=== PATIENT | male | born 1955 | race Caucasian/White ===

== ENCOUNTER 2017-04-29 12:01 | Outpatient (CLI) | payer OTHER ==
[2017-04-29] MEDS ORDERED: Iopamidol 370 76% 100 ML VIAL ONE (13:18)
--- NOTE | 2017-04-29 15:21 | CT ---
CT CHEST WITH CONTRAST CT ABDOMEN WITH CONTRAST CT PELVIS WITH CONTRAST: Date: 04/29/17 HISTORY: C61, malignant neoplasm of prostate. C79.5, malignant neoplasm of bone. COMPARISON: CT chest dated 09/04/16. CT abdomen/pelvis dated 04/19/16. FINDINGS: There is a 10.0 mm nodule in the right lower lobe. This is similar to the comparison examination. No new pulmonary nodule. No confluent air space consolidation, pneumothorax, or effusion. There is a small, likely tracheal diverticulum in the upper neck. Small AP window lymph nodes are similar to the comparison examination. No new adenopathy of the chest . Thyroid is unremarkable. No pericardial effusion. Spleen is unremarkable. Pancreas is unremarkable. There is diverticulum second portion of duodenum. Liver is unremarkable. Portal vein is patent. The gallbladder is normal. No dilated loops of large or small bowel. No free intraperitoneal gas or fluid. Small, fat-containing right-sided indirect inguinal hernia. Extensive atherosclerotic plaque throughout the aorta. No retroperitoneal adenopathy. Small right obturator lymph node is similar. No internal iliac adenopathy. The adrenal glands are unremarkable. There is a hypodensity of the interpolar right kidney which now measures up to 20.0 mm, previously 14 .0 mm in 2016, and is heterogeneous. There is moderate degenerative disc space height loss at L5-S1. Moderate facet arthropathy L4-5. Old right posterior 7th, 8th, and 9th rib fractures, with 8th and 9th rib fractures having some incom plete union. There are also some right lateral 8th, 9th, and 10th rib fractures, chronic. Old left 6th, 7th, and 8th rib fractures. No hyperacute fracture is seen. There is a relatively acute left posterior 11th rib fracture. There is some early callus formation around this fracture. No suspicious osteoblastic or osteolytic lesions. IMPRESSION: 1. No evidence of metastatic disease in chest, abdomen, or pelvis. 2. Mild size increase heterogeneous mass interpolar right kidney, now measuring up to 20.0 mm, which was previously poorly defined on the prior examinations. Dedicated renal protocol MRI of abdomen is recommended. 3. Relatively acute left posterolateral 11th rib fracture. 4. No interval size increase in the right lower lobe 7.0 mm nodule. CODE T. POS: [facility]
--- NOTE | 2017-04-29 19:07 | NM ---
WHOLE BODY BONE SCAN 04/29/17 COMPARISON: 10/18/16. HISTORY: History of prostate cancer. Evaluate for osseous metastatic disease. TECHNIQUE: A whole body bone scan is performed after administration of 27 millicuries of technetium 99m MDP. FINDINGS: There is stable uptake of the radiopharmaceutical within multiple posterior ribs which likely represe nt rib fractures. There is stable uptake in the upper sternum. There is stable uptake in the right gr eat toe near the metatarsophalangeal joint which likely represents degenerative change. Uptake in the spine is likely secondary to degenerative change. No suspicious areas of increased or decreased upta ke of the radiopharmaceutical are seen. Soft tissue activity is unremarkable. IMPRESSION: Stable bone scan without definite evidence of osseous metastases. POS: [facility]
== END 2017-04-29 12:02 | disposition home or self-care (01) ==
LOC: CT 12:01
PROVIDERS: ATTEND Internal Medicine Medical Oncology
DX: C61 Malignant neoplasm of prostate (principal); C79.51 Secondary malignant neoplasm of bone; N28.89 Other specified disorders of kidney and ureter
CPT/HCPCS: 71260; 74177; 78306; A9503

== ENCOUNTER 2017-05-11 09:01 | Outpatient (CLI) | payer OTHER ==
[~2017-05-11 09:01] MED LIST: Magnevist 469MG/ML 20 ML VIAL ONE
--- NOTE | 2017-05-11 13:30 | MRI ---
MRI ABDOMEN WITH AND WITHOUT IV CONTRAST: HISTORY: Right kidney masses on CT scan of 04/29/2017. FINDINGS: The liver, spleen, pancreas, adrenal glands, left kidney, and gallbladder appear normal. There are t wo lesions in the right kidney, measuring 1 cm superiorly and 1.5 cm in the right mid cortex, with lo w T1 signal, high T2 signal, and no postcontrast enhancement. These are consistent with cysts. There are prominent lymph nodes in the right retrocrural region with high T2 signal and post contrast enhancement, measuring 17 mm in largest dimension. No abdominal lymphadenopathy is seen. There is no evidence of aneurysmal dilatation of the abdominal aorta. Bone marrow signal is normal. IMPRESSION: Right renal cysts. POS: [facility]
== END 2017-05-11 09:02 | disposition home or self-care (01) ==
LOC: SCSMRI 09:01
PROVIDERS: ATTEND Internal Medicine Medical Oncology
DX: C79.51 Secondary malignant neoplasm of bone (principal); C61 Malignant neoplasm of prostate; N28.1 Cyst of kidney, acquired
CPT/HCPCS: 74183; A9579

== ENCOUNTER 2017-09-17 20:38 | Emergency (ER) | payer OTHER ==
[2017-09-17 21:06] LABS: Bilirubin Negative (Negative); Blood, Urine Negative (Negative); Clarity CLEAR (Clear); Glucose, Urine (Dipstick) Negative (Negative); Leukocyte Negative (Negative); Nitrite Negative (Negative); Protein, Urine (Dipstick) Negative (Neg-Trace); Specific Gravity, Urine 1.004 (1.002-1.036); Urobilinogen 0.2 mg/dL (0.2-1.0); pH, Urine 5.5 (5.0-9.0)
[2017-09-17 21:25] LABS: Amphetamine Not Detected (NotDetected); Barbiturates Screen Not Detected (NotDetected); Benzodiazepine Screen Not Detected (NotDetected); Cocaine Metabolite Screen Not Detected (NotDetected); Medtox Control Line Valid? VALID (VALID); Medtox Reader # READER 1; Methadone Not Detected (NotDetected); Methamphetamine Not Detected (NotDetected); Opiate Screen Not Detected (NotDetected); Oxycodone Screen Not Detected (NotDetected); Phencyclidine (PCP) Not Detected (NotDetected); THC/Cannabinoid Screen Not Detected (NotDetected); Tricyclic Screen Not Detected (NotDetected)
[2017-09-17 21:31] LABS: #Basophils 0.1 thou/uL (0.0-0.2); #Eosinphils 0.2 thou/uL (0.0-0.7); #Lymphocytes 1.7 thou/uL (1.20-3.40); #Monocytes 0.3 thou/uL (0.11-0.59); %Basophils 1.3 % (0.0-1.0); %Eosinophils 3.1 % (0.0-10.0); %Lymphocytes 27.8 % (21.0-51.0); %Monocytes 4.6 % (0.0-10.0); %Neutrophils 63.2 % (42.0-75.0); Hemoglobin 14.1 g/dL (14.0-18.0); Mean Corpuscular HGB CONC 36.2 g/dL (32.0-36.0); Mean Corpuscular Hemoglobin 36.9 pg (27.0-31.0); Mean Platelet Volume 6.3 fL (7.4-10.4); Platelet Count 211 thou/uL (130-400); RBC Distribution Width 11.6 % (11.5-14.5); Red Blood Cell (RBC) Count 3.81 mill/uL (4.70-6.10); White Blood Cell (WBC) Count 6.3 thou/uL (4.8-10.8)
[2017-09-17 21:44] LABS: ALT (SGPT) 20 U/L (8-55); AST (SGOT) 25 U/L (5-34); Acetaminophen Less than 6.0 mcg/mL (10.0-30.0); Albumin 4.1 g/dL (3.5-5.0); Alcohol 96 mg/dL (Less than 10); Alkaline Phosphatase 62 U/L (40-150); Anion Gap 16 mmol/L (10-20); BUN (Urea Nitrogen) 10 mg/dL (8.4-25.7); Bilirubin, Total 0.2 mg/dL (0.2-1.2); CK (CPK) 106 U/L (30-200); Calc. Creatinine Clearance 0 mL/min (70-130); Calcium 9.1 mg/dL (7.8-10.44); Carbon Dioxide 18 mmol/L (22-29); Chloride 108 mmol/L (98-107); Estimated GFR-MDRD Greater than 90; Glucose 99 mg/dL (70-105); Protein, Total 7.1 g/dL (6.0-8.3); Salicylate Less than 8.0 mg/dL (15.0-30.0); Sodium 138 mmol/L (136-145)
--- NOTE | 2017-09-17 23:12 | RAD ---
PORTABLE CHEST ONE VIEW: 09/17/17 at 9:14 p.m. HISTORY: Chest pain, COPD, shortness of breath. FINDINGS: Comparison made to exam of 11/27/16. The heart size is normal. Changes of COPD are again seen. Old right sided rib fractures are demonstra matt. No lobar consolidation, pneumothoraces or pleural effusions are identified. Old rib fractures ar e again seen. IMPRESSION: No radiographic evidence of acute cardiopulmonary process. POS: [facility]
[2017-09-18] MEDS ORDERED: Amlodipine 5 MG TAB PO SCH (08:30)
[2017-09-18] MEDS ORDERED: Aspirin 81 mg Enteric Coated Tablet ONE (08:46)
[2017-09-18] MEDS ORDERED: Nicotine 14 MG PATCH TOP SCH (09:00)
[2017-09-18] MEDS ORDERED: Gabapentin 300 MG CAP PO SCH (09:00)
[2017-09-18] MEDS ORDERED: HYDROcodone/Acetaminophen 5/325 mg Tablet ONE (15:06)
[2017-09-20] MEDS ORDERED: traZODone HCl 50 MG TAB PO PRN (00:16)
[2017-09-20] MEDS ORDERED: Amlodipine 5 MG TAB PO SCH (07:30)
[2017-09-20] MEDS ORDERED: Gabapentin 300 MG CAP PO SCH (07:30)
[2017-09-21] MEDS ORDERED: Amlodipine 5 MG TAB PO SCH (07:45)
== END 2017-09-21 16:58 ==
LOC: ERS 20:38
DX: R45.851 Suicidal ideations (principal); J44.9 Chronic obstructive pulmonary disease, unspecified; I10 Essential (primary) hypertension; F32.9 Major depressive disorder, single episode, unspecified; F41.9 Anxiety disorder, unspecified; F17.210 Nicotine dependence, cigarettes, uncomplicated; Z85.46 Personal history of malignant neoplasm of prostate; Z85.45 Personal history of malignant neoplasm of unspecified male genital organ; Z85.028 Personal history of other malignant neoplasm of stomach; Z79.82 Long term (current) use of aspirin; Z79.899 Other long term (current) drug therapy
CPT/HCPCS: 36415; 71045; 80053; 80306; 80307; 81003; 82550; 84443; 85025; 93005; 94760

== ENCOUNTER 2017-10-20 09:09 | Outpatient (CLI) | payer OTHER ==
--- NOTE | 2017-10-20 14:16 | NM ---
WHOLE BODY BONE SCAN: HISTORY: A 62-year-old male with malignant neoplasm of the prostate. COMPARISON: 04/29/2017 FINDINGS: There are stable multiple foci of abnormal increased activity involving multiple right ribs and at le ast one left rib, as well as a small stable focus in the right posterior neck and left mandible regio n. There is also stable increased activity in the feet, ankles, and shoulders. There is bilateral r enal and bladder activity. IMPRESSION: 1. Stable appearance of the bony skeleton. 2. Multiple focal areas of increased activity involving the ribs, right posterior neck, left mandible , feet and ankle regions, and both shoulders, unchanged from prior study. POS: [facility]
== END 2017-10-20 09:10 | disposition home or self-care (01) ==
LOC: NM 09:09
PROVIDERS: ATTEND Internal Medicine Medical Oncology
DX: C61 Malignant neoplasm of prostate (principal)
CPT/HCPCS: 78306; A9503

== ENCOUNTER 2017-10-30 17:12 | Inpatient (IN) | payer OTHER ==
[2017-10-30 17:53] LABS: Hemoglobin 15.3 g/dL (14.0-18.0); Mean Corpuscular HGB CONC 34.1 g/dL (32.0-36.0); Mean Corpuscular Hemoglobin 35.7 pg (27.0-31.0); Platelet Count 284 thou/uL (130-400); Red Blood Cell (RBC) Count 4.28 mill/uL (4.70-6.10); White Blood Cell (WBC) Count 7.1 thou/uL (4.8-10.8)
--- NOTE | 2017-10-30 18:01 | RAD ---
FRONTAL VIEW CHEST SERIES: INDICATIONS: Short of breath. Dizziness. COMPARISON: 09/17/2017 FINDINGS: Redemonstration of bilateral chronic rib deformities. No new consolidation or effusion. No discrete pneumothorax. The cardiac silhouette is normal in size. IMPRESSION: 1. No focal consolidation. 2. Chronic bilateral rib deformities. POS: [facility]
[2017-10-30 18:11] LABS: ALT (SGPT) 15 U/L (8-55); AST (SGOT) 22 U/L (5-34); Albumin 4.4 g/dL (3.5-5.0); Alkaline Phosphatase 64 U/L (40-150); Anion Gap 19 mmol/L (10-20); BUN (Urea Nitrogen) 13 mg/dL (8.4-25.7); Bilirubin, Total 0.3 mg/dL (0.2-1.2); CK (CPK) 108 U/L (30-200); Calc. Creatinine Clearance 0 mL/min (70-130); Calcium 9.3 mg/dL (7.8-10.44); Carbon Dioxide 20 mmol/L (22-29); Chloride 103 mmol/L (98-107); Estimated GFR-MDRD Greater than 90; Globulin 3.1 g/dL (2.4-3.5); Glucose 94 mg/dL (70-105); Potassium 3.6 mmol/L (3.5-5.1); Protein, Total 7.5 g/dL (6.0-8.3); Sodium 138 mmol/L (136-145)
[2017-10-30 18:15] LABS: CKMB 1.7 ng/mL (0-6.6); Troponin I Less than 0.010 ng/mL (< 0.028)
[2017-10-30 18:22] LABS: #Basophils 0.1 thou/uL (0.0-0.2); #Eosinphils 0.2 thou/uL (0.0-0.7); #Monocytes 0.5 thou/uL (0.11-0.59); #Neutrophils 4.3 thou/uL (1.40-6.50); %Eosinophils 3.5 % (0.0-10.0); %Lymphocytes 28.7 % (21.0-51.0); %Monocytes 6.7 % (0.0-10.0); %Neutrophils 60.1 % (42.0-75.0); PLT Morphology Comment Appears Adequate
[2017-10-30] MEDS ORDERED: methylPREDNISolone Sod Succ/PF 125 MG/2 ML VIAL ONE (19:12)
[2017-10-30] MEDS ORDERED: Water For Inject, Bacteriostat 0 ML ONE (19:12)
[2017-10-30] MEDS ORDERED: Magnesium Sulfate 2 GM in Sodium Chloride 0.9% 100 ML IVPB SCH (19:15)
[2017-10-30] MEDS ORDERED: Albuterol Sulfate 2.5 mg/0.5 ml Neb ONE (19:26)
[2017-10-30] MEDS ORDERED: Albuterol Sulfate 2.5 mg/3 ml Neb ONE (19:26)
[2017-10-30] MEDS ORDERED: Azithromycin 500 MG VIAL ONE (20:12)
[2017-10-30 21:20] LABS: Troponin I Less than 0.010 ng/mL (< 0.028)
[2017-10-30] MEDS ORDERED: cefTRIAXone\\ROCEPHIN 2 GM VIAL ONE (21:49)
[2017-10-30] MEDS ORDERED: Ondansetron PF 4 MG/2 ML Vial IVP PRN (21:54)
[2017-10-30] MEDS ORDERED: Acetaminophen 325 MG TAB PO PRN (21:54)
[2017-10-30] MEDS ORDERED: TRAMADOL HCL 200 MG PO PRN (22:03)
[2017-10-30 22:44] VITALS: BMI 27.1
[2017-10-31 00:15] LABS: Troponin I Less than 0.010 ng/mL (< 0.028)
[2017-10-31] MEDS: HYDROcodone/Acetaminophen 7.5/325 mg Tablet PO PRN ×4 (00:35→21:22)
--- NOTE | 2017-10-31 02:49 | HP ---
CODE STATUS: FULL CODE. TIME OF EVALUATION: 08:30 p.m. CHIEF COMPLAINT: Worsening shortness of breath. HISTORY OF PRESENT ILLNESS: This is a 62-year-old male patient with past medical history of COPD, came to the hospital with severe gradually worsening shortness of breath, associated with cough, scant sputum production. No clear triggers, no alleviating factors. REVIEW OF SYSTEMS: Constitutional: No fever, no chills, generalized weakness. Respiratory: Cough, sputum production, shortness of breath. Cardiovascular: No chest pain, palpitations, or shortness of breath. Gastrointestinal: No nausea, no vomiting, diarrhea or abdominal pain. SENIOR TAX ACCOUNTANT: No dizziness, headache or feeling lightheaded. Genitourinary: No burning on urination. Extremities: No leg swelling. All other systems reviewed were negative except for the findings mentioned above. PAST MEDICAL HISTORY: COPD, right femur fracture, hepatitis C, prostate cancer. PAST SURGICAL HISTORY: Hip surgery, testicular surgery, perforated bowel, . PSYCHIATRIC HISTORY: Anxiety, depression. SOCIAL HISTORY: No alcohol, no drugs. The patient uses marijuana and smokes cigarettes 1 pack per day. FAMILY HISTORY: Reviewed and noncontributory for current presentation. ALLERGIES: No known drug allergies. REPORTED MEDICATIONS: Trazodone, sertraline, amlodipine, gabapentin, aspirin, and tramadol. PHYSICAL EXAMINATION: VITAL SIGNS: On presentation, blood pressure 120/78 with heart rate 85, respiratory rate was 20, temperature 98.2, pain 7/10, oxygen saturation 98 on room air. The patient did have a drop in saturation on initial presentation with saturation less than 90 on room air. GENERAL APPEARANCE: The patient is alert and oriented, not in any acute distress. HEENT: Eyes: Normal conjunctivae. Moist oral mucosa. Anicteric. NECK: No JVD. RESPIRATORY: Bilateral air entry is decreased, bilateral wheezing, symmetric expansion. CARDIOVASCULAR: Normal rate, regular rhythm. No murmurs, no gallop, no edema. ABDOMEN: Soft, normal bowel sounds. MUSCULOSKELETAL: Baseline range of motion and strength. No tenderness. SKIN: Warm and intact. No pallor, no rash, no redness. NEUROLOGIC: Baseline sensory. No evidence of any new focal weakness. Baseline speech. Cranial nerves seem to be intact. PSYCHIATRIC: The patient is in good mood. No anxiety, oriented, optimal judgment. EKG: The patient has normal sinus rhythm with a rate of 82, SC 188, QRS 86, QT corrected 439. Septal infarct, age undetermined, ST and T-wave abnormalities, consider inferior ischemia. RADIOLOGY: X-ray was reviewed bilateral chronic rib deformities, no consolidation, no pneumothorax. LABORATORY DATA: Labs were reviewed. White count 7.1, hemoglobin 15.3, MCV 105 , platelet count 284. Chemistry: Sodium 138, potassium 3.6, chloride 103, carbon dioxide 20, anion gap 19, BUN 13, creatinine 0.8, GFR greater than 90, glucose 94, calcium 9.3, total bilirubin 0.3. LFTs are negative. Troponins are negative x2. ASSESSMENT AND PLAN: The patient will be placed in the hospital with following medical problems: 1. Severe acute on chronic obstructive pulmonary disease exacerbation with hypoxic respiratory failure on room air, the patient needing oxygen support to keep saturation above 90. We will treat with nebs, steroids, and antibiotics. 2. Acute hypoxic respiratory failure. The patient has saturation below 90 on room air on presentation, continue oxygen support, we will treat underlying condition. 3. History of hepatitis C, this is chronic, stable, monitor. 4. Deep venous thrombosis prophylaxis. MTDD
[2017-10-31 03:37] LABS: #Basophils 0.1 thou/uL (0.0-0.2); #Lymphocytes 0.3 thou/uL (1.20-3.40); #Neutrophils 6.3 thou/uL (1.40-6.50); %Basophils 1.2 % (0.0-1.0); %Eosinophils 0.3 % (0.0-10.0); %Lymphocytes 3.8 % (21.0-51.0); %Monocytes 0.3 % (0.0-10.0); %Neutrophils 94.3 % (42.0-75.0); Hemoglobin 14.2 g/dL (14.0-18.0); Mean Corpuscular HGB CONC 33.5 g/dL (32.0-36.0); Mean Platelet Volume 6.7 fL (7.4-10.4); Platelet Count 253 thou/uL (130-400); RBC Distribution Width 12.8 % (11.5-14.5); Red Blood Cell (RBC) Count 4.07 mill/uL (4.70-6.10); White Blood Cell (WBC) Count 6.7 thou/uL (4.8-10.8)
[2017-10-31 03:45] LABS: Anion Gap 17 mmol/L (10-20); BUN (Urea Nitrogen) 15 mg/dL (8.4-25.7); Calc. Creatinine Clearance 104 mL/min (70-130); Calcium 9.1 mg/dL (7.8-10.44); Carbon Dioxide 18 mmol/L (22-29); Chloride 106 mmol/L (98-107); Estimated GFR-MDRD 84; Glucose 207 mg/dL (70-105); Sodium 137 mmol/L (136-145)
[2017-10-31 03:48] LABS: Troponin I Less than 0.010 ng/mL (< 0.028)
[2017-10-31] MEDS ORDERED: Senokot 8.6 MG TAB PO PRN (07:13)
[2017-10-31] MEDS ORDERED: Chloraseptic Spray 180 ml Bottle PO PRN (07:13)
[2017-10-31] MEDS ORDERED: Milk Of Magnesia 30 ML UDCUP PO PRN (07:13)
[2017-10-31] MEDS ORDERED: traMADol HCl 50 MG TAB PO PRN (07:13)
[2017-10-31] MEDS ORDERED: Ondansetron ODT 4 MG TAB PO PRN (07:13)
[2017-10-31] MEDS ORDERED: Sodium Chloride 0.65% Nasal 44 ML BOT EA NARE PRN (07:13)
[2017-10-31] MEDS ORDERED: Loperamide HCl 2 MG CAP PO PRN (07:13)
[2017-10-31] MEDS ORDERED: Loratadine 10 MG TAB PO PRN (07:13)
[2017-10-31] MEDS ORDERED: Mag-Al 1200 mg/1200 mg/30 ML UDCUP PO PRN (07:13)
[2017-10-31] MEDS ORDERED: Diabetic Tussin 200 MG/10 ML UDCUP PO PRN (07:13)
[2017-10-31] MEDS ORDERED: Zolpidem Tartrate 5 MG TAB PO PRN (07:13)
[2017-10-31] MEDS ORDERED: HYDROcodone/Acetaminophen 5/325 mg Tablet PO PRN (07:13)
[2017-10-31] MEDS ORDERED: Eucerin (Mineral Oil/Petrolatum,White) 30 gm Jar TOP PRN (07:13)
[2017-10-31] MEDS ORDERED: Benzonatate 100 MG CAP PO PRN (07:13)
[2017-10-31] MEDS ORDERED: Artificial Tears 18 DROP/0.9 ML EA EYE PRN (07:13)
[2017-10-31] MEDS ORDERED: hydrALAZINE 20 MG/ML VIAL SLOW IVP PRN (07:13)
[2017-10-31] MEDS: Famotidine 20 MG TAB PO SCH ×2 (09:01→21:22)
[2017-10-31] MEDS: Aspirin 81 mg Enteric Coated Tablet PO SCH (09:01)
[2017-10-31] MEDS: Enoxaparin Sodium 40 MG/0.4 ML SYRINGE SC SCH (09:01)
[2017-10-31] MEDS: Amlodipine 5 MG TAB PO SCH (09:01)
--- NOTE | 2017-10-31 12:26 | PDOC.PN ---
- Subjective Encounter Start Date: 10/31/17 Encounter Start Time: 08:30 -: old records requested/rev Patient seen and examined. No new complaints. No overnight events has rib cage pain, dyspnea improving, he is on room air he gets hot flushes - Objective Resuscitation Status: Resuscitation Status FULL:Full Resuscitation MAR Reviewed: Yes Vital Signs & Weight: Vital Signs (12 hours) Temp Pulse Resp BP Pulse Ox 10/31/17 10:42 85 16 97 10/31/17 09:01 81 10/31/17 08:05 98.2 F 81 20 161/84 H 94 L 10/31/17 07:56 87 18 97 10/31/17 04:00 97.8 F 79 18 138/60 98 10/31/17 02:10 90 18 98 10/31/17 00:41 97.9 F 80 24 H 132/77 98 Weight Weight 189 lb 4.8 oz Result Diagrams: 10/31/17 03:16 10/31/17 03:16 Radiology Reviewed by me: Yes (chest xray reviewed by me) EKG Reviewed by me: Yes (nsr) Phys Exam - Physical Examination Constitutional: NAD HEENT: PERRLA, moist MMs, sclera anicteric Neck: no JVD, supple Respiratory: no rales, wheezing present Cardiovascular: RRR, no significant murmur, no rub Gastrointestinal: soft, non-tender, no distention, positive bowel sounds Musculoskeletal: no edema, pulses present Neurological: non-focal, normal sensation, moves all 4 limbs Psychiatric: normal affect, A&O x 3 Skin: no rash, normal turgor Dx/Plan (1) COPD exacerbation Code(s): J44.1 - CHRONIC OBSTRUCTIVE PULMONARY DISEASE W (ACUTE) EXACERBATION Status: Acute (2) Alcohol abuse Code(s): F10.10 - ALCOHOL ABUSE, UNCOMPLICATED Status: Chronic (3) Bone metastases Code(s): C79.51 - SECONDARY MALIGNANT NEOPLASM OF BONE Status: Chronic (4) HTN (hypertension) Code(s): I10 - ESSENTIAL (PRIMARY) HYPERTENSION Status: Chronic (5) Macrocytosis without anemia Code(s): D75.89 - OTHER SPECIFIED DISEASES OF BLOOD AND BLOOD-FORMING ORGANS Status: Chronic (6) Stage IV adenocarcinoma of prostate Code(s): C61 - MALIGNANT NEOPLASM OF PROSTATE Status: Chronic (7) Tobacco abuse Code(s): Z72.0 - TOBACCO USE Status: Chronic - Plan cont current plan of care, continue antibiotics, respiratory therapy * continue duoneb, * will add dulera * continue solumedrol * continue rocephin and azithromycin * monitor respiratory status * counselled to avoid smoking * pt has PET scan appointment on and then he will follow up with dr tan * medication reviewed as below * symptomatic treatment. Review of Systems - Review of Systems Constitutional: weakness. negative: fever, chills, sweats, malaise, other ENT: negative: Ear Pain, Ear Discharge, Nose Pain, Nose Discharge, Nose Congestion, Mouth Pain, Mouth Swelling, Throat Pain, Throat Swelling, Other Respiratory: Shortness of Breath, SOB with Excertion. negative: Cough, Dry, Hemoptysis, Pleuritic Pain, Sputum, Wheezing Cardiovascular: negative: chest pain, palpitations, orthopnea, paroxysmal nocturnal dyspnea, edema, light headedness, other Gastrointestinal: negative: Nausea, Vomiting, Abdominal Pain, Diarrhea, Constipation, Melena, Hematochezia, Other Genitourinary: negative: Dysuria, Frequency, Incontinence, Hematuria, Retention , Other Musculoskeletal: negative: Neck Pain, Shoulder Pain, Arm Pain, Back Pain, Hand Pain, Leg Pain, Foot Pain, Other Skin: negative: Rash, Lesions, Kit, Bruising, Other - Medications/Allergies Allergies/Adverse Reactions: Allergies Allergy/AdvReac Type Severity Reaction Status Date / Time No Known Drug Allergies Allergy Verified 10/30/17 22:45 Medications: Current Medications Acetaminophen (Tylenol) 650 mg PO Q4H PRN PRN Reason: Headache/Fever or Pain Hydrocodone Bitart/Acetaminophen ([place] 7.5/325) 1 tab PO Q4H PRN PRN Reason: Moderate Pain (4-6) Last Admin: 10/31/17 05:33 Dose: 1 tab Hydrocodone Bitart/Acetaminophen ([place] 5/325) 1 tab PO Q4H PRN PRN Reason: Moderate Pain (4-6) Al Hydroxide/Mg Hydroxide (Maalox) 15 ml PO Q4H PRN PRN Reason: Heartburn or Indigestion Albuterol/Ipratropium (Duoneb) 3 ml NEB [id number] [facility] Last Admin: 10/31/17 10:42 Dose: 3 ml Amlodipine Besylate (Norvasc) 5 mg PO DAILY [facility] Last Admin: 10/31/17 09:01 Dose: 5 mg Artificial Tears (Tears Naturale) 0 drop EA EYE PRN PRN PRN Reason: Dry Eyes Aspirin (Ecotrin) 81 mg PO DAILY [facility] Last Admin: 10/31/17 09:01 Dose: 81 mg Benzonatate (Tessalon) 100 mg PO Q4H PRN PRN Reason: Cough Enoxaparin Sodium (Lovenox) 40 mg SC 0900 [facility] Last Admin: 10/31/17 09:01 Dose: 40 mg Famotidine (Pepcid) 20 mg PO BID [facility] Last Admin: 10/31/17 09:01 Dose: 20 mg Guaifenesin (Robitussin Sf) 200 mg PO Q4H PRN PRN Reason: Cough Hydralazine HCl (Apresoline) 10 mg SLOW IVP Q4H PRN PRN Reason: Systolic BP > 180 Azithromycin 500 mg/ Sodium (Chloride) 250 mls @ 250 mls/hr IVPB 2200 [facility] Ceftriaxone Sodium 1 gm/ (Sodium Chloride) 100 mls @ 200 mls/hr IVPB 2100 [facility] Loperamide HCl (Imodium) 2 mg PO PRN PRN PRN Reason: Diarrhea/Loose Stools Loratadine (Claritin) 10 mg PO DAILYPRN PRN PRN Reason: Sinus Symptoms Magnesium Hydroxide (Milk Of Magnesium) 30 ml PO DAILYPRN PRN PRN Reason: Constipation Methylprednisolone Sodium Succinate (Solu-Medrol) 40 mg IVP Q6HR [facility] Last Admin: 10/31/17 05:34 Dose: 40 mg Mineral Oil/White Petrolatum (Eucerin Cream) 0 gm TOP BIDPRN PRN PRN Reason: Dry Skin Mometasone Furoate/Formoterol Fumar (Dulera 200 Mcg/5 Mcg Inhaler) 2 puff INH BID-RT [facility] Ondansetron HCl (Zofran) 4 mg IVP Q6H PRN PRN Reason: Nausea/Vomiting Ondansetron HCl (Zofran Odt) 4 mg PO Q6H PRN PRN Reason: Nausea/Vomiting Phenol (Chloraseptic [place] 180 Ml Bot) 0 ml PO PRN PRN PRN Reason: Sore Throat Senna (Senokot) 2 tab PO HSPRN PRN PRN Reason: Constipation Sertraline HCl (Zoloft) 100 mg PO HS [facility] Sodium Chloride ([place] Nasal [place] 0.65%) 0 ml EA NARE QIDPRN PRN PRN Reason: Nasal Congestion Tramadol HCl (Ultram) 50 mg PO Q4H PRN PRN Reason: Moderate Pain (4-6) Trazodone HCl (Desyrel) 150 mg PO HS [facility] Zolpidem Tartrate (Ambien) 5 mg PO HSPRN PRN PRN Reason: Insomnia
[2017-10-31] MEDS: Mometasone/Formoterol 120 PUFF INHALER INH SCH (17:59)
[2017-10-31] MEDS: traZODone HCl 150 MG TAB PO SCH (21:22)
[2017-10-31] MEDS: cefTRIAXone\\ROCEPHIN 1 GM in Sodium Chloride 0.9% 100 ML IVPB SCH (21:22)
[2017-10-31] MEDS: Azithromycin 500 MG in Sodium Chloride 0.9% 250 ML 250 ML IVPB SCH (21:30)
[2017-11-01] MEDS: Mometasone/Formoterol 120 PUFF INHALER INH SCH ×2 (06:36→18:52)
[2017-11-01] MEDS: Enoxaparin Sodium 40 MG/0.4 ML SYRINGE SC SCH (10:15)
[2017-11-01] MEDS: Aspirin 81 mg Enteric Coated Tablet PO SCH (10:15)
[2017-11-01] MEDS: HYDROcodone/Acetaminophen 7.5/325 mg Tablet PO PRN ×2 (10:16→17:33)
[2017-11-01] MEDS: Amlodipine 5 MG TAB PO SCH (10:16)
[2017-11-01] MEDS: Famotidine 20 MG TAB PO SCH ×2 (10:16→20:36)
--- NOTE | 2017-11-01 14:31 | PDOC.PN ---
- Subjective Encounter Start Date: 11/01/17 Encounter Start Time: 10:15 Patient seen and examined. No new complaints. No overnight events - Objective Resuscitation Status: Resuscitation Status FULL:Full Resuscitation MAR Reviewed: Yes Vital Signs & Weight: Vital Signs (12 hours) Temp Pulse Resp BP Pulse Ox 11/01/17 12:11 98.4 F 84 22 H 153/84 H 11/01/17 10:32 84 18 93 L 11/01/17 08:49 98.1 F 87 18 11/01/17 08:10 98.1 F 87 18 157/83 H 95 11/01/17 06:34 86 16 97 11/01/17 04:00 98.0 F 74 20 143/69 H 95 Weight Weight 189 lb 4.8 oz I&O: 10/31/17 11/01/17 11/02/17 06:59 06:59 06:59 Intake Total 1820 Balance 1820 Result Diagrams: 10/31/17 03:16 10/31/17 03:16 Phys Exam - Physical Examination Constitutional: NAD HEENT: PERRLA, moist MMs, sclera anicteric Neck: no JVD, supple Respiratory: no wheezing, no rales, no rhonchi Cardiovascular: RRR, no significant murmur, no rub Gastrointestinal: soft, non-tender, no distention, positive bowel sounds Musculoskeletal: no edema, pulses present Neurological: non-focal, normal sensation, moves all 4 limbs Lymphatic: no nodes Psychiatric: normal affect, A&O x 3 Skin: no rash, normal turgor Dx/Plan (1) COPD exacerbation Code(s): J44.1 - CHRONIC OBSTRUCTIVE PULMONARY DISEASE W (ACUTE) EXACERBATION Status: Acute (2) Alcohol abuse Code(s): F10.10 - ALCOHOL ABUSE, UNCOMPLICATED Status: Chronic (3) Bone metastases Code(s): C79.51 - SECONDARY MALIGNANT NEOPLASM OF BONE Status: Chronic (4) HTN (hypertension) Code(s): I10 - ESSENTIAL (PRIMARY) HYPERTENSION Status: Chronic (5) Macrocytosis without anemia Code(s): D75.89 - OTHER SPECIFIED DISEASES OF BLOOD AND BLOOD-FORMING ORGANS Status: Chronic (6) Stage IV adenocarcinoma of prostate Code(s): C61 - MALIGNANT NEOPLASM OF PROSTATE Status: Chronic (7) Tobacco abuse Code(s): Z72.0 - TOBACCO USE Status: Chronic - Plan cont current plan of care, continue antibiotics, respiratory therapy * reduce solumedrol today 20 mg iv q 6 * continue rocephin and azithromycin * continue duoneb and dulera * dc tele * transfer to medical * overall doing well * medication reviewed as below * symptomatic treatment. Review of Systems - Review of Systems Eyes: negative: Pain, Vision Change, Conjunctivae Inflammation, Eyelid Inflammation, Redness, Other ENT: negative: Ear Pain, Ear Discharge, Nose Pain, Nose Discharge, Nose Congestion, Mouth Pain, Mouth Swelling, Throat Pain, Throat Swelling, Other Respiratory: Shortness of Breath, SOB with Excertion. negative: Cough, Dry, Hemoptysis, Pleuritic Pain, Sputum, Wheezing Cardiovascular: negative: chest pain, palpitations, orthopnea, paroxysmal nocturnal dyspnea, edema, light headedness, other Gastrointestinal: negative: Nausea, Vomiting, Abdominal Pain, Diarrhea, Constipation, Melena, Hematochezia, Other Genitourinary: negative: Dysuria, Frequency, Incontinence, Hematuria, Retention , Other Musculoskeletal: negative: Neck Pain, Shoulder Pain, Arm Pain, Back Pain, Hand Pain, Leg Pain, Foot Pain, Other Skin: negative: Rash, Lesions, Kit, Bruising, Other - Medications/Allergies Allergies/Adverse Reactions: Allergies Allergy/AdvReac Type Severity Reaction Status Date / Time No Known Drug Allergies Allergy Verified 10/30/17 22:45 Medications: Current Medications Acetaminophen (Tylenol) 650 mg PO Q4H PRN PRN Reason: Headache/Fever or Pain Hydrocodone Bitart/Acetaminophen ([place] 7.5/325) 1 tab PO Q4H PRN PRN Reason: Moderate Pain (4-6) Last Admin: 11/01/17 10:16 Dose: 1 tab Hydrocodone Bitart/Acetaminophen ([place] 5/325) 1 tab PO Q4H PRN PRN Reason: Moderate Pain (4-6) Al Hydroxide/Mg Hydroxide (Maalox) 15 ml PO Q4H PRN PRN Reason: Heartburn or Indigestion Last Admin: 10/31/17 21:26 Dose: 15 ml Albuterol/Ipratropium (Duoneb) 3 ml NEB [id number] [facility] Last Admin: 11/01/17 10:32 Dose: 3 ml Amlodipine Besylate (Norvasc) 5 mg PO DAILY [facility] Last Admin: 11/01/17 10:16 Dose: 5 mg Artificial Tears (Tears Naturale) 0 drop EA EYE PRN PRN PRN Reason: Dry Eyes Aspirin (Ecotrin) 81 mg PO DAILY [facility] Last Admin: 11/01/17 10:15 Dose: 81 mg Benzonatate (Tessalon) 100 mg PO Q4H PRN PRN Reason: Cough Enoxaparin Sodium (Lovenox) 40 mg SC 0900 [facility] Last Admin: 11/01/17 10:15 Dose: 40 mg Famotidine (Pepcid) 20 mg PO BID [facility] Last Admin: 11/01/17 10:16 Dose: 20 mg Guaifenesin (Robitussin Sf) 200 mg PO Q4H PRN PRN Reason: Cough Hydralazine HCl (Apresoline) 10 mg SLOW IVP Q4H PRN PRN Reason: Systolic BP > 180 Azithromycin 500 mg/ Sodium (Chloride) 250 mls @ 250 mls/hr IVPB 2200 [facility] Last Admin: 10/31/17 21:30 Dose: 250 mls Ceftriaxone Sodium 1 gm/ (Sodium Chloride) 100 mls @ 200 mls/hr IVPB 2100 [facility] Last Admin: 10/31/17 21:22 Dose: 100 mls Loperamide HCl (Imodium) 2 mg PO PRN PRN PRN Reason: Diarrhea/Loose Stools Loratadine (Claritin) 10 mg PO DAILYPRN PRN PRN Reason: Sinus Symptoms Magnesium Hydroxide (Milk Of Magnesium) 30 ml PO DAILYPRN PRN PRN Reason: Constipation Last Admin: 11/01/17 12:12 Dose: 30 ml Methylprednisolone Sodium Succinate (Solu-Medrol) 20 mg IVP Q6HR [facility] Last Admin: 11/01/17 12:12 Dose: 20 mg Mineral Oil/White Petrolatum (Eucerin Cream) 0 gm TOP BIDPRN PRN PRN Reason: Dry Skin Mometasone Furoate/Formoterol Fumar (Dulera 200 Mcg/5 Mcg Inhaler) 2 puff INH BID-RT [facility] Last Admin: 11/01/17 06:36 Dose: 2 puff Ondansetron HCl (Zofran) 4 mg IVP Q6H PRN PRN Reason: Nausea/Vomiting Ondansetron HCl (Zofran Odt) 4 mg PO Q6H PRN PRN Reason: Nausea/Vomiting Phenol (Chloraseptic [place] 180 Ml Bot) 0 ml PO PRN PRN PRN Reason: Sore Throat Senna (Senokot) 2 tab PO HSPRN PRN PRN Reason: Constipation Sertraline HCl (Zoloft) 100 mg PO [facility] Last Admin: 10/31/17 21:22 Dose: 100 mg Sodium Chloride ([place] Nasal [place] 0.65%) 0 ml EA NARE QIDPRN PRN PRN Reason: Nasal Congestion Tramadol HCl (Ultram) 50 mg PO Q4H PRN PRN Reason: Moderate Pain (4-6) Trazodone HCl (Desyrel) 150 mg PO [facility] Last Admin: 10/31/17 21:22 Dose: 150 mg Zolpidem Tartrate (Ambien) 5 mg PO HSPRN PRN PRN Reason: Insomnia
[2017-11-01] MEDS: traZODone HCl 150 MG TAB PO SCH (20:36)
[2017-11-01] MEDS: cefTRIAXone\\ROCEPHIN 1 GM in Sodium Chloride 0.9% 100 ML IVPB SCH (20:36)
[2017-11-01] MEDS: Azithromycin 500 MG in Sodium Chloride 0.9% 250 ML 250 ML IVPB SCH (21:22)
[2017-11-02] MEDS: HYDROcodone/Acetaminophen 7.5/325 mg Tablet PO PRN ×3 (05:55→20:28)
[2017-11-02] MEDS: Mometasone/Formoterol 120 PUFF INHALER INH SCH ×2 (06:26→19:01)
[2017-11-02] MEDS: Enoxaparin Sodium 40 MG/0.4 ML SYRINGE SC SCH (08:43)
[2017-11-02] MEDS: Famotidine 20 MG TAB PO SCH ×2 (08:43→20:29)
[2017-11-02] MEDS: Amlodipine 5 MG TAB PO SCH (08:43)
[2017-11-02] MEDS: Aspirin 81 mg Enteric Coated Tablet PO SCH (08:43)
--- NOTE | 2017-11-02 11:45 | PDOC.PN ---
- Subjective Encounter Start Date: 11/02/17 Encounter Start Time: 08:30 Patient seen and examined. No new complaints. No overnight events - Objective Resuscitation Status: Resuscitation Status FULL:Full Resuscitation MAR Reviewed: Yes Vital Signs & Weight: Vital Signs (12 hours) Temp Pulse Resp BP BP Pulse Ox 11/02/17 10:15 75 16 94 L 11/02/17 08:48 98.9 F 78 16 11/02/17 08:43 78 133/81 11/02/17 08:27 98.9 F 78 18 133/81 91 L 11/02/17 06:28 73 16 94 L 11/02/17 06:26 73 16 94 L 11/02/17 05:00 97.9 F 76 18 122/73 92 L Weight Weight 189 lb 4.8 oz I&O: 11/01/17 11/02/17 11/03/17 06:59 06:59 06:59 Intake Total 0 2049 Balance 0 2049 Result Diagrams: 10/31/17 03:16 10/31/17 03:16 Additional Labs: Accuchecks 11/02/17 04:42 POC Glucose 115 H Phys Exam - Physical Examination Constitutional: NAD HEENT: PERRLA, moist MMs, sclera anicteric Neck: no JVD, supple Respiratory: no wheezing, no rales, no rhonchi reduced air entry at base Cardiovascular: RRR, no significant murmur, no rub Gastrointestinal: soft, non-tender, no distention, positive bowel sounds Musculoskeletal: no edema, pulses present Neurological: non-focal, normal sensation, moves all 4 limbs Psychiatric: normal affect, A&O x 3 Skin: no rash, normal turgor Dx/Plan (1) COPD exacerbation Code(s): J44.1 - CHRONIC OBSTRUCTIVE PULMONARY DISEASE W (ACUTE) EXACERBATION Status: Acute (2) Alcohol abuse Code(s): F10.10 - ALCOHOL ABUSE, UNCOMPLICATED Status: Chronic (3) Bone metastases Code(s): C79.51 - SECONDARY MALIGNANT NEOPLASM OF BONE Status: Chronic (4) HTN (hypertension) Code(s): I10 - ESSENTIAL (PRIMARY) HYPERTENSION Status: Chronic (5) Macrocytosis without anemia Code(s): D75.89 - OTHER SPECIFIED DISEASES OF BLOOD AND BLOOD-FORMING ORGANS Status: Chronic (6) Stage IV adenocarcinoma of prostate Code(s): C61 - MALIGNANT NEOPLASM OF PROSTATE Status: Chronic (7) Tobacco abuse Code(s): Z72.0 - TOBACCO USE Status: Chronic - Plan cont current plan of care, continue antibiotics, respiratory therapy * reduce solumedrol 20 mg iv q 8 hourly * continue rocephin and azithromycin * tomorrow will change to oral omnicef and oral prednisone * expecting discharge tomorrow * he has appointment for PET scan tomorrow * medication reviewed as below * symptomatic treatment . Review of Systems - Review of Systems Constitutional: negative: fever, chills, sweats, weakness, malaise, other ENT: negative: Ear Pain, Ear Discharge, Nose Pain, Nose Discharge, Nose Congestion, Mouth Pain, Mouth Swelling, Throat Pain, Throat Swelling, Other Respiratory: Cough, Shortness of Breath, SOB with Excertion. negative: Dry, Hemoptysis, Pleuritic Pain, Sputum, Wheezing Cardiovascular: negative: chest pain, palpitations, orthopnea, paroxysmal nocturnal dyspnea, edema, light headedness, other Gastrointestinal: negative: Nausea, Vomiting, Abdominal Pain, Diarrhea, Constipation, Melena, Hematochezia, Other Genitourinary: negative: Dysuria, Frequency, Incontinence, Hematuria, Retention , Other Musculoskeletal: negative: Neck Pain, Shoulder Pain, Arm Pain, Back Pain, Hand Pain, Leg Pain, Foot Pain, Other Skin: negative: Rash, Lesions, Kit, Bruising, Other - Medications/Allergies Allergies/Adverse Reactions: Allergies Allergy/AdvReac Type Severity Reaction Status Date / Time No Known Drug Allergies Allergy Verified 10/30/17 22:45 Medications: Current Medications Acetaminophen (Tylenol) 650 mg PO Q4H PRN PRN Reason: Headache/Fever or Pain Hydrocodone Bitart/Acetaminophen (Hubbard 7.5/325) 1 tab PO Q4H PRN PRN Reason: Moderate Pain (4-6) Last Admin: 11/02/17 05:55 Dose: 1 tab Hydrocodone Bitart/Acetaminophen (Hubbard 5/325) 1 tab PO Q4H PRN PRN Reason: Moderate Pain (4-6) Al Hydroxide/Mg Hydroxide (Maalox) 15 ml PO Q4H PRN PRN Reason: Heartburn or Indigestion Last Admin: 10/31/17 21:26 Dose: 15 ml Albuterol/Ipratropium (Duoneb) 3 ml NEB [id number] [facility] Last Admin: 11/02/17 10:15 Dose: 3 ml Amlodipine Besylate (Norvasc) 5 mg PO DAILY [facility] Last Admin: 11/02/17 08:43 Dose: 5 mg Artificial Tears (Tears Naturale) 0 drop EA EYE PRN PRN PRN Reason: Dry Eyes Aspirin (Ecotrin) 81 mg PO DAILY [facility] Last Admin: 11/02/17 08:43 Dose: 81 mg Benzonatate (Tessalon) 100 mg PO Q4H PRN PRN Reason: Cough Enoxaparin Sodium (Lovenox) 40 mg SC 0900 [facility] Last Admin: 11/02/17 08:43 Dose: 40 mg Famotidine (Pepcid) 20 mg PO BID [facility] Last Admin: 11/02/17 08:43 Dose: 20 mg Guaifenesin (Robitussin Sf) 200 mg PO Q4H PRN PRN Reason: Cough Hydralazine HCl (Apresoline) 10 mg SLOW IVP Q4H PRN PRN Reason: Systolic BP > 180 Azithromycin 500 mg/ Sodium (Chloride) 250 mls @ 250 mls/hr IVPB 2200 [facility] Last Admin: 11/01/17 21:22 Dose: 250 mls Ceftriaxone Sodium 1 gm/ (Sodium Chloride) 100 mls @ 200 mls/hr IVPB 2100 [facility] Last Admin: 11/01/17 20:36 Dose: 100 mls Loperamide HCl (Imodium) 2 mg PO PRN PRN PRN Reason: Diarrhea/Loose Stools Loratadine (Claritin) 10 mg PO DAILYPRN PRN PRN Reason: Sinus Symptoms Magnesium Hydroxide (Milk Of Magnesium) 30 ml PO DAILYPRN PRN PRN Reason: Constipation Last Admin: 11/01/17 12:12 Dose: 30 ml Methylprednisolone Sodium Succinate (Solu-Medrol) 20 mg IVP Q8HR [facility] Mineral Oil/White Petrolatum (Eucerin Cream) 0 gm TOP BIDPRN PRN PRN Reason: Dry Skin Mometasone Furoate/Formoterol Fumar (Dulera 200 Mcg/5 Mcg Inhaler) 2 puff INH BID-RT [facility] Last Admin: 11/02/17 06:26 Dose: 2 puff Ondansetron HCl (Zofran) 4 mg IVP Q6H PRN PRN Reason: Nausea/Vomiting Ondansetron HCl (Zofran Odt) 4 mg PO Q6H PRN PRN Reason: Nausea/Vomiting Phenol (Chloraseptic Ducor 180 Ml Bot) 0 ml PO PRN PRN PRN Reason: Sore Throat Senna (Senokot) 2 tab PO HSPRN PRN PRN Reason: Constipation Sertraline HCl (Zoloft) 100 mg PO [facility] Last Admin: 11/01/17 20:36 Dose: 100 mg Sodium Chloride ([place] Nasal Ducor 0.65%) 0 ml EA NARE QIDPRN PRN PRN Reason: Nasal Congestion Tramadol HCl (Ultram) 50 mg PO Q4H PRN PRN Reason: Moderate Pain (4-6) Trazodone HCl (Desyrel) 150 mg PO [facility] Last Admin: 11/01/17 20:36 Dose: 150 mg Zolpidem Tartrate (Ambien) 5 mg PO HSPRN PRN PRN Reason: Insomnia
[2017-11-02] MEDS: cefTRIAXone\\ROCEPHIN 1 GM in Sodium Chloride 0.9% 100 ML IVPB SCH (20:30)
[2017-11-02] MEDS: Azithromycin 500 MG in Sodium Chloride 0.9% 250 ML 250 ML IVPB SCH (21:40)
[2017-11-02] MEDS: traZODone HCl 150 MG TAB PO SCH (21:43)
[2017-11-03] MEDS: Mometasone/Formoterol 120 PUFF INHALER INH SCH (06:27)
[2017-11-03] MEDS: Famotidine 20 MG TAB PO SCH (07:30)
[2017-11-03] MEDS: Enoxaparin Sodium 40 MG/0.4 ML SYRINGE SC SCH (07:30)
[2017-11-03] MEDS: Amlodipine 5 MG TAB PO SCH (07:31)
[2017-11-03 07:35] VITALS: BP 142/79
[2017-11-03 07:37] VITALS: TEMP 98.3
[2017-11-03] MEDS: Aspirin 81 mg Enteric Coated Tablet PO SCH (07:45)
--- NOTE | 2017-11-03 11:49 | DIS ---
DATE OF ADMISSION: 10/30/2017 DATE OF DISCHARGE: 11/03/2017 [facility] DIS[facility]GE DISPOSITION: Home. PRIMARY DISCHARGE DIAGNOSIS: Chronic obstructive pulmonary disease exacerbation. SECONDARY DISCHARGE DIAGNOSES: Tobacco abuse disorder, alcohol abuse, metastatic prostate carcinoma, macrocytosis, hypertension, bone metastasis. PRIMARY PROCEDURE AND OPERATION: None. RADIOLOGICAL INVESTIGATION: Chest x-ray was unremarkable. SIGNIFICANT LABORATORY DATA: WBC 6.7, hemoglobin 14.2, MCV 105, platelet 253, creatinine 0.92. Card iac enzymes negative x3. Electrolytes normal. LFT normal. BNP 35.8. DISCHARGE MEDICATIONS: Tyro 7.5 one tablet q.4 hourly p.r.n., tramadol as directed, Proventil HFA 2 puff inhalation daily, amlodipine 5 mg daily, Zoloft 25 mg p.o. at bedtime, Breo Ellipta 1 inhalatio n daily, Omnicef 300 mg p.o. b.i.d., aspirin 81 mg p.o. daily, Mucinex 600 mg p.o. b.i.d., Dulera 2 p uffs inhalation b.i.d., prednisone 20 mg p.o. daily for 5 days, trazodone 150 mg p.o. at bedtime. CONTRAINDICATIONS: None. CODE STATUS: FULL CODE. INPATIENT CONSULTANTS: None. ALLERGIES: No known drug allergy. DISCHARGE PLAN: Post hospital, the patient will follow up with primary care physician in 1 week. HOSPITAL COURSE: A 62-year-old male with above-mentioned medical problem who was admitted by Dr. Parish kowalski. Please see his H&P for further detail. The patient is mainly admitted for increasing shortne ss of breath. He was diagnosed with COPD exacerbation. His chest x-ray was normal. He has underlyi ng ongoing tobacco abuse disorder and that is why we provided patient counseling to avoid smoking. T he patient was complaining of bone pain that was related with his bone metastasis. Patient was treat ed with Dulera, Solu-Medrol, empiric antibiotic therapy with Rocephin, azithromycin, and DuoNeb thera py with significant improvement. On discharge, we changed to p.o. prednisone for 5 more days, Mucine x, Omnicef for 5 more days as well as Dulera inhalation prescribed. All other medication was continu ed as per previous. Patient's pain was controlled with pain medication. The patient is planned for PET scan today for his bone metastasis and then he will follow up with Dr. Tripathi and his urologist for his metastatic prostate cancer. The patient is seen and examined at bedside today. He is on room air. He is ambulatory, tolerating p.o. well. PHYSICAL EXAMINATION: VITAL SIGNS: Currently, temperature 98.3, pulse 70, respiratory rate 18, saturation 93% on room air, blood pressure 142/79, weight 189 pounds. GENERAL: The patient is currently alert, awake, no obvious acute distress. HEAD: Normocephalic, atraumatic. EYES: Pupils round, reactive to light. Extraocular muscle intact. ENT: Oropharynx within normal limits. Moist mucous membranes. No oral lesion, no pharyngeal erythe ma, no exudate. NECK: Supple, no JVD, no thyromegaly, no carotid bruit. LUNGS: Clear to auscultation without any rhonchi or rales. CARDIAC: S1, S2 regular without any murmur. ABDOMEN: Soft and benign. EXTREMITIES: No edema. NEUROLOGIC: Nonfocal examination. Overall, the patient is medically stable for discharge today.
--- NOTE | 2017-11-12 13:59 | EKG ---
Test Reason : CHEST PAIN Blood Pressure : / mmHG Vent. Rate : 085 BPM Atrial Rate : 085 BPM P-R Int : 166 ms QRS Dur : 084 ms QT Int : 366 ms P-R-T Axes : 037 050 248 degrees QTc Int : 435 ms Normal sinus rhythm Septal infarct , age undetermined Abnormal ECG Confirmed by STEPHANY BURT MD ([id number]), continuity editor JAISON HOUSTON ([id number]) on 11/12/2017 1:59:27 PM Referred By: Confirmed By:STEPHANY BURT MD
== END 2017-11-03 09:30 | disposition home or self-care (01) | DRG 190 ==
LOC: ERS 17:12 → 2NO 20:09 → T4-A 11-01 14:07
PROVIDERS: ADMIT Hospitalist; ATTEND Hospitalist
DX: J44.1 Chronic obstructive pulmonary disease with (acute) exacerbation (principal); J96.01 Acute respiratory failure with hypoxia; C79.51 Secondary malignant neoplasm of bone; F41.9 Anxiety disorder, unspecified; F32.9 Major depressive disorder, single episode, unspecified; F17.210 Nicotine dependence, cigarettes, uncomplicated; F10.10 Alcohol abuse, uncomplicated; I10 Essential (primary) hypertension; D75.89 Other specified diseases of blood and blood-forming organs; Z86.19 Personal history of other infectious and parasitic diseases; Z85.46 Personal history of malignant neoplasm of prostate
CPT/HCPCS: 36415; 36416; 71045; 80048; 80053; 82550; 82553; 83880; 84484; 85025; 93005; 94640; 94644; 96365; 96367; 96375; 99406; J0456; J0696; J1650; J2920; J2930; J3475; J7050; J7611; J7620

== ENCOUNTER 2017-11-03 10:15 | Outpatient (CLI) | payer OTHER ==
--- NOTE | 2017-11-03 13:21 | PET ---
PET WITH CT SKULL TO MID THIGH: Date: 11/03/17 CLINICAL HISTORY: Prostate cancer, abnormal bone scan, follow-up. RADIOPHARMACEUTICAL: 12.04 mCi F18-FDG IV. There is appropriate biodistribution of the radiotracer activity. FINDINGS: There is no scintigraphic evidence to indicate skeletal metastasis. The patient's previously document ed pulmonary nodule within the right lower lobe is redemonstrated. Accurate size parameter for stabil ity not reliably performed on the basis of attenuation correction nondiagnostic CT portion of the exa m. The nodule does remain less than 1.0 cm and therefore is too small for reliable PET resolution. Th e increased metabolic activity is seen, although the SUV is not hypermetabolic, within limitations, m easuring 1.1. The patient's previously documented right renal hypodense lesion is suboptimally visual ized on the basis of this exam, although PET evaluation does not reveal hypermetabolism of this regio n. There is abnormal increased metabolic activity involving musculature of the lateral pelvis bilaterall y overlying the proximal aspect of each femur within the anterolateral aspect of the gluteal musculat ure, right greater than left. In addition, there is also asymmetric, increased metabolic activity inv olving musculature of the floor of the pelvis to the right of midline extending inferiorly into the r ight thigh, which may relate to muscular strain or other physiologic cause such as contractility, as there is no evidence of an underlying mass on the basis of the noncontrast attenuation correction CT imaging. IMPRESSION: 1. Mild increased metabolic activity of patient's previously diagnosed right pulmonary nodule, altho ugh not hypermetabolic. This finding is too small for reliable PET resolution. Therefore, continued C T thorax imaging follow-up is warranted as the possibility of an underlying malignancy is not exclude d. 2. No hypermetabolic activity localizes to the patient's previously documented hypodense right renal lesion. Continued imaging follow-up is recommended. POS: JUAN
== END 2017-11-03 10:16 | disposition home or self-care (01) ==
LOC: PET 10:15
PROVIDERS: ATTEND Internal Medicine Medical Oncology
DX: C61 Malignant neoplasm of prostate (principal); C79.51 Secondary malignant neoplasm of bone; R91.1 Solitary pulmonary nodule; N28.89 Other specified disorders of kidney and ureter
CPT/HCPCS: 78815; A9552

== ENCOUNTER 2018-03-16 08:21 | Outpatient (CLI) | payer OTHER ==
--- NOTE | 2018-03-16 11:36 | CT ---
CT THORAX WITH IV CONTRAST CT ABDOMEN WITH IV CONTRAST: Date; 03/16/18 HISTORY: Prostate cancer, lung nodule. COMPARISON: CT thorax on 04/29/17, as well as PET CT examination on 11/03/17. FINDINGS: CT THORAX: The previously described right lower lobe pulmonary nodule is again seen, but does measure larger in size measuring 1.1 cm craniocaudal x 1.1 cm AP x 1.1 cm transverse, and on the study on 04/29/17 hernán ured 1.0 cm craniocaudal x 0.9 cm AP x 0.7 cm transverse. This nodule also measured slightly larger i n size compared to recent PET CT examination. No additional pulmonary nodule or mass is seen. Minimal vascular calcifications are seen in the coronary arteries and thoracic aorta. Mediastinal str uctures otherwise have a normal CT appearance. No enlarged lymph nodes are seen by CT size criteria. A few mildly prominent prevascular space lymph nodes are noted, but these are stable in appearance an d size. Postsurgical changes near the distal esophagus are present with surgical clips noted. Remote posterio r right-sided rib fractures are again identified. CT ABDOMEN: There is a hypodense cystic lesion again seen within the mid portion of right kidney, statistically l ikely representing a cyst. This is stable in size, measuring 1.6 cm. The liver, spleen, pancreas, bilateral adrenal glands, and left kidney, as well as opacified bowel de monstrate a normal CT appearance. There is a large duodenal diverticulum seen involving the second portion of the duodenum, also seen o n prior exam. There is no evidence of lymphadenopathy, free fluid, or fluid collection in the abdomen. Vascular calcifications seen in the abdominal aorta and involving the iliac arteries. Degenerative changes are seen in the lumbar spine and there is mild left convex curvature of the lumb ar spine. CT abdomen is stable compared to study on 04/29/17. IMPRESSION: 1. Mild interval increase in size of right lower lobe pulmonary nodule. No additional pulmonary nodu les are seen. 2. Hypodense right renal lesion shown to represent cyst on prior MRI exam on 05/11/17. The additiona l hypodense lesion in the superior pole of the right kidney is less well defined on this exam due to phase of imaging, but was shown to represent a cyst on MRI. 3. No lytic or sclerotic osseous lesions are seen. Remote right-sided rib fractures are again presen t. 4. Large duodenal diverticulum. 5. Small, fat-containing ventral abdominal wall hernia in the epigastric region. POS: JUAN
== END 2018-03-16 08:22 | disposition home or self-care (01) ==
LOC: CT 08:21
PROVIDERS: ATTEND Internal Medicine Medical Oncology
DX: R91.1 Solitary pulmonary nodule (principal); C61 Malignant neoplasm of prostate; N28.89 Other specified disorders of kidney and ureter; K57.10 Diverticulosis of small intestine without perforation or abscess without bleeding; K43.9 Ventral hernia without obstruction or gangrene
CPT/HCPCS: 71260; 74160

== ENCOUNTER 2018-07-11 08:21 | Outpatient (CLI) | payer OTHER ==
--- NOTE | 2018-07-11 11:43 | CT ---
CT OF THE CHEST WITH CONTRAST: Comparison: 03-16-18, PET CT 11-03-17 and CTA chest 04-19-16. History: Pulmonary nodule. History of prostate cancer. Technique: Multiple contiguous axial images were obtained in a CT of the chest with contrast. Coronal reformats were performed. FINDINGS: There is a nodule in the right lower lobe. This nodule appears larger and more round in configuration on the current examination measuring 12 mm in greatest dimension. This nodule has definitely enlarge d compared to chest CTs dating back to 2017. In addition, this nodule is metabolic on the PET CT. No pleural effusion is seen. No other pulmonary nodules are present. The heart is normal in size without focal cardiac abnormality. No hilar or mediastinal lymphadenopath y are seen. The visualized subdiaphragmatic structures are unremarkable. Degenerative changes are seen in the spi ne. There are remote healed right rib fractures. The chest wall soft tissues are unremarkable. IMPRESSION: Enlarging right lower lobe pulmonary nodule. This is suspicious for malignancy. Appropriate action sh ould be taken. POS: JUAN
== END 2018-07-11 08:22 | disposition home or self-care (01) ==
LOC: SCSCT 08:21
PROVIDERS: ATTEND Internal Medicine Medical Oncology
DX: R91.1 Solitary pulmonary nodule (principal); Z85.46 Personal history of malignant neoplasm of prostate; Z85.830 Personal history of malignant neoplasm of bone
CPT/HCPCS: 71260

== ENCOUNTER 2018-07-31 08:24 | Day surgery (SDC) | payer OTHER ==
[2018-07-28 14:25] VITALS: BMI 28.8
[2018-07-31 09:03] LABS: INR-International Normal Ratio 0.9; PTT 31.1 SEC (22.9-36.1); Prothrombin Time 12.4 SEC (12.0-14.7)
[2018-07-31] MEDS ORDERED: Midazolam HCl 2 mg/2 ml Vial ONE (10:09)
[2018-07-31] MEDS ORDERED: Sodium Bicarbonate 2.5 MEQ/5 ML VIAL ONE (10:09)
[2018-07-31] MEDS ORDERED: Fentanyl 100 MCG/2 ML VIAL ONE (10:09)
--- NOTE | 2018-07-31 11:18 | CT ---
CT CHEST NONCONTRAST: CLINICAL HISTORY: Right lower lobe pulmonary nodule Preparation for percutaneous CT-guided biopsy FINDINGS: Chief Human Resources Officer imaging of the chest performed noncontrast which did redemonstrate spiculated right lower lobe pulmonary nodule. The thickness of the nodule permits visualization of the bulk of the nodule on one primary axial imaging slice. Due to the sessile craniocaudal morphology, there is an unpredictabl e, persistently mobile position of the right lower lobe pulmonary nodule despite numerous attempts with the cooperative patient for breath-hold maneuver. This does preclude a safe percutaneous approac h to acquiring reliable sampling of the nodule. This was discussed with the patient as well as telephone to patient's physician, Rachael Tripathi. Recommend thoracic surgery consultation for further care. IMPRESSION: Mobility and size of pulmonary nodule prevent safe percutaneous route for sampling. Transcribed Date/Time: 07/31/2018 11:50 AM
[2018-07-31 11:40] VITALS: BP 149/94; TEMP 98.8
== END 2018-07-31 11:25 | disposition home or self-care (01) ==
LOC: RAD 08:24
PROVIDERS: ATTEND Internal Medicine Medical Oncology
DX: C61 Malignant neoplasm of prostate (principal); C77.8 Secondary and unspecified malignant neoplasm of lymph nodes of multiple regions; N28.1 Cyst of kidney, acquired; J44.9 Chronic obstructive pulmonary disease, unspecified; I10 Essential (primary) hypertension; F41.9 Anxiety disorder, unspecified; F32.9 Major depressive disorder, single episode, unspecified; F17.200 Nicotine dependence, unspecified, uncomplicated; Z79.899 Other long term (current) drug therapy
CPT/HCPCS: 71250; 85610; 85730; J2250; J3010

== ENCOUNTER 2018-08-28 02:07 | Outpatient (CLI) | payer OTHER ==
[2018-08-28 16:52] LABS: Hemoglobin 14.8 g/dL (14.0-18.0); Mean Corpuscular HGB CONC 33.3 g/dL (32.0-36.0); Mean Platelet Volume 6.2 fL (7.4-10.4); Platelet Count 302 thou/uL (130-400); RBC Distribution Width 11.6 % (11.5-14.5); White Blood Cell (WBC) Count 8.3 thou/uL (4.8-10.8)
[2018-08-28 17:15] LABS: Anion Gap 17 mmol/L (10-20); BUN (Urea Nitrogen) 15 mg/dL (8.4-25.7); Calc. Creatinine Clearance 0 mL/min (70-130); Calcium 9.7 mg/dL (7.8-10.44); Carbon Dioxide 17 mmol/L (23-31); Chloride 105 mmol/L (98-107); Estimated GFR-MDRD Greater than 90; Glucose 116 mg/dL (80-115); Potassium 4.2 mmol/L (3.5-5.1); Sodium 135 mmol/L (136-145)
== END 2018-08-28 02:08 | disposition home or self-care (01) ==
LOC: LABBT 02:07
PROVIDERS: ATTEND Thoracic Surgery (Cardiothoracic Vascular Surgery)
DX: Z01.812 Encounter for preprocedural laboratory examination (principal); R91.8 Other nonspecific abnormal finding of lung field
CPT/HCPCS: 80048; 85027; 86850; 86900; 86901

== ENCOUNTER 2018-08-28 14:00 | Inpatient (IN) | payer OTHER ==
[2018-08-29] MEDS ORDERED: Fentanyl 100 MCG/2 ML VIAL ONE (08:16)
[2018-08-29] MEDS ORDERED: Midazolam HCl 2 mg/2 ml Vial ONE (08:16)
[2018-08-29] MEDS ORDERED: Rocuronium Bromide 10 MG/ML (10ML VIAL) ONE (10:42)
[2018-08-29] MEDS ORDERED: PROPOFOL 200 MG/20 ML VIAL ONE (10:42)
[2018-08-29] MEDS ORDERED: Lidocaine 1% PF 5 ML VIAL ONE (10:42)
[2018-08-29] MEDS ORDERED: Ondansetron PF 4 MG/2 ML Vial ONE (10:42)
[2018-08-29] MEDS ORDERED: Phenylephrine HCL 10 MG/ML VIAL ONE (10:42)
[2018-08-29] MEDS ORDERED: Metoclopramide HCl 10 MG/2 ML VIAL ONE (10:42)
[2018-08-29] MEDS ORDERED: Acetaminophen 1,000 MG in Premix Bag 1 BAG IVPB PRN (10:56)
[2018-08-29] MEDS ORDERED: diphenhydrAMINE 25 MG CAP PO PRN (11:00)
[2018-08-29] MEDS ORDERED: Promethazine HCl 25 MG SUPP PR PRN (11:00)
[2018-08-29] MEDS ORDERED: Naloxone HCl 0.4 mg/ml Vial IV PRN (11:00)
[2018-08-29] MEDS ORDERED: Hydrocerin (Eucerin) Cream 120 gm Jar TOP PRN (11:00)
[2018-08-29] MEDS ORDERED: Naloxone HCl 0.4 mg/ml Vial IVP PRN (11:00)
[2018-08-29] MEDS ORDERED: HYDROcodone/Acetaminophen 5/325 mg Tablet PO PRN ×3 (11:00→12:48)
[2018-08-29] MEDS ORDERED: diphenhydrAMINE 50 MG/ML VIAL IM PRN (11:00)
[2018-08-29] MEDS ORDERED: diphenhydrAMINE 50 MG/ML VIAL IVP PRN (11:00)
[2018-08-29] MEDS ORDERED: Promethazine HCl 25 MG/ML VIAL IM PRN (11:00)
[2018-08-29] MEDS ORDERED: Zolpidem Tartrate 5 MG TAB PO PRN (11:00)
[2018-08-29] MEDS ORDERED: Bupivacaine 0.25% 10 ML VIAL EPIDURAL PRN (11:00)
[2018-08-29] MEDS ORDERED: traMADol HCl 50 MG TAB PO PRN (11:00)
[2018-08-29] MEDS ORDERED: Ondansetron PF 4 MG/2 ML Vial IVP PRN (12:48)
[2018-08-29] MEDS ORDERED: Phenylephrine 10 MG/NS 250 ML 250 ML IVPB PRN (12:48)
[2018-08-29] MEDS ORDERED: hydrALAZINE 20 MG/ML VIAL SLOW IVP PRN (12:48)
--- NOTE | 2018-08-29 14:30 | RAD ---
Chest AP view INDICATION: Status post thoracotomy COMPARISON: Chest CT dated 07/31/2018 FINDINGS: Lungs:There is subsegmental volume loss versus contusion within the right lung base. The left lung is clear. Cardiac silhouette pulmonary vasculature:The cardiomediastinal silhouette appears within normal limit s. Pleural spaces:There are 2 right-sided chest tubes in place. There is mild subcutaneous emphysema ove rlying the right chest wall. No pneumothorax is demonstrated. Upper abdomen:No abnormality seen. Osseous structures: No acute osseous abnormality. Healed deformity involving the right posterior late ral chest wall is stable. There is scattered degenerative and osteoarthritic change present. Additional findings:None. IMPRESSION: Interval suspected wedge resection of the right lower lobe suspicious pulmonary nodule wi thin the right lower lobe. There are 2 separate right-sided thoracostomy tubes in place without evidence of residual pneumothorax. There is mild right basilar atelectasis and/or pulmonary contusion . Continued radiographic follow-up is recommended.
[2018-08-29 14:45] VITALS: BMI 26.3
--- NOTE | 2018-08-29 16:00 | OP ---
DATE OF PROCEDURE: 08/29/2018 PREOPERATIVE DIAGNOSIS: Nodule, right lower lobe. PROCEDURES PERFORMED: Right thoracotomy/thoracoscopy with right lower lobe superior segmentectomy. ANESTHESIA: General. ESTIMATED BLOOD LOSS: Less than 100. DESCRIPTION OF PROCEDURE: After adequate anesthesia had been obtained, the patient was prepped and draped. The scope was inserted and lung examined. The fissures were incomplete and there was no nodule. It could be palpated with the scope or a separate instrument through a separate incision. The right posterior lateral sparing thoracotomy was then carried out. Following which, retractors were placed. The major fissure was then taken down sharply and with Bovie. Dissection was then carried posteriorly along the trachea extending up to the superior segment bronchus. Superior segmental pulmonary arteries were divided with a vascular stapler and then the green staple load was used to close on the superior segment. Ventilation was performed and the basilar segments only inflated. A 290 stapler was then fired across the superior segment. Following this, the stapler was used to take out the superior segment along the line between the aerated and unaerated lower lobe. Following this, the staple line of the bronchus was without air leak. Right angle and straight chest tubes were then placed and the ribs were reapproximated with interrupted catgut [id number] sutures x3. Muscle layers were loosely reapproximated. Subcutaneous tissue and skin were closed in layers. Job ID: [id number]
[2018-08-29] MEDS: CEFAZOLIN 2 GM in Premix Bag 1 BAG IVPB SCH ×2 (16:50→23:33)
[2018-08-29] MEDS: Sodium Chloride 0.9% 1,000 ML IV SCH (16:52)
[2018-08-30] MEDS: fentaNYL Citrate/PF 500 MCG, Bupivacaine 10 ML in Sodium Chloride 0.9% 80 ML EPIDURAL SCH ×2 (01:15→13:46)
[2018-08-30] MEDS: HYDROcodone/Acetaminophen 5/325 mg Tablet PO PRN ×4 (04:46→21:31)
[2018-08-30 05:38] LABS: #Basophils 0.1 thou/uL (0.0-0.2); #Eosinphils 0.3 thou/uL (0.0-0.7); #Lymphocytes 1.7 thou/uL (1.20-3.40); #Monocytes 0.6 thou/uL (0.11-0.59); #Neutrophils 6.1 thou/uL (1.40-6.50); %Eosinophils 3.9 % (0.0-10.0); %Lymphocytes 18.9 % (21.0-51.0); %Monocytes 6.9 % (0.0-10.0); %Neutrophils 69.4 % (42.0-75.0); Hemoglobin 13.3 g/dL (14.0-18.0); Mean Corpuscular Hemoglobin 36.6 pg (27.0-31.0); Mean Platelet Volume 6.3 fL (7.4-10.4); Platelet Count 230 thou/uL (130-400); RBC Distribution Width 11.6 % (11.5-14.5); Red Blood Cell (RBC) Count 3.63 mill/uL (4.70-6.10); White Blood Cell (WBC) Count 8.8 thou/uL (4.8-10.8)
[2018-08-30 06:00] LABS: Anion Gap 14 mmol/L (10-20); BUN (Urea Nitrogen) 10 mg/dL (8.4-25.7); Calc. Creatinine Clearance 109 mL/min (70-130); Calcium 8.7 mg/dL (7.8-10.44); Carbon Dioxide 23 mmol/L (23-31); Chloride 105 mmol/L (98-107); Estimated GFR-MDRD Greater than 90; Glucose 112 mg/dL (80-115); Potassium 4.3 mmol/L (3.5-5.1); Sodium 138 mmol/L (136-145)
--- NOTE | 2018-08-30 07:46 | RAD ---
Exam: CHEST 1 VIEW: HISTORY: Status post thoracotomy follow-up. COMPARISON: FINDINGS: Two right chest tubes in place with some persistent pleural and parenchymal opacity changes in the pe rihilar and lower lung zone. Minimal linear parenchymal changes noted in the left base possibly some subsegmental atelectasis. No significant pneumothorax. IMPRESSION: Persistent pleural and parenchymal opacity changes in the right mid and lower chest. Minimal linear p arenchymal changes in the left base probably subsegmental atelectasis. Transcribed Date/Time: 08/30/2018 9:55 AM
[2018-08-30] MEDS: Enoxaparin Sodium 30 MG/0.3 ML SYRINGE SC SCH (08:33)
[2018-08-30] MEDS: CEFAZOLIN 2 GM in Premix Bag 1 BAG IVPB SCH (08:34)
[2018-08-30] MEDS: Sodium Chloride 0.9% 1,000 ML IV SCH (08:34)
[2018-08-30] MEDS: traMADol HCl 50 MG TAB PO PRN (16:59)
[2018-08-30] MEDS: traZODone HCl 150 MG TAB PO SCH (20:19)
[2018-08-30] MEDS: Ondansetron PF 4 MG/2 ML Vial IVP PRN (20:23)
[2018-08-31] MEDS: fentaNYL Citrate/PF 500 MCG, Bupivacaine 10 ML in Sodium Chloride 0.9% 80 ML EPIDURAL SCH ×2 (01:49→14:01)
[2018-08-31] MEDS: HYDROcodone/Acetaminophen 5/325 mg Tablet PO PRN ×5 (04:36→21:20)
[2018-08-31] MEDS ORDERED: Furosemide 20 MG TAB PO SCH (07:15)
--- NOTE | 2018-08-31 07:48 | RAD ---
AP view chest HISTORY: Status post thoracotomy. AP view chest obtained on 08/31/2018. Comparison made to previous exam from 08/30/2018. Chest radiograph demonstrates 2 right-sided chest tubes. Pulmonary vascular congestion seen. Patchy areas of density seen in both lung bases compatible with bibasilar atelectasis. No evidence of hemo or pneumothorax seen. IMPRESSION: Stable right-sided chest tubes.
[2018-08-31] MEDS: XTANDI 40 MG PO SCH (09:05)
[2018-08-31] MEDS: Enoxaparin Sodium 30 MG/0.3 ML SYRINGE SC SCH (09:07)
[2018-08-31] MEDS: Ondansetron PF 4 MG/2 ML Vial IVP PRN (14:05)
[2018-08-31] MEDS: traZODone HCl 150 MG TAB PO SCH (20:00)
[2018-09-01] MEDS: HYDROcodone/Acetaminophen 5/325 mg Tablet PO PRN ×3 (01:24→09:02)
[2018-09-01] MEDS: fentaNYL Citrate/PF 500 MCG, Bupivacaine 10 ML in Sodium Chloride 0.9% 80 ML EPIDURAL SCH (01:25)
--- NOTE | 2018-09-01 08:51 | RAD ---
CHEST 1 VIEW: HISTORY: Chest surgery. Followup. COMPARISON: 08/31/2018. FINDINGS: Cardiac silhouette is magnified by projection. Pulmonary vasculature upper limits of normal. Medias tinum is midline. Right thoracostomy tubes appear unchanged in position. Right rib fractures. No e vidence of pneumothorax. Bibasilar atelectasis, right greater than left, is unchanged. Right chest wall gas is now better visualized. IMPRESSION: Stable postoperative appearance of the chest. POS: TPC
[2018-09-01] MEDS: Bisacodyl 5 MG TAB PO SCH (09:00)
[2018-09-01] MEDS: XTANDI 40 MG PO SCH (09:01)
[2018-09-01] MEDS: Enoxaparin Sodium 30 MG/0.3 ML SYRINGE SC SCH (09:04)
[2018-09-01] MEDS: Polyethylene Glycol 3350 17 GM Packet PO SCH (09:05)
[2018-09-01] MEDS: traMADol HCl 50 MG TAB PO PRN (10:08)
[2018-09-01] MEDS ORDERED: Morphine 4 MG/ML VIAL SLOW IVP SCH (11:30)
[2018-09-01] MEDS ORDERED: Ketorolac Tromethamine 30 MG/ML VIAL IVP PRN (11:31)
[2018-09-01] MEDS ORDERED: Digoxin 0.5 MG/2 ML AMP ONE (11:53)
[2018-09-01] MEDS: Acetaminophen 500 MG TAB PO SCH ×2 (11:58→18:14)
[2018-09-01] MEDS: fentaNYL Citrate/PF 2,000 MCG in Sodium Chloride 0.9% 60 ML IV PRN (11:59)
[2018-09-01] MEDS: Mag-Al 1200 mg/1200 mg/30 ML UDCUP PO PRN (14:26)
[2018-09-01] MEDS: Calcium Carbonate 500 MG ChewTAB PO PRN (18:19)
[2018-09-01] MEDS: traZODone HCl 150 MG TAB PO SCH (21:27)
[2018-09-02] MEDS: Acetaminophen 500 MG TAB PO SCH ×5 (02:35→23:45)
[2018-09-02] MEDS: Bisacodyl 5 MG TAB PO SCH (07:52)
[2018-09-02] MEDS: Enoxaparin Sodium 30 MG/0.3 ML SYRINGE SC SCH (07:53)
[2018-09-02] MEDS: Polyethylene Glycol 3350 17 GM Packet PO SCH (07:53)
[2018-09-02] MEDS: XTANDI 40 MG PO SCH (07:53)
--- NOTE | 2018-09-02 08:05 | RAD ---
XR Chest 1 View Portable History: [Status post thoracostomy] Comparison: Radiograph prior day Findings: Atelectatic changes left lung base. No significant residual pneumothorax. 2 right-sided tho racostomy tubes are similar. The caudal most tube side port is at the level of the thoracic cavity. Impression: Similar examination of the chest. The caudal most right thoracostomy tube side port is at the level of the thoracic cavity.
[2018-09-02] MEDS: fentaNYL Citrate/PF 2,000 MCG in Sodium Chloride 0.9% 60 ML IV PRN (14:58)
[2018-09-02] MEDS: traZODone HCl 150 MG TAB PO SCH (19:59)
[2018-09-03] MEDS: Acetaminophen 500 MG TAB PO SCH ×3 (05:41→15:34)
[2018-09-03] MEDS: Bisacodyl 5 MG TAB PO SCH (07:53)
[2018-09-03] MEDS: Polyethylene Glycol 3350 17 GM Packet PO SCH (07:53)
[2018-09-03] MEDS: XTANDI 40 MG PO SCH (07:53)
[2018-09-03] MEDS: Enoxaparin Sodium 30 MG/0.3 ML SYRINGE SC SCH (07:54)
--- NOTE | 2018-09-03 08:11 | RAD ---
XR Chest 1 View Portable History: [Thoracotomy patient] Comparison: Radiograph prior day Findings: 2 right thoracostomy tubes are unchanged. The side port of the caudal most thoracostomy tub e on the right is at the thoracic cavity. Slight increased subcutaneous emphysema. Multiple right-sided rib fractures. No appreciable right apical pneumothorax. Progressive atelectasis left lower lobe and right lower lob e. Impression: Progressive bibasilar atelectasis.
[2018-09-03] MEDS ORDERED: Furosemide 40 MG TAB PO SCH (08:30)
[2018-09-03] MEDS: Amlodipine 5 MG TAB PO SCH (08:30)
[2018-09-03] MEDS: Mag-Al 1200 mg/1200 mg/30 ML UDCUP PO PRN (11:32)
[2018-09-03] MEDS: Ondansetron PF 4 MG/2 ML Vial IVP PRN (11:58)
[2018-09-03] MEDS: fentaNYL Citrate/PF 2,000 MCG in Sodium Chloride 0.9% 60 ML IV PRN (13:23)
[2018-09-03] MEDS ORDERED: Bisacodyl 10 MG SUPP PR PRN (16:22)
[2018-09-03] MEDS ORDERED: Promethazine HCl 25 MG/ML VIAL SLOW IVP SCH (16:30)
[2018-09-03] MEDS: traZODone HCl 150 MG TAB PO SCH (20:26)
[2018-09-04] MEDS: Amlodipine 5 MG TAB PO SCH (08:13)
--- NOTE | 2018-09-04 08:15 | RAD ---
Portable frontal chest radiograph: 09/04/2018 COMPARISON: 09/03/2018 HISTORY: Evaluate chest following thoracotomy FINDINGS: 2 right-sided chest tubes are noted, stable. Stable subcutaneous emphysema on the right adj acent to chest tube insertion sites. No definite pneumothorax appreciated. Mild linear density in left costophrenic angle, stable. Suture line noted in the right hilar region. Old bilateral rib fract ures. Heart and mediastinal contours appear stable. IMPRESSION: No significant interval change.
[2018-09-04] MEDS: Bisacodyl 5 MG TAB PO SCH ×2 (08:19→18:14)
[2018-09-04] MEDS: XTANDI 40 MG PO SCH (08:45)
[2018-09-04] MEDS: Enoxaparin Sodium 30 MG/0.3 ML SYRINGE SC SCH (08:45)
[2018-09-04] MEDS: Polyethylene Glycol 3350 17 GM Packet PO SCH ×2 (08:46→18:14)
[2018-09-04] MEDS: Ondansetron PF 4 MG/2 ML Vial IVP PRN (10:18)
[2018-09-04] MEDS ORDERED: Magnesium Citrate 300 ML BOT PO SCH (10:45)
[2018-09-04] MEDS: fentaNYL Citrate/PF 2,000 MCG in Sodium Chloride 0.9% 60 ML IV PRN (21:36)
[2018-09-04] MEDS: traZODone HCl 150 MG TAB PO SCH (21:37)
[2018-09-04] MEDS: Calcium Carbonate 500 MG ChewTAB PO PRN (21:51)
[2018-09-05] MEDS: XTANDI 40 MG PO SCH (07:50)
[2018-09-05] MEDS: Amlodipine 5 MG TAB PO SCH (07:51)
[2018-09-05 07:52] LABS: Anion Gap 14 mmol/L (10-20); BUN (Urea Nitrogen) 10 mg/dL (8.4-25.7); Calc. Creatinine Clearance 119 mL/min (70-130); Calcium 9.2 mg/dL (7.8-10.44); Carbon Dioxide 21 mmol/L (23-31); Chloride 105 mmol/L (98-107); Estimated GFR-MDRD Greater than 90; Glucose 109 mg/dL (80-115); Sodium 136 mmol/L (136-145)
[2018-09-05] MEDS: Enoxaparin Sodium 30 MG/0.3 ML SYRINGE SC SCH (07:52)
[2018-09-05] MEDS: Bisacodyl 5 MG TAB PO SCH (07:53)
[2018-09-05] MEDS: Polyethylene Glycol 3350 17 GM Packet PO SCH (07:53)
--- NOTE | 2018-09-05 08:28 | RAD ---
CHEST 1 VIEW: HISTORY: Status post thoracotomy. COMPARISON: 09/04/2018. FINDINGS: Right chest tubes remain in place. Somewhat more prominent right-sided subcutaneous emphysema. Stab le pleural and parenchymal changes in the left base. IMPRESSION: Slightly progressive subcutaneous emphysema on the right. Otherwise, overall stable chest. POS: TPC
[2018-09-05 09:49] LABS: Actual Bicarbonate (HCO3a) 20.9 mEq/L (22-28); Analyzer IN Cardio OR; Base Excess (BEa) -5.6 mEq/L (-2.0 to +3.0); CO2 Tension 44.7 mmHg (35.0-45.0); Calcium, Ionized 1.09 mmol/L (1.12-1.30); Carboxyhemoglobin (COHb) 1.9 gm% (0.0-3.0); Hemoglobin (Hb) 12.9 g/dL (14.0-18.0); Potassium - ABG Lab 3.99 mmol/L (3.70-5.30); pH, Arterial 7.29 (7.35-7.45)
[2018-09-05 10:30] LABS: Puncture Site ALINE
[2018-09-05] MEDS ORDERED: HYDROcodone/Acetaminophen 10/325 mg Tablet PO PRN ×2 (11:16→11:17)
[2018-09-05] MEDS: Mag-Al 1200 mg/1200 mg/30 ML UDCUP PO PRN (20:31)
[2018-09-05] MEDS: Calcium Carbonate 500 MG ChewTAB PO PRN (20:31)
[2018-09-05] MEDS: traZODone HCl 150 MG TAB PO SCH (20:31)
[2018-09-05] MEDS: Ondansetron PF 4 MG/2 ML Vial IVP PRN (20:35)
[2018-09-06] MEDS: fentaNYL Citrate/PF 2,000 MCG in Sodium Chloride 0.9% 60 ML IV PRN (04:26)
[2018-09-06] MEDS ORDERED: traMADol HCl 50 MG TAB PO PRN (06:38)
--- NOTE | 2018-09-06 07:45 | RAD ---
AP view chest. HISTORY: Thoracotomy. Chest is obtained on 09/06/2018. Comparison made to previous exam from 09/05/2018. 2 right-sided chest tubes are in place. No evidence of pneumothorax seen. Right-sided subcutaneous emphysema is present. Old healed left-sided rib fractures seen. Old healed right-sided rib fractures seen. IMPRESSION: Subcutaneous emphysema on the right with 2 right-sided chest tubes in place.
[2018-09-06] MEDS: Enoxaparin Sodium 30 MG/0.3 ML SYRINGE SC SCH (08:39)
[2018-09-06] MEDS: Gabapentin 300 MG CAP PO SCH ×3 (08:39→20:39)
[2018-09-06] MEDS: Amlodipine 5 MG TAB PO SCH (08:39)
[2018-09-06] MEDS: Polyethylene Glycol 3350 17 GM Packet PO SCH (08:40)
[2018-09-06] MEDS: Bisacodyl 5 MG TAB PO SCH (08:40)
[2018-09-06] MEDS: XTANDI 40 MG PO SCH (08:41)
[2018-09-06] MEDS: traMADol HCl 50 MG TAB PO PRN (12:39)
[2018-09-06] MEDS: Ibuprofen 800 MG TAB PO SCH ×2 (15:44→21:22)
[2018-09-06] MEDS: traZODone HCl 150 MG TAB PO SCH (20:39)
[2018-09-07] MEDS: Ibuprofen 800 MG TAB PO SCH ×3 (05:54→19:54)
--- NOTE | 2018-09-07 07:55 | RAD ---
CHEST 1 VIEW: HISTORY: Status post thoracotomy, followup. COMPARISON: 09/06/2018. FINDINGS: Two right chest tubes in place with some right-sided subcutaneous emphysema. Patchy pleural and pare nchymal opacity changes in the right lower lobe and in the left base. No significant pneumothorax. No new pulmonary parenchymal process. IMPRESSION: Stable chest. POS: TPC
[2018-09-07] MEDS: Amlodipine 5 MG TAB PO SCH (09:57)
[2018-09-07] MEDS: Bisacodyl 5 MG TAB PO SCH (09:57)
[2018-09-07] MEDS: Polyethylene Glycol 3350 17 GM Packet PO SCH (09:58)
[2018-09-07] MEDS: XTANDI 40 MG PO SCH (09:58)
[2018-09-07] MEDS: Gabapentin 300 MG CAP PO SCH ×3 (09:58→19:55)
[2018-09-07] MEDS: Enoxaparin Sodium 30 MG/0.3 ML SYRINGE SC SCH (10:04)
[2018-09-07] MEDS: fentaNYL Citrate/PF 2,000 MCG in Sodium Chloride 0.9% 60 ML IV PRN (12:14)
[2018-09-07] MEDS: traMADol HCl 50 MG TAB PO PRN ×2 (12:24→19:56)
[2018-09-07] MEDS: traZODone HCl 150 MG TAB PO SCH (19:54)
[2018-09-08] MEDS: Ibuprofen 800 MG TAB PO SCH ×3 (05:17→19:54)
--- NOTE | 2018-09-08 07:48 | RAD ---
FRONTAL CHEST RADIOGRAPH: 09/08/2018 COMPARISON: 09/07/2018 HISTORY: Evaluate chest following thoracotomy. FINDINGS: Two stable right-sided chest tubes are present. Stable subcutaneous emphysema within the right chest wall. No pneumothorax is discretely visualized on either side. No lobar consolidation or alveolar edema. Stable mild blunting of the costophrenic angles. IMPRESSION: No significant interval change. Transcribed Date/Time: 09/08/2018 7:56 AM
[2018-09-08] MEDS: Amlodipine 5 MG TAB PO SCH (09:02)
[2018-09-08] MEDS: traMADol HCl 50 MG TAB PO PRN ×2 (09:03→14:52)
[2018-09-08] MEDS: Gabapentin 300 MG CAP PO SCH ×3 (09:05→19:54)
[2018-09-08] MEDS: XTANDI 40 MG PO SCH (09:06)
[2018-09-08] MEDS: Enoxaparin Sodium 30 MG/0.3 ML SYRINGE SC SCH (09:07)
[2018-09-08] MEDS: Bisacodyl 5 MG TAB PO SCH (09:09)
[2018-09-08] MEDS: Polyethylene Glycol 3350 17 GM Packet PO SCH (09:09)
[2018-09-08] MEDS: fentaNYL Citrate/PF 2,000 MCG in Sodium Chloride 0.9% 60 ML IV PRN (17:54)
[2018-09-08] MEDS: traZODone HCl 150 MG TAB PO SCH (19:54)
[2018-09-09] MEDS: Ibuprofen 800 MG TAB PO SCH (05:45)
[2018-09-09] MEDS ORDERED: Furosemide 40 MG/4 ML VIAL SLOW IVP SCH (07:45)
[2018-09-09] MEDS ORDERED: Potassium Chloride 10 MEQ TAB PO SCH (07:45)
[2018-09-09] MEDS: Bisacodyl 5 MG TAB PO SCH (08:11)
[2018-09-09] MEDS: Amlodipine 5 MG TAB PO SCH (08:11)
[2018-09-09] MEDS: traMADol HCl 50 MG TAB PO PRN ×3 (08:11→21:05)
[2018-09-09] MEDS: XTANDI 40 MG PO SCH (08:12)
[2018-09-09] MEDS: Gabapentin 300 MG CAP PO SCH ×3 (08:12→20:39)
[2018-09-09] MEDS: Enoxaparin Sodium 30 MG/0.3 ML SYRINGE SC SCH (08:12)
[2018-09-09] MEDS: Polyethylene Glycol 3350 17 GM Packet PO SCH (08:13)
--- NOTE | 2018-09-09 09:25 | RAD ---
PORTABLE CHEST 1 VIEW: DATE: 09/09/2018. TIME: 4:49 a.m. HISTORY: Status post thoracotomy. FINDINGS: Comparison is made with the exam of the previous day. The heart size is normal. Two right-sided ana st tubes are unchanged in position with stable subcutaneous emphysema in the right lateral chest wall . No definite pneumothorax is seen. There is continued mild blunting of the costophrenic angles. IMPRESSION: Stable exam. POS: [facility]
[2018-09-09] MEDS: Ketorolac Tromethamine 30 MG/ML VIAL IVP SCH ×2 (12:00→17:53)
[2018-09-09] MEDS: traZODone HCl 150 MG TAB PO SCH (20:39)
[2018-09-10] MEDS: Ketorolac Tromethamine 30 MG/ML VIAL IVP SCH ×4 (00:18→17:56)
[2018-09-10] MEDS: fentaNYL Citrate/PF 2,000 MCG in Sodium Chloride 0.9% 60 ML IV PRN (04:24)
--- NOTE | 2018-09-10 07:51 | RAD ---
SINGLE VIEW CHEST: HISTORY: Status post thoracotomy. COMPARISON: 09/09/2018 FINDINGS: A single view of the chest shows a normal sized cardiomediastinal silhouette. Two right-sided chest tubes are seen. No pneumothorax is visualized. Atelectasis is seen in the right lung base. There i s a small amount of air along the right chest wall. IMPRESSION: Stable examination. POS: [facility]
[2018-09-10] MEDS ORDERED: Furosemide 40 MG/4 ML VIAL SLOW IVP SCH (08:15)
[2018-09-10] MEDS ORDERED: HYDROcodone/Acetaminophen 5/325 mg Tablet PO PRN (08:22)
[2018-09-10] MEDS: Bisacodyl 5 MG TAB PO SCH (09:20)
[2018-09-10] MEDS: Amlodipine 5 MG TAB PO SCH (09:21)
[2018-09-10] MEDS: Gabapentin 300 MG CAP PO SCH ×3 (09:22→20:04)
[2018-09-10] MEDS: Enoxaparin Sodium 30 MG/0.3 ML SYRINGE SC SCH (09:22)
[2018-09-10] MEDS: Polyethylene Glycol 3350 17 GM Packet PO SCH (09:23)
[2018-09-10] MEDS: XTANDI 40 MG PO SCH (09:24)
[2018-09-10] MEDS: HYDROcodone/Acetaminophen 5/325 mg Tablet PO PRN ×2 (15:13→19:59)
[2018-09-10] MEDS: traZODone HCl 150 MG TAB PO SCH (20:04)
[2018-09-11] MEDS: Ketorolac Tromethamine 30 MG/ML VIAL IVP SCH ×2 (00:37→05:30)
[2018-09-11] MEDS: HYDROcodone/Acetaminophen 5/325 mg Tablet PO PRN ×2 (00:44→08:26)
[2018-09-11 07:52] VITALS: BP 103/70; TEMP 97.9
[2018-09-11] MEDS: Gabapentin 300 MG CAP PO SCH (08:21)
[2018-09-11] MEDS: Bisacodyl 5 MG TAB PO SCH (08:21)
[2018-09-11] MEDS: Amlodipine 5 MG TAB PO SCH (08:21)
[2018-09-11] MEDS: XTANDI 40 MG PO SCH (08:22)
[2018-09-11] MEDS: Polyethylene Glycol 3350 17 GM Packet PO SCH (08:22)
== END 2018-09-11 10:25 | disposition home or self-care (01) | DRG 164 ==
LOC: SURG A 08-29 06:47 → CCU 08-29 13:19 → SJJU 08-30 13:45
PROVIDERS: ADMIT Thoracic Surgery (Cardiothoracic Vascular Surgery); ATTEND Thoracic Surgery (Cardiothoracic Vascular Surgery)
PROC: 0BBF0ZZ Excision of Right Lower Lung Lobe, Open Approach (ICD-10-PCS; principal; 2018-08-29)
PROC: 0BJK4ZZ Inspection of Right Lung, Percutaneous Endoscopic Approach (ICD-10-PCS; 2018-08-29)
DX: C34.31 Malignant neoplasm of lower lobe, right bronchus or lung (principal); J93.82 Other air leak; C79.51 Secondary malignant neoplasm of bone; I10 Essential (primary) hypertension; F41.9 Anxiety disorder, unspecified; E78.5 Hyperlipidemia, unspecified; M19.91 Primary osteoarthritis, unspecified site; F17.210 Nicotine dependence, cigarettes, uncomplicated; F32.9 Major depressive disorder, single episode, unspecified; J44.9 Chronic obstructive pulmonary disease, unspecified; Z85.46 Personal history of malignant neoplasm of prostate; Z98.890 Other specified postprocedural states; F10.10 Alcohol abuse, uncomplicated
CPT/HCPCS: 36415; 36416; 71045; 80048; 82805; 85025; 88307; 88309; 88341; 88342; 94640; J0131; J0690; J1160; J1200; J1642; J1650; J1885; J1940; J2001; J2250; J2270; J2370; J2405; J2550; J2704; J2765; J3010; J3490; J7620

== ENCOUNTER 2018-09-13 06:39 | Emergency (ER) | payer OTHER ==
[2018-09-13 07:35] LABS: #Eosinphils 0.5 thou/uL (0.0-0.7); #Lymphocytes 1.1 thou/uL (1.20-3.40); #Monocytes 0.4 thou/uL (0.11-0.59); #Neutrophils 5.9 thou/uL (1.40-6.50); %Basophils 0.6 % (0.0-1.0); %Eosinophils 6.1 % (0.0-10.0); %Lymphocytes 13.7 % (21.0-51.0); %Monocytes 5.4 % (0.0-10.0); %Neutrophils 74.3 % (42.0-75.0); Hemoglobin 14.4 g/dL (14.0-18.0); Mean Corpuscular HGB CONC 35.9 g/dL (32.0-36.0); Mean Platelet Volume 5.7 fL (7.4-10.4); Platelet Count 596 thou/uL (130-400); RBC Distribution Width 11.2 % (11.5-14.5); Red Blood Cell (RBC) Count 3.79 mill/uL (4.70-6.10); White Blood Cell (WBC) Count 7.9 thou/uL (4.8-10.8)
[2018-09-13 07:56] LABS: ALT (SGPT) 19 U/L (8-55); AST (SGOT) 19 U/L (5-34); Albumin 4.1 g/dL (3.4-4.8); Alkaline Phosphatase 64 U/L (40-150); Anion Gap 15 mmol/L (10-20); BUN (Urea Nitrogen) 10 mg/dL (8.4-25.7); Bilirubin, Total 0.3 mg/dL (0.2-1.2); CK (CPK) 89 U/L (30-200); Calc. Creatinine Clearance 0 mL/min (70-130); Calcium 9.9 mg/dL (7.8-10.44); Carbon Dioxide 23 mmol/L (23-31); Chloride 104 mmol/L (98-107); Estimated GFR-MDRD Greater than 90; Globulin 3.5 g/dL (2.4-3.5); Glucose 94 mg/dL (80-115); Potassium 4.3 mmol/L (3.5-5.1); Protein, Total 7.6 g/dL (5.8-8.1); Sodium 138 mmol/L (136-145)
--- NOTE | 2018-09-13 08:11 | RAD ---
SINGLE VIEW OF THE CHEST: COMPARISON: 09/10/2018. HISTORY: Lobectomy. Discharged Tuesday with shortness of breath for 1 day. FINDINGS: A single view of the chest shows a normal-size cardiomediastinal silhouette. The previously seen ana st tube has been removed. There is a small right-sided pneumothorax without mediastinal shift. Ther e are right-sided rib fractures. No pleural effusion is seen. IMPRESSION: Small right pneumothorax. POS: [facility]
--- NOTE | 2018-09-16 09:39 | EKG ---
Test Reason : Blood Pressure : / mmHG Vent. Rate : 085 BPM Atrial Rate : 085 BPM P-R Int : 184 ms QRS Dur : 080 ms QT Int : 374 ms P-R-T Axes : 086 -03 028 degrees QTc Int : 445 ms Normal sinus rhythm Septal infarct , age undetermined Abnormal ECG Confirmed by XOCHITL ROMO ([id number]), tape editor JAISON HOUSTON ([id number]) on 09/16/2018 9:39:15 AM Referred By: Confirmed By:XOCHITL ROMO
== END 2018-09-13 11:44 | disposition home or self-care (01) ==
LOC: ERS 06:39
DX: J93.9 Pneumothorax, unspecified (principal); I10 Essential (primary) hypertension; J44.9 Chronic obstructive pulmonary disease, unspecified; F41.9 Anxiety disorder, unspecified; F32.9 Major depressive disorder, single episode, unspecified; F17.210 Nicotine dependence, cigarettes, uncomplicated; Z79.899 Other long term (current) drug therapy; Z79.891 Long term (current) use of opiate analgesic; Z79.82 Long term (current) use of aspirin
CPT/HCPCS: 71045; 80053; 82550; 84484; 85025; 93005; 94760

== ENCOUNTER 2018-09-15 17:29 | Inpatient (IN) | payer OTHER ==
--- NOTE | 2018-09-15 18:02 | RAD ---
XR Chest 1 View Portable History: Shortness of breath Comparison: Radiograph 09/13/2018 Findings: The right pneumothorax has increased in size with an apical as well as a basilar component. Pneumothorax involves approximately 50% of the right hemithorax volume. No significant mediastinal shift. Small volume right hemithorax subcutaneous emphysema. There are sutures along the right hilum. Remote right rib fractures. Left lung is clear. Impression: Enlarging right pneumothorax involving approximately 50% of the right hemithorax volume.
[2018-09-15 18:36] LABS: #Basophils 0.1 thou/uL (0.0-0.2); #Eosinphils 0.1 thou/uL (0.0-0.7); #Lymphocytes 1.4 thou/uL (1.20-3.40); #Neutrophils 4.9 thou/uL (1.40-6.50); %Basophils 0.8 % (0.0-1.0); %Monocytes 12.6 % (0.0-10.0); %Neutrophils 65.6 % (42.0-75.0); Hemoglobin 15.5 g/dL (14.0-18.0); Mean Corpuscular HGB CONC 32.8 g/dL (32.0-36.0); Mean Corpuscular Hemoglobin 35.4 pg (27.0-31.0); Mean Platelet Volume 5.9 fL (7.4-10.4); Platelet Count 507 thou/uL (130-400); RBC Distribution Width 11.4 % (11.5-14.5); Red Blood Cell (RBC) Count 4.38 mill/uL (4.70-6.10); White Blood Cell (WBC) Count 7.5 thou/uL (4.8-10.8)
[2018-09-15 18:54] LABS: ALT (SGPT) 17 U/L (8-55); AST (SGOT) 22 U/L (5-34); Albumin 4.1 g/dL (3.4-4.8); Alkaline Phosphatase 71 U/L (40-150); Anion Gap 19 mmol/L (10-20); BUN (Urea Nitrogen) 20 mg/dL (8.4-25.7); Bilirubin, Total 0.3 mg/dL (0.2-1.2); Calc. Creatinine Clearance 0 mL/min (70-130); Calcium 9.9 mg/dL (7.8-10.44); Carbon Dioxide 16 mmol/L (23-31); Chloride 104 mmol/L (98-107); Estimated GFR-MDRD 80; Globulin 3.7 g/dL (2.4-3.5); Glucose 112 mg/dL (80-115); Potassium 4.3 mmol/L (3.5-5.1); Protein, Total 7.8 g/dL (5.8-8.1); Sodium 135 mmol/L (136-145)
[2018-09-15] MEDS ORDERED: Fentanyl 100 MCG/2 ML VIAL ONE (19:12)
[2018-09-15] MEDS ORDERED: Midazolam HCl 2 mg/2 ml Vial ONE (19:12)
[2018-09-15] MEDS ORDERED: Lidocaine 1% (PF) 30 ML VIAL ONE (19:19)
--- NOTE | 2018-09-15 20:18 | RAD ---
XR Chest 1 View Portable History: Pneumothorax Comparison: Radiograph same day Findings: There is a right thoracostomy tube in place with tip near the right lung apex. Port cathete r tip at the inferior SVC. Left lung is clear. Much improved pneumothorax. Impression: Much improved pneumothorax with indwelling thoracostomy tube.
[2018-09-15] MEDS ORDERED: HYDROcodone/Acetaminophen 5/325 mg Tablet ONE (20:39)
[2018-09-15] MEDS ORDERED: Ondansetron ODT 4 MG TAB ONE (21:55)
[2018-09-15] MEDS ORDERED: Ondansetron PF 4 MG/2 ML Vial ONE (21:57)
[2018-09-15] MEDS ORDERED: HYDROcodone/Acetaminophen 5/325 mg Tablet PO PRN ×2 (22:42)
[2018-09-15] MEDS ORDERED: Calcium Carbonate 500 MG ChewTAB PO PRN (23:03)
[2018-09-15] MEDS ORDERED: traZODone HCl 50 MG TAB PO SCH (23:15)
[2018-09-15] MEDS: Fentanyl 100 MCG/2 ML VIAL SLOW IVP PRN (23:39)
--- NOTE | 2018-09-16 00:02 | HP ---
CHIEF COMPLAINT: Short of breath. HISTORY OF PRESENT ILLNESS: The patient is a 63-year-old man with COPD and prostate cancer, who on the of this month underwent an open right lower lobe superior segmentectomy for a lung mass that proved to be a T1b Nx adenocarcinoma consistent with a lung primary. He was hospitalized for about 2 weeks following that procedure and had his chest tubes removed over this past weekend and the following day sent home. Tuesday, he presented to the emergency room with a paroxysm of shortness of breath, largely relieved by his Ventolin inhaler. A chest x-ray at that time showed a small apical lateral pneumothorax and he was allowed to go home. He has had no further paroxysms of shortness of breath, but he has over the last 4 days had increasing dyspnea on exertion to the point that he can only walk a few steps before he gets markedly short of breath. When he presented to the emergency room this afternoon, he was found to have a rather large right-sided pneumothorax. PAST MEDICAL HISTORY: Significant for COPD, hypertension, and stage IV prostate cancer. MEDICATIONS: 1. Advair Diskus 500/50 one puff twice a day. 2. Ventolin inhaler two puffs q.6 hours p.r.n. shortness of breath or wheezing. 3. Xtandi 40 mg capsules, two capsules once a day. 4. Norvasc 5 mg tablet, two tablets once a day. 5. Trazodone 150 mg at bedtime. PAST SURGICAL HISTORY: Significant for repair of a perforated ulcer and orchiectomy. SOCIAL HISTORY: The patient continues to smoke at least up until his recent thoracotomy. ALLERGIES: HE DENIES ANY MEDICAL ALLERGIES. REVIEW OF SYSTEMS: Negative for any fever or productive cough. Positive for his marked shortness of breath that is worse than his baseline at home. Even preop, he occasionally used oxygen. FAMILY HISTORY: Significant for diabetes in mother. Both of his parents are in their early 80s and doing reasonably well. PHYSICAL EXAMINATION: VITAL SIGNS: Heart rates in the 80s, temperature 97.9, blood pressure 103/70, O2 saturations are 100% on nasal cannula oxygen. He has absent breath sounds on the right side. No crepitus. No tracheal shift. He has clear breath sounds on the left side. HEART: Regular rate and rhythm. He has well-healing surgical incisions and chest tube sites on the right chest. ABDOMEN: He has a well-healed surgical scar in the vertical midline of his abdomen. His abdomen is soft and nontender. LABORATORY DATA: His chest x-ray shows a large right-sided pneumothorax. White count 7.5, hemoglobin 15.5, hematocrit 47.3, platelets 507,000. Chemistries are normal. Glucose 112. IMPRESSION AND PLAN: Large right-sided pneumothorax. The patient has poor peripheral IV access and so far attempts of starting a peripheral IV has been unsuccessful even using ultrasound guidance. I will place a right subclavian central line with the patient as flat as he will tolerate for secure IV access and then place a right-sided chest tube. Job ID: [id number]
[2018-09-16] MEDS: Ondansetron PF 4 MG/2 ML Vial IVP PRN ×3 (01:47→20:25)
[2018-09-16 02:58] VITALS: BMI 30.7
--- NOTE | 2018-09-16 03:23 | OP ---
DATE OF PROCEDURE: 09/15/2018 PROCEDURES PERFORMED: Right subclavian central line placement and 32-Mongolian right tube thoracostomy. PREOPERATIVE DIAGNOSES: Right pneumothorax and poor peripheral IV access. POSTOPERATIVE DIAGNOSES: Right pneumothorax and poor peripheral IV access. ANESTHESIA: 1% lidocaine local anesthesia for both procedures. The patient received 25 mcg of fentanyl and 1 mg of Versed IV sedation for the chest tube. INDICATIONS: The patient is a 63-year-old man with COPD, who recently underwent right lower lobe superior segmentectomy for an enlarging lung mass that proved to be a T1b adenocarcinoma of bronchogenic origin. He presented with shortness of breath and was found to have a large right-sided pneumothorax. FINDINGS: Good blood return from all 3 ports of the catheter, which aspirated and flushed easily and air mckeon was heard upon entering the chest with the chest tube placement. A postprocedure chest x-ray showed the catheter tip of the central line to be low in the superior vena cava. The chest tube to be positioned apically with good re-expansion of the lung. NARRATIVE REPORT: After informed consent was obtained, the patient was placed nearly completely flat at the level of his comfort level. His right upper chest was prepped and draped in sterile fashion. 1% lidocaine was used to infiltrate the skin and subcutaneous tissues. The right infraclavicular region along the clavicle and along the deltopectoral clavicular fascia. A large-bore needle was used to cannulate the right subclavian vein, through which a guidewire was placed by the Seldinger technique. The tract was dilated, and a triple-lumen central line was inserted, aspirated and flushed, taking care to avoid entering air into the system. The line was secured to the skin with suture and dressed and while the patient's right anterolateral chest was being prepped and draped for his chest tube, IV sedation was administered just lateral to the nipple at the level of the xiphoid. Lidocaine was infiltrated in the skin and subcutaneous tissues. The skin was sharply incised, and a subcutaneous tract was developed superiorly and posteriorly. Additional lidocaine was infiltrated along the superior rib margin and into the intercostal space identifying the extrapleural plane by first aspirating on the needle as it was advanced until air bubbles were obtained and then withdrawing it until no more air was aspirated. Blunt dissection was used to enter the pleural space, and a 32-Mongolian chest tube was inserted. It was secured to the skin with suture and connected to close suction drainage and the chest tube was dressed. Job ID: [id number]
[2018-09-16] MEDS ORDERED: Promethazine HCl 25 MG in Sodium Chloride 0.9% 50 ML IVPB PRN (04:57)
[2018-09-16] MEDS ORDERED: Promethazine HCl 12.5 MG in Sodium Chloride 0.9% 50 ML IVPB PRN (04:59)
[2018-09-16] MEDS ORDERED: Haloperidol Lactate 5 MG/ML VIAL SLOW IVP SCH (05:00)
[2018-09-16] MEDS: Dextrose 5 %-0.45 % NaCl 1,000 ML IV SCH ×3 (05:13→18:24)
[2018-09-16] MEDS: Mometasone/Formoterol 120 PUFF INHALER INH SCH ×2 (07:51→20:10)
[2018-09-16] MEDS: Fentanyl 100 MCG/2 ML VIAL SLOW IVP PRN ×3 (08:35→18:23)
[2018-09-16] MEDS: Amlodipine 10 MG TAB PO SCH (08:38)
--- NOTE | 2018-09-16 09:09 | RAD ---
PORTABLE CHEST: 09/16/2018 PROVIDED CLINICAL HISTORY: Chest tube. COMPARISON: 09/23/2018 FINDINGS: Significant interval change with respect to the prior examination is not apparent. IMPRESSION: As above. POS: [facility]
--- NOTE | 2018-09-16 09:14 | RAD ---
KUB: 09/16/2018 PROVIDED CLINICAL HISTORY: Nausea and vomiting. FINDINGS: The abdominal bowel gas pattern is nonspecific. The supine nature of the study is not sensitive for detection of pneumoperitoneum. IMPRESSION: As above. POS: [facility]
[2018-09-16] MEDS: Metoclopramide HCl 10 MG/2 ML VIAL IVP SCH ×3 (11:49→23:00)
[2018-09-16] MEDS: Pantoprazole 40 MG VIAL IVP SCH (20:16)
[2018-09-16] MEDS ORDERED: traZODone HCl 50 MG TAB PO SCH (21:00)
[2018-09-16] MEDS ORDERED: traZODone HCl 150 MG TAB PO SCH (22:00)
[2018-09-17] MEDS: Fentanyl 100 MCG/2 ML VIAL SLOW IVP PRN ×6 (01:44→21:39)
[2018-09-17] MEDS: Dextrose 5 %-0.45 % NaCl 1,000 ML IV SCH ×3 (04:03→17:25)
[2018-09-17] MEDS: Metoclopramide HCl 10 MG/2 ML VIAL IVP SCH ×4 (05:29→23:05)
[2018-09-17] MEDS: Mometasone/Formoterol 120 PUFF INHALER INH SCH ×2 (07:22→19:56)
--- NOTE | 2018-09-17 07:36 | RAD ---
EXAM: Portable chest PROVIDED CLINICAL HISTORY: Chest tube COMPARISON: 09/16/2018 FINDINGS: Significant interval change with respect to the prior examination is not apparent. IMPRESSION: As above.
[2018-09-17] MEDS: Pantoprazole 40 MG VIAL IVP SCH ×2 (08:53→21:46)
[2018-09-17] MEDS: ENZALUTAMIDE 40 MG PO SCH ×2 (10:45→10:49)
--- NOTE | 2018-09-17 12:38 | PRG ---
DATE OF SERVICE: 09/17/2018 SUBJECTIVE: Mr. Agrawal is hungry. He wants to try liquids. He has had no vomiting in the last 24 hours. He has had no bowel movement few days. Reports he denies abdominal pain. He wants to get up out of bed into a chair. Last night, he was started back on his trazodone at bedtime when the nurse called me. OBJECTIVE: VITAL SIGNS: Temperature 98, pulse 76, respirations 20, sat 93% on room air, and blood pressure 134/86. LUNGS: Clear bilaterally. HEART: Regular rate and rhythm. ABDOMEN: Soft and nontender. Bowel sounds are quiescent. EXTREMITIES: No clubbing, cyanosis, or edema. LABORATORY DATA: No new laboratory studies. ASSESSMENT: Nausea and vomiting after chest tube placement. This may be a vagally mediated and may be related somewhat to his pain medicines. He had an x-ray, showed prominent gastric air bubble, but no overt distention and no air-fluid levels. He has had no vomiting. We will go ahead and start him on a liquid diet and go from there, watch him closely. I have asked him to go slowly, if begins nauseated to stop to the nurse and let me know. Job ID: [id number]
--- NOTE | 2018-09-17 16:28 | CON ---
DATE OF CONSULTATION: REASON FOR CONSULT: Nausea and vomiting. HISTORY OF PRESENT ILLNESS: Dr. Reyes asked me to come by and see Mr. Agrawal for refractory vomiting that began after a chest tube placement yesterday. History comes from review of the chart and talked to the patient and Dr. Reyes. Mr. Agrawal is a pleasant 63-year-old, who was recently in the hospital from 08/29 through 09/11 for a wedge resection from the lung. He had a tumor in the lung, which was found to be a primary lung malignancy in the right lower lung. Biopsy showed this was felt to be a primary lung adenocarcinoma. The details of these 2 weeks were unclear. By reviewing the chart, the patient really does not feel like talking a lot as he has been pretty nauseated, but in any event, he re-presented with shortness of breath, worsening in the evening and persistent coughing. He had a chest tube apparently, that was taken out of his right lower lung on Tuesday morning 2 days before he re-presented. He was readmitted to the hospital as he was found to have a right-sided pneumothorax, which appeared quite large. Dr. Reyes placed a chest tube to drainage yesterday at the bedside. Since then, he has been pretty sick to the stomach, throwing up pretty regularly, nurses report last night about 4 mL of bilious like vomitus. Presently, he has received Zofran, then about at 11 received some Reglan, and since then, he has been not throwing up and he feels better, actually sleeping when I entered the room. As far as the nausea and vomiting, the patient states he was having a problem with that until after the chest tube was replaced. He notes he really has not had a bowel movement in the last week because he has been not eating much as he felt so short of breath, just not well overall. He denies any abdominal pain at this time, states his abdomen is a little bit protuberant over the past several months, but has not changed. He denies any hematemesis, melena, or hematochezia. He notes he is passing flatus, but he has not had a bowel movement. The nurse notes he has had very little urine output, but 125 an hour. He did have a bladder scan performed, showing no urinary retention. PAST MEDICAL HISTORY: 1. COPD. 2. New diagnosis of lung cancer, T1b Nx adenocarcinoma of right lung, superior lower lobe. 3. History of prostate cancer. 4. History of hypertension. PAST SURGICAL HISTORY: 1. Perforated ulcer in the distant past. 2. Bilateral orchiectomy for metastatic prostate cancer. 3. Thoracotomy recently for new lung primary. 4. Chest tube placement yesterday for pneumothorax on the right, likely related to most recent surgery. MEDICATIONS: At home; 1. Ventolin. 2. Norvasc. 3. Trazodone. 4. Advair Diskus. 5. Enzalutamide. 6. Amlodipine. 7. . Medications here; 1. DuoNeb. 2. Norvasc. 3. D5 half-normal 125. 4. Xtandi 40 mg daily. 5. Fentanyl p.r.n. 25 q.4. 6. Reglan 10 mg q.6 p.r.n. nausea and vomiting. 7. Dulera inhaler. 8. Zofran. 9. Protonix 40 mg IV q.12. 10. Phenergan p.r.n. nausea and vomiting, which is not used. SOCIAL HISTORY: The patient smokes until recent surgeries. Drinks alcohol regularly. Denies drug use. FAMILY HISTORY: Father is alive at 83. Mother at age 80. REVIEW OF SYSTEMS: ABDOMEN: No recent change in appetite or change in bowel function. No melena, hematochezia, or hematemesis. CARDIOVASCULAR: No chest pain. Shortness of breath on exertion. : Negative for dysuria, frequency, or urgency. PHYSICAL EXAMINATION: GENERAL: The patient is resting in bed. He is actually sleeping when I entered the room. We are able to gently arouse him and able to converse. He is in no distress. He denies any overt pain. VITAL SIGNS: Temperature is 98.8, pulse 78, O2 saturation 94%, respirations 18, and blood pressure 144/87. GENERAL: His mucous membranes are pink and moist. NECK: Supple. No adenopathy. LUNGS: Clear except for decreased breath sounds in the right. He does have a productive cough. ABDOMEN: Notable for scant bowel sounds. There is no palpable hepatosplenomegaly. EXTREMITIES: No clubbing, cyanosis, or edema. There is no evidence of inguinal hernias and no evidence of incisional hernia. He has a midline incision, consistent with previous abdominal surgery. SKIN: Without rash or lesions. LABORATORY DATA: White count 7.5 today, hemoglobin 14.5 yesterday, MCV is 108, and platelet count is 507 down from 596 yesterday. Sodium 135, potassium 4.3, chloride 104, bicarb 16, anion gap 15, BUN 20, and creatinine 0.6. Liver function tests normal. Albumin 3.7. On 09/04/2018, lipase was 64. IMAGING STUDIES: Abdominal x-ray was read as nonspecific bowel sounds, he does have a prominent or air-filled gastric lumen, it is not overtly distended, but it is noticeable. Chest x-ray, chest tube in place. Radiologist did not feel it is significantly changed from prior imaging. ASSESSMENT: 1. Nausea and vomiting, fairly refractory yesterday. Finally, it stopped this morning the patient when he is given Reglan. He has no overt signs or symptoms of obstruction as he is passing gas, but did have a distended stomach on imaging. This may related to pain medications or air swallowing when he is really short of breath when he returned this admission. He has a prior history of ulcer disease, but there is no evidence of gastrointestinal bleeding. Abdomen is benign at this time. 2. Adenocarcinoma of the prostate, metastatic, with prior orchiectomy. 3. Lung cancer, primary. RECOMMENDATIONS: Agree with IV PPIs and aggressive fluid resuscitation at 125 an hour has been started. He seems to improve with the Reglan IV. We will continue that on a p.r.n. basis. If he develops abdominal pain or other features, we may need to repeat x-rays of the abdomen and get a CAT scan. Otherwise, we will follow along with you. I would be reluctant to perform endoscopy unless signs of bleeding as he has significant respiratory compromise with his pneumothorax and chest tube in place. If he continues to vomit, we would consider placing an NG tube. We will follow along with you. Thank you for including me in this patient's evaluation. Job ID: [id number]
[2018-09-17] MEDS: traZODone HCl 150 MG TAB PO SCH (21:42)
[2018-09-18] MEDS: Fentanyl 100 MCG/2 ML VIAL SLOW IVP PRN ×6 (01:36→22:17)
[2018-09-18] MEDS: Dextrose 5 %-0.45 % NaCl 1,000 ML IV SCH (02:21)
[2018-09-18] MEDS: Metoclopramide HCl 10 MG/2 ML VIAL IVP SCH (05:34)
[2018-09-18] MEDS: Mometasone/Formoterol 120 PUFF INHALER INH SCH ×2 (07:06→18:54)
[2018-09-18] MEDS ORDERED: Ibuprofen 600 MG TAB PO PRN (07:09)
[2018-09-18] MEDS ORDERED: Bisacodyl 5 MG TAB PO PRN (07:10)
--- NOTE | 2018-09-18 07:51 | RAD ---
EXAM: Single view of the chest HISTORY: Chest tube placement for pneumothorax COMPARISON: 09/17/2018 FINDINGS: Single view of the chest shows a normal sized cardiomediastinal silhouette. A right-sided chest tube is seen without evidence of pneumothorax. A right-sided central venous catheter is unchanged in position. Air is seen in the right chest wall. There appears to be a small right pleural effusion. Bilateral rib fractures are seen. IMPRESSION: Stable exam
[2018-09-18] MEDS: ENZALUTAMIDE 40 MG PO SCH (08:20)
[2018-09-18] MEDS: Polyethylene Glycol 3350 17 GM Packet PO SCH (08:20)
[2018-09-18] MEDS: Pantoprazole 40 MG VIAL IVP SCH ×2 (08:20→20:06)
--- NOTE | 2018-09-18 14:56 | PRG ---
DATE OF SERVICE: 09/18/2018 SUBJECTIVE: Mr. Agrawal is eating. He has had a bowel movement. No more nausea or vomiting. He is having some chest pain on the right chest and is waiting for the nurse bring him the pain medicine. OBJECTIVE: VITAL SIGNS: Temperature is 98, pulse 78, blood pressure 134/78. ABDOMEN: Soft and nontender. LABORATORY DATA: None. ASSESSMENT: 1. Nausea and vomiting, acute after chest tube placement, resolved. 2. Lung cancer. 3. Prostate cancer. 4. Status post chest tube placement for pneumothorax post thoracotomy. RECOMMENDATIONS: Continue to advance diet. Continue PPI therapy. At this time, I will follow from a distance. If I can be of any further assistance, please do not hesitate to contact me. Job ID: [id number]
[2018-09-18] MEDS: traZODone HCl 150 MG TAB PO SCH (20:05)
[2018-09-19] MEDS: Fentanyl 100 MCG/2 ML VIAL SLOW IVP PRN ×5 (02:21→20:11)
[2018-09-19] MEDS: Ibuprofen 200 MG TAB PO PRN ×3 (02:28→20:12)
[2018-09-19] MEDS: Mometasone/Formoterol 120 PUFF INHALER INH SCH ×2 (07:09→18:43)
[2018-09-19] MEDS: Enoxaparin Sodium 40 MG/0.4 ML SYRINGE SC SCH (09:11)
[2018-09-19] MEDS: Polyethylene Glycol 3350 17 GM Packet PO SCH (09:12)
[2018-09-19] MEDS: Pantoprazole 40 MG VIAL IVP SCH ×2 (09:12→20:08)
[2018-09-19] MEDS: ENZALUTAMIDE 40 MG PO SCH (09:13)
[2018-09-19] MEDS: traMADol HCl 50 MG TAB PO PRN (09:22)
[2018-09-19] MEDS: traZODone HCl 150 MG TAB PO SCH (20:06)
[2018-09-20] MEDS: Fentanyl 100 MCG/2 ML VIAL SLOW IVP PRN ×6 (01:08→21:50)
[2018-09-20] MEDS: Ibuprofen 200 MG TAB PO PRN ×4 (05:18→21:40)
[2018-09-20] MEDS: Mometasone/Formoterol 120 PUFF INHALER INH SCH ×2 (06:52→18:43)
--- NOTE | 2018-09-20 08:15 | RAD ---
PORTABLE CHEST: HISTORY: Chest tube placement for pneumothorax. COMPARISON: 09/18/2018 FINDINGS: Heart size is within normal limits. Right-sided subclavian line and right chest tube are unchanged i n position. Pleural and parenchymal changes are stable. IMPRESSION: Stable examination. POS: [facility]
[2018-09-20] MEDS: Enoxaparin Sodium 40 MG/0.4 ML SYRINGE SC SCH (09:12)
[2018-09-20] MEDS: ENZALUTAMIDE 40 MG PO SCH (09:12)
[2018-09-20] MEDS: Pantoprazole 40 MG VIAL IVP SCH ×2 (09:12→20:45)
[2018-09-20] MEDS: Polyethylene Glycol 3350 17 GM Packet PO SCH (09:13)
[2018-09-20] MEDS: traMADol HCl 50 MG TAB PO PRN ×4 (09:13→21:40)
[2018-09-20] MEDS: traZODone HCl 150 MG TAB PO SCH (20:45)
[2018-09-21] MEDS: traMADol HCl 50 MG TAB PO PRN ×4 (02:12→14:55)
[2018-09-21] MEDS: Fentanyl 100 MCG/2 ML VIAL SLOW IVP PRN ×5 (02:13→20:28)
[2018-09-21] MEDS: Ibuprofen 200 MG TAB PO PRN (06:38)
[2018-09-21] MEDS: Mometasone/Formoterol 120 PUFF INHALER INH SCH ×2 (07:08→18:21)
[2018-09-21] MEDS: Polyethylene Glycol 3350 17 GM Packet PO SCH (08:28)
[2018-09-21] MEDS: Enoxaparin Sodium 40 MG/0.4 ML SYRINGE SC SCH (08:29)
[2018-09-21] MEDS: Pantoprazole 40 MG VIAL IVP SCH ×2 (08:30→20:27)
[2018-09-21] MEDS: ENZALUTAMIDE 40 MG PO SCH (08:34)
[2018-09-21] MEDS: traZODone HCl 150 MG TAB PO SCH (20:27)
[2018-09-22] MEDS: traMADol HCl 50 MG TAB PO PRN ×2 (00:35→09:43)
[2018-09-22] MEDS: Fentanyl 100 MCG/2 ML VIAL SLOW IVP PRN ×5 (00:36→18:43)
[2018-09-22] MEDS: Mometasone/Formoterol 120 PUFF INHALER INH SCH ×2 (07:20→19:55)
--- NOTE | 2018-09-22 08:30 | RAD ---
SINGLE VIEW CHEST: Date: 09/22/18 COMPARISON: 09/20/18. HISTORY: Chest tube placement from thoracotomy. FINDINGS: Single view of the chest shows a normal sized cardiomediastinal silhouette. The central venous cathet er and right chest tube are unchanged in position. There is a small right pleural effusion. No pneumo thorax is visualized. IMPRESSION: Stable exam. POS: [facility]
[2018-09-22] MEDS: Pantoprazole 40 MG VIAL IVP SCH ×2 (09:23→20:53)
[2018-09-22] MEDS: Polyethylene Glycol 3350 17 GM Packet PO SCH (09:23)
[2018-09-22] MEDS: Enoxaparin Sodium 40 MG/0.4 ML SYRINGE SC SCH (09:23)
[2018-09-22] MEDS: ENZALUTAMIDE 40 MG PO SCH (09:25)
[2018-09-22] MEDS ORDERED: Milk Of Magnesia 30 ML UDCUP PO PRN (11:50)
--- NOTE | 2018-09-22 12:05 | EKG ---
Test Reason : SOB Blood Pressure : / mmHG Vent. Rate : 100 BPM Atrial Rate : 100 BPM P-R Int : 162 ms QRS Dur : 072 ms QT Int : 340 ms P-R-T Axes : 077 059 -74 degrees QTc Int : 438 ms Normal sinus rhythm Septal infarct , age undetermined Abnormal ECG No change from 10/30/2017 Confirmed by LORRAINE DOS SANTOS DO ([id number]), book editor JAISON HOUSTON ([id number]) on 09/22/2018 12:04:44 PM Referred By: Confirmed By:LORRAINE DOS SANTOS DO
[2018-09-22] MEDS: Ibuprofen 200 MG TAB PO PRN (15:04)
[2018-09-22] MEDS: traZODone HCl 150 MG TAB PO SCH (20:53)
[2018-09-23] MEDS: Fentanyl 100 MCG/2 ML VIAL SLOW IVP PRN ×5 (01:56→18:41)
[2018-09-23] MEDS: Mometasone/Formoterol 120 PUFF INHALER INH SCH ×2 (07:39→18:22)
[2018-09-23] MEDS: Enoxaparin Sodium 40 MG/0.4 ML SYRINGE SC SCH (09:41)
[2018-09-23] MEDS: Amlodipine 10 MG TAB PO SCH (09:41)
[2018-09-23] MEDS: Polyethylene Glycol 3350 17 GM Packet PO SCH (09:41)
[2018-09-23] MEDS: ENZALUTAMIDE 40 MG PO SCH (09:42)
[2018-09-23] MEDS: Pantoprazole 40 MG VIAL IVP SCH ×2 (09:44→20:13)
[2018-09-23] MEDS: Ibuprofen 200 MG TAB PO PRN (16:57)
[2018-09-23] MEDS: traMADol HCl 50 MG TAB PO PRN (16:57)
[2018-09-23] MEDS: traZODone HCl 150 MG TAB PO SCH (20:12)
[2018-09-24] MEDS: traMADol HCl 50 MG TAB PO PRN ×4 (02:18→22:01)
[2018-09-24] MEDS: Fentanyl 100 MCG/2 ML VIAL SLOW IVP PRN ×2 (02:19→11:17)
[2018-09-24] MEDS: Mometasone/Formoterol 120 PUFF INHALER INH SCH ×2 (07:11→19:18)
[2018-09-24] MEDS: Amlodipine 10 MG TAB PO SCH (08:53)
[2018-09-24] MEDS: Enoxaparin Sodium 40 MG/0.4 ML SYRINGE SC SCH (08:54)
[2018-09-24] MEDS: Polyethylene Glycol 3350 17 GM Packet PO SCH (08:54)
[2018-09-24] MEDS: Ibuprofen 200 MG TAB PO PRN ×2 (08:55→16:33)
[2018-09-24] MEDS: Pantoprazole 40 MG VIAL IVP SCH ×2 (08:55→20:50)
[2018-09-24] MEDS: ENZALUTAMIDE 40 MG PO SCH (08:55)
[2018-09-24] MEDS: traZODone HCl 150 MG TAB PO SCH (20:50)
[2018-09-25] MEDS: traMADol HCl 50 MG TAB PO PRN ×4 (01:57→14:41)
[2018-09-25] MEDS: Ibuprofen 200 MG TAB PO PRN (06:06)
[2018-09-25] MEDS: Mometasone/Formoterol 120 PUFF INHALER INH SCH (07:19)
[2018-09-25] MEDS: Amlodipine 10 MG TAB PO SCH (08:49)
[2018-09-25] MEDS: Polyethylene Glycol 3350 17 GM Packet PO SCH (08:49)
[2018-09-25] MEDS: ENZALUTAMIDE 40 MG PO SCH (08:49)
[2018-09-25] MEDS: Pantoprazole 40 MG VIAL IVP SCH (08:49)
[2018-09-25] MEDS: Enoxaparin Sodium 40 MG/0.4 ML SYRINGE SC SCH (08:49)
[2018-09-25 11:13] VITALS: BP 118/78; TEMP 97.5
== END 2018-09-25 15:45 | disposition home or self-care (01) | DRG 200 ==
LOC: ERS 17:29 → SURG B 19:50
PROVIDERS: ADMIT Thoracic Surgery (Cardiothoracic Vascular Surgery); ATTEND Thoracic Surgery (Cardiothoracic Vascular Surgery)
PROC: 0W9930Z Drainage of Right Pleural Cavity with Drainage Device, Percutaneous Approach (ICD-10-PCS; principal; 2018-09-15)
PROC: 02HV33Z Insertion of Infusion Device into Superior Vena Cava, Percutaneous Approach (ICD-10-PCS; 2018-09-15)
DX: J93.9 Pneumothorax, unspecified (principal); C34.91 Malignant neoplasm of unspecified part of right bronchus or lung; J44.9 Chronic obstructive pulmonary disease, unspecified; F17.210 Nicotine dependence, cigarettes, uncomplicated; I10 Essential (primary) hypertension; Z90.2 Acquired absence of lung [part of]; Z85.46 Personal history of malignant neoplasm of prostate; R11.2 Nausea with vomiting, unspecified
CPT/HCPCS: 32551; 36415; 36556; 71045; 74018; 80053; 85025; 93005; 94640; 96374; 96375; 96376; C9113; J1630; J1650; J2001; J2250; J2405; J2550; J2765; J3010; J7620; Q0162

== ENCOUNTER 2018-10-16 14:18 | Outpatient (CLI) | payer OTHER ==
--- NOTE | 2018-10-16 15:39 | RAD ---
CHEST TWO VIEWS: HISTORY: Primary malignant neoplasm of the right lower lung. COMPARISON: Radiograph from 09/22/2018. FINDINGS: The lungs are hyperinflated. There is right peripheral pleural scarring. No significant pleural eff usion remains. Old right-sided rib fractures. No pneumothorax. IMPRESSION: Chronic findings. No acute intrathoracic abnormality. Interval resolution of right layering effusio n. POS: [facility]
== END 2018-10-16 14:19 | disposition home or self-care (01) ==
LOC: RAD 14:18
PROVIDERS: ATTEND Thoracic Surgery (Cardiothoracic Vascular Surgery)
DX: C34.31 Malignant neoplasm of lower lobe, right bronchus or lung (principal); J98.4 Other disorders of lung; J94.8 Other specified pleural conditions
CPT/HCPCS: 71046

== ENCOUNTER 2019-02-15 12:24 | Outpatient (CLI) | payer OTHER ==
--- NOTE | 2019-02-15 13:18 | RAD ---
CHEST TWO VIEWS: HISTORY: Malignant neoplasm of bronchus or lung. COMPARISON: Chest radiograph from 10/14/2018. FINDINGS: Right sided minor fissure thickening is similar. Old left rib fractures. Some scarring in the left upper lobe. No acute osseous abnormality. IMPRESSION: No evidence for disease recurrence. No acute intrathoracic abnormality. POS: [facility]
== END 2019-02-15 12:25 | disposition home or self-care (01) ==
LOC: BICRAD 12:24
PROVIDERS: ATTEND Internal Medicine Medical Oncology
DX: C34.90 Malignant neoplasm of unspecified part of unspecified bronchus or lung (principal)
CPT/HCPCS: 36415; 71046; 80053; 82248; 82378; 83615; 84100; 84153; 84550

== ENCOUNTER 2019-03-10 03:59 | Observation (INO) | payer OTHER ==
[2019-03-10 04:41] LABS: #Eosinphils 0.4 thou/uL (0.0-0.7); #Lymphocytes 1.2 thou/uL (1.20-3.40); #Monocytes 0.5 thou/uL (0.11-0.59); %Basophils 0.5 % (0.0-1.0); %Eosinophils 4.5 % (0.0-10.0); %Lymphocytes 14.7 % (21.0-51.0); %Monocytes 6.1 % (0.0-10.0); %Neutrophils 74.2 % (42.0-75.0); Hemoglobin 15.4 g/dL (14.0-18.0); Mean Corpuscular Hemoglobin 38.9 pg (27.0-31.0); Mean Platelet Volume 6.1 fL (7.4-10.4); Platelet Count 302 thou/uL (130-400); RBC Distribution Width 11.8 % (11.5-14.5); Red Blood Cell (RBC) Count 3.96 mill/uL (4.70-6.10); White Blood Cell (WBC) Count 8.1 thou/uL (4.8-10.8)
[2019-03-10 05:08] LABS: ALT (SGPT) 9 U/L (8-55); AST (SGOT) 18 U/L (5-34); Albumin 4.3 g/dL (3.4-4.8); Alkaline Phosphatase 51 U/L (40-110); Anion Gap 16 mmol/L (10-20); BUN (Urea Nitrogen) 7 mg/dL (8.4-25.7); Bilirubin, Total 0.5 mg/dL (0.2-1.2); Calc. Creatinine Clearance 0 mL/min (70-130); Calcium 9.5 mg/dL (7.8-10.44); Carbon Dioxide 21 mmol/L (23-31); Chloride 106 mmol/L (98-107); Estimated GFR-MDRD Greater than 90; Glucose 108 mg/dL (80-115); Protein, Total 7.3 g/dL (5.8-8.1); Sodium 139 mmol/L (136-145)
[2019-03-10] MEDS ORDERED: Acetaminophen 325 MG TAB PO PRN (05:27)
[2019-03-10] MEDS ORDERED: Nitroglycerin 0.4 MG TAB (25 Tab Bottle) PO PRN (05:27)
--- NOTE | 2019-03-10 06:06 | PDOC.EVN ---
Event Note - Event Note Event Note: [id number]
--- NOTE | 2019-03-10 06:43 | HP ---
CHIEF COMPLAINT: Chest pain. HISTORY OF PRESENT ILLNESS: Mr. Agrawal is a 63-year-old male with past medical history of hypertension, COPD, lung cancer, prostate cancer, among others, presents to the emergency room with chest pain that started around 2 a.m. The pain is described as upper chest radiating to the neck. The patient denies nausea, vomiting, fevers, chills, or coughing. The patient had surgery to remove his lung cancer recently. He said that the pain is different than what he is experiencing post surgery. Initial workup in the emergency room including EKG and troponin are unremarkable. Given the patient's presentation and risk factors, the patient is going to be admitted to the hospital for further management and to rule out acute coronary syndrome. PAST MEDICAL HISTORY: As mentioned above in history of present illness. PAST SURGICAL HISTORY: 1. Right leg surgery. 2. Testicles removed. 3. Open laparotomy to fix a perforated bowel/perforated ulcer. 4. Lymph nodes removed. 5. Right lung lobectomy. SOCIAL HISTORY: The patient continues to smoke about a pack a day. He drinks every day more than 6 drinks a day. FAMILY HISTORY: Reviewed and noncontributory. HOME MEDICATIONS: Please see home medication reconciliation form for updated medications. ALLERGIES: NO KNOWN ALLERGIES. REVIEW OF SYSTEMS: Review of 14 systems negative except what is mentioned in history of present illness. PHYSICAL EXAMINATION: GENERAL: The patient is awake, alert, in mild distress. VITAL SIGNS: Blood pressure is 152/88, pulse is 75, respiratory rate is 20, oxygen saturation is 97% on room air. HEAD AND NECK: Normocephalic, atraumatic. NECK: Supple. No JVD. CHEST: Fair bilateral air entry. HEART: S1, S2. Regular. ABDOMEN: Soft, nontender. Bowel sounds present. NEUROLOGIC: Awake, alert, oriented x3. PSYCHIATRIC: Normal mood. EXTREMITIES: No clubbing or cyanosis. LABORATORY DATA: CBC unremarkable. Electrolytes unremarkable. Troponin less than 0.01. ASSESSMENT: 1. Acute chest pain, rule out acute coronary syndrome. 2. Hypertension. 3. Cigarette smoker. 4. History of lung cancer and right lung lobectomy. 5. History of prostate cancer. PLAN: 1. Admit. 2. Telemetry monitoring. 3. Serial troponins. 4. Consider stress testing in a.m. 5. Reconcile home medications. 6. Deep venous thrombosis prophylaxis. Early ambulation. 7. Expected length of stay at least 1 midnight if patient is stable and further workup negative. Job ID: [id number]
[2019-03-10 07:09] LABS: Troponin I Less than 0.010 ng/mL (< 0.028)
[2019-03-10 07:29] VITALS: BMI 23.6
--- NOTE | 2019-03-10 08:24 | RAD ---
EXAM: Chest one view: HISTORY: Sternal chest pressure COMPARISON: 09/22/2018 FINDINGS: Multiple stable bilateral healed rib fractures. Hyperinflation. Heart size: Within normal limits. Lungs: Clear of acute process. No evidence for confluent pneumonia, pleural effusion, acute edema, or pneumothorax, or other signifi cant acute process. IMPRESSION: No significant acute intrathoracic disease. Overall appearance is improved from prior study.
[2019-03-10 08:52] LABS: Troponin I Less than 0.010 ng/mL (< 0.028)
[2019-03-10] MEDS ORDERED: PROVENTIL INHALER 6.7 G (200 INHALATIONS) INH PRN (08:57)
--- NOTE | 2019-03-10 08:57 | PDOC.EVN ---
Event Note - Event Note Event Note: Feeling a little better. Pain is now down to 7 from 10 last night. He reports the pain is specifically related to deep breaths and was worse when he tried to lie on his right side. That is the side where he had the lobectomy in August. Looks good in general. Heart regular with no M. Lungs CTAB. Abd benign and ext with no edema. Trop negative x 2. EKG generally unremarkable. Tele normal. Hx of negative stress in 2017 and nml echo 2017. Does not sound cardiac at all. Will give some additional pain management. If he does ok with that, will plan on DC to [facility]U with [place]. Patient is in agreement with that plan.
[2019-03-10] MEDS ORDERED: TRAMADOL HCL 200 MG PO SCH (09:00)
[2019-03-10] MEDS ORDERED: ENZALUTAMIDE PO SCH (09:00)
--- NOTE | 2019-03-10 09:24 | CT ---
PRELIMINARY REPORT/DIRECT RADIOLOGY/EMERGENCY AFTER HOURS PROCEDURE: EXAM: CTA Chest with Intravenous Contrast CLINICAL HISTORY: ER 1... M63 presents to ED for CP that runs the length of the sternum, which starte d at around midnight. Pt states he was woken up by the pain. Pt states the pain is exacerbated with b reathing and when he lies on his side. Pt reports hx of: hypertension, lung surgery due to cancer TECHNIQUE: Axial CTA images of the chest with intravenous contrast. MIP reconstructed images were cre ated and reviewed. CONTRAST: With; ISOVUE 370, 90ml COMPARISON: None provided. FINDINGS: PULMONARY ARTERIES There is no intraluminal filling defect suspicious for PE. AORTA No thoracic aortic aneurysm or dissection. LUNGS Emphysema identified with hyperinflation of the lungs. Right basilar atelectasis is identified . PLEURAL SPACES No pleural effusion. No pneumothorax. HEART AND MEDIASTINUM No cardiomegaly. No significant pericardial effusion. Small retrocardiac hiata l hernia seen. LYMPH NODES Mildly prominent lymph nodes are seen in the mediastinum. Lymph node in the AP window me asures 0.9 cm in short axis. Lymph node in the precarinal measures 0.7 cm in short axis. No signifi cant hilar lymphadenopathy is identified. BONES No focal osseous abnormality or acute fracture. CHEST WALL AND UPPER ABDOMEN Images through the upper abdomen are unremarkable. The chest wall is unr emarkable. IMPRESSION: No evidence of acute PE. Emphysematous changes identified. ELECTRONICALLY SIGNED BY: Uday Burnett MD Mar 10, 2019 5:07:20 AM SENIOR QUALITY ASSURANCE ANALYST FINAL REPORT CT ANGIOGRAM CHEST WITH 3D RENDERING: EMERGENT AFTER HOURS EXAM TIME: 4:37 AM. DATE: 03/10/2019. No convincing evidence for acute pulmonary embolism. Postop changes in the right lower lobe. Mild h yperinflation and chronic lung changes. Stable-appearing up to borderline size adenopathy including the AP window region and pretracheal region showing little change from 09/04/2016. Small hiatal herni a with some associated postoperative changes. This report is in agreement with the preliminary report. POS: [facility]
[2019-03-10] MEDS: Aspirin 325 mg Enteric Coated Tablet PO SCH (09:38)
[2019-03-10] MEDS: Enoxaparin Sodium 30 MG/0.3 ML SYRINGE SC SCH (09:38)
[2019-03-10] MEDS: Amlodipine 5 MG TAB PO SCH (09:38)
[2019-03-10] MEDS: Famotidine 20 MG TAB PO SCH ×2 (09:38→22:13)
[2019-03-10] MEDS: Sodium Chloride 0.9% 1,000 ML IV SCH (09:42)
[2019-03-10] MEDS: Acetaminophen/Codeine 30-300mg Tablet PO PRN (11:41)
[2019-03-10] MEDS: Ketorolac Tromethamine 30 MG/ML VIAL IVP PRN ×2 (15:59→22:14)
[2019-03-10] MEDS: Mometasone/Formoterol 120 PUFF INHALER INH SCH (19:20)
[2019-03-10] MEDS ORDERED: traZODone HCl 150 MG TAB PO SCH (21:00)
[2019-03-11] MEDS: Ketorolac Tromethamine 30 MG/ML VIAL IVP PRN ×2 (04:46→10:45)
[2019-03-11] MEDS: Mometasone/Formoterol 120 PUFF INHALER INH SCH (07:27)
[2019-03-11] MEDS: Amlodipine 5 MG TAB PO SCH (08:45)
[2019-03-11] MEDS: Aspirin 325 mg Enteric Coated Tablet PO SCH (08:46)
[2019-03-11] MEDS: Enoxaparin Sodium 30 MG/0.3 ML SYRINGE SC SCH (08:46)
[2019-03-11] MEDS: Famotidine 20 MG TAB PO SCH (08:46)
[2019-03-11] MEDS: Acetaminophen/Codeine 30-300mg Tablet PO PRN (08:48)
[2019-03-11] MEDS: Sodium Chloride 0.9% 1,000 ML IV SCH (10:31)
[2019-03-11 11:39] VITALS: BP 121/70; TEMP 98.5
== END 2019-03-11 14:26 | disposition home or self-care (01) ==
LOC: ERS 03:59 → 2SW 05:30
PROVIDERS: ADMIT Internal Medicine; ATTEND Internal Medicine
DX: R07.9 Chest pain, unspecified (principal); F17.210 Nicotine dependence, cigarettes, uncomplicated; I10 Essential (primary) hypertension; J44.9 Chronic obstructive pulmonary disease, unspecified; Z85.46 Personal history of malignant neoplasm of prostate; Z85.118 Personal history of other malignant neoplasm of bronchus and lung; Z90.2 Acquired absence of lung [part of]
CPT/HCPCS: 36415; 71045; 71275; 80053; 84484; 85025; 93005; 94760; 96372; 96374; 96376; G0378; J1650; J1885

== ENCOUNTER 2019-05-03 12:33 | Outpatient (CLI) | payer OTHER ==
--- NOTE | 2019-05-03 14:14 | RAD ---
PA AND LATERAL CHEST: Date: 05/03/2019 HISTORY: Lung cancer, follow-up. COMPARISON: 02/15/2019 exam. FINDINGS: The heart size and mediastinum are within normal limits. Postoperative scarring in the right lung is a stable finding. No infiltrative process. Old right rib fractures seen. IMPRESSION: No active intrathoracic disease. Stable chest. Bilateral old rib fractures. POS: [facility]
--- NOTE | 2019-05-03 14:15 | RAD ---
RIGHT RIBS 3 VIEWS: Date: 05/03/2019 HISTORY: Chronic rib pain. FINDINGS: Multiple old appearing right rib fractures are seen, including right posterolateral 5th, 7th, 8th, 9t h, 10th, and 11th ribs. Postoperative changes of the right lung are again demonstrated. No lytic or b lastic bony lesions. IMPRESSION: Multiple old-appearing right rib fractures. POS: [facility]
== END 2019-05-03 12:34 | disposition home or self-care (01) ==
LOC: BICRAD 12:33
PROVIDERS: ATTEND Internal Medicine Medical Oncology
DX: C34.90 Malignant neoplasm of unspecified part of unspecified bronchus or lung (principal); R11.2 Nausea with vomiting, unspecified; G89.4 Chronic pain syndrome
CPT/HCPCS: 71046; 80053; 82248; 82607; 83615; 84100; 84153; 84550

== ENCOUNTER 2019-05-11 09:50 | Outpatient (CLI) | payer OTHER ==
--- NOTE | 2019-05-11 14:41 | NM ---
WHOLE BODY BONE SCAN: HISTORY: Malignant neoplasm of prostate RADIOPHARMACEUTICAL: 31 mCi technetium 99m-MDP injected intravenously COMPARISON:10/20/2017 CORRELATION: Right rib x-rays of 09/15/2019 FINDINGS: Increased uptake in the cervical spine, shoulders, elbows, wrists, knees, ankles and feet is consiste nt with degenerative changes. There are multiple foci of mildly increased uptake in the left rib cage consistent with old fractures on the plain radiographs. No other abnormal areas of tracer localization are seen in the skeleton to suggest metastatic disease . Tracer excretion through the kidneys is within normal limits. IMPRESSION: No scintigraphic evidence of osseous metastatic disease.
== END 2019-05-11 09:51 | disposition home or self-care (01) ==
LOC: NM 09:50
PROVIDERS: ATTEND Internal Medicine Medical Oncology
DX: C61 Malignant neoplasm of prostate (principal); C34.90 Malignant neoplasm of unspecified part of unspecified bronchus or lung; C79.51 Secondary malignant neoplasm of bone
CPT/HCPCS: 78306; A9503

== ENCOUNTER 2019-06-26 14:08 | Emergency (ER) | payer OTHER ==
[2019-06-26] MEDS ORDERED: Acetaminophen 500 MG TAB ONE (14:41)
--- NOTE | 2019-06-26 14:53 | RAD ---
AP CHEST: HISTORY: Body aches and weakness. COMPARISON: 03/10/2019. FINDINGS: The lungs appear clear of infiltrate. There are rib deformities consistent with old fractures. No e vidence of vascular congestion, edema, or effusion. Heart size is normal. Slight curvature of the t horacic spine again noted. IMPRESSION: No acute lung process. POS: [facility]
[2019-06-26 15:20] LABS: #Basophils 0.1 thou/uL (0.0-0.2); #Eosinphils 0.3 thou/uL (0.0-0.7); #Monocytes 0.4 thou/uL (0.11-0.59); #Neutrophils 3.6 thou/uL (1.40-6.50); %Basophils 1.5 % (0.0-1.0); %Eosinophils 4.2 % (0.0-10.0); %Lymphocytes 31.2 % (21.0-51.0); %Monocytes 6.2 % (0.0-10.0); %Neutrophils 56.9 % (42.0-75.0); Hemoglobin 14.7 g/dL (14.0-18.0); Mean Corpuscular HGB CONC 34.9 g/dL (32.0-36.0); Mean Corpuscular Hemoglobin 38.2 pg (27.0-31.0); Mean Platelet Volume 6.2 fL (7.4-10.4); Platelet Count 257 thou/uL (130-400); RBC Distribution Width 11.6 % (11.5-14.5); Red Blood Cell (RBC) Count 3.84 mill/uL (4.70-6.10); White Blood Cell (WBC) Count 6.3 thou/uL (4.8-10.8)
[2019-06-26 15:40] LABS: Bilirubin Negative (Negative); Blood, Urine Negative (Negative); Clarity Clear (Clear); Glucose, Urine (Dipstick) Normal (Negative); Leukocyte Negative Leu/uL (Negative); Nitrite Negative (Negative); Protein, Urine (Dipstick) Negative (Neg-Trace); Urobilinogen Normal mg/dL (Less than 2)
[2019-06-26 15:44] LABS: MDiff Complete? YES; Macrocytosis SLIGHT = 6-15 cells (100X) (0-5/hpf); Platelet Morphology Comment Appears Adequate; Polychromasia SLIGHT = 2-3 cells (100X) (0-2/hpf)
[2019-06-26 16:00] LABS: ALT (SGPT) 8 U/L (8-55); AST (SGOT) 24 U/L (5-34); Albumin 4.2 g/dL (3.4-4.8); Alkaline Phosphatase 50 U/L (40-110); Anion Gap 15 mmol/L (10-20); BUN (Urea Nitrogen) 4 mg/dL (8.4-25.7); Bilirubin, Total 0.2 mg/dL (0.2-1.2); CK (CPK) 84 U/L (30-200); Calc. Creatinine Clearance 0 mL/min (70-130); Calcium 9.1 mg/dL (7.8-10.44); Carbon Dioxide 20 mmol/L (23-31); Chloride 105 mmol/L (98-107); Estimated GFR-MDRD Greater than 90; Globulin 2.5 g/dL (2.4-3.5); Glucose 82 mg/dL (80-115); Potassium 4.1 mmol/L (3.5-5.1); Protein, Total 6.7 g/dL (5.8-8.1); Sodium 136 mmol/L (136-145)
== END 2019-06-26 17:30 | disposition home or self-care (01) ==
LOC: ERS 14:08
DX: J44.1 Chronic obstructive pulmonary disease with (acute) exacerbation (principal); M79.10 Myalgia, unspecified site; I10 Essential (primary) hypertension; F41.9 Anxiety disorder, unspecified; F32.9 Major depressive disorder, single episode, unspecified; F17.210 Nicotine dependence, cigarettes, uncomplicated; Z79.51 Long term (current) use of inhaled steroids; Z79.899 Other long term (current) drug therapy
CPT/HCPCS: 36415; 71045; 80053; 81003; 82550; 84153; 84484; 85025; 87804; 93005; 94664; 96360; 96361; U0001

== ENCOUNTER 2019-09-04 08:37 | Outpatient (CLI) | payer OTHER ==
[2019-09-04] MEDS ORDERED: Iopamidol-370 76% 500 ML 1 ML ONE (09:15)
[2019-09-04 09:23] LABS: Estimated GFR-MDRD - POC Greater than 90
--- NOTE | 2019-09-04 13:34 | CT ---
CT OF THE CHEST AND ABDOMEN AND PELVIS WITH IV CONTRAST: INDICATION: History of prostate cancer, lung cancer, and bone metastatic disease. COMPARISON: Prior CT of the chest, abdomen, and pelvis dated 03/16/[address] of the chest dated 07/31. Comparison is also made with a CTA of the chest dated 03/10/2019. Comparisons are also made with a bone scan dated 05/11/2019. FINDINGS: As seen on the comparison CT of the chest is postprocedural change of a partial lobectomy involving t he right lung base. There is scattered emphysema. Mildly prominent lymph nodes within the prevascul ar and pretracheal region are stable measuring 9 mm. No pathologically enlarged lymph nodes are evid ent. No recurrent pulmonary nodule is evident. No focal hepatic lesion is evident. Adrenal glands, pancreas, and spleen appear within normal limits . There is a 1.5 cm right renal cyst which his stable to the recent CT of the chest, abdomen, and pe lvis dated 03/16/2018. No free fluid or enlarged lymph node is evident. There are moderate calcifications involving the abd ominopelvic vasculature. There are a few scattered colonic diverticula without evidence of active diverticulitis. The appendi x is not definitely seen. The prostate, bladder, rectum, and perirectal soft tissues are unremarkabl e-appearing. There is thoracolumbar scoliosis with scattered degenerative and osteoarthritic change. No suspicious osteolytic or osteoblastic lesion is identified. Small bone island is present within the right pubic body. There are multiple stable healed rib deformities involving the posterolateral right chest wall. IMPRESSION: 1. No evidence to suggest recurrent or metastatic disease in the chest, abdomen, or pelvis. 2. Stable post procedural change of a partial pneumonectomy involving the right lower lobe. 3. Scattered emphysema. 4. Stable mildly prominent prevascular and pretracheal lymph nodes of the mediastinum. 5. Stable right renal cyst. 6. Colonic diverticulosis. POS: [facility]
== END 2019-09-04 08:38 | disposition home or self-care (01) ==
LOC: BICCT 08:37
PROVIDERS: ATTEND Internal Medicine Medical Oncology
DX: C61 Malignant neoplasm of prostate (principal); C34.90 Malignant neoplasm of unspecified part of unspecified bronchus or lung; C79.51 Secondary malignant neoplasm of bone; J43.9 Emphysema, unspecified; N28.1 Cyst of kidney, acquired; K57.30 Diverticulosis of large intestine without perforation or abscess without bleeding; Z90.2 Acquired absence of lung [part of]
CPT/HCPCS: 71260; 74177; 82565; Q9967

== ENCOUNTER 2019-10-16 13:35 | Observation (INO) | payer OTHER ==
--- NOTE | 2019-10-16 14:06 | RAD ---
XR Chest 1 View Portable HISTORY: Dizziness, shortness of breath COMPARISON: 06/26/2019 FINDINGS: The heart size is normal. The lungs are well expanded without focal areas of consolidation, pneumothorax or pleural effusions. Old rib fractures are again seen. There is mild scoliosis of the spine. IMPRESSION: No radiographic evidence of acute cardiopulmonary process.
[2019-10-16 14:21] LABS: #Basophils 0.1 thou/uL (0.0-0.2); #Eosinphils 0.1 thou/uL (0.0-0.7); #Lymphocytes 1.7 thou/uL (1.20-3.40); #Monocytes 0.4 thou/uL (0.11-0.59); #Neutrophils 3.9 thou/uL (1.40-6.50); %Basophils 0.9 % (0.0-1.0); %Eosinophils 1.5 % (0.0-10.0); %Lymphocytes 27.9 % (21.0-51.0); %Neutrophils 62.7 % (42.0-75.0); Hemoglobin 14.7 g/dL (14.0-18.0); Mean Corpuscular HGB CONC 34.2 g/dL (32.0-36.0); Mean Corpuscular Hemoglobin 38.6 pg (27.0-31.0); Mean Platelet Volume 6.3 fL (7.4-10.4); Platelet Count 303 thou/uL (130-400); RBC Distribution Width 11.1 % (11.5-14.5); Red Blood Cell (RBC) Count 3.79 mill/uL (4.70-6.10); White Blood Cell (WBC) Count 6.2 thou/uL (4.8-10.8)
[2019-10-16 14:35] LABS: MDiff Complete? YES; Macrocytosis SLIGHT = 6-15 cells (100X) (0-5/hpf); Platelet Morphology Comment Appears Adequate; Polychromasia SLIGHT = 2-3 cells (100X) (0-2/hpf)
[2019-10-16 14:40] LABS: ALT (SGPT) 12 U/L (8-55); AST (SGOT) 23 U/L (5-34); Albumin 4.4 g/dL (3.4-4.8); Alkaline Phosphatase 54 U/L (40-110); Anion Gap 17 mmol/L (10-20); BUN (Urea Nitrogen) 5 mg/dL (8.4-25.7); Bilirubin, Total 0.3 mg/dL (0.2-1.2); Calc. Creatinine Clearance 0 mL/min (70-130); Calcium 9.4 mg/dL (7.8-10.44); Carbon Dioxide 20 mmol/L (23-31); Chloride 105 mmol/L (98-107); Estimated GFR-MDRD Greater than 90; Globulin 2.8 g/dL (2.4-3.5); Glucose 94 mg/dL (80-115); Potassium 3.4 mmol/L (3.5-5.1); Protein, Total 7.2 g/dL (5.8-8.1); Sodium 139 mmol/L (136-145)
[2019-10-16] MEDS ORDERED: predniSONE 20 MG TAB ONE (15:06)
[2019-10-16] MEDS ORDERED: PROVENTIL INHALER 6.7 G (200 INHALATIONS) ONE (15:14)
[2019-10-16] MEDS ORDERED: Albuterol 200 PUFF (6.7GM INHALER) ONE (15:19)
[2019-10-16] MEDS ORDERED: Magnesium 2 GM/50 ML BAG (IN WATER) ONE (15:54)
[2019-10-16 19:18] LABS: SARS-CoV-2 NAA Rapid Test Not Detected (NotDetected)
[2019-10-16] MEDS ORDERED: Ondansetron PF 4 MG/2 ML Vial IVP PRN (19:54)
[2019-10-16] MEDS ORDERED: Loperamide HCl 2 MG CAP PO PRN (19:54)
[2019-10-16] MEDS ORDERED: Bisacodyl 5 MG TAB PO PRN (19:54)
[2019-10-16] MEDS ORDERED: Acetaminophen 325 MG TAB PO PRN (19:54)
[2019-10-16 19:55] LABS: Troponin I Less than 0.010 ng/mL (< 0.028)
[2019-10-16] MEDS ORDERED: Melatonin 3 MG TAB PO PRN (20:01)
[2019-10-16] MEDS ORDERED: Labetalol HCl 100 MG/20 ML VIAL SLOW IVP PRN (20:01)
[2019-10-16] MEDS ORDERED: Benzonatate 100 MG CAP PO PRN (20:01)
[2019-10-16] MEDS ORDERED: diphenhydrAMINE 25 MG CAP PO PRN (20:01)
[2019-10-16] MEDS ORDERED: Docusate 100 MG CAP PO PRN (20:01)
--- NOTE | 2019-10-16 20:23 | PDOC.HHP ---
Hospitalist HPI - History of Present Illness Generalized weakness History of Present Illness: 64-year-old gentleman with past medical history of lung cancer status post lobectomy of the right lower lobe, prostate cancer, COPD, lifelong tobacco abuse , alcoholism, and hypertension presents with generalized weakness. Patient tells me that he drinks 3 to 6 beers per day. He smokes one half pack to one pack of cigarettes daily. Patient admits that he has had low energy over the past several weeks seen has not been doing much aside from laying in bed and sitting on the couch. Patient has been eating and drinking less. Patient has had low energy levels. Patient has had good follow up with his oncologist with the recent CT scan of the chest, abdomen, and pelvis on 09/04/2019 that was negative for cancerous type lesions or metastasis. Patient is also had a nuclear medicine bone scan on 04/2019 that was negative for bony metastasis. Patient admits that he is not been following up with his primary care physician or taking medications regularly. Patient does complain of chronic back pain for which he takes tramadol daily. Patient to be admitted to the medical unit for close management. We will hydrate them with banana bag, metabolic workup was benign, imaging negative. His Covid test is negative. PT/OT evaluation and treatment, patient may benefit from inpatient versus outpatient rehabilitation. Hospitalist ROS - Review of Systems All other systems reviewed; all pertinent +/- noted in HPI/Subj Hospitalist History - Past Medical History Source: patient, old records Cardiac: reports: HTN Pulmonary: reports: COPD, Other (Lung CA, right lower lobectomy,) Renal/: reports: Benign prostatic enlarg., Other (prostate CA) - Past Surgical History Past Surgical History: reports: Other (right lower lobectomy for lung CA, orchiectomy, bowel perforation) - Family History Family History: reports: hypertension - Social History Smoking Status: Current every day smoker Alcohol: reports: Heavy Drugs: reports: none Living Situation: Friends Domestic Violence: Negative Activity level: independent ambulation - Exam General Appearance: NAD, awake alert General - other findings: disheveled Eye: PERRL ENT: normocephalic atraumatic, moist mucosa Neck: supple, symmetric, no carotid bruit Heart: no murmur, no gallops, no rubs Respiratory: CTAB, no wheezes, no rales, no ronchi, normal chest expansion, no tachypnea Gastrointestinal: soft, non-tender, no guarding, no rigidity Extremities: no edema Skin: no lesions, no rashes Neurological: cranial nerve grossly intact, no focal deficits Musculoskeletal: generalized weakness Psychiatric: normal affect, normal behavior, A&O x 3 Hospitalist Results - Labs Result Diagrams: 10/16/19 14:07 10/16/19 14:07 Lab results: WBC 6.2 thou/uL (4.8-10.8) 10/16/19 14:07 Hgb 14.7 g/dL (14.0-18.0) 10/16/19 14:07 Hct 42.8 % (42.0-52.0) 10/16/19 14:07 MCV 113.0 fL (78.0-98.0) H 10/16/19 14:07 Plt Count 303 thou/uL (130-400) 10/16/19 14:07 Neutrophils % 62.7 % (42.0-75.0) 10/16/19 14:07 Sodium 139 mmol/L (136-145) 10/16/19 14:07 Potassium 3.4 mmol/L (3.5-5.1) L 10/16/19 14:07 Chloride 105 mmol/L (98-107) 10/16/19 14:07 Carbon Dioxide 20 mmol/L (23-31) L 10/16/19 14:07 BUN 5 mg/dL (8.4-25.7) L 10/16/19 14:07 Creatinine 0.76 mg/dL (0.7-1.3) 10/16/19 14:07 Glucose 94 mg/dL (80-115) 10/16/19 14:07 Calcium 9.4 mg/dL (7.8-10.44) 10/16/19 14:07 Total Bilirubin 0.3 mg/dL (0.2-1.2) 10/16/19 14:07 AST 23 U/L (5-34) 10/16/19 14:07 ALT 12 U/L (8-55) 10/16/19 14:07 Alkaline Phosphatase 54 U/L (40-110) 10/16/19 14:07 Troponin I Less than 0.010 ng/mL (< 0.028) 10/16/19 19:18 B-Natriuretic Peptide 31.8 pg/mL (0-100) 10/16/19 14:05 Serum Total Protein 7.2 g/dL (5.8-8.1) 10/16/19 14:07 Albumin 4.4 g/dL (3.4-4.8) 10/16/19 14:07 - Radiology Interpretation Chest x-ray Status: image reviewed by sd Hospitalist H&P A/P - Problem (1) Generalized weakness Code(s): R53.1 - WEAKNESS Status: Acute (2) Alcohol abuse Code(s): F10.10 - ALCOHOL ABUSE, UNCOMPLICATED Status: Chronic (3) Bone metastases Code(s): C79.51 - SECONDARY MALIGNANT NEOPLASM OF BONE Status: Chronic (4) HTN (hypertension) Code(s): I10 - ESSENTIAL (PRIMARY) HYPERTENSION Status: Chronic (5) Macrocytosis without anemia Code(s): D75.89 - OTHER SPECIFIED DISEASES OF BLOOD AND BLOOD-FORMING ORGANS Status: Chronic (6) Stage IV adenocarcinoma of prostate Code(s): C61 - MALIGNANT NEOPLASM OF PROSTATE Status: Chronic (7) Tobacco abuse Code(s): Z72.0 - TOBACCO USE Status: Chronic - Plan Plan: Plan: admit to medical unit PT/OT evaluation treatment banana bag folic acid, thiamine patient has no desire for sobriety, will give beer TID with meals nicotine patch continual medications as able blood pressure control blood sugar control G.I. prophylaxis DVT prophylaxis
[2019-10-16] MEDS ORDERED: traZODone HCl 150 MG TAB PO SCH (21:00)
[2019-10-16] MEDS ORDERED: Nicotine 14 MG PATCH TD SCH (22:00)
[2019-10-16] MEDS ORDERED: Famotidine 20 MG TAB ONE (22:17)
[2019-10-16] MEDS: Famotidine 20 MG TAB PO SCH (22:28)
[2019-10-16] MEDS: Multivitamins, Adult 10 ML, Folic Acid 1 MG, Thiamine HCl 100 MG in Dextrose 5 %-0.45 %... IV SCH (22:30)
[2019-10-16 22:38] LABS: Troponin I Less than 0.010 ng/mL (< 0.028)
[2019-10-17 04:57] LABS: #Lymphocytes 1.1 thou/uL (1.20-3.40); #Monocytes 0.7 thou/uL (0.11-0.59); #Neutrophils 4.5 thou/uL (1.40-6.50); %Basophils 0.6 % (0.0-1.0); %Eosinophils 0.5 % (0.0-10.0); %Lymphocytes 17.6 % (21.0-51.0); %Monocytes 11.2 % (0.0-10.0); %Neutrophils 70.1 % (42.0-75.0); Hemoglobin 13.1 g/dL (14.0-18.0); Mean Corpuscular HGB CONC 33.1 g/dL (32.0-36.0); Mean Corpuscular Hemoglobin 37.3 pg (27.0-31.0); Mean Platelet Volume 6.4 fL (7.4-10.4); Platelet Count 276 thou/uL (130-400); RBC Distribution Width 11.1 % (11.5-14.5); White Blood Cell (WBC) Count 6.5 thou/uL (4.8-10.8)
[2019-10-17 05:17] LABS: Anion Gap 11 mmol/L (10-20); BUN (Urea Nitrogen) 9 mg/dL (8.4-25.7); Calc. Creatinine Clearance 0 mL/min (70-130); Calcium 8.5 mg/dL (7.8-10.44); Carbon Dioxide 22 mmol/L (23-31); Chloride 108 mmol/L (98-107); Estimated GFR-MDRD Greater than 90; Glucose 98 mg/dL (80-115); Sodium 137 mmol/L (136-145)
[2019-10-17] MEDS ORDERED: Mometasone 100 MCG/Formoterol 5 MCG 120 PUFF INHALER INH SCH (06:30)
[2019-10-17] MEDS ORDERED: BEER 1 CAN PO SCH (08:00)
[2019-10-17] MEDS ORDERED: Famotidine/PF 20 mg/2ml Vial ONE (08:26)
[2019-10-17] MEDS ORDERED: Amlodipine 5 MG TAB ONE (08:26)
[2019-10-17] MEDS ORDERED: Thiamine 100 MG TAB ONE (08:26)
[2019-10-17] MEDS ORDERED: Folic Acid 1 MG TAB ONE (08:26)
[2019-10-17] MEDS ORDERED: Famotidine 20 MG TAB ONE (08:27)
[2019-10-17] MEDS: Famotidine 20 MG TAB PO SCH (08:36)
[2019-10-17] MEDS ORDERED: Acetaminophen 325 MG TAB ONE (08:41)
[2019-10-17] MEDS ORDERED: Folic Acid 1 MG TAB PO SCH (09:00)
[2019-10-17] MEDS ORDERED: TRAMADOL HCL 200 MG PO SCH (09:00)
[2019-10-17] MEDS ORDERED: ENZALUTAMIDE 40 MG PO SCH (09:00)
[2019-10-17] MEDS ORDERED: Thiamine 100 MG TAB PO SCH (09:00)
[2019-10-17] MEDS ORDERED: Amlodipine 5 MG TAB PO SCH (09:00)
[2019-10-17] MEDS: Multivitamins, Adult 10 ML, Folic Acid 1 MG, Thiamine HCl 100 MG in Dextrose 5 %-0.45 %... IV SCH (10:55)
[2019-10-17 11:44] VITALS: BP 152/51; TEMP 98.4
[2019-10-17 12:09] VITALS: BMI 22.9
--- NOTE | 2019-10-17 21:55 | DIS ---
DATE OF ADMISSION: 10/16/2019 DATE OF DISCHARGE: 10/17/2019 REASON FOR HOSPITALIZATION: Generalized weakness. PROCEDURES PERFORMED AND TREATMENTS RENDERED: The patient was admitted to the medical unit for close management, please see full history and physical for details. The patient had a thorough metabolic workup, please see full laboratory data for details, there is no acute pathology on his metabolic workup with good renal function, normal electrolytes, and normal CBC-aside from an elevated MCV consistent with his chronic alcoholism. The patient had a rapid COVID test, which was negative for COVID. The patient had a chest x-ray, please see full report for details, there is no acute cardiopulmonary process. The patient was worked with by Physical Therapy, who recommended him strong enough for independent living in the home setting and recommended safe for discharge. The patient's problems stem from alcohol use and tobacco use. The patient does admit to me that he drinks 3 to 6 beers daily. The patient smokes half a pack to one pack of cigarettes per day. The patient admits that he does not do much physical activity and he typically goes from the bed to the couch and that is the major extent of his exercise. Occasionally, he will walk a short distance to see a neighbor, though he does get winded and asked to stop. The patient has lung cancer history, though he has had good followup with his oncologist. The patient has had a right lower lobe removed and he has had a CT of the chest, abdomen, and pelvis just last month that did not demonstrate any masses. The patient had a nuclear medicine bone scan in the spring and this was negative for any bony metastasis. Due to the fact the patient has good followup with his oncologist and this does not seem to be at all cancer-related and more self-induced, he was recommended safe for discharge with close followup with primary care physician. The patient recommended to wean off alcohol, he tells me he does not desire sobriety and I recommended that he not do this cold turkey, but he can reduce his beers over the upcoming weeks if he wishes. He was offered treatment for alcohol withdrawal and he declined this. The patient also does not know to stop smoking and nicotine patch was offered, though declined. I recommended to the patient that vitamin deficiencies are common in alcohol abuse and I sent prescriptions for vitamins, thiamine, and folic acid to his pharmacy for his convenience. To ensure compliance, I did send his other chronic medications for blood pressure. The patient recommended to follow up with primary care physician in the next 5 to 7 days. CONDITION ON DISCHARGE: Stable. DISCHARGE MEDICATIONS: Please see full discharge medication list for details. SPECIFIC INSTRUCTIONS FOR THE PATIENT/FAMILY: 1. The patient recommended to take all medications as directed. 2. The patient recommended to follow up with primary care physician in the next 5 to 7 days for all future matters concerning generalized weakness. 3. The patient recommended to wean off alcohol and if he desires complete sobriety, he should seek drug and alcohol counseling from his primary care physician, this was offered in the acute care hospital and he declined. 4. The patient recommended to abstain from tobacco use, especially considering he is a lung cancer patient, who has already had a lobectomy. 5. The patient recommended to be compliant with medical therapy and participate in his own care. 6. The patient recommended to return to acute care hospital immediately if he is unable to comply with any of the previously mentioned steps. 7. The patient recommended to return to acute care hospital immediately if signs or symptoms return, worsen, or any other new symptoms occur. TIME SPENT: Greater than 35 minutes spent coordinating care and discharge process. Job ID: [id number]
[2019-10-18] MEDS ORDERED: Prevnar 13-Val Conj/PF 0.5 ML SYRINGE IM ONE (09:00)
== END 2019-10-17 14:02 | disposition home or self-care (01) ==
LOC: ERS 13:35 → ERHOLD 17:14 → T4-A 10-17 11:38
PROVIDERS: ADMIT Pediatrics; ATTEND Pediatrics
DX: R53.1 Weakness (principal); F10.20 Alcohol dependence, uncomplicated; F17.210 Nicotine dependence, cigarettes, uncomplicated; C34.31 Malignant neoplasm of lower lobe, right bronchus or lung; C61 Malignant neoplasm of prostate; J44.9 Chronic obstructive pulmonary disease, unspecified; I10 Essential (primary) hypertension; N40.0 Benign prostatic hyperplasia without lower urinary tract symptoms; G89.29 Other chronic pain; M54.9 Dorsalgia, unspecified; D75.89 Other specified diseases of blood and blood-forming organs; F12.10 Cannabis abuse, uncomplicated; F41.9 Anxiety disorder, unspecified; F32.9 Major depressive disorder, single episode, unspecified; Z20.828 Contact with and (suspected) exposure to other viral communicable diseases; Z79.899 Other long term (current) drug therapy; Z90.2 Acquired absence of lung [part of]
CPT/HCPCS: 36415; 71045; 80048; 80053; 83880; 84484; 85025; 85379; 93005; 96365; G0378; J0690; J3411; J3475; J7042; J7512; S0028; U0002

== ENCOUNTER 2020-03-07 10:12 | Emergency (ER) | payer OTHER ==
[2020-03-07 11:16] LABS: #Basophils 0.1 thou/uL (0.0-0.2); #Eosinphils 0.2 thou/uL (0.0-0.7); #Lymphocytes 1.9 thou/uL (1.20-3.40); #Monocytes 0.4 thou/uL (0.11-0.59); #Neutrophils 4.9 thou/uL (1.40-6.50); %Basophils 1.1 % (0.0-1.0); %Eosinophils 2.6 % (0.0-10.0); %Lymphocytes 25.9 % (21.0-51.0); %Monocytes 5.3 % (0.0-10.0); %Neutrophils 65.1 % (42.0-75.0); Mean Corpuscular HGB CONC 33.7 g/dL (32.0-36.0); Mean Corpuscular Hemoglobin 36.3 pg (27.0-31.0); Mean Platelet Volume 6.3 fL (7.4-10.4); Platelet Count 317 thou/uL (130-400); RBC Distribution Width 10.8 % (11.5-14.5); Red Blood Cell (RBC) Count 3.87 mill/uL (4.70-6.10); White Blood Cell (WBC) Count 7.5 thou/uL (4.8-10.8)
--- NOTE | 2020-03-07 11:19 | RAD ---
XR Chest 1 View Portable HISTORY: Dyspnea COMPARISON: 10/16/2019 FINDINGS: The heart size is normal. The lungs are well expanded without focal areas of consolidation, pneumothorax or pleural effusions. Old rib fractures are again seen. There is mild scoliosis of the spine. IMPRESSION: No radiographic evidence of acute cardiopulmonary process.
[2020-03-07 11:40] LABS: ALT (SGPT) 15 U/L (8-55); AST (SGOT) 19 U/L (5-34); Albumin 4.2 g/dL (3.4-4.8); Alkaline Phosphatase 63 U/L (40-110); Anion Gap 16 mmol/L (10-20); BUN (Urea Nitrogen) 8 mg/dL (8.4-25.7); Bilirubin, Total 0.3 mg/dL (0.2-1.2); Calc. Creatinine Clearance 0 mL/min (70-130); Calcium 9.4 mg/dL (7.8-10.44); Carbon Dioxide 22 mmol/L (23-31); Chloride 104 mmol/L (98-107); Globulin 3.1 g/dL (2.4-3.5); Glucose 102 mg/dL (80-115); Protein, Total 7.3 g/dL (5.8-8.1); Sodium 138 mmol/L (136-145)
[2020-03-07 12:14] LABS: MDiff Complete? YES; Macrocytosis SLIGHT = 6-15 cells (100X) (0-5/hpf); Platelet Morphology Comment Appears Adequate; Polychromasia SLIGHT = 2-3 cells (100X) (0-2/hpf)
[2020-03-07] MEDS ORDERED: Magnesium 2 GM/50 ML BAG (IN WATER) ONE (13:58)
[2020-03-07] MEDS ORDERED: diphenhydrAMINE 50 MG/ML VIAL ONE (13:59)
[2020-03-07] MEDS ORDERED: Metoclopramide HCl 10 MG/2 ML VIAL ONE (13:59)
--- NOTE | 2020-03-07 14:30 | CT ---
CT OF THE BRAIN WITHOUT CONTRAST: 03/07/20 HISTORY: Headache. COMPARISON: 07/24/18. TECHNIQUE: Multiple contiguous axial images were obtained in a CT of the brain without contrast. FINDINGS: There is scattered hypodensities in the subcortical and vivek ventricular white matter, likely seconda ry to small vessel ischemic disease. There appears to be encephalomalacia in the left frontal lobe wh ich is unchanged. No new large confluent infarction is seen. There is no evidence of hydrocephalus, i ntracranial hemorrhage, or extra-axial fluid collection. There is stable lytic lesion in the parietal calvarium. The overlying scalp soft tissues are unremar kable. The visualized paranasal sinuses and mastoid air cells are well aerated. IMPRESSION: No evidence of acute intracranial abnormality. POS: [facility]
--- NOTE | 2020-03-07 15:31 | CT ---
CT CERVICAL SPINE WITHOUT CONTRAST: COMPARISON: 05/10/2015. HISTORY: Headache and neck pain. TECHNIQUE: Multiple contiguous axial images were obtained in a CT of the cervical spine without contrast. Sagit shannan and coronal reformats were performed. FINDINGS: There are moderate degenerative changes in the cervical spine. The vertebral bodies demonstrate norm al height without acute fracture or subluxation. No prevertebral soft tissue swelling is seen. The posterior facets are well aligned. Normal alignment of the skull base with the cervical spine is seen. Emphysematous changes are seen in the lung apices. Calcifications are seen surrounding the carotid b ifurcations. IMPRESSION: Degenerative changes of the cervical spine without acute osseous abnormality. POS: [facility]
[2020-03-07] MEDS ORDERED: Fentanyl 100 MCG/2 ML VIAL ONE (15:33)
[2020-03-07 17:45] LABS: CSF Source CSF; Clarity Clear (Clear); Tube # 1; Tube # 4
[2020-03-07 18:03] LABS: CSF, Glucose 70 mg/dl (40-70); CSF, Protein 67 mg/dL (15-40)
[2020-03-07] MEDS ORDERED: Dexamethasone 10 MG/ML VIAL ONE (18:42)
[2020-03-07] MEDS ORDERED: Morphine 4 MG/ML VIAL ONE (18:42)
[2020-03-07 19:32] LABS: Color Of CSF Supernatant COLORLESS (Colorless); Tube # 2; Unspun CSF Color COLORLESS (Colorless)
== END 2020-03-07 20:04 | disposition home or self-care (01) ==
LOC: ERS 10:12
DX: M19.09 Primary osteoarthritis, other specified site (principal); F17.210 Nicotine dependence, cigarettes, uncomplicated; Z79.899 Other long term (current) drug therapy
CPT/HCPCS: 36415; 62270; 70450; 71045; 72125; 80053; 82945; 84157; 85025; 85652; 87070; 87205; 89051; 96365; 96366; 96368; 96375; J1100; J1200; J2270; J2765; J3010; J3475

== ENCOUNTER 2020-03-11 09:24 | Outpatient (CLI) | payer OTHER ==
--- NOTE | 2020-03-11 10:11 | CT ---
CT Chest Abd Pelvis W Con History: Prostate cancer, lung cancer, bone metastases. Comparison: CT examination August 2019 Findings: The lungs are without suspicious pulmonary nodule. No pneumothorax or effusion. No airspace consolidation. Postoperative change on the right lower lobe. There is significant enlargement of the mildly prominent pretracheal, AP window, and prevascular lymp h nodes. No new enlarged mediastinal lymph nodes. No pericardial effusion. The liver, spleen, pancreas are unremarkable. Relatively large second portion duodenum diverticulum. No hydronephrosis. No retroperitoneal periaortic adenopathy. Moderate atherosclerotic plaque throughout the aorta. No dilated loops of large or small bowel. Liver, gallbladder, kidneys, adrenal glands are all normal. Small cyst right kidney is similar. Moderate degenerative disease at L5/S1 with large disc osteophyte complex. No abnormal focal area of sclerosis or lysis of the skeleton. Bone island medial left clavicle, unchanged. Old posterior right eighth ninth and 10th rib fractures. Old left lateral sixth rib fracture. No acute rib fracture. Old left L2 transverse process fracture. Impression: 1. No evidence for recurrent or metastatic disease within the chest, abdomen or pelvis. 2. No acute inflammatory process.
== END 2020-03-11 09:25 | disposition home or self-care (01) ==
LOC: BICCT 09:24
PROVIDERS: ATTEND Internal Medicine Medical Oncology
DX: C61 Malignant neoplasm of prostate (principal); C34.90 Malignant neoplasm of unspecified part of unspecified bronchus or lung; C79.51 Secondary malignant neoplasm of bone
CPT/HCPCS: 71260; 74177

== ENCOUNTER 2020-09-10 10:08 | Outpatient (CLI) | payer OTHER ==
[2020-09-10] MEDS ORDERED: Iopamidol 370 76% 100 ML VIAL ONE (13:55)
== END 2020-09-10 10:09 | disposition home or self-care (01) ==
LOC: CT 10:08
PROVIDERS: ATTEND Internal Medicine Medical Oncology
DX: C34.90 Malignant neoplasm of unspecified part of unspecified bronchus or lung (principal); C61 Malignant neoplasm of prostate; C79.51 Secondary malignant neoplasm of bone; R91.1 Solitary pulmonary nodule
CPT/HCPCS: 71260; 74177; 78306; A9503; Q9967

== ENCOUNTER 2020-09-19 17:46 | Inpatient (IN) | payer OTHER ==
[2020-09-19] MEDS ORDERED: Aspirin Chewable 81 MG TAB ONE ×2 (19:04→19:08)
[2020-09-19] MEDS ORDERED: Morphine 4 MG/ML VIAL ONE (19:04)
[2020-09-19] MEDS ORDERED: methylPREDNISolone Sod Succ/PF 125 MG/2 ML VIAL ONE (19:05)
[2020-09-19 19:12] LABS: #Basophils 0.1 thou/uL (0.0-0.2); #Eosinphils 0.8 thou/uL (0.0-0.7); #Lymphocytes 1.9 thou/uL (1.20-3.40); #Monocytes 0.5 thou/uL (0.11-0.59); %Basophils 1.1 % (0.0-1.0); %Eosinophils 11.4 % (0.0-10.0); %Lymphocytes 26.2 % (21.0-51.0); %Neutrophils 54.2 % (42.0-75.0); Mean Corpuscular HGB CONC 35.1 g/dL (32.0-36.0); Mean Corpuscular Hemoglobin 38.4 pg (27.0-31.0); Mean Platelet Volume 5.9 fL (7.4-10.4); Platelet Count 261 thou/uL (130-400); RBC Distribution Width 11.3 % (11.5-14.5); Red Blood Cell (RBC) Count 3.66 mill/uL (4.70-6.10); White Blood Cell (WBC) Count 7.3 thou/uL (4.8-10.8)
[2020-09-19 19:31] LABS: MDiff Complete? YES; Macrocytosis SLIGHT = 6-15 cells (100X) (0-5/hpf); Platelet Morphology Comment Appears Adequate
[2020-09-19 19:32] LABS: ALT (SGPT) 17 U/L (8-55); AST (SGOT) 28 U/L (5-34); Albumin 4.2 g/dL (3.4-4.8); Alkaline Phosphatase 66 U/L (40-110); Anion Gap 15 mmol/L (10-20); BUN (Urea Nitrogen) 8 mg/dL (8.4-25.7); Bilirubin, Total 0.3 mg/dL (0.2-1.2); Calc. Creatinine Clearance 0 mL/min (70-130); Calcium 8.7 mg/dL (7.8-10.44); Carbon Dioxide 21 mmol/L (23-31); Chloride 101 mmol/L (98-107); Globulin 3.1 g/dL (2.4-3.5); Glucose 86 mg/dL (80-115); Lipase 26 U/L (8-78); Potassium 3.8 mmol/L (3.5-5.1); Protein, Total 7.3 g/dL (5.8-8.1); Sodium 133 mmol/L (136-145)
[2020-09-19 20:35] LABS: SARS-CoV-2 NAA Rapid Test Not Detected (NotDetected)
[2020-09-19] MEDS ORDERED: Ondansetron ODT 4 MG TAB PO PRN (21:41)
[2020-09-19] MEDS ORDERED: Ondansetron PF 4 MG/2 ML Vial IVP PRN (21:41)
[2020-09-19] MEDS ORDERED: Acetaminophen 325 MG TAB PO PRN (21:41)
[2020-09-19] MEDS ORDERED: Diazepam 5 MG TAB PO PRN (21:46)
[2020-09-19] MEDS ORDERED: Diazepam 5 MG TAB PO SCH (22:00)
[2020-09-19] MEDS ORDERED: Thiamine HCl 200 MG/2 ML VIAL IM SCH (22:00)
[2020-09-19 23:16] VITALS: BMI 24.6
[2020-09-20] MEDS ORDERED: Nitroglycerin 0.4 MG TAB (25 Tab Bottle) SL PRN (00:47)
[2020-09-20] MEDS: Morphine 2 MG/ML VIAL SLOW IVP PRN ×5 (01:21→20:09)
[2020-09-20 01:27] LABS: Troponin I Less than 0.010 ng/mL (< 0.028)
[2020-09-20] MEDS ORDERED: Diazepam 5 MG TAB PO PRN (04:00)
[2020-09-20 04:50] LABS: #Lymphocytes 0.6 thou/uL (1.20-3.40); #Monocytes 0.1 thou/uL (0.11-0.59); #Neutrophils 3.8 thou/uL (1.40-6.50); %Basophils 0.2 % (0.0-1.0); %Eosinophils 0.3 % (0.0-10.0); %Lymphocytes 12.8 % (21.0-51.0); %Monocytes 1.8 % (0.0-10.0); %Neutrophils 84.9 % (42.0-75.0); Hemoglobin 14.5 g/dL (14.0-18.0); Mean Corpuscular HGB CONC 34.4 g/dL (32.0-36.0); Mean Platelet Volume 6.1 fL (7.4-10.4); Platelet Count 246 thou/uL (130-400); RBC Distribution Width 11.4 % (11.5-14.5); White Blood Cell (WBC) Count 4.4 thou/uL (4.8-10.8)
[2020-09-20 05:17] LABS: Anion Gap 13 mmol/L (10-20); BUN (Urea Nitrogen) 10 mg/dL (8.4-25.7); Calc. Creatinine Clearance 111 mL/min (70-130); Carbon Dioxide 22 mmol/L (23-31); Chloride 108 mmol/L (98-107); Glucose 129 mg/dL (80-115); Potassium 4.5 mmol/L (3.5-5.1); Sodium 138 mmol/L (136-145)
[2020-09-20] MEDS: Multivitamin W/ Minerals 1 TAB PO SCH (08:05)
[2020-09-20] MEDS: Thiamine 100 MG TAB PO SCH (08:05)
[2020-09-20] MEDS: Magnesium Oxide 400 MG TAB PO SCH (08:05)
[2020-09-20] MEDS: Folic Acid 1 MG TAB PO SCH (08:05)
[2020-09-20] MEDS ORDERED: methylPREDNISolone Sod Succ 40 MG VIAL IVP SCH ×2 (09:00→14:00)
[2020-09-20] MEDS: Enoxaparin Sodium 40 MG/0.4 ML SYRINGE SC SCH (09:15)
[2020-09-20] MEDS ORDERED: Lisinopril 20 MG TAB PO SCH (14:15)
[2020-09-20] MEDS ORDERED: Amlodipine 10 MG TAB PO SCH (14:15)
[2020-09-20] MEDS ORDERED: Azithromycin 500 MG in Sodium Chloride 0.9% 250 ML 250 ML IVPB SCH (18:00)
[2020-09-20] MEDS: methylPREDNISolone Sod Succ 40 MG VIAL IVP SCH (20:09)
[2020-09-21] MEDS: Morphine 2 MG/ML VIAL SLOW IVP PRN ×6 (00:20→22:23)
[2020-09-21] MEDS: methylPREDNISolone Sod Succ 40 MG VIAL IVP SCH ×2 (09:31→20:44)
[2020-09-21] MEDS: Enoxaparin Sodium 40 MG/0.4 ML SYRINGE SC SCH (09:38)
[2020-09-21] MEDS: Magnesium Oxide 400 MG TAB PO SCH (09:38)
[2020-09-21] MEDS: Folic Acid 1 MG TAB PO SCH (09:38)
[2020-09-21] MEDS: Thiamine 100 MG TAB PO SCH (09:38)
[2020-09-21] MEDS: Multivitamin W/ Minerals 1 TAB PO SCH (09:38)
[2020-09-21] MEDS: Amoxicillin/Potassium Clav 875 MG TAB PO SCH (20:44)
[2020-09-22] MEDS: Morphine 2 MG/ML VIAL SLOW IVP PRN ×3 (02:48→13:35)
[2020-09-22] MEDS: methylPREDNISolone Sod Succ 40 MG VIAL IVP SCH (07:45)
[2020-09-22] MEDS: Enoxaparin Sodium 40 MG/0.4 ML SYRINGE SC SCH (07:47)
[2020-09-22] MEDS: Amoxicillin/Potassium Clav 875 MG TAB PO SCH ×2 (07:47→20:47)
[2020-09-22] MEDS: Multivitamin W/ Minerals 1 TAB PO SCH (07:48)
[2020-09-22] MEDS: Folic Acid 1 MG TAB PO SCH (07:48)
[2020-09-22] MEDS: Thiamine 100 MG TAB PO SCH (07:48)
[2020-09-22] MEDS: Magnesium Oxide 400 MG TAB PO SCH (07:48)
[2020-09-23] MEDS ORDERED: predniSONE 20 MG TAB PO SCH (08:00)
[2020-09-23] MEDS ORDERED: Nicotine 21 MG PATCH TD SCH (09:00)
[2020-09-23] MEDS: Enoxaparin Sodium 40 MG/0.4 ML SYRINGE SC SCH (09:55)
[2020-09-23] MEDS: Amoxicillin/Potassium Clav 875 MG TAB PO SCH (09:55)
[2020-09-23] MEDS: Magnesium Oxide 400 MG TAB PO SCH (09:56)
[2020-09-23] MEDS: Folic Acid 1 MG TAB PO SCH (09:56)
[2020-09-23] MEDS: Multivitamin W/ Minerals 1 TAB PO SCH (09:57)
[2020-09-23] MEDS: Thiamine 100 MG TAB PO SCH (09:58)
[2020-09-23 11:57] VITALS: BP 173/82; TEMP 97.9
== END 2020-09-23 12:35 | disposition home or self-care (01) | DRG 191 ==
LOC: ERS 17:46 → 2SW 21:11 → OBSVTOIN 09-22 14:47
PROVIDERS: ADMIT Student in an Organized Health Care Education/Training Program; ATTEND Internal Medicine
DX: J44.1 Chronic obstructive pulmonary disease with (acute) exacerbation (principal); E87.1 Hypo-osmolality and hyponatremia; Z20.822 Contact with and (suspected) exposure to COVID-19; I10 Essential (primary) hypertension; F10.10 Alcohol abuse, uncomplicated; F17.210 Nicotine dependence, cigarettes, uncomplicated; C61 Malignant neoplasm of prostate; Z85.118 Personal history of other malignant neoplasm of bronchus and lung; Z90.2 Acquired absence of lung [part of]; Z86.19 Personal history of other infectious and parasitic diseases; Z79.899 Other long term (current) drug therapy; Z79.51 Long term (current) use of inhaled steroids
CPT/HCPCS: 0240U; 36415; 71045; 80048; 80053; 83690; 83735; 83880; 84484; 85025; 85379; 93005; 94640; 96365; 96372; 96375; 96376; G0378; J0456; J1650; J1956; J2270; J2920; J2930; J3411; J3475; J3490; J7050; J7512; J7620

== ENCOUNTER 2020-11-10 08:34 | Outpatient (CLI) | payer OTHER | END 2020-11-10 08:35 | disposition home or self-care (01) | LOC: BICRAD 08:34 | PROVIDERS: ATTEND Internal Medicine Critical Care Medicine | DX: R06.00 Dyspnea, unspecified (principal) | CPT/HCPCS: 71046 ==

== ENCOUNTER 2020-11-14 11:26 | Emergency (ER) | payer OTHER ==
[~2020-11-14 11:26] MED LIST changes: +Iopamidol-370 76% 500 ML 1 ML ONE; -Magnevist 469MG/ML 20 ML VIAL ONE
[2020-11-14 12:50] LABS: #Basophils 0.1 thou/uL (0.0-0.2); #Eosinphils 0.2 thou/uL (0.0-0.7); #Lymphocytes 1.9 thou/uL (1.20-3.40); #Monocytes 0.5 thou/uL (0.11-0.59); #Neutrophils 5.1 thou/uL (1.40-6.50); %Eosinophils 2.1 % (0.0-10.0); %Lymphocytes 24.9 % (21.0-51.0); %Monocytes 6.2 % (0.0-10.0); %Neutrophils 65.9 % (42.0-75.0); Hemoglobin 15.2 g/dL (14.0-18.0); Mean Corpuscular HGB CONC 34.4 g/dL (32.0-36.0); Mean Corpuscular Hemoglobin 37.5 pg (27.0-31.0); Mean Platelet Volume 6.1 fL (7.4-10.4); Platelet Count 318 thou/uL (130-400); Red Blood Cell (RBC) Count 4.04 mill/uL (4.70-6.10); White Blood Cell (WBC) Count 7.7 thou/uL (4.8-10.8)
[2020-11-14 13:04] LABS: ALT (SGPT) 18 U/L (8-55); AST (SGOT) 20 U/L (5-34); Albumin 4.1 g/dL (3.4-4.8); Alkaline Phosphatase 66 U/L (40-110); Anion Gap 13 mmol/L (10-20); BUN (Urea Nitrogen) 13 mg/dL (8.4-25.7); Bilirubin, Total 0.2 mg/dL (0.2-1.2); Calc. Creatinine Clearance 0 mL/min (70-130); Calcium 9.5 mg/dL (7.8-10.44); Carbon Dioxide 24 mmol/L (23-31); Chloride 104 mmol/L (98-107); Globulin 3.2 g/dL (2.4-3.5); Glucose 76 mg/dL (80-115); Potassium 3.9 mmol/L (3.5-5.1); Protein, Total 7.3 g/dL (5.8-8.1); Sodium 137 mmol/L (136-145)
== END 2020-11-14 15:45 | disposition home or self-care (01) ==
LOC: ERS 11:26
DX: K92.1 Melena (principal); I10 Essential (primary) hypertension; J44.9 Chronic obstructive pulmonary disease, unspecified; F17.210 Nicotine dependence, cigarettes, uncomplicated
CPT/HCPCS: 74177; 80053; 82274; 85025; 96372; J0500; Q9967

== ENCOUNTER 2021-02-04 11:45 | Emergency (ER) | payer OTHER ==
[2021-02-04] MEDS ORDERED: predniSONE 20 MG TAB ONE (12:13)
[2021-02-04] MEDS ORDERED: Magnesium 2 GM/50 ML BAG (IN WATER) ONE (12:13)
[2021-02-04] MEDS ORDERED: Albuterol Sulfate 2.5 mg/0.5 ml Neb ONE (14:06)
[2021-02-04] MEDS ORDERED: Ipratropium Bromide 2.5 ml Neb ONE (14:06)
== END 2021-02-04 15:23 | disposition home or self-care (01) ==
LOC: ERS 11:45
DX: J44.1 Chronic obstructive pulmonary disease with (acute) exacerbation (principal); F17.210 Nicotine dependence, cigarettes, uncomplicated; I10 Essential (primary) hypertension; Z85.46 Personal history of malignant neoplasm of prostate; Z85.028 Personal history of other malignant neoplasm of stomach; Z85.118 Personal history of other malignant neoplasm of bronchus and lung
CPT/HCPCS: 71045; 96365; 96366; J3475; J7512; J7611; J7620

== ENCOUNTER 2021-04-07 10:44 | Outpatient (CLI) | payer OTHER ==
[2021-04-07 11:07] LABS: Estimated GFR-MDRD - POC Greater than 90
== END 2021-04-07 10:45 | disposition home or self-care (01) ==
LOC: BICCT 10:44
PROVIDERS: ATTEND Internal Medicine Medical Oncology
DX: C61 Malignant neoplasm of prostate (principal); C34.90 Malignant neoplasm of unspecified part of unspecified bronchus or lung; K57.30 Diverticulosis of large intestine without perforation or abscess without bleeding; N28.1 Cyst of kidney, acquired; I70.90 Unspecified atherosclerosis; I25.10 Atherosclerotic heart disease of native coronary artery without angina pectoris; Z98.890 Other specified postprocedural states
CPT/HCPCS: 71260; 74177; 82565

== ENCOUNTER 2021-04-14 10:32 | Outpatient (CLI) | payer OTHER | END 2021-04-14 10:33 | disposition home or self-care (01) | LOC: NM 10:32 | PROVIDERS: ATTEND Internal Medicine Medical Oncology | DX: C61 Malignant neoplasm of prostate (principal) | CPT/HCPCS: 78306; A9503 ==

== ENCOUNTER 2021-04-22 11:05 | Emergency (ER) | payer OTHER ==
[2021-04-22 11:54] LABS: #Eosinphils 0.2 thou/uL (0.0-0.7); #Lymphocytes 0.7 thou/uL (1.20-3.40); #Monocytes 0.6 thou/uL (0.11-0.59); #Neutrophils 6.1 thou/uL (1.40-6.50); %Basophils 0.4 % (0.0-1.0); %Eosinophils 2.1 % (0.0-10.0); %Lymphocytes 9.1 % (21.0-51.0); %Monocytes 7.8 % (0.0-10.0); %Neutrophils 80.6 % (42.0-75.0); Hemoglobin 15.4 g/dL (14.0-18.0); Mean Corpuscular HGB CONC 33.1 g/dL (32.0-36.0); Mean Corpuscular Hemoglobin 35.9 pg (27.0-31.0); Platelet Count 271 thou/uL (130-400); RBC Distribution Width 11.7 % (11.5-14.5); White Blood Cell (WBC) Count 7.5 thou/uL (4.8-10.8)
[2021-04-22 12:03] LABS: INR-International Normal Ratio 0.9; PTT 32.8 sec (22.9-36.1); Prothrombin Time 12.4 sec (12.0-14.7)
[2021-04-22 12:14] LABS: MDiff Complete? YES; Macrocytosis SLIGHT = 6-15 cells (100X) (0-5/hpf); Platelet Morphology Comment Appears Adequate
[2021-04-22 12:23] LABS: ALT (SGPT) 19 U/L (8-55); AST (SGOT) 25 U/L (5-34); Alkaline Phosphatase 67 U/L (40-110); Anion Gap 19 mmol/L (10-20); BUN (Urea Nitrogen) 7 mg/dL (8.4-25.7); Bilirubin, Total 0.4 mg/dL (0.2-1.2); Calc. Creatinine Clearance 0 mL/min (70-130); Calcium 9.3 mg/dL (7.8-10.44); Carbon Dioxide 16 mmol/L (23-31); Chloride 104 mmol/L (98-107); Globulin 3.2 g/dL (2.4-3.5); Glucose 85 mg/dL (80-115); Potassium 4.1 mmol/L (3.5-5.1); Protein, Total 7.2 g/dL (5.8-8.1); Sodium 135 mmol/L (136-145)
[2021-04-22] MEDS ORDERED: Albuterol 200 PUFF (6.7GM INHALER) ONE (13:07)
[2021-04-22] MEDS ORDERED: predniSONE 20 MG TAB ONE (13:07)
[2021-04-23 08:44] LABS: SARS-CoV-2 PCR by NAA DETECTED (NotDetected)
== END 2021-04-22 14:16 | disposition home or self-care (01) ==
LOC: ERS 11:05
DX: U07.1 COVID-19 (principal); J44.1 Chronic obstructive pulmonary disease with (acute) exacerbation; I10 Essential (primary) hypertension; F17.210 Nicotine dependence, cigarettes, uncomplicated
CPT/HCPCS: 36415; 71045; 80053; 83605; 85025; 85610; 85730; 87040; 87149; 93005; 94760; J7512; U0003; U0005

== ENCOUNTER 2021-09-24 20:54 | Inpatient (IN) | payer OTHER ==
[2021-09-24] MEDS ORDERED: Ondansetron ODT 4 MG TAB ONE (22:46)
[2021-09-24 23:14] LABS: Hemoglobin 14.5 g/dL (14.0-18.0); Mean Corpuscular HGB CONC 33.2 g/dL (32.0-36.0); Mean Corpuscular Hemoglobin 37.2 pg (27.0-31.0); Mean Platelet Volume 5.9 fL (7.4-10.4); Platelet Count 276 thou/uL (130-400); RBC Distribution Width 11.4 % (11.5-14.5); Red Blood Cell (RBC) Count 3.91 mill/uL (4.70-6.10); White Blood Cell (WBC) Count 5.6 thou/uL (4.8-10.8)
[2021-09-24 23:32] LABS: ALT (SGPT) 17 U/L (8-55); AST (SGOT) 18 U/L (5-34); Alkaline Phosphatase 60 U/L (40-110); Anion Gap 17 mmol/L (10-20); BUN (Urea Nitrogen) 7 mg/dL (8.4-25.7); Bilirubin, Total Less than 0.2 mg/dL (0.2-1.2); Calc. Creatinine Clearance 0 mL/min (70-130); Calcium 8.8 mg/dL (7.8-10.44); Carbon Dioxide 19 mmol/L (23-31); Chloride 109 mmol/L (98-107); Estimated GFR 106; Glucose 102 mg/dL (80-115); Potassium 4.4 mmol/L (3.5-5.1); Sodium 141 mmol/L (136-145)
[2021-09-24 23:52] LABS: #Eosinphils 0.1 thou/uL (0.0-0.7); #Lymphocytes 0.7 thou/uL (1.20-3.40); #Monocytes 0.1 thou/uL (0.11-0.59); #Neutrophils 4.8 thou/uL (1.40-6.50); %Basophils 0.3 % (0.0-1.0); %Lymphocytes 12.3 % (21.0-51.0); %Monocytes 1.2 % (0.0-10.0); %Neutrophils 85.2 % (42.0-75.0); MDiff Complete? YES; Macrocytosis SLIGHT = 6-15 cells (100X) (0-5/hpf)
[2021-09-25] MEDS ORDERED: Ampicillin/Sulbactam 3 GM in Sodium Chloride 0.9% 100 ML IVPB SCH ×2 (00:15→06:00)
[2021-09-25 02:22] LABS: SARS-CoV-2 NAA Rapid Test Not Detected (NotDetected)
[2021-09-25 02:35] VITALS: BMI 25.7
[2021-09-25] MEDS ORDERED: Calcium Carbonate 500 MG ChewTAB PO PRN (05:57)
[2021-09-25] MEDS ORDERED: Senokot S 8.6-50 MG TAB PO PRN (05:57)
[2021-09-25] MEDS ORDERED: Acetaminophen 325 MG TAB PO PRN (05:57)
[2021-09-25] MEDS ORDERED: Bisacodyl 5 MG TAB PO PRN (05:57)
[2021-09-25] MEDS ORDERED: Ondansetron PF 4 MG/2 ML Vial IVP PRN (05:57)
[2021-09-25] MEDS ORDERED: Loperamide HCl 2 MG CAP PO PRN (05:57)
[2021-09-25] MEDS: HYDROcodone/Acetaminophen 10/325 mg Tablet PO PRN ×2 (06:17→18:06)
[2021-09-25] MEDS: Enoxaparin Sodium 40 MG/0.4 ML SYRINGE SC SCH (08:55)
[2021-09-25] MEDS ORDERED: Labetalol HCl 100 MG/20 ML VIAL SLOW IVP PRN (10:16)
[2021-09-25] MEDS: Mometasone 200 MCG/Formoterol 5 MCG 120 PUFF INHALER INH SCH (19:27)
[2021-09-26] MEDS: HYDROcodone/Acetaminophen 10/325 mg Tablet PO PRN ×3 (01:04→19:58)
[2021-09-26 05:43] LABS: #Basophils 0.1 thou/uL (0.0-0.2); #Eosinphils 0.2 thou/uL (0.0-0.7); #Lymphocytes 2.2 thou/uL (1.20-3.40); #Monocytes 0.5 thou/uL (0.11-0.59); #Neutrophils 3.6 thou/uL (1.40-6.50); %Eosinophils 2.7 % (0.0-10.0); %Lymphocytes 33.4 % (21.0-51.0); %Monocytes 7.8 % (0.0-10.0); %Neutrophils 55.1 % (42.0-75.0); Hemoglobin 14.1 g/dL (14.0-18.0); Mean Corpuscular HGB CONC 32.6 g/dL (32.0-36.0); Mean Corpuscular Hemoglobin 36.5 pg (27.0-31.0); Mean Platelet Volume 5.9 fL (7.4-10.4); Platelet Count 284 thou/uL (130-400); RBC Distribution Width 11.4 % (11.5-14.5); Red Blood Cell (RBC) Count 3.87 mill/uL (4.70-6.10); White Blood Cell (WBC) Count 6.6 thou/uL (4.8-10.8)
[2021-09-26 06:02] LABS: Anion Gap 14 mmol/L (10-20); BUN (Urea Nitrogen) 10 mg/dL (8.4-25.7); Calc. Creatinine Clearance 112 mL/min (70-130); Calcium 9.1 mg/dL (7.8-10.44); Carbon Dioxide 23 mmol/L (23-31); Chloride 108 mmol/L (98-107); Estimated GFR 100; Glucose 87 mg/dL (80-115); Potassium 3.9 mmol/L (3.5-5.1); Sodium 141 mmol/L (136-145)
[2021-09-26] MEDS: Mometasone 200 MCG/Formoterol 5 MCG 120 PUFF INHALER INH SCH ×2 (07:38→19:06)
[2021-09-26] MEDS: Enoxaparin Sodium 40 MG/0.4 ML SYRINGE SC SCH (08:35)
[2021-09-26] MEDS: Nicotine 21 MG PATCH TD SCH (08:36)
[2021-09-26] MEDS ORDERED: Rabies Vaccine Human 2.5 UNITS VIAL IM ONE (08:45)
[2021-09-26] MEDS ORDERED: Albuterol Sulfate 1.25 MG/3 ML NEB NEB PRN (08:51)
[2021-09-26] MEDS ORDERED: Amlodipine 5 MG TAB PO SCH (09:00)
[2021-09-26] MEDS: Ampicillin/Sulbactam 3 GM in Sodium Chloride 0.9% 100 ML IVPB SCH ×4 (10:28→22:09)
[2021-09-27] MEDS: Ampicillin/Sulbactam 3 GM in Sodium Chloride 0.9% 100 ML IVPB SCH ×2 (02:22→09:14)
[2021-09-27] MEDS: HYDROcodone/Acetaminophen 10/325 mg Tablet PO PRN (05:51)
[2021-09-27] MEDS: Amlodipine 5 MG TAB PO SCH (08:53)
[2021-09-27] MEDS: Enoxaparin Sodium 40 MG/0.4 ML SYRINGE SC SCH (08:55)
[2021-09-27] MEDS: Nicotine 21 MG PATCH TD SCH (08:58)
[2021-09-27] MEDS: Mometasone 200 MCG/Formoterol 5 MCG 120 PUFF INHALER INH SCH ×2 (10:25→19:36)
[2021-09-27] MEDS ORDERED: Lorazepam 0.5 MG TAB PO PRN (10:39)
[2021-09-27] MEDS ORDERED: Amoxicillin/Potassium Clav 875 MG TAB PO SCH (11:15)
[2021-09-27] MEDS: ENZALUTAMIDE 40 MG PO SCH ×2 (12:16→19:16)
[2021-09-27] MEDS: traMADol HCl 50 MG TAB PO PRN (15:38)
[2021-09-27] MEDS: Albuterol Sulfate 1.25 MG/3 ML NEB NEB SCH ×2 (19:25→19:27)
[2021-09-27] MEDS: Amoxicillin/Potassium Clav 875 MG TAB PO SCH (20:13)
[2021-09-28] MEDS: Albuterol Sulfate 1.25 MG/3 ML NEB NEB SCH ×4 (07:16→19:14)
[2021-09-28] MEDS: Mometasone 200 MCG/Formoterol 5 MCG 120 PUFF INHALER INH SCH ×2 (07:16→19:21)
[2021-09-28] MEDS: Nicotine 21 MG PATCH TD SCH (08:48)
[2021-09-28] MEDS: Amoxicillin/Potassium Clav 875 MG TAB PO SCH ×2 (08:48→20:42)
[2021-09-28] MEDS: traMADol HCl 50 MG TAB PO PRN ×2 (08:48→14:43)
[2021-09-28] MEDS: Enoxaparin Sodium 40 MG/0.4 ML SYRINGE SC SCH (08:48)
[2021-09-28] MEDS: Amlodipine 5 MG TAB PO SCH (08:50)
[2021-09-28] MEDS: ENZALUTAMIDE 80 MG PO SCH (08:50)
[2021-09-29 07:19] VITALS: TEMP 98.1
[2021-09-29] MEDS: ENZALUTAMIDE 80 MG PO SCH (08:36)
[2021-09-29] MEDS: Enoxaparin Sodium 40 MG/0.4 ML SYRINGE SC SCH (08:44)
[2021-09-29] MEDS: Nicotine 21 MG PATCH TD SCH (08:44)
[2021-09-29] MEDS: Amlodipine 5 MG TAB PO SCH (08:45)
[2021-09-29] MEDS: traMADol HCl 50 MG TAB PO PRN ×2 (08:53→12:35)
[2021-09-29] MEDS: Amoxicillin/Potassium Clav 875 MG TAB PO SCH (08:53)
[2021-09-29] MEDS: Albuterol Sulfate 1.25 MG/3 ML NEB NEB SCH ×2 (10:33→10:50)
[2021-09-29] MEDS: Mometasone 200 MCG/Formoterol 5 MCG 120 PUFF INHALER INH SCH (10:33)
[2021-09-29 11:13] VITALS: BP 129/83
[2021-09-30] MEDS ORDERED: Rabies Vaccine Human 2.5 UNITS VIAL IM ONE (08:45)
[2021-10-07] MEDS ORDERED: Rabies Vaccine Human 2.5 UNITS VIAL IM ONE (08:45)
[2021-10-21] MEDS ORDERED: Rabies Vaccine Human 2.5 UNITS VIAL IM ONE (08:45)
== END 2021-09-29 13:40 | disposition home or self-care (01) | DRG 605 ==
LOC: ERS 20:54 → SURG A 09-25 00:07 → OBSVTOIN 09-28 10:34
PROVIDERS: ADMIT Internal Medicine; ATTEND Internal Medicine
PROC: 3E0334Z Introduction of Serum, Toxoid and Vaccine into Peripheral Vein, Percutaneous Approach (ICD-10-PCS; principal; 2021-09-29)
DX: S81.852A Open bite, left lower leg, initial encounter (principal); C34.90 Malignant neoplasm of unspecified part of unspecified bronchus or lung; L03.116 Cellulitis of left lower limb; C79.51 Secondary malignant neoplasm of bone; Z20.822 Contact with and (suspected) exposure to COVID-19; C61 Malignant neoplasm of prostate; J44.9 Chronic obstructive pulmonary disease, unspecified; F17.210 Nicotine dependence, cigarettes, uncomplicated; F10.10 Alcohol abuse, uncomplicated; W54.0XXA Bitten by dog, initial encounter; Z79.51 Long term (current) use of inhaled steroids; Z79.52 Long term (current) use of systemic steroids; Z98.890 Other specified postprocedural states; Z79.899 Other long term (current) drug therapy; Z23 Encounter for immunization
CPT/HCPCS: 36415; 71260; 74177; 80048; 80053; 83605; 85025; 86382; 87040; 90675; 94640; 96365; 96366; 96372; 96376; G0378; J0295; J1650; J3490; Q0162; U0002

== ENCOUNTER 2021-09-29 09:21 | Outpatient (CLI) | payer OTHER ==
[~2021-09-29 09:21] MED LIST changes: +Iopamidol 370 76% 100 ML VIAL ONE; -Iopamidol-370 76% 500 ML 1 ML ONE
== END 2021-09-29 09:22 | disposition home or self-care (01) ==
LOC: CT 09:21
PROVIDERS: ATTEND Internal Medicine Medical Oncology
DX: C61 Malignant neoplasm of prostate (principal); C79.51 Secondary malignant neoplasm of bone; C34.90 Malignant neoplasm of unspecified part of unspecified bronchus or lung
CPT/HCPCS: 71260; 74177

== ENCOUNTER 2021-10-05 16:01 | Inpatient (IN) | payer OTHER ==
[2021-10-05] MEDS ORDERED: methylPREDNISolone Sod Succ/PF 125 MG/2 ML VIAL ONE (16:31)
[2021-10-05] MEDS ORDERED: Magnesium 2 GM/50 ML BAG (IN WATER) ONE (16:31)
[2021-10-05] MEDS ORDERED: Cefepime 2 GM VIAL ONE (16:31)
[2021-10-05 16:37] LABS: INR-International Normal Ratio 0.9; PTT 31.8 sec (22.9-36.1)
[2021-10-05 16:44] LABS: #Eosinphils 0.2 thou/uL (0.0-0.7); #Monocytes 0.6 thou/uL (0.11-0.59); #Neutrophils 5.4 thou/uL (1.40-6.50); %Basophils 0.6 % (0.0-1.0); %Lymphocytes 24.3 % (21.0-51.0); %Monocytes 7.1 % (0.0-10.0); Hemoglobin 14.8 g/dL (14.0-18.0); Mean Corpuscular HGB CONC 33.5 g/dL (32.0-36.0); Mean Corpuscular Hemoglobin 36.6 pg (27.0-31.0); Mean Platelet Volume 6.1 fL (7.4-10.4); Platelet Count 354 thou/uL (130-400); RBC Distribution Width 11.3 % (11.5-14.5); Red Blood Cell (RBC) Count 4.05 mill/uL (4.70-6.10); White Blood Cell (WBC) Count 8.2 thou/uL (4.8-10.8)
[2021-10-05] MEDS ORDERED: Vancomycin 1.5 GRAM/300 ML BAG 1.5 GM in Premix Bag 1 BAG IVPB SCH (16:45)
[2021-10-05 16:49] LABS: ALT (SGPT) 29 U/L (8-55); AST (SGOT) 26 U/L (5-34); Albumin 4.3 g/dL (3.4-4.8); Alkaline Phosphatase 61 U/L (40-110); Anion Gap 18 mmol/L (10-20); BUN (Urea Nitrogen) 8 mg/dL (8.4-25.7); Bilirubin, Total 0.2 mg/dL (0.2-1.2); Calc. Creatinine Clearance 0 mL/min (70-130); Calcium 9.5 mg/dL (7.8-10.44); Carbon Dioxide 19 mmol/L (23-31); Chloride 102 mmol/L (98-107); Estimated GFR 103; Globulin 3.2 g/dL (2.4-3.5); Glucose 100 mg/dL (80-115); Potassium 3.7 mmol/L (3.5-5.1); Protein, Total 7.5 g/dL (5.8-8.1); Sodium 135 mmol/L (136-145)
[2021-10-05] MEDS ORDERED: Bisacodyl 5 MG TAB PO PRN (19:23)
[2021-10-05] MEDS ORDERED: HYDROcodone/Acetaminophen 5/325 mg Tablet PO PRN (19:23)
[2021-10-05] MEDS ORDERED: Ondansetron ODT 4 MG TAB PO PRN (19:23)
[2021-10-05] MEDS ORDERED: Lorazepam 2 MG/ML VIAL IM PRN (19:23)
[2021-10-05] MEDS ORDERED: Ondansetron PF 4 MG/2 ML Vial IVP PRN (19:23)
[2021-10-05] MEDS ORDERED: Acetaminophen 325 MG TAB PO PRN (19:23)
[2021-10-05] MEDS ORDERED: Lorazepam 1 MG TAB PO PRN (19:23)
[2021-10-05] MEDS ORDERED: Senokot S 8.6-50 MG TAB PO PRN (19:23)
[2021-10-05 19:28] LABS: Lactic Acid 2.4 mmol/L (0.5-2.2)
[2021-10-05] MEDS ORDERED: Electrolyte Replacement Protocol 1 EACH FS SCH (19:30)
[2021-10-05] MEDS ORDERED: Multivit, Therapeutic 1 TAB PO SCH (19:45)
[2021-10-05] MEDS ORDERED: Folic Acid 1 MG TAB PO SCH (19:45)
[2021-10-05] MEDS ORDERED: Meropenem 1 GM in Sodium Chloride 0.9% 100 ML IVPB SCH ×2 (20:00→22:00)
[2021-10-05 20:11] LABS: Magnesium 2.2 mg/dL (1.6-2.6); Phosphorus 4.3 mg/dL (2.3-4.7)
[2021-10-05 20:41] VITALS: BMI 25.6
[2021-10-05] MEDS: Thiamine HCl 200 MG/2 ML VIAL SLOW IVP SCH (20:54)
[2021-10-05] MEDS: Famotidine 20 MG TAB PO SCH (20:54)
[2021-10-05] MEDS: Lorazepam 1 MG TAB PO SCH (20:54)
[2021-10-05] MEDS: Nicotine 14 MG PATCH TD SCH (20:58)
[2021-10-06] MEDS: methylPREDNISolone Sod Succ 40 MG VIAL IVP SCH ×3 (00:33→12:35)
[2021-10-06] MEDS: Lorazepam 1 MG TAB PO SCH ×4 (00:34→20:04)
[2021-10-06] MEDS: Meropenem 1 GM in Sodium Chloride 0.9% 100 ML IVPB SCH ×3 (05:17→20:03)
[2021-10-06 05:52] LABS: Amphetamine Not Detected (NotDetected); Barbiturates Screen Not Detected (NotDetected); Benzodiazepine Screen Not Detected (NotDetected); Cocaine Metabolite Screen Not Detected (NotDetected); Methadone Not Detected (NotDetected); Methamphetamine Not Detected (NotDetected); Opiate Screen Not Detected (NotDetected); Oxycodone Screen Not Detected (NotDetected); Phencyclidine (PCP) Not Detected (NotDetected); THC/Cannabinoid Screen Detected (NotDetected); Tricyclic Screen Not Detected (NotDetected)
[2021-10-06 06:04] LABS: #Lymphocytes 0.7 thou/uL (1.20-3.40); #Monocytes 0.1 thou/uL (0.11-0.59); %Basophils 0.4 % (0.0-1.0); %Eosinophils 0.2 % (0.0-10.0); %Lymphocytes 9.4 % (21.0-51.0); Hemoglobin 14.7 g/dL (14.0-18.0); Mean Corpuscular HGB CONC 32.7 g/dL (32.0-36.0); Mean Corpuscular Hemoglobin 36.2 pg (27.0-31.0); Mean Platelet Volume 6.1 fL (7.4-10.4); Platelet Count 361 thou/uL (130-400); RBC Distribution Width 11.1 % (11.5-14.5); Red Blood Cell (RBC) Count 4.05 mill/uL (4.70-6.10); White Blood Cell (WBC) Count 7.8 thou/uL (4.8-10.8)
[2021-10-06 06:40] LABS: ALT (SGPT) 23 U/L (8-55); AST (SGOT) 18 U/L (5-34); Alkaline Phosphatase 60 U/L (40-110); Anion Gap 15 mmol/L (10-20); BUN (Urea Nitrogen) 9 mg/dL (8.4-25.7); Bilirubin, Total 0.4 mg/dL (0.2-1.2); Calc. Creatinine Clearance 130 mL/min (70-130); Calcium 9.2 mg/dL (7.8-10.44); Carbon Dioxide 19 mmol/L (23-31); Chloride 108 mmol/L (98-107); Estimated GFR 105; Glucose 125 mg/dL (80-115); Potassium 4.7 mmol/L (3.5-5.1); Sodium 137 mmol/L (136-145)
[2021-10-06] MEDS: Folic Acid 1 MG TAB PO SCH (07:52)
[2021-10-06] MEDS: Enoxaparin Sodium 40 MG/0.4 ML SYRINGE SC SCH (07:53)
[2021-10-06] MEDS: Famotidine 20 MG TAB PO SCH ×2 (07:53→20:04)
[2021-10-06] MEDS: Multivit, Therapeutic 1 TAB PO SCH (07:53)
[2021-10-06 11:31] LABS: Syphilis Antibody Nonreactive (Nonreactive); Syphilis Antibody Index 0.03 S/CO (<1.00 Non-Reactive)
[2021-10-06] MEDS: Budesonide 0.5 MG/2 ML NEB NEB SCH (18:56)
[2021-10-06] MEDS ORDERED: Lorazepam 1 MG TAB PO PRN (19:23)
[2021-10-06] MEDS: Nicotine 14 MG PATCH TD SCH (20:04)
[2021-10-06] MEDS: Thiamine HCl 200 MG/2 ML VIAL SLOW IVP SCH (20:04)
[2021-10-07] MEDS: Lorazepam 1 MG TAB PO SCH ×3 (01:35→14:56)
[2021-10-07] MEDS: Meropenem 1 GM in Sodium Chloride 0.9% 100 ML IVPB SCH ×3 (04:14→19:41)
[2021-10-07] MEDS: Budesonide 0.5 MG/2 ML NEB NEB SCH ×2 (07:46→19:01)
[2021-10-07] MEDS: Enoxaparin Sodium 40 MG/0.4 ML SYRINGE SC SCH (08:07)
[2021-10-07] MEDS: Folic Acid 1 MG TAB PO SCH (08:08)
[2021-10-07] MEDS: Famotidine 20 MG TAB PO SCH ×2 (08:08→19:42)
[2021-10-07] MEDS: Multivit, Therapeutic 1 TAB PO SCH (08:08)
[2021-10-07] MEDS ORDERED: Magnevist 469MG/ML 20 ML VIAL ONE (09:53)
[2021-10-07] MEDS ORDERED: traMADol HCl 50 MG TAB PO PRN (17:10)
[2021-10-07] MEDS: Mometasone/Formoterol 200/5 60 PUFF INH SCH (19:02)
[2021-10-07] MEDS ORDERED: Lorazepam 1 MG TAB PO PRN (19:23)
[2021-10-07] MEDS: Lorazepam 0.5 MG TAB PO SCH (19:41)
[2021-10-07] MEDS: Nicotine 14 MG PATCH TD SCH (19:41)
[2021-10-07] MEDS: Thiamine HCl 200 MG/2 ML VIAL SLOW IVP SCH (19:46)
[2021-10-08] MEDS: Lorazepam 0.5 MG TAB PO SCH ×3 (01:47→13:56)
[2021-10-08] MEDS: Meropenem 1 GM in Sodium Chloride 0.9% 100 ML IVPB SCH ×2 (04:23→15:54)
[2021-10-08] MEDS: Budesonide 0.5 MG/2 ML NEB NEB SCH (06:30)
[2021-10-08] MEDS: Mometasone/Formoterol 200/5 60 PUFF INH SCH (06:30)
[2021-10-08 08:30] VITALS: BP 126/81; TEMP 97.7
[2021-10-08] MEDS ORDERED: Amlodipine 5 MG TAB PO SCH (09:00)
[2021-10-08] MEDS: Enoxaparin Sodium 40 MG/0.4 ML SYRINGE SC SCH (09:21)
[2021-10-08] MEDS: Famotidine 20 MG TAB PO SCH (09:21)
[2021-10-08] MEDS: Folic Acid 1 MG TAB PO SCH (09:21)
[2021-10-08] MEDS: Multivit, Therapeutic 1 TAB PO SCH (09:21)
[2021-10-08] MEDS ORDERED: Lorazepam 0.5 MG TAB PO PRN (19:23)
[2021-10-08] MEDS ORDERED: Thiamine 100 MG TAB PO SCH (21:00)
== END 2021-10-08 15:48 | disposition home or self-care (01) | DRG 602 ==
LOC: ERS 16:01 → T4-A 18:27
PROVIDERS: ADMIT Internal Medicine; ATTEND Internal Medicine
PROC: HZ2ZZZZ Detoxification Services for Substance Abuse Treatment (ICD-10-PCS; principal; 2021-10-05)
DX: L03.116 Cellulitis of left lower limb (principal); J96.01 Acute respiratory failure with hypoxia; J44.1 Chronic obstructive pulmonary disease with (acute) exacerbation; E87.1 Hypo-osmolality and hyponatremia; F17.210 Nicotine dependence, cigarettes, uncomplicated; I10 Essential (primary) hypertension; F10.229 Alcohol dependence with intoxication, unspecified; D75.89 Other specified diseases of blood and blood-forming organs; C61 Malignant neoplasm of prostate; Y90.6 Blood alcohol level of 120-199 mg/100 ml; Z90.79 Acquired absence of other genital organ(s); Z85.118 Personal history of other malignant neoplasm of bronchus and lung; Z87.11 Personal history of peptic ulcer disease; Z79.899 Other long term (current) drug therapy; Z82.49 Family history of ischemic heart disease and other diseases of the circulatory system; Z82.3 Family history of stroke; Z71.6 Tobacco abuse counseling
CPT/HCPCS: 36415; 71045; 80053; 80306; 80307; 82550; 83605; 83735; 84100; 84484; 85025; 85610; 85730; 86780; 87040; 87070; 87077; 87186; 87205; 93005; 94640; 96365; 96367; 96375; 97139; A9579; J0692; J1650; J2185; J2920; J2930; J3370; J3411; J3475; J3490; J7620; J7626; U0003; U0005

== ENCOUNTER 2021-10-16 19:21 | Emergency (ER) | payer OTHER | END 2021-10-17 01:32 | disposition left against medical advice (07) | LOC: ERS 19:21 | DX: Z53.21 Procedure and treatment not carried out due to patient leaving prior to being seen by health care provider (principal) ==

== ENCOUNTER 2022-03-15 08:18 | Outpatient (CLI) | payer OTHER ==
[2022-03-15] MEDS ORDERED: Iopamidol 370 76% 100 ML VIAL ONE (15:28)
== END 2022-03-15 08:19 | disposition home or self-care (01) ==
LOC: CT 08:18
PROVIDERS: ATTEND Internal Medicine Medical Oncology
DX: C61 Malignant neoplasm of prostate (principal); C34.90 Malignant neoplasm of unspecified part of unspecified bronchus or lung; C79.51 Secondary malignant neoplasm of bone; R97.20 Elevated prostate specific antigen [PSA]
CPT/HCPCS: 71260; 74177; 78306; A9503; Q9967

== ENCOUNTER 2022-04-01 13:40 | Inpatient (IN) | payer OTHER ==
[2022-04-01 15:06] LABS: #Eosinphils 0.2 thou/uL (0.0-0.7); #Lymphocytes 2.1 thou/uL (1.20-3.40); #Monocytes 0.4 thou/uL (0.11-0.59); %Basophils 0.7 % (0.0-1.0); %Eosinophils 2.7 % (0.0-10.0); %Lymphocytes 31.3 % (21.0-51.0); %Monocytes 6.5 % (0.0-10.0); %Neutrophils 58.9 % (42.0-75.0); Mean Corpuscular HGB CONC 34.3 g/dL (32.0-36.0); Mean Corpuscular Hemoglobin 37.2 pg (27.0-31.0); Mean Platelet Volume 6.2 fL (7.4-10.4); Platelet Count 338 10x3/uL (130-400); RBC Distribution Width 11.3 % (11.5-14.5); White Blood Cell (WBC) Count 6.8 10x3/uL (4.8-10.8)
[2022-04-01 15:22] LABS: ALT (SGPT) 17 U/L (8-55); AST (SGOT) 29 U/L (5-34); Albumin 4.4 g/dL (3.4-4.8); Alkaline Phosphatase 67 U/L (40-110); Anion Gap 20 mmol/L (10-20); BUN (Urea Nitrogen) 7 mg/dL (8.4-25.7); Bilirubin, Total 0.2 mg/dL (0.2-1.2); Calc. Creatinine Clearance 0 mL/min (70-130); Calcium 8.9 mg/dL (7.8-10.44); Carbon Dioxide 16 mmol/L (23-31); Chloride 102 mmol/L (98-107); Estimated GFR 102; Glucose 86 mg/dL (80-115); Potassium 4.1 mmol/L (3.5-5.1); Protein, Total 7.4 g/dL (5.8-8.1); Sodium 134 mmol/L (136-145)
[2022-04-01] MEDS ORDERED: methylPREDNISolone Sod Succ/PF 125 MG/2 ML VIAL ONE (15:29)
[2022-04-01] MEDS ORDERED: Levofloxacin 500 mg/D5W 100 ml Premix Bag ONE (15:29)
[2022-04-01 15:33] LABS: Hypochromia SLIGHT = 6-15 cells (100X) (0-5/hpf); MDiff Complete? YES; Macrocytosis MODERATE=16-30 cells (100X) (0-5/hpf); Platelet Morphology Comment Appears Adequate
[2022-04-01] MEDS ORDERED: Ipratropium/Albuterol 3 ML NEB ONE (15:51)
[2022-04-01] MEDS ORDERED: Ondansetron PF 4 MG/2 ML Vial ONE (16:04)
[2022-04-01 16:26] LABS: Actual Bicarbonate (HCO3v) 23 mEq/L (22-28); Base Excess -2.9 mEq/L (-2.0 to +3.0); pH (venous) 7.35 (7.32-7.43)
[2022-04-01 16:27] LABS: Calcium, Ionized (venous) 1.15 mmol/L (1.16-1.32); Chloride (VBG) 101 mmol/L (98-106); Hemoglobin (Hb) 15.1 g/dL (13.1-17.2); Potassium (VBG) 3.64 mmol/L (3.70-5.30); Sodium 136.5 mmol/L (133-146)
[2022-04-01] MEDS ORDERED: Acetaminophen 325 MG TAB PO PRN (16:50)
[2022-04-01] MEDS ORDERED: Acetaminophen 650 MG Suppository PR PRN (16:50)
[2022-04-01] MEDS ORDERED: Ondansetron PF 4 MG/2 ML Vial IVP PRN (16:50)
[2022-04-01] MEDS ORDERED: Ondansetron ODT 4 MG TAB PO PRN (16:50)
[2022-04-01] MEDS ORDERED: methylPREDNISolone Sod Succ 40 MG VIAL IVP SCH (18:00)
[2022-04-01 19:05] VITALS: BMI 25.5
[2022-04-01] MEDS: Ipratropium/Albuterol 3 ML NEB NEB SCH (19:35)
[2022-04-01] MEDS: Mometasone/Formoterol 200/5 60 PUFF INH SCH (19:40)
[2022-04-01] MEDS: methylPREDNISolone Sod Succ 40 MG VIAL IVP SCH (22:16)
[2022-04-01] MEDS ORDERED: Calcium Carbonate 500 MG ChewTAB PO PRN (22:17)
[2022-04-01] MEDS ORDERED: Famotidine 40 MG/5 ML Oral Suspension PO SCH (22:30)
[2022-04-02] MEDS: Ipratropium/Albuterol 3 ML NEB NEB SCH ×6 (01:30→21:52)
[2022-04-02] MEDS: methylPREDNISolone Sod Succ 40 MG VIAL IVP SCH ×4 (02:31→21:19)
[2022-04-02 05:12] LABS: #Lymphocytes 0.4 thou/uL (1.20-3.40); %Lymphocytes 11.3 % (21.0-51.0); %Monocytes 1.3 % (0.0-10.0); %Neutrophils 87.4 % (42.0-75.0); Hemoglobin 14.6 g/dL (14.0-18.0); Mean Corpuscular HGB CONC 33.8 g/dL (32.0-36.0); Mean Corpuscular Hemoglobin 36.8 pg (27.0-31.0); Mean Platelet Volume 6.5 fL (7.4-10.4); Platelet Count 304 10x3/uL (130-400); RBC Distribution Width 11.3 % (11.5-14.5); Red Blood Cell (RBC) Count 3.97 mill/uL (4.70-6.10); White Blood Cell (WBC) Count 3.4 10x3/uL (4.8-10.8)
[2022-04-02 05:38] LABS: Anion Gap 12 mmol/L (10-20); BUN (Urea Nitrogen) 7 mg/dL (8.4-25.7); Calc. Creatinine Clearance 124 mL/min (70-130); Calcium 9.3 mg/dL (7.8-10.44); Carbon Dioxide 21 mmol/L (23-31); Chloride 106 mmol/L (98-107); Estimated GFR 103; Glucose 133 mg/dL (80-115); Potassium 4.2 mmol/L (3.5-5.1); Sodium 135 mmol/L (136-145)
[2022-04-02] MEDS: Mometasone/Formoterol 200/5 60 PUFF INH SCH ×2 (07:37→18:48)
[2022-04-02] MEDS ORDERED: Famotidine 20 MG TAB PO SCH (09:00)
[2022-04-02] MEDS: Amlodipine 5 MG TAB PO SCH (10:37)
[2022-04-02] MEDS: Enzalutamide [Xtandi] 80 MG Tablet PO SCH (10:38)
[2022-04-02] MEDS ORDERED: Electrolyte Replacement Protocol 1 EACH FS SCH (18:45)
[2022-04-02] MEDS: Thiamine 100 MG TAB PO SCH (21:18)
[2022-04-02] MEDS: Folic Acid 1 MG TAB PO SCH (21:18)
[2022-04-03] MEDS: Ipratropium/Albuterol 3 ML NEB NEB SCH ×6 (02:12→22:04)
[2022-04-03] MEDS: methylPREDNISolone Sod Succ 40 MG VIAL IVP SCH ×4 (02:55→20:13)
[2022-04-03 05:17] LABS: #Lymphocytes 0.5 thou/uL (1.20-3.40); #Monocytes 0.4 thou/uL (0.11-0.59); #Neutrophils 7.4 thou/uL (1.40-6.50); %Basophils 0.1 % (0.0-1.0); %Eosinophils 0.3 % (0.0-10.0); %Lymphocytes 5.9 % (21.0-51.0); %Monocytes 4.3 % (0.0-10.0); %Neutrophils 89.4 % (42.0-75.0); Hemoglobin 14.1 g/dL (14.0-18.0); Mean Corpuscular HGB CONC 34.9 g/dL (32.0-36.0); Mean Corpuscular Hemoglobin 38.2 pg (27.0-31.0); Mean Platelet Volume 6.5 fL (7.4-10.4); Platelet Count 338 10x3/uL (130-400); RBC Distribution Width 11.3 % (11.5-14.5); Red Blood Cell (RBC) Count 3.69 mill/uL (4.70-6.10); White Blood Cell (WBC) Count 8.3 10x3/uL (4.8-10.8)
[2022-04-03 05:34] LABS: Lactic Acid 2.4 mmol/L (0.5-2.2)
[2022-04-03 05:35] LABS: Anion Gap 13 mmol/L (10-20); BUN (Urea Nitrogen) 14 mg/dL (8.4-25.7); Calc. Creatinine Clearance 104 mL/min (70-130); Calcium 9.4 mg/dL (7.8-10.44); Carbon Dioxide 21 mmol/L (23-31); Chloride 109 mmol/L (98-107); Estimated GFR 98; Glucose 113 mg/dL (80-115); Magnesium 2.1 mg/dL (1.6-2.6); Potassium 3.9 mmol/L (3.5-5.1); Sodium 139 mmol/L (136-145)
[2022-04-03] MEDS: Mometasone/Formoterol 200/5 60 PUFF INH SCH ×2 (06:48→18:40)
[2022-04-03] MEDS: Enzalutamide [Xtandi] 80 MG Tablet PO SCH (09:01)
[2022-04-03] MEDS: Multivit, Therapeutic 1 TAB PO SCH (09:01)
[2022-04-03] MEDS: Cyanocobalamin (Vitamin B-12) 1,000 MCG TAB PO SCH (09:01)
[2022-04-03] MEDS: Amlodipine 5 MG TAB PO SCH (09:01)
[2022-04-03] MEDS: pyridOXINE 50 MG (B6) TAB PO SCH (09:01)
[2022-04-03] MEDS ORDERED: Milk Of Magnesia 30 ML UDCUP PO PRN (09:16)
[2022-04-03] MEDS ORDERED: guaiFENesin ER 600 MG TAB PO SCH (09:30)
[2022-04-03] MEDS: guaiFENesin ER 600 MG TAB PO SCH (20:13)
[2022-04-03] MEDS: Docusate 100 MG CAP PO SCH (20:13)
[2022-04-03] MEDS: Folic Acid 1 MG TAB PO SCH (20:13)
[2022-04-03] MEDS: Thiamine 100 MG TAB PO SCH (20:13)
[2022-04-04] MEDS: Ipratropium/Albuterol 3 ML NEB NEB SCH ×6 (01:16→22:34)
[2022-04-04] MEDS: methylPREDNISolone Sod Succ 40 MG VIAL IVP SCH ×3 (04:44→21:19)
[2022-04-04 05:31] LABS: #Lymphocytes 1.7 thou/uL (1.20-3.40); #Monocytes 0.5 thou/uL (0.11-0.59); #Neutrophils 6.9 thou/uL (1.40-6.50); %Basophils 0.3 % (0.0-1.0); %Eosinophils 0.2 % (0.0-10.0); %Lymphocytes 18.8 % (21.0-51.0); %Monocytes 5.7 % (0.0-10.0); Hemoglobin 13.8 g/dL (14.0-18.0); Mean Corpuscular HGB CONC 33.6 g/dL (32.0-36.0); Mean Corpuscular Hemoglobin 37.1 pg (27.0-31.0); Mean Platelet Volume 6.5 fL (7.4-10.4); Platelet Count 317 10x3/uL (130-400); RBC Distribution Width 11.3 % (11.5-14.5); Red Blood Cell (RBC) Count 3.72 mill/uL (4.70-6.10); White Blood Cell (WBC) Count 9.2 10x3/uL (4.8-10.8)
[2022-04-04 05:46] LABS: Lactic Acid 1.3 mmol/L (0.5-2.2)
[2022-04-04 05:51] LABS: Anion Gap 12 mmol/L (10-20); BUN (Urea Nitrogen) 20 mg/dL (8.4-25.7); Calc. Creatinine Clearance 117 mL/min (70-130); Calcium 9.1 mg/dL (7.8-10.44); Carbon Dioxide 22 mmol/L (23-31); Chloride 107 mmol/L (98-107); Estimated GFR 102; Glucose 94 mg/dL (80-115); Potassium 4.2 mmol/L (3.5-5.1); Sodium 137 mmol/L (136-145)
[2022-04-04] MEDS: Mometasone/Formoterol 200/5 60 PUFF INH SCH ×2 (07:12→18:56)
[2022-04-04] MEDS: Amlodipine 5 MG TAB PO SCH (08:36)
[2022-04-04] MEDS: Docusate 100 MG CAP PO SCH ×2 (08:37→21:19)
[2022-04-04] MEDS: guaiFENesin ER 600 MG TAB PO SCH ×2 (08:37→21:19)
[2022-04-04] MEDS: Multivit, Therapeutic 1 TAB PO SCH (08:37)
[2022-04-04] MEDS: Enzalutamide [Xtandi] 80 MG Tablet PO SCH (08:38)
[2022-04-04] MEDS: pyridOXINE 50 MG (B6) TAB PO SCH (08:38)
[2022-04-04] MEDS: Cyanocobalamin (Vitamin B-12) 1,000 MCG TAB PO SCH (08:39)
[2022-04-04] MEDS ORDERED: FLU VACC QS2022-23(6MOS UP)/PF 60 MCG/0.5 ML SYRINGE IM ONE (09:00)
[2022-04-04] MEDS ORDERED: ALPRAZolam 0.25 MG TAB PO SCH (10:15)
[2022-04-04] MEDS: Folic Acid 1 MG TAB PO SCH (21:19)
[2022-04-04] MEDS: Thiamine 100 MG TAB PO SCH (21:19)
[2022-04-05] MEDS: Ipratropium/Albuterol 3 ML NEB NEB SCH ×6 (02:35→21:44)
[2022-04-05 05:44] LABS: #Lymphocytes 1.6 thou/uL (1.20-3.40); #Monocytes 0.5 thou/uL (0.11-0.59); #Neutrophils 6.5 thou/uL (1.40-6.50); %Basophils 0.4 % (0.0-1.0); %Eosinophils 0.4 % (0.0-10.0); %Lymphocytes 18.5 % (21.0-51.0); %Monocytes 5.6 % (0.0-10.0); %Neutrophils 75.1 % (42.0-75.0); Hemoglobin 13.7 g/dL (14.0-18.0); Mean Corpuscular HGB CONC 33.5 g/dL (32.0-36.0); Mean Corpuscular Hemoglobin 36.8 pg (27.0-31.0); Mean Platelet Volume 6.7 fL (7.4-10.4); Platelet Count 313 10x3/uL (130-400); RBC Distribution Width 11.4 % (11.5-14.5); Red Blood Cell (RBC) Count 3.72 mill/uL (4.70-6.10); White Blood Cell (WBC) Count 8.7 10x3/uL (4.8-10.8)
[2022-04-05 05:58] LABS: Anion Gap 12 mmol/L (10-20); BUN (Urea Nitrogen) 16 mg/dL (8.4-25.7); Calc. Creatinine Clearance 114 mL/min (70-130); Carbon Dioxide 24 mmol/L (23-31); Chloride 107 mmol/L (98-107); Estimated GFR 101; Glucose 103 mg/dL (80-115); Potassium 4.1 mmol/L (3.5-5.1); Sodium 139 mmol/L (136-145)
[2022-04-05] MEDS: Mometasone/Formoterol 200/5 60 PUFF INH SCH ×2 (06:46→18:37)
[2022-04-05] MEDS: methylPREDNISolone Sod Succ 40 MG VIAL IVP SCH (08:10)
[2022-04-05] MEDS: Cyanocobalamin (Vitamin B-12) 1,000 MCG TAB PO SCH (08:11)
[2022-04-05] MEDS: guaiFENesin ER 600 MG TAB PO SCH ×2 (08:11→21:53)
[2022-04-05] MEDS: Multivit, Therapeutic 1 TAB PO SCH (08:11)
[2022-04-05] MEDS: Amlodipine 5 MG TAB PO SCH (08:11)
[2022-04-05] MEDS: pyridOXINE 50 MG (B6) TAB PO SCH (08:11)
[2022-04-05] MEDS: Docusate 100 MG CAP PO SCH ×2 (08:11→21:53)
[2022-04-05] MEDS: Enzalutamide [Xtandi] 80 MG Tablet PO SCH (08:13)
[2022-04-05] MEDS: ALPRAZolam 0.25 MG TAB PO PRN (10:50)
[2022-04-05] MEDS: Thiamine 100 MG TAB PO SCH (21:53)
[2022-04-05] MEDS: Folic Acid 1 MG TAB PO SCH (21:53)
[2022-04-06] MEDS: Ipratropium/Albuterol 3 ML NEB NEB SCH ×6 (01:03→22:31)
[2022-04-06 05:33] LABS: #Eosinphils 0.2 thou/uL (0.0-0.7); #Lymphocytes 2.4 thou/uL (1.20-3.40); #Monocytes 0.6 thou/uL (0.11-0.59); #Neutrophils 5.5 thou/uL (1.40-6.50); %Basophils 0.1 % (0.0-1.0); %Eosinophils 1.7 % (0.0-10.0); %Lymphocytes 27.8 % (21.0-51.0); %Monocytes 7.1 % (0.0-10.0); %Neutrophils 63.2 % (42.0-75.0); Hemoglobin 13.1 g/dL (14.0-18.0); Mean Corpuscular HGB CONC 32.1 g/dL (32.0-36.0); Mean Corpuscular Hemoglobin 35.2 pg (27.0-31.0); Platelet Count 273 10x3/uL (130-400); RBC Distribution Width 11.5 % (11.5-14.5); Red Blood Cell (RBC) Count 3.73 mill/uL (4.70-6.10); White Blood Cell (WBC) Count 8.7 10x3/uL (4.8-10.8)
[2022-04-06 05:47] LABS: Anion Gap 14 mmol/L (10-20); BUN (Urea Nitrogen) 17 mg/dL (8.4-25.7); Calc. Creatinine Clearance 115 mL/min (70-130); Calcium 8.8 mg/dL (7.8-10.44); Carbon Dioxide 22 mmol/L (23-31); Chloride 108 mmol/L (98-107); Estimated GFR 101; Glucose 98 mg/dL (80-115); Potassium 3.9 mmol/L (3.5-5.1); Sodium 140 mmol/L (136-145)
[2022-04-06] MEDS: Mometasone/Formoterol 200/5 60 PUFF INH SCH ×2 (06:31→19:05)
[2022-04-06] MEDS: guaiFENesin ER 600 MG TAB PO SCH ×2 (08:39→21:41)
[2022-04-06] MEDS: Multivit, Therapeutic 1 TAB PO SCH (08:39)
[2022-04-06] MEDS: Amlodipine 5 MG TAB PO SCH (08:39)
[2022-04-06] MEDS: pyridOXINE 50 MG (B6) TAB PO SCH (08:39)
[2022-04-06] MEDS: predniSONE 20 MG TAB PO SCH (08:39)
[2022-04-06] MEDS: Cyanocobalamin (Vitamin B-12) 1,000 MCG TAB PO SCH (08:39)
[2022-04-06] MEDS: Docusate 100 MG CAP PO SCH ×2 (08:39→21:41)
[2022-04-06] MEDS: Enzalutamide [Xtandi] 80 MG Tablet PO SCH (08:43)
[2022-04-06] MEDS: ALPRAZolam 0.25 MG TAB PO PRN ×2 (09:00→23:52)
[2022-04-06] MEDS: Folic Acid 1 MG TAB PO SCH (21:41)
[2022-04-06] MEDS: Thiamine 100 MG TAB PO SCH (21:41)
[2022-04-07] MEDS: Ipratropium/Albuterol 3 ML NEB NEB SCH ×3 (03:02→10:47)
[2022-04-07] MEDS: Mometasone/Formoterol 200/5 60 PUFF INH SCH (07:09)
[2022-04-07] MEDS: Cyanocobalamin (Vitamin B-12) 1,000 MCG TAB PO SCH (08:54)
[2022-04-07] MEDS: Amlodipine 5 MG TAB PO SCH (08:54)
[2022-04-07] MEDS: guaiFENesin ER 600 MG TAB PO SCH (08:54)
[2022-04-07] MEDS: predniSONE 20 MG TAB PO SCH (08:54)
[2022-04-07] MEDS: Docusate 100 MG CAP PO SCH (08:54)
[2022-04-07] MEDS: pyridOXINE 50 MG (B6) TAB PO SCH (08:54)
[2022-04-07] MEDS: Multivit, Therapeutic 1 TAB PO SCH (08:54)
[2022-04-07] MEDS: Enzalutamide [Xtandi] 80 MG Tablet PO SCH (08:59)
[2022-04-07 12:24] VITALS: BP 113/56; TEMP 98.3
== END 2022-04-07 12:48 | disposition home or self-care (01) | DRG 189 ==
LOC: ERS 13:40 → ERHOLD 16:21 → 2SW 18:52 → OBSVTOIN 04-02 10:46
PROVIDERS: ADMIT Internal Medicine; ATTEND Internal Medicine
DX: J96.21 Acute and chronic respiratory failure with hypoxia (principal); J44.1 Chronic obstructive pulmonary disease with (acute) exacerbation; E87.20 Acidosis, unspecified; Z20.822 Contact with and (suspected) exposure to COVID-19; I10 Essential (primary) hypertension; E78.5 Hyperlipidemia, unspecified; C61 Malignant neoplasm of prostate; F17.210 Nicotine dependence, cigarettes, uncomplicated; F10.20 Alcohol dependence, uncomplicated; Z99.81 Dependence on supplemental oxygen; Z79.51 Long term (current) use of inhaled steroids; Z79.52 Long term (current) use of systemic steroids; Z79.899 Other long term (current) drug therapy
CPT/HCPCS: 36415; 71045; 80048; 80053; 82805; 83605; 83735; 84484; 85025; 87070; 87205; 93005; 94640; 94664; 96365; 96366; 96372; 96375; 96376; G0378; J1650; J1956; J2405; J2920; J2930; J7512; J7611; J7620; U0003; U0005

== ENCOUNTER 2022-05-04 15:50 | Inpatient (IN) | payer OTHER ==
[~2022-05-04 15:50] MED LIST changes: -Iopamidol 370 76% 100 ML VIAL ONE; +Iopamidol-370 76% 500 ML 1 ML ONE
[2022-05-04] MEDS ORDERED: Ondansetron ODT 4 MG TAB ONE (16:14)
[2022-05-04] MEDS ORDERED: Ipratropium/Albuterol 3 ML NEB ONE ×3 (16:14→20:00)
[2022-05-04] MEDS ORDERED: Lorazepam 1 MG TAB ONE (16:14)
[2022-05-04 17:23] LABS: SARS-CoV-2 NAA Rapid Test Not Detected (NotDetected)
[2022-05-04 17:45] LABS: #Basophils 0.1 thou/uL (0.0-0.2); #Eosinphils 0.1 thou/uL (0.0-0.7); #Lymphocytes 1.3 thou/uL (1.20-3.40); #Monocytes 0.6 thou/uL (0.11-0.59); #Neutrophils 8.7 thou/uL (1.40-6.50); %Basophils 0.5 % (0.0-1.0); %Eosinophils 0.7 % (0.0-10.0); %Lymphocytes 12.4 % (21.0-51.0); %Monocytes 5.4 % (0.0-10.0); %Neutrophils 81.1 % (42.0-75.0); Hemoglobin 16.2 g/dL (14.0-18.0); Mean Corpuscular HGB CONC 33.8 g/dL (32.0-36.0); Mean Corpuscular Hemoglobin 36.7 pg (27.0-31.0); Mean Platelet Volume 6.7 fL (7.4-10.4); Platelet Count 264 10x3/uL (130-400); RBC Distribution Width 11.4 % (11.5-14.5); Red Blood Cell (RBC) Count 4.42 mill/uL (4.70-6.10); White Blood Cell (WBC) Count 10.7 10x3/uL (4.8-10.8)
[2022-05-04 18:01] LABS: ALT (SGPT) 17 U/L (8-55); AST (SGOT) 21 U/L (5-34); Albumin 4.3 g/dL (3.4-4.8); Alkaline Phosphatase 67 U/L (40-110); Anion Gap 20 mmol/L (10-20); BUN (Urea Nitrogen) 6 mg/dL (8.4-25.7); Bilirubin, Total 0.3 mg/dL (0.2-1.2); Calc. Creatinine Clearance 0 mL/min (70-130); Calcium 9.6 mg/dL (7.8-10.44); Carbon Dioxide 20 mmol/L (23-31); Chloride 98 mmol/L (98-107); Estimated GFR 100; Globulin 3.4 g/dL (2.4-3.5); Glucose 101 mg/dL (80-115); Potassium 3.9 mmol/L (3.5-5.1); Protein, Total 7.7 g/dL (5.8-8.1); Sodium 134 mmol/L (136-145)
[2022-05-04] MEDS ORDERED: methylPREDNISolone Sod Succ/PF 125 MG/2 ML VIAL ONE (19:21)
[2022-05-04] MEDS ORDERED: Morphine 4 MG/ML VIAL ONE (19:21)
[2022-05-04] MEDS ORDERED: Ondansetron PF 4 MG/2 ML Vial ONE (19:21)
[2022-05-04] MEDS ORDERED: Pantoprazole 40 MG VIAL ONE (19:21)
[2022-05-04] MEDS ORDERED: Ondansetron ODT 8 MG TAB ONE (20:05)
[2022-05-04 21:55] LABS: Lactic Acid 1.8 mmol/L (0.5-2.2)
[2022-05-04] MEDS ORDERED: Promethazine HCl 25 MG in Sodium Chloride 0.9% 50 ML IVPB SCH (22:00)
[2022-05-04] MEDS ORDERED: Ondansetron ODT 4 MG TAB SL PRN (22:15)
[2022-05-04] MEDS ORDERED: Ondansetron PF 4 MG/2 ML Vial IVP PRN (22:15)
[2022-05-04] MEDS ORDERED: Acetaminophen 325 MG TAB PO PRN (22:15)
[2022-05-04 22:24] LABS: INR-International Normal Ratio 0.9; Prothrombin Time 12.8 sec (12.0-14.7)
[2022-05-04 22:25] LABS: PTT 29.5 sec (22.9-36.1)
[2022-05-04] MEDS: Sodium Chloride 0.9% 1,000 ML IV SCH (23:41)
[2022-05-04 23:47] VITALS: BMI 28.1
[2022-05-05] MEDS: Ipratropium/Albuterol 3 ML NEB NEB SCH ×4 (00:50→19:04)
[2022-05-05] MEDS: Nicotine 21 MG PATCH TD SCH (01:13)
[2022-05-05] MEDS ORDERED: methylPREDNISolone Sod Succ 40 MG VIAL ONE ×2 (01:14→13:36)
[2022-05-05] MEDS ORDERED: cefTRIAXone\\ROCEPHIN 1 GM VIAL ONE (01:14)
[2022-05-05] MEDS: methylPREDNISolone Sod Succ 40 MG VIAL IVP SCH ×2 (01:15→13:42)
[2022-05-05] MEDS: cefTRIAXone\\ROCEPHIN 1 GM in Sodium Chloride 0.9% 100 ML IVPB SCH (01:15)
[2022-05-05] MEDS: Dextrose 5%-Lactated Ringers 1,000 ML IV SCH ×2 (04:54→10:21)
[2022-05-05] MEDS ORDERED: Morphine 2 MG/ML VIAL ONE (06:06)
[2022-05-05] MEDS ORDERED: Morphine 2 MG/ML VIAL SLOW IVP SCH (06:15)
[2022-05-05] MEDS: Sodium Chloride 0.9% 1,000 ML IV SCH (07:50)
[2022-05-05 08:03] LABS: #Lymphocytes 0.6 thou/uL (1.20-3.40); #Monocytes 0.1 thou/uL (0.11-0.59); %Eosinophils 0.1 % (0.0-10.0); %Lymphocytes 13.3 % (21.0-51.0); %Monocytes 1.4 % (0.0-10.0); %Neutrophils 85.2 % (42.0-75.0); Hemoglobin 14.8 g/dL (14.0-18.0); Mean Corpuscular HGB CONC 33.1 g/dL (32.0-36.0); Mean Corpuscular Hemoglobin 36.3 pg (27.0-31.0); Platelet Count 329 10x3/uL (130-400); RBC Distribution Width 11.3 % (11.5-14.5); Red Blood Cell (RBC) Count 4.08 mill/uL (4.70-6.10); White Blood Cell (WBC) Count 4.7 10x3/uL (4.8-10.8)
[2022-05-05] MEDS ORDERED: Amlodipine 5 MG TAB ONE (08:03)
[2022-05-05] MEDS ORDERED: Pantoprazole 40 MG VIAL ONE (08:03)
[2022-05-05] MEDS: Amlodipine 5 MG TAB PO SCH (08:14)
[2022-05-05] MEDS: Pantoprazole 40 MG VIAL IVP SCH ×2 (08:14→20:53)
[2022-05-05 08:31] LABS: ALT (SGPT) 12 U/L (8-55); AST (SGOT) 17 U/L (5-34); Albumin 3.7 g/dL (3.4-4.8); Alkaline Phosphatase 59 U/L (40-110); Anion Gap 15 mmol/L (10-20); BUN (Urea Nitrogen) 9 mg/dL (8.4-25.7); Bilirubin, Total 0.3 mg/dL (0.2-1.2); Calc. Creatinine Clearance 117 mL/min (70-130); Calcium 9.1 mg/dL (7.8-10.44); Carbon Dioxide 20 mmol/L (23-31); Chloride 104 mmol/L (98-107); Estimated GFR 100; Globulin 3.1 g/dL (2.4-3.5); Glucose 120 mg/dL (80-115); Potassium 4.4 mmol/L (3.5-5.1); Protein, Total 6.8 g/dL (5.8-8.1); Sodium 135 mmol/L (136-145)
[2022-05-05] MEDS: Enzalutamide [Xtandi] 80 MG Tablet PO SCH (10:20)
[2022-05-05] MEDS ORDERED: HYDROcodone/Acetaminophen 5/325 mg Tablet PO PRN (18:15)
[2022-05-05] MEDS ORDERED: Morphine 2 MG/ML VIAL SLOW IVP PRN (18:17)
[2022-05-05] MEDS: HYDROcodone/Acetaminophen 5/325 mg Tablet PO PRN ×2 (18:28→22:12)
[2022-05-06] MEDS: Ipratropium/Albuterol 3 ML NEB NEB SCH ×4 (00:15→18:41)
[2022-05-06] MEDS: methylPREDNISolone Sod Succ 40 MG VIAL IVP SCH ×2 (00:36→13:03)
[2022-05-06] MEDS: Nicotine 21 MG PATCH TD SCH (00:36)
[2022-05-06] MEDS: cefTRIAXone\\ROCEPHIN 1 GM in Sodium Chloride 0.9% 100 ML IVPB SCH (00:36)
[2022-05-06] MEDS: HYDROcodone/Acetaminophen 5/325 mg Tablet PO PRN ×2 (05:23→22:24)
[2022-05-06] MEDS: Amlodipine 5 MG TAB PO SCH (08:43)
[2022-05-06] MEDS: Pantoprazole 40 MG VIAL IVP SCH ×2 (08:43→20:29)
[2022-05-06] MEDS: Enzalutamide [Xtandi] 80 MG Tablet PO SCH (08:44)
[2022-05-06] MEDS ORDERED: hydrALAZINE 20 MG/ML VIAL SLOW IVP PRN (12:36)
[2022-05-07] MEDS: Ipratropium/Albuterol 3 ML NEB NEB SCH ×6 (00:46→22:50)
[2022-05-07] MEDS: cefTRIAXone\\ROCEPHIN 1 GM in Sodium Chloride 0.9% 100 ML IVPB SCH (00:55)
[2022-05-07] MEDS: Nicotine 21 MG PATCH TD SCH (00:55)
[2022-05-07] MEDS: methylPREDNISolone Sod Succ 40 MG VIAL IVP SCH ×3 (00:55→17:27)
[2022-05-07] MEDS: Senokot S 8.6-50 MG TAB PO PRN ×2 (05:05→17:28)
[2022-05-07 05:37] LABS: Hemoglobin 14.5 g/dL (14.0-18.0)
[2022-05-07] MEDS: HYDROcodone/Acetaminophen 5/325 mg Tablet PO PRN ×2 (09:15→17:27)
[2022-05-07] MEDS: Amlodipine 5 MG TAB PO SCH ×2 (09:16→21:39)
[2022-05-07] MEDS: Pantoprazole 40 MG VIAL IVP SCH ×2 (09:16→21:39)
[2022-05-07] MEDS: Enzalutamide [Xtandi] 80 MG Tablet PO SCH (09:17)
[2022-05-07] MEDS ORDERED: hydrALAZINE 20 MG/ML VIAL ONE (17:28)
[2022-05-07] MEDS: Arformoterol 15 MCG/2 ML NEB NEB SCH (18:38)
[2022-05-07] MEDS: Budesonide 0.5 MG/2 ML NEB NEB SCH (18:38)
[2022-05-07] MEDS: Montelukast Sodium 10 mg Tablet PO SCH (21:39)
[2022-05-07] MEDS ORDERED: ALPRAZolam 0.25 MG TAB PO SCH (22:00)
[2022-05-08] MEDS: methylPREDNISolone Sod Succ 40 MG VIAL IVP SCH ×4 (00:30→18:05)
[2022-05-08] MEDS: cefTRIAXone\\ROCEPHIN 1 GM in Sodium Chloride 0.9% 100 ML IVPB SCH (00:30)
[2022-05-08] MEDS: Nicotine 21 MG PATCH TD SCH (00:30)
[2022-05-08] MEDS: Ipratropium/Albuterol 3 ML NEB NEB SCH ×6 (02:30→22:42)
[2022-05-08] MEDS: Senokot S 8.6-50 MG TAB PO PRN ×2 (05:39→18:04)
[2022-05-08] MEDS: HYDROcodone/Acetaminophen 5/325 mg Tablet PO PRN ×3 (05:47→18:04)
[2022-05-08] MEDS: Arformoterol 15 MCG/2 ML NEB NEB SCH ×2 (06:29→19:43)
[2022-05-08] MEDS: Budesonide 0.5 MG/2 ML NEB NEB SCH ×2 (06:32→19:43)
[2022-05-08] MEDS: Enzalutamide [Xtandi] 80 MG Tablet PO SCH (09:07)
[2022-05-08] MEDS: Amlodipine 5 MG TAB PO SCH ×2 (09:07→20:16)
[2022-05-08] MEDS: Pantoprazole 40 MG VIAL IVP SCH ×2 (09:07→20:16)
[2022-05-08] MEDS ORDERED: Polyethylene Glycol 3350 17 GM Packet PO SCH (11:00)
[2022-05-08] MEDS: ALPRAZolam 0.25 MG TAB PO PRN (20:15)
[2022-05-08] MEDS: Montelukast Sodium 10 mg Tablet PO SCH (20:16)
[2022-05-09] MEDS: methylPREDNISolone Sod Succ 40 MG VIAL IVP SCH ×4 (01:18→20:18)
[2022-05-09] MEDS: cefTRIAXone\\ROCEPHIN 1 GM in Sodium Chloride 0.9% 100 ML IVPB SCH (01:19)
[2022-05-09] MEDS: Nicotine 21 MG PATCH TD SCH (01:19)
[2022-05-09] MEDS: Ipratropium/Albuterol 3 ML NEB NEB SCH ×6 (02:42→22:28)
[2022-05-09] MEDS: Arformoterol 15 MCG/2 ML NEB NEB SCH ×2 (06:47→18:25)
[2022-05-09] MEDS: Budesonide 0.5 MG/2 ML NEB NEB SCH ×2 (06:47→18:24)
[2022-05-09 07:49] LABS: #Lymphocytes 1.1 thou/uL (1.20-3.40); #Monocytes 0.4 thou/uL (0.11-0.59); #Neutrophils 7.9 thou/uL (1.40-6.50); %Basophils 0.2 % (0.0-1.0); %Eosinophils 0.2 % (0.0-10.0); %Lymphocytes 11.4 % (21.0-51.0); %Monocytes 3.9 % (0.0-10.0); %Neutrophils 84.3 % (42.0-75.0); Hemoglobin 14.2 g/dL (14.0-18.0); Mean Corpuscular HGB CONC 32.3 g/dL (32.0-36.0); Mean Platelet Volume 6.1 fL (7.4-10.4); Platelet Count 341 10x3/uL (130-400); RBC Distribution Width 11.7 % (11.5-14.5); Red Blood Cell (RBC) Count 3.95 mill/uL (4.70-6.10); White Blood Cell (WBC) Count 9.4 10x3/uL (4.8-10.8)
[2022-05-09 08:25] LABS: Anion Gap 16 mmol/L (10-20); BUN (Urea Nitrogen) 15 mg/dL (8.4-25.7); Calc. Creatinine Clearance 109 mL/min (70-130); Calcium 9.2 mg/dL (7.8-10.44); Carbon Dioxide 19 mmol/L (23-31); Chloride 109 mmol/L (98-107); Estimated GFR 97; Glucose 125 mg/dL (80-115); Potassium 4.3 mmol/L (3.5-5.1); Sodium 140 mmol/L (136-145)
[2022-05-09] MEDS: Enzalutamide [Xtandi] 80 MG Tablet PO SCH (09:27)
[2022-05-09] MEDS: HYDROcodone/Acetaminophen 5/325 mg Tablet PO PRN (09:28)
[2022-05-09] MEDS: Polyethylene Glycol 3350 17 GM Packet PO SCH (09:28)
[2022-05-09] MEDS: Amlodipine 5 MG TAB PO SCH ×2 (09:29→20:17)
[2022-05-09] MEDS: Senokot S 8.6-50 MG TAB PO PRN (09:30)
[2022-05-09] MEDS: Pantoprazole 40 MG VIAL IVP SCH ×2 (09:30→20:18)
[2022-05-09] MEDS: ALPRAZolam 0.25 MG TAB PO PRN ×2 (12:38→20:17)
[2022-05-09] MEDS: Cefuroxime 250 MG TAB PO SCH (20:17)
[2022-05-09] MEDS: Montelukast Sodium 10 mg Tablet PO SCH (20:17)
[2022-05-10] MEDS: Ipratropium/Albuterol 3 ML NEB NEB SCH ×6 (02:18→22:07)
[2022-05-10] MEDS: Nicotine 21 MG PATCH TD SCH (05:31)
[2022-05-10] MEDS: Arformoterol 15 MCG/2 ML NEB NEB SCH ×2 (07:14→18:28)
[2022-05-10] MEDS: Budesonide 0.5 MG/2 ML NEB NEB SCH ×2 (07:14→18:28)
[2022-05-10] MEDS: HYDROcodone/Acetaminophen 5/325 mg Tablet PO PRN (09:56)
[2022-05-10] MEDS: Enzalutamide [Xtandi] 80 MG Tablet PO SCH (09:56)
[2022-05-10] MEDS: Polyethylene Glycol 3350 17 GM Packet PO SCH (09:56)
[2022-05-10] MEDS: methylPREDNISolone Sod Succ 40 MG VIAL IVP SCH ×2 (09:58→20:29)
[2022-05-10] MEDS: Pantoprazole 40 MG VIAL IVP SCH (09:58)
[2022-05-10] MEDS: Amlodipine 5 MG TAB PO SCH ×2 (09:58→20:29)
[2022-05-10] MEDS: Senokot S 8.6-50 MG TAB PO PRN (09:58)
[2022-05-10] MEDS: Cefuroxime 250 MG TAB PO SCH ×2 (10:55→20:29)
[2022-05-10] MEDS: Montelukast Sodium 10 mg Tablet PO SCH (20:29)
[2022-05-11] MEDS: Ipratropium/Albuterol 3 ML NEB NEB SCH ×6 (02:32→22:16)
[2022-05-11] MEDS: Nicotine 21 MG PATCH TD SCH (05:47)
[2022-05-11] MEDS: HYDROcodone/Acetaminophen 5/325 mg Tablet PO PRN ×2 (05:50→18:13)
[2022-05-11 06:13] LABS: Anion Gap 13 mmol/L (10-20); BUN (Urea Nitrogen) 19 mg/dL (8.4-25.7); Calc. Creatinine Clearance 113 mL/min (70-130); Calcium 8.9 mg/dL (7.8-10.44); Carbon Dioxide 24 mmol/L (23-31); Chloride 107 mmol/L (98-107); Estimated GFR 98; Glucose 107 mg/dL (80-115); Potassium 4.3 mmol/L (3.5-5.1); Sodium 140 mmol/L (136-145)
[2022-05-11] MEDS: Arformoterol 15 MCG/2 ML NEB NEB SCH ×2 (07:32→19:13)
[2022-05-11] MEDS: Budesonide 0.5 MG/2 ML NEB NEB SCH ×2 (07:32→19:12)
[2022-05-11] MEDS: methylPREDNISolone Sod Succ 40 MG VIAL IVP SCH ×3 (08:58→23:04)
[2022-05-11] MEDS: Enzalutamide [Xtandi] 80 MG Tablet PO SCH (08:59)
[2022-05-11] MEDS: Polyethylene Glycol 3350 17 GM Packet PO SCH (08:59)
[2022-05-11] MEDS: Amlodipine 5 MG TAB PO SCH ×2 (08:59→20:00)
[2022-05-11] MEDS ORDERED: hydrALAZINE 20 MG/ML VIAL SLOW IVP PRN (09:54)
[2022-05-11] MEDS: Cefuroxime 250 MG TAB PO SCH ×2 (11:12→20:00)
[2022-05-11] MEDS: Montelukast Sodium 10 mg Tablet PO SCH (20:00)
[2022-05-11] MEDS: Senokot S 8.6-50 MG TAB PO PRN (20:01)
[2022-05-12] MEDS ORDERED: Bisacodyl 10 MG SUPP PR PRN (00:36)
[2022-05-12] MEDS: Ipratropium/Albuterol 3 ML NEB NEB SCH ×6 (02:41→22:59)
[2022-05-12] MEDS: Nicotine 21 MG PATCH TD SCH (05:38)
[2022-05-12] MEDS: Budesonide 0.5 MG/2 ML NEB NEB SCH ×2 (07:00→19:15)
[2022-05-12] MEDS: Arformoterol 15 MCG/2 ML NEB NEB SCH ×2 (07:48→19:16)
[2022-05-12] MEDS: Polyethylene Glycol 3350 17 GM Packet PO SCH (09:00)
[2022-05-12] MEDS: Amlodipine 5 MG TAB PO SCH ×2 (09:00→20:00)
[2022-05-12] MEDS: Cefuroxime 250 MG TAB PO SCH ×2 (09:00→20:00)
[2022-05-12] MEDS: Enzalutamide [Xtandi] 80 MG Tablet PO SCH (09:01)
[2022-05-12] MEDS: methylPREDNISolone Sod Succ 40 MG VIAL IVP SCH ×2 (10:43→22:36)
[2022-05-12] MEDS: HYDROcodone/Acetaminophen 5/325 mg Tablet PO PRN ×2 (13:46→20:02)
[2022-05-12] MEDS: Montelukast Sodium 10 mg Tablet PO SCH (20:00)
[2022-05-12] MEDS: Senokot S 8.6-50 MG TAB PO PRN (20:03)
[2022-05-13] MEDS: Ipratropium/Albuterol 3 ML NEB NEB SCH ×6 (02:26→22:37)
[2022-05-13] MEDS: Nicotine 21 MG PATCH TD SCH (05:28)
[2022-05-13] MEDS: Arformoterol 15 MCG/2 ML NEB NEB SCH ×2 (06:38→18:30)
[2022-05-13] MEDS: Budesonide 0.5 MG/2 ML NEB NEB SCH ×2 (06:40→18:32)
[2022-05-13] MEDS: Enzalutamide [Xtandi] 80 MG Tablet PO SCH (09:20)
[2022-05-13] MEDS: Amlodipine 5 MG TAB PO SCH ×2 (09:20→20:22)
[2022-05-13] MEDS: Polyethylene Glycol 3350 17 GM Packet PO SCH (09:20)
[2022-05-13] MEDS: HYDROcodone/Acetaminophen 5/325 mg Tablet PO PRN ×2 (09:27→20:21)
[2022-05-13] MEDS: Cefuroxime 250 MG TAB PO SCH ×2 (09:37→20:22)
[2022-05-13] MEDS: methylPREDNISolone Sod Succ 40 MG VIAL IVP SCH ×2 (12:17→22:45)
[2022-05-13] MEDS: Montelukast Sodium 10 mg Tablet PO SCH (20:21)
[2022-05-13] MEDS: Senokot S 8.6-50 MG TAB PO SCH (20:21)
[2022-05-14] MEDS: Ipratropium/Albuterol 3 ML NEB NEB SCH ×5 (02:51→19:43)
[2022-05-14] MEDS: Nicotine 21 MG PATCH TD SCH (05:11)
[2022-05-14] MEDS: Budesonide 0.5 MG/2 ML NEB NEB SCH ×2 (06:29→19:43)
[2022-05-14] MEDS: Arformoterol 15 MCG/2 ML NEB NEB SCH ×2 (06:29→19:42)
[2022-05-14 06:39] LABS: Anion Gap 14 mmol/L (10-20); BUN (Urea Nitrogen) 25 mg/dL (8.4-25.7); Calc. Creatinine Clearance 122 mL/min (70-130); Calcium 9.3 mg/dL (7.8-10.44); Carbon Dioxide 20 mmol/L (23-31); Chloride 108 mmol/L (98-107); Estimated GFR 100; Glucose 100 mg/dL (80-115); Potassium 4.6 mmol/L (3.5-5.1); Sodium 137 mmol/L (136-145)
[2022-05-14] MEDS: Polyethylene Glycol 3350 17 GM Packet PO SCH (09:15)
[2022-05-14] MEDS: Amlodipine 5 MG TAB PO SCH ×2 (09:15→20:44)
[2022-05-14] MEDS: Senokot S 8.6-50 MG TAB PO SCH ×2 (09:15→20:44)
[2022-05-14] MEDS: HYDROcodone/Acetaminophen 5/325 mg Tablet PO PRN (09:15)
[2022-05-14] MEDS: Cefuroxime 250 MG TAB PO SCH ×2 (09:19→20:44)
[2022-05-14] MEDS: methylPREDNISolone Sod Succ 40 MG VIAL IVP SCH ×2 (11:05→23:07)
[2022-05-14] MEDS: ALPRAZolam 0.25 MG TAB PO PRN (11:07)
[2022-05-14] MEDS: Enzalutamide [Xtandi] 80 MG Tablet PO SCH (14:21)
[2022-05-14] MEDS: guaiFENesin ER 600 MG TAB PO SCH (20:44)
[2022-05-14] MEDS: Montelukast Sodium 10 mg Tablet PO SCH (20:44)
[2022-05-15] MEDS: Ipratropium/Albuterol 3 ML NEB NEB SCH ×4 (00:01→11:19)
[2022-05-15] MEDS: Nicotine 21 MG PATCH TD SCH (05:10)
[2022-05-15] MEDS: Budesonide 0.5 MG/2 ML NEB NEB SCH (07:40)
[2022-05-15] MEDS: Arformoterol 15 MCG/2 ML NEB NEB SCH (07:40)
[2022-05-15 08:25] VITALS: BP 134/80; TEMP 97.1
[2022-05-15] MEDS: HYDROcodone/Acetaminophen 5/325 mg Tablet PO PRN (08:28)
[2022-05-15] MEDS: Cefuroxime 250 MG TAB PO SCH (08:30)
[2022-05-15] MEDS: Enzalutamide [Xtandi] 80 MG Tablet PO SCH (08:30)
[2022-05-15] MEDS: Polyethylene Glycol 3350 17 GM Packet PO SCH (08:30)
[2022-05-15] MEDS: Amlodipine 5 MG TAB PO SCH (08:30)
[2022-05-15] MEDS: guaiFENesin ER 600 MG TAB PO SCH (08:31)
[2022-05-15] MEDS: Senokot S 8.6-50 MG TAB PO SCH (08:31)
[2022-05-15] MEDS: ALPRAZolam 0.25 MG TAB PO PRN (09:19)
[2022-05-15] MEDS: methylPREDNISolone Sod Succ 40 MG VIAL IVP SCH (11:36)
== END 2022-05-15 13:01 | disposition home or self-care (01) | DRG 191 ==
LOC: ERS 15:50 → ERHOLD 22:04 → MSONC 05-05 14:41 → OBSVTOIN 05-06 12:38
PROVIDERS: ADMIT Family Medicine; ATTEND Family Medicine
DX: J44.1 Chronic obstructive pulmonary disease with (acute) exacerbation (principal); E87.20 Acidosis, unspecified; K92.0 Hematemesis; F17.210 Nicotine dependence, cigarettes, uncomplicated; Z20.822 Contact with and (suspected) exposure to COVID-19; E78.5 Hyperlipidemia, unspecified; I10 Essential (primary) hypertension; C61 Malignant neoplasm of prostate; Z96.651 Presence of right artificial knee joint; K59.00 Constipation, unspecified; R07.89 Other chest pain; Z99.81 Dependence on supplemental oxygen; Z98.890 Other specified postprocedural states; Z79.899 Other long term (current) drug therapy; Z79.52 Long term (current) use of systemic steroids; Z71.6 Tobacco abuse counseling; Z87.11 Personal history of peptic ulcer disease
CPT/HCPCS: 36415; 71045; 74177; 80048; 80053; 83605; 83880; 84484; 85014; 85018; 85025; 85610; 85730; 87040; 87811; 93005; 94640; 96365; 96375; C9113; J0360; J0696; J2270; J2272; J2405; J2550; J2920; J2930; J3490; J7050; J7620; J7626; Q0162; Q9967

== ENCOUNTER 2022-06-03 11:33 | Inpatient (IN) | payer OTHER ==
[2022-06-03 12:33] LABS: #Basophils 0.1 thou/uL (0.0-0.2); #Eosinphils 0.1 thou/uL (0.0-0.7); #Lymphocytes 2.7 thou/uL (1.20-3.40); #Monocytes 0.5 thou/uL (0.11-0.59); #Neutrophils 5.5 thou/uL (1.40-6.50); %Basophils 0.7 % (0.0-1.0); %Eosinophils 1.3 % (0.0-10.0); %Lymphocytes 30.3 % (21.0-51.0); %Monocytes 5.7 % (0.0-10.0); %Neutrophils 61.9 % (42.0-75.0); Hemoglobin 15.1 g/dL (14.0-18.0); Mean Corpuscular HGB CONC 33.6 g/dL (32.0-36.0); Mean Corpuscular Hemoglobin 36.6 pg (27.0-31.0); Mean Platelet Volume 6.3 fL (7.4-10.4); Platelet Count 351 10x3/uL (130-400); RBC Distribution Width 11.5 % (11.5-14.5); Red Blood Cell (RBC) Count 4.14 mill/uL (4.70-6.10); White Blood Cell (WBC) Count 8.9 10x3/uL (4.8-10.8)
[2022-06-03 12:53] LABS: ALT (SGPT) 16 U/L (8-55); AST (SGOT) 18 U/L (5-34); Albumin 4.3 g/dL (3.4-4.8); Alkaline Phosphatase 54 U/L (40-110); Anion Gap 17 mmol/L (10-20); BUN (Urea Nitrogen) 9 mg/dL (8.4-25.7); Bilirubin, Total 0.2 mg/dL (0.2-1.2); Calc. Creatinine Clearance 0 mL/min (70-130); Calcium 9.4 mg/dL (7.8-10.44); Carbon Dioxide 20 mmol/L (23-31); Chloride 106 mmol/L (98-107); Estimated GFR 98; Glucose 76 mg/dL (80-115); Potassium 3.8 mmol/L (3.5-5.1); Protein, Total 7.3 g/dL (5.8-8.1); Sodium 139 mmol/L (136-145)
[2022-06-03] MEDS ORDERED: Ipratropium/Albuterol 3 ML NEB ONE (13:15)
[2022-06-03] MEDS ORDERED: methylPREDNISolone Sod Succ 40 MG VIAL ONE (13:15)
[2022-06-03] MEDS ORDERED: methylPREDNISolone Sod Succ/PF 125 MG/2 ML VIAL ONE (13:18)
[2022-06-03] MEDS ORDERED: Acetaminophen 650 MG Suppository PR PRN (17:46)
[2022-06-03] MEDS ORDERED: Ondansetron ODT 4 MG TAB PO PRN (17:46)
[2022-06-03] MEDS ORDERED: Acetaminophen 325 MG TAB PO PRN (17:46)
[2022-06-03] MEDS ORDERED: Ondansetron PF 4 MG/2 ML Vial IVP PRN (17:46)
[2022-06-03] MEDS ORDERED: Ipratropium/Albuterol 3 ML NEB NEB PRN (17:47)
[2022-06-03] MEDS ORDERED: guaiFENesin ER 600 MG TAB PO SCH (18:00)
[2022-06-03 18:14] LABS: SARS-CoV-2 NAA Rapid Test Not Detected (NotDetected)
[2022-06-03 19:35] VITALS: BMI 27.1
[2022-06-03] MEDS: Ipratropium/Albuterol 3 ML NEB NEB SCH ×2 (20:34→21:56)
[2022-06-03] MEDS: Azithromycin 500 MG in Sodium Chloride 0.9% 250 ML 250 ML IVPB SCH (21:01)
[2022-06-04] MEDS: Ipratropium/Albuterol 3 ML NEB NEB SCH ×7 (01:27→23:10)
[2022-06-04 08:07] LABS: #Basophils 0.1 thou/uL (0.0-0.2); #Eosinphils 0.1 thou/uL (0.0-0.7); #Lymphocytes 2.5 thou/uL (1.20-3.40); #Monocytes 0.6 thou/uL (0.11-0.59); #Neutrophils 7.7 thou/uL (1.40-6.50); %Basophils 0.5 % (0.0-1.0); %Eosinophils 0.5 % (0.0-10.0); %Lymphocytes 22.6 % (21.0-51.0); %Monocytes 5.3 % (0.0-10.0); %Neutrophils 71.1 % (42.0-75.0); Mean Corpuscular HGB CONC 33.6 g/dL (32.0-36.0); Mean Corpuscular Hemoglobin 36.7 pg (27.0-31.0); Mean Platelet Volume 6.2 fL (7.4-10.4); Platelet Count 305 10x3/uL (130-400); RBC Distribution Width 11.5 % (11.5-14.5); White Blood Cell (WBC) Count 10.9 10x3/uL (4.8-10.8)
[2022-06-04 08:25] LABS: Anion Gap 14 mmol/L (10-20); BUN (Urea Nitrogen) 17 mg/dL (8.4-25.7); Calc. Creatinine Clearance 108 mL/min (70-130); Calcium 8.7 mg/dL (7.8-10.44); Carbon Dioxide 21 mmol/L (23-31); Chloride 107 mmol/L (98-107); Estimated GFR 97; Glucose 81 mg/dL (80-115); Sodium 138 mmol/L (136-145)
[2022-06-04] MEDS: guaiFENesin ER 600 MG TAB PO SCH ×2 (08:41→21:04)
[2022-06-04] MEDS: methylPREDNISolone Sod Succ 40 MG VIAL IVP SCH (08:41)
[2022-06-04] MEDS: Azithromycin 500 MG in Sodium Chloride 0.9% 250 ML 250 ML IVPB SCH (17:41)
[2022-06-04] MEDS: ALPRAZolam 0.25 MG TAB PO PRN (21:04)
[2022-06-05] MEDS: Ipratropium/Albuterol 3 ML NEB NEB SCH ×3 (07:10→19:00)
[2022-06-05] MEDS: methylPREDNISolone Sod Succ 40 MG VIAL IVP SCH ×2 (09:02→20:07)
[2022-06-05] MEDS: Amlodipine 5 MG TAB PO SCH (09:04)
[2022-06-05] MEDS: guaiFENesin ER 600 MG TAB PO SCH ×2 (09:04→20:07)
[2022-06-05] MEDS: Nicotine 21 MG PATCH TD SCH (09:04)
[2022-06-05] MEDS: Mometasone 200 MCG/Formoterol 5 MCG 120 PUFF INHALER INH SCH (19:01)
[2022-06-05] MEDS: ALPRAZolam 0.25 MG TAB PO PRN (20:12)
[2022-06-06] MEDS: Ipratropium/Albuterol 3 ML NEB NEB SCH ×4 (01:03→18:42)
[2022-06-06] MEDS: Mometasone 200 MCG/Formoterol 5 MCG 120 PUFF INHALER INH SCH ×2 (07:11→18:43)
[2022-06-06] MEDS: Amlodipine 5 MG TAB PO SCH (09:08)
[2022-06-06] MEDS: guaiFENesin ER 600 MG TAB PO SCH ×2 (09:08→21:10)
[2022-06-06] MEDS: methylPREDNISolone Sod Succ 40 MG VIAL IVP SCH ×2 (09:10→21:10)
[2022-06-06] MEDS: Nicotine 21 MG PATCH TD SCH (09:17)
[2022-06-06] MEDS: ALPRAZolam 0.25 MG TAB PO PRN (21:10)
[2022-06-07] MEDS: Ipratropium/Albuterol 3 ML NEB NEB SCH ×5 (00:22→23:35)
[2022-06-07] MEDS: Nicotine 21 MG PATCH TD SCH (05:22)
[2022-06-07] MEDS: methylPREDNISolone Sod Succ 40 MG VIAL IVP SCH ×2 (06:57→21:56)
[2022-06-07] MEDS: Mometasone 200 MCG/Formoterol 5 MCG 120 PUFF INHALER INH SCH ×2 (06:58→19:45)
[2022-06-07] MEDS: Amlodipine 5 MG TAB PO SCH (08:57)
[2022-06-07] MEDS: guaiFENesin ER 600 MG TAB PO SCH ×2 (08:57→21:56)
[2022-06-07] MEDS: Budesonide 0.5 MG/2 ML NEB NEB SCH (19:45)
[2022-06-07] MEDS: ALPRAZolam 0.25 MG TAB PO PRN (22:24)
[2022-06-08] MEDS: Nicotine 21 MG PATCH TD SCH (04:28)
[2022-06-08] MEDS: Budesonide 0.5 MG/2 ML NEB NEB SCH ×2 (08:31→18:47)
[2022-06-08] MEDS: methylPREDNISolone Sod Succ 40 MG VIAL IVP SCH ×2 (08:33→20:42)
[2022-06-08] MEDS: Amlodipine 5 MG TAB PO SCH (08:33)
[2022-06-08] MEDS: guaiFENesin ER 600 MG TAB PO SCH ×2 (08:33→20:42)
[2022-06-08] MEDS: Mometasone 200 MCG/Formoterol 5 MCG 120 PUFF INHALER INH SCH ×2 (08:35→18:48)
[2022-06-08] MEDS: Ipratropium/Albuterol 3 ML NEB NEB SCH ×4 (08:35→23:51)
[2022-06-08 09:53] LABS: Hemoglobin 13.8 g/dL (14.0-18.0); Mean Corpuscular HGB CONC 32.2 g/dL (32.0-36.0); Mean Corpuscular Hemoglobin 35.1 pg (27.0-31.0); Mean Platelet Volume 6.4 fL (7.4-10.4); Platelet Count 287 10x3/uL (130-400); RBC Distribution Width 11.6 % (11.5-14.5); Red Blood Cell (RBC) Count 3.93 mill/uL (4.70-6.10); White Blood Cell (WBC) Count 10.5 10x3/uL (4.8-10.8)
[2022-06-08 10:10] LABS: Anion Gap 14 mmol/L (10-20); BUN (Urea Nitrogen) 19 mg/dL (8.4-25.7); Calc. Creatinine Clearance 112 mL/min (70-130); Carbon Dioxide 21 mmol/L (23-31); Chloride 107 mmol/L (98-107); Estimated GFR 98; Glucose 99 mg/dL (80-115); Potassium 3.9 mmol/L (3.5-5.1); Sodium 138 mmol/L (136-145)
[2022-06-08] MEDS: ENZALUTAMIDE 80 MG PO SCH ×2 (16:16→16:17)
[2022-06-09] MEDS: Nicotine 21 MG PATCH TD SCH (06:14)
[2022-06-09] MEDS: Mometasone 200 MCG/Formoterol 5 MCG 120 PUFF INHALER INH SCH (07:38)
[2022-06-09] MEDS: Ipratropium/Albuterol 3 ML NEB NEB SCH ×2 (07:38→13:13)
[2022-06-09] MEDS: Budesonide 0.5 MG/2 ML NEB NEB SCH (07:40)
[2022-06-09] MEDS: methylPREDNISolone Sod Succ 40 MG VIAL IVP SCH (08:12)
[2022-06-09] MEDS: Amlodipine 5 MG TAB PO SCH (08:12)
[2022-06-09] MEDS: guaiFENesin ER 600 MG TAB PO SCH (08:12)
[2022-06-09 13:21] VITALS: BP 130/77; TEMP 98.3
== END 2022-06-09 13:25 | disposition home or self-care (01) | DRG 191 ==
LOC: ERS 11:33 → T4-A 17:15
PROVIDERS: ADMIT Internal Medicine; ATTEND Internal Medicine
DX: J44.1 Chronic obstructive pulmonary disease with (acute) exacerbation (principal); C79.9 Secondary malignant neoplasm of unspecified site; Z20.822 Contact with and (suspected) exposure to COVID-19; I10 Essential (primary) hypertension; F17.210 Nicotine dependence, cigarettes, uncomplicated; C61 Malignant neoplasm of prostate; F60.7 Dependent personality disorder; F12.10 Cannabis abuse, uncomplicated; F41.9 Anxiety disorder, unspecified; Z71.51 Drug abuse counseling and surveillance of drug abuser; Z71.6 Tobacco abuse counseling; Z79.899 Other long term (current) drug therapy; Z90.89 Acquired absence of other organs; Z98.890 Other specified postprocedural states
CPT/HCPCS: 36415; 71045; 80048; 83880; 84484; 85025; 85027; 93005; 94640; 96374; J0456; J1650; J2920; J2930; J7050; J7620; J7626; U0002

== ENCOUNTER 2022-09-04 01:58 | Inpatient (IN) | payer OTHER, MEDICAID ==
[2022-09-04] MEDS ORDERED: Ipratropium/Albuterol 3 ML NEB ONE (02:25)
[2022-09-04] MEDS ORDERED: cefTRIAXone (ROCEPHIN) 1 GM VIAL ONE (02:42)
[2022-09-04] MEDS ORDERED: Azithromycin 500 MG VIAL ONE (02:42)
[2022-09-04 02:47] LABS: #Eosinphils 0.1 thou/uL (0.0-0.7); #Monocytes 0.6 thou/uL (0.11-0.59); #Neutrophils 6.1 thou/uL (1.40-6.50); %Basophils 0.3 % (0.0-1.0); %Monocytes 6.9 % (0.0-10.0); %Neutrophils 66.8 % (42.0-75.0); Hemoglobin 14.7 g/dL (14.0-18.0); Mean Corpuscular HGB CONC 32.4 g/dL (32.0-36.0); Mean Corpuscular Hemoglobin 34.8 pg (27.0-31.0); Mean Corpuscular Volume 107.3 fl (78.0-98.0); Mean Platelet Volume 8.9 fL (7.4-10.4); Platelet Count 269 10x3/uL (130-400); RBC Distribution Width 12.7 % (11.5-14.5); Red Blood Cell (RBC) Count 4.23 mill/uL (4.70-6.10); White Blood Cell (WBC) Count 9.2 10x3/uL (4.8-10.8)
[2022-09-04 03:04] LABS: ALT (SGPT) 24 U/L (8-55); AST (SGOT) 21 U/L (5-34); Albumin 4.4 g/dL (3.4-4.8); Alkaline Phosphatase 58 U/L (40-110); Anion Gap 15 mmol/L (10-20); BUN (Urea Nitrogen) 13 mg/dL (8.4-25.7); Bilirubin, Total 0.2 mg/dL (0.2-1.2); Calc. Creatinine Clearance 0 mL/min (70-130); Calcium 9.3 mg/dL (7.8-10.44); Carbon Dioxide 26 mmol/L (23-31); Chloride 107 mmol/L (98-107); Estimated GFR 96; Globulin 2.6 g/dL (2.4-3.5); Glucose 100 mg/dL (80-115); Potassium 4.6 mmol/L (3.5-5.1); Sodium 143 mmol/L (136-145)
[2022-09-04 03:21] LABS: CKMB 3.6 ng/mL (0-6.6)
[2022-09-04] MEDS ORDERED: Ipratropium/Albuterol 3 ML NEB NEB PRN (04:00)
[2022-09-04] MEDS ORDERED: Nicotine 21 MG PATCH TD SCH (04:15)
[2022-09-04 05:46] LABS: Troponin I 0.154 ng/mL (< 0.028)
[2022-09-04] MEDS: Ipratropium/Albuterol 3 ML NEB NEB SCH ×4 (08:41→22:18)
[2022-09-04] MEDS: Amlodipine 5 MG TAB PO SCH (08:42)
[2022-09-04] MEDS ORDERED: methylPREDNISolone Sod Succ/PF 125 MG/2 ML VIAL IVP SCH (09:00)
[2022-09-04 10:25] VITALS: BMI 24.3
[2022-09-04 12:48] LABS: Critical Call Chem Troponin I RESULT DECREASING; Troponin I 0.204 ng/mL (< 0.028)
[2022-09-04] MEDS: methylPREDNISolone Sod Succ 40 MG VIAL IVP SCH ×2 (18:32→23:50)
[2022-09-05] MEDS: Ipratropium/Albuterol 3 ML NEB NEB SCH ×6 (02:20→22:38)
[2022-09-05] MEDS: Azithromycin 500 MG in Sodium Chloride 0.9% 250 ML 250 ML IVPB SCH (04:46)
[2022-09-05 05:21] LABS: Hemoglobin 13.2 g/dL (14.0-18.0); Mean Corpuscular HGB CONC 33.9 g/dL (32.0-36.0); Mean Corpuscular Hemoglobin 35.5 pg (27.0-31.0); Mean Corpuscular Volume 104.6 fl (78.0-98.0); Mean Platelet Volume 8.8 fL (7.4-10.4); Platelet Count 224 10x3/uL (130-400); RBC Distribution Width 12.3 % (11.5-14.5); Red Blood Cell (RBC) Count 3.72 mill/uL (4.70-6.10); White Blood Cell (WBC) Count 7.8 10x3/uL (4.8-10.8)
[2022-09-05 05:22] LABS: #Monocytes 0.5 thou/uL (0.11-0.59); #Neutrophils 6.3 thou/uL (1.40-6.50); %Lymphocytes 9.9 % (21.0-51.0); %Monocytes 6.1 % (0.0-10.0); %Neutrophils 83.5 % (42.0-75.0); Mean Corpuscular HGB CONC 33.1 g/dL (32.0-36.0); Mean Corpuscular Hemoglobin 34.9 pg (27.0-31.0); Mean Corpuscular Volume 105.4 fl (78.0-98.0); Mean Platelet Volume 8.8 fL (7.4-10.4); Platelet Count 227 10x3/uL (130-400); RBC Distribution Width 12.4 % (11.5-14.5); Red Blood Cell (RBC) Count 3.73 mill/uL (4.70-6.10); White Blood Cell (WBC) Count 7.6 10x3/uL (4.8-10.8)
[2022-09-05 05:42] LABS: ALT (SGPT) 16 U/L (8-55); AST (SGOT) 14 U/L (5-34); Albumin 3.5 g/dL (3.4-4.8); Alkaline Phosphatase 44 U/L (40-110); Anion Gap 13 mmol/L (10-20); BUN (Urea Nitrogen) 18 mg/dL (8.4-25.7); Bilirubin, Total 0.2 mg/dL (0.2-1.2); Calc. Creatinine Clearance 119 mL/min (70-130); Calcium 8.8 mg/dL (7.8-10.44); Carbon Dioxide 22 mmol/L (23-31); Chloride 106 mmol/L (98-107); Estimated GFR 101; Globulin 2.3 g/dL (2.4-3.5); Glucose 117 mg/dL (80-115); Potassium 4.1 mmol/L (3.5-5.1); Protein, Total 5.8 g/dL (5.8-8.1); Sodium 137 mmol/L (136-145)
[2022-09-05] MEDS: methylPREDNISolone Sod Succ 40 MG VIAL IVP SCH ×4 (06:10→23:28)
[2022-09-05] MEDS: Nicotine 21 MG PATCH TD SCH (08:27)
[2022-09-05] MEDS: Amlodipine 5 MG TAB PO SCH (08:27)
[2022-09-05] MEDS ORDERED: Magnesium 2 GM/50 ML(in water) 2 GM in Premix Bag 1 BAG IVPB SCH (12:45)
[2022-09-05] MEDS: Enzalutamide [Xtandi] 80 MG Tablet PO SCH (17:39)
[2022-09-05] MEDS: Budesonide 0.5 MG/2 ML NEB NEB SCH (18:06)
[2022-09-05] MEDS: Montelukast Sodium 10 mg Tablet PO SCH (19:43)
[2022-09-05] MEDS: Bisacodyl 5 MG TAB PO PRN (20:54)
[2022-09-06] MEDS: Ipratropium/Albuterol 3 ML NEB NEB SCH ×6 (02:23→21:53)
[2022-09-06] MEDS: Senokot S 8.6-50 MG TAB PO PRN (03:07)
[2022-09-06] MEDS: Azithromycin 500 MG in Sodium Chloride 0.9% 250 ML 250 ML IVPB SCH (04:33)
[2022-09-06] MEDS: methylPREDNISolone Sod Succ 40 MG VIAL IVP SCH ×4 (05:44→23:50)
[2022-09-06 05:45] LABS: Mean Corpuscular HGB CONC 30.5 g/dL (32.0-36.0); Mean Corpuscular Hemoglobin 34.5 pg (27.0-31.0); Mean Corpuscular Volume 113.1 fl (78.0-98.0); Mean Platelet Volume 8.9 fL (7.4-10.4); Platelet Count 234 10x3/uL (130-400); RBC Distribution Width 12.5 % (11.5-14.5); Red Blood Cell (RBC) Count 4.06 mill/uL (4.70-6.10); White Blood Cell (WBC) Count 8.9 10x3/uL (4.8-10.8)
[2022-09-06 06:24] LABS: ALT (SGPT) 18 U/L (8-55); AST (SGOT) 15 U/L (5-34); Albumin 3.3 g/dL (3.4-4.8); Alkaline Phosphatase 46 U/L (40-110); Anion Gap 13 mmol/L (10-20); BUN (Urea Nitrogen) 16 mg/dL (8.4-25.7); Bilirubin, Total Less than 0.2 mg/dL (0.2-1.2); Calc. Creatinine Clearance 118 mL/min (70-130); Calcium 8.7 mg/dL (7.8-10.44); Carbon Dioxide 16 mmol/L (23-31); Chloride 108 mmol/L (98-107); Estimated GFR 100; Globulin 2.6 g/dL (2.4-3.5); Glucose 125 mg/dL (80-115); Potassium 4.1 mmol/L (3.5-5.1); Protein, Total 5.9 g/dL (5.8-8.1); Sodium 133 mmol/L (136-145)
[2022-09-06] MEDS: Budesonide 0.5 MG/2 ML NEB NEB SCH ×2 (08:02→18:27)
[2022-09-06] MEDS: Amlodipine 5 MG TAB PO SCH (08:18)
[2022-09-06] MEDS: Enzalutamide [Xtandi] 80 MG Tablet PO SCH (08:18)
[2022-09-06] MEDS: Nicotine 21 MG PATCH TD SCH (08:19)
[2022-09-06] MEDS: Bisacodyl 5 MG TAB PO PRN (08:21)
[2022-09-06] MEDS: Montelukast Sodium 10 mg Tablet PO SCH (19:59)
[2022-09-07] MEDS: Ipratropium/Albuterol 3 ML NEB NEB SCH ×6 (02:05→22:34)
[2022-09-07] MEDS: Azithromycin 500 MG in Sodium Chloride 0.9% 250 ML 250 ML IVPB SCH (04:30)
[2022-09-07 05:26] LABS: #Monocytes 0.3 thou/uL (0.11-0.59); #Neutrophils 7.3 thou/uL (1.40-6.50); %Basophils 0.1 % (0.0-1.0); %Lymphocytes 9.3 % (21.0-51.0); %Monocytes 3.2 % (0.0-10.0); %Neutrophils 86.5 % (42.0-75.0); Hemoglobin 14.2 g/dL (14.0-18.0); Mean Corpuscular HGB CONC 32.6 g/dL (32.0-36.0); Mean Corpuscular Hemoglobin 34.9 pg (27.0-31.0); Mean Platelet Volume 8.7 fL (7.4-10.4); Platelet Count 262 10x3/uL (130-400); RBC Distribution Width 12.6 % (11.5-14.5); Red Blood Cell (RBC) Count 4.07 mill/uL (4.70-6.10); White Blood Cell (WBC) Count 8.5 10x3/uL (4.8-10.8)
[2022-09-07] MEDS: methylPREDNISolone Sod Succ 40 MG VIAL IVP SCH ×3 (05:48→18:41)
[2022-09-07 05:50] LABS: Anion Gap 10 mmol/L (10-20); BUN (Urea Nitrogen) 22 mg/dL (8.4-25.7); Calc. Creatinine Clearance 109 mL/min (70-130); Carbon Dioxide 23 mmol/L (23-31); Chloride 109 mmol/L (98-107); Estimated GFR 98; Glucose 170 mg/dL (80-115); Potassium 3.9 mmol/L (3.5-5.1); Sodium 138 mmol/L (136-145)
[2022-09-07 05:51] LABS: Mean Corpuscular Volume 107.1 fl (78.0-98.0)
[2022-09-07] MEDS: Budesonide 0.5 MG/2 ML NEB NEB SCH ×2 (07:49→18:12)
[2022-09-07] MEDS: Amlodipine 5 MG TAB PO SCH (09:49)
[2022-09-07] MEDS: Nicotine 21 MG PATCH TD SCH (09:49)
[2022-09-07] MEDS: Enzalutamide [Xtandi] 80 MG Tablet PO SCH (09:50)
[2022-09-07] MEDS ORDERED: Polyethylene Glycol 3350 17 GM Packet PO SCH ×2 (09:55→10:15)
[2022-09-07] MEDS: Senokot S 8.6-50 MG TAB PO PRN (09:55)
[2022-09-07] MEDS ORDERED: Azithromycin 250 MG TAB PO SCH (10:15)
[2022-09-07] MEDS: Varenicline Tartrate 0.5 MG TAB PO SCH (10:47)
[2022-09-07 11:07] LABS: Actual Bicarbonate (HCO3v) 23.9 mEq/L (22-28); Base Excess -0.3 mEq/L (-2.0 to +3.0); Calcium, Ionized (venous) 1.12 mmol/L (1.16-1.32); Chloride (VBG) 104 mmol/L (98-106); Hematocrit-VBG 42 % (42.0-52.0); Hemoglobin (Hb) 14.4 g/dL (12.6-17.4); Potassium (VBG) 3.85 mmol/L (3.70-5.30)
[2022-09-07] MEDS: Montelukast Sodium 10 mg Tablet PO SCH (20:19)
[2022-09-08] MEDS: methylPREDNISolone Sod Succ 40 MG VIAL IVP SCH ×4 (00:24→17:01)
[2022-09-08] MEDS: Ipratropium/Albuterol 3 ML NEB NEB SCH ×6 (01:33→22:44)
[2022-09-08] MEDS: Budesonide 0.5 MG/2 ML NEB NEB SCH ×2 (07:51→19:06)
[2022-09-08] MEDS: Nicotine 21 MG PATCH TD SCH (08:20)
[2022-09-08] MEDS: Amlodipine 5 MG TAB PO SCH (08:21)
[2022-09-08] MEDS: Varenicline Tartrate 0.5 MG TAB PO SCH (08:21)
[2022-09-08] MEDS: Azithromycin 250 MG TAB PO SCH (08:21)
[2022-09-08] MEDS: Enzalutamide [Xtandi] 80 MG Tablet PO SCH (08:22)
[2022-09-08] MEDS: Polyethylene Glycol 3350 17 GM Packet PO SCH (08:23)
[2022-09-08] MEDS ORDERED: Azithromycin 200 MG/5 ML Oral Suspension PO SCH (09:00)
[2022-09-08] MEDS: Bisacodyl 5 MG TAB PO PRN (16:58)
[2022-09-08] MEDS: Montelukast Sodium 10 mg Tablet PO SCH (20:55)
[2022-09-09] MEDS: methylPREDNISolone Sod Succ 40 MG VIAL IVP SCH ×3 (00:06→19:47)
[2022-09-09] MEDS: Ipratropium/Albuterol 3 ML NEB NEB SCH ×6 (03:16→22:28)
[2022-09-09] MEDS: Budesonide 0.5 MG/2 ML NEB NEB SCH ×2 (08:05→19:00)
[2022-09-09] MEDS: Azithromycin 250 MG TAB PO SCH (08:52)
[2022-09-09] MEDS: Amlodipine 5 MG TAB PO SCH (08:52)
[2022-09-09] MEDS: Nicotine 21 MG PATCH TD SCH (08:53)
[2022-09-09] MEDS: Polyethylene Glycol 3350 17 GM Packet PO SCH (08:53)
[2022-09-09] MEDS: Enzalutamide [Xtandi] 80 MG Tablet PO SCH (08:53)
[2022-09-09] MEDS: Varenicline Tartrate 0.5 MG TAB PO SCH (08:54)
[2022-09-09] MEDS: Bisacodyl 5 MG TAB PO PRN (09:02)
[2022-09-09] MEDS ORDERED: Sodium Chloride 3% (15 ML) NEB NEB PRN (14:42)
[2022-09-09] MEDS: Montelukast Sodium 10 mg Tablet PO SCH (19:47)
[2022-09-10] MEDS: Ipratropium/Albuterol 3 ML NEB NEB SCH ×6 (02:29→22:08)
[2022-09-10 05:30] LABS: #Basophils 0.1 thou/uL (0.0-0.2); #Monocytes 0.8 thou/uL (0.11-0.59); %Basophils 0.6 % (0.0-1.0); %Eosinophils 0.1 % (0.0-10.0); %Lymphocytes 19.2 % (21.0-51.0); %Neutrophils 71.5 % (42.0-75.0); Hemoglobin 12.9 g/dL (14.0-18.0); Mean Corpuscular HGB CONC 32.7 g/dL (32.0-36.0); Mean Corpuscular Hemoglobin 35.2 pg (27.0-31.0); Mean Corpuscular Volume 107.7 fl (78.0-98.0); Mean Platelet Volume 8.6 fL (7.4-10.4); Platelet Count 221 10x3/uL (130-400); Red Blood Cell (RBC) Count 3.66 mill/uL (4.70-6.10); White Blood Cell (WBC) Count 12.5 10x3/uL (4.8-10.8)
[2022-09-10 05:57] LABS: Anion Gap 16 mmol/L (10-20); BUN (Urea Nitrogen) 24 mg/dL (8.4-25.7); Calc. Creatinine Clearance 113 mL/min (70-130); Calcium 8.5 mg/dL (7.8-10.44); Carbon Dioxide 19 mmol/L (23-31); Chloride 105 mmol/L (98-107); Estimated GFR 99; Glucose 97 mg/dL (80-115); Potassium 4.2 mmol/L (3.5-5.1); Sodium 136 mmol/L (136-145)
[2022-09-10] MEDS: Budesonide 0.5 MG/2 ML NEB NEB SCH ×2 (08:02→18:43)
[2022-09-10] MEDS: Amlodipine 5 MG TAB PO SCH (08:41)
[2022-09-10] MEDS: Polyethylene Glycol 3350 17 GM Packet PO SCH (08:43)
[2022-09-10] MEDS: Nicotine 21 MG PATCH TD SCH (08:44)
[2022-09-10] MEDS: Enzalutamide [Xtandi] 80 MG Tablet PO SCH (08:44)
[2022-09-10] MEDS: Varenicline Tartrate 0.5 MG TAB PO SCH (08:45)
[2022-09-10] MEDS: methylPREDNISolone Sod Succ 40 MG VIAL IVP SCH ×2 (08:45→22:25)
[2022-09-10] MEDS: Bisacodyl 5 MG TAB PO PRN (08:47)
[2022-09-10] MEDS: Montelukast Sodium 10 mg Tablet PO SCH (22:25)
[2022-09-11] MEDS: Ipratropium/Albuterol 3 ML NEB NEB SCH ×3 (02:09→10:25)
[2022-09-11 07:18] VITALS: BP 139/83; TEMP 98.4
[2022-09-11] MEDS: Budesonide 0.5 MG/2 ML NEB NEB SCH (07:27)
[2022-09-11] MEDS ORDERED: predniSONE 20 MG TAB PO SCH (08:00)
[2022-09-11] MEDS: Polyethylene Glycol 3350 17 GM Packet PO SCH (08:10)
[2022-09-11] MEDS: Amlodipine 5 MG TAB PO SCH (08:12)
[2022-09-11] MEDS: Enzalutamide [Xtandi] 80 MG Tablet PO SCH (08:13)
[2022-09-11] MEDS: Nicotine 21 MG PATCH TD SCH (08:13)
[2022-09-11] MEDS ORDERED: Varenicline Tartrate 0.5 MG TAB PO SCH (09:00)
== END 2022-09-11 12:20 | disposition home or self-care (01) | DRG 189 ==
LOC: SUATTDRO 01:58 → ERS 01:58 → 2SW 07:30 → T4-A 07:49 → 2SW 11:33 → OBSVTOIN 15:08 → MSONC 09-08 18:23
PROVIDERS: ADMIT Family Medicine; ATTEND Family Medicine
PROC: 5A09557 Assistance with Respiratory Ventilation, Greater than 96 Consecutive Hours, Continuous Positive Airway Pressure (ICD-10-PCS; 2022-09-05)
PROC: 4A043R1 Measurement of Venous Saturation, Peripheral, Percutaneous Approach (ICD-10-PCS; principal; 2022-09-07)
DX: J96.21 Acute and chronic respiratory failure with hypoxia (principal); I11.0 Hypertensive heart disease with heart failure; I50.30 Unspecified diastolic (congestive) heart failure; J44.1 Chronic obstructive pulmonary disease with (acute) exacerbation; C61 Malignant neoplasm of prostate; F10.90 Alcohol use, unspecified, uncomplicated; F17.210 Nicotine dependence, cigarettes, uncomplicated; F19.10 Other psychoactive substance abuse, uncomplicated; I25.10 Atherosclerotic heart disease of native coronary artery without angina pectoris; Z79.01 Long term (current) use of anticoagulants; Z79.2 Long term (current) use of antibiotics; Z79.818 Long term (current) use of other agents affecting estrogen receptors and estrogen levels; Z98.890 Other specified postprocedural states; Z90.79 Acquired absence of other genital organ(s); Z79.52 Long term (current) use of systemic steroids; Z79.899 Other long term (current) drug therapy; Z91.198 Patient's noncompliance with other medical treatment and regimen for other reason; Z71.6 Tobacco abuse counseling
CPT/HCPCS: 36415; 36416; 71045; 80048; 80053; 82553; 82805; 83605; 83880; 84484; 85025; 85027; 87040; 93005; 93010; 93306; 94640; 94660; 96365; 96372; G0378; J0456; J0696; J1650; J2920; J2930; J3475; J7050; J7512; J7620; J7626

== ENCOUNTER 2022-10-26 03:12 | Inpatient (IN) | payer OTHER, MEDICAID ==
[2022-10-26 04:16] LABS: Actual Bicarbonate (HCO3v) 20.5 mEq/L (22-28); Base Excess -3.7 mEq/L (-2.0 to +3.0); Calcium, Ionized (venous) 1.13 mmol/L (1.16-1.32); Chloride (VBG) 107 mmol/L (98-106); Hematocrit-VBG 44 % (42.0-52.0); Hemoglobin (Hb) 15.1 g/dL (12.6-17.4); Potassium (VBG) 4.05 mmol/L (3.70-5.30); Sodium 130.2 mmol/L (133-146); pH (venous) 7.385 (7.32-7.43)
[2022-10-26 04:22] LABS: #Basophils 0.1 thou/uL (0.0-0.2); #Monocytes 0.5 thou/uL (0.11-0.59); #Neutrophils 7.9 thou/uL (1.40-6.50); %Basophils 0.5 % (0.0-1.0); %Eosinophils 0.3 % (0.0-10.0); %Lymphocytes 14.5 % (21.0-51.0); %Neutrophils 78.8 % (42.0-75.0); Hematocrit 41.9 % (42.0-52.0); Hemoglobin 13.9 g/dL (14.0-18.0); Mean Corpuscular HGB CONC 33.2 g/dL (32.0-36.0); Mean Corpuscular Hemoglobin 34.8 pg (27.0-31.0); Mean Corpuscular Volume 104.8 fl (78.0-98.0); Mean Platelet Volume 8.2 fL (7.4-10.4); Platelet Count 287 10x3/uL (130-400); RBC Distribution Width 12.5 % (11.5-14.5)
[2022-10-26 04:40] LABS: AST (SGOT) 12 U/L (5-34); Albumin 3.9 g/dL (3.4-4.8); Anion Gap 10 mmol/L (10-20); Bilirubin, Total 0.2 mg/dL (0.2-1.2); Calc. Creatinine Clearance 0 mL/min (70-130); Calcium 9.2 mg/dL (7.8-10.44); Carbon Dioxide 19 mmol/L (23-31); Chloride 112 mmol/L (98-107); Estimated GFR 100; Globulin 3.1 g/dL (2.4-3.5); Glucose 111 mg/dL (80-115); Sodium 137 mmol/L (136-145)
[2022-10-26] MEDS ORDERED: predniSONE 20 MG TAB ONE (04:43)
[2022-10-26] MEDS ORDERED: cefTRIAXone (ROCEPHIN) 2 GM VIAL ONE (04:43)
[2022-10-26 04:49] LABS: ALT (SGPT) 12 U/L (8-55); Alkaline Phosphatase 53 U/L (40-110); BUN (Urea Nitrogen) 20 mg/dL (8.4-25.7)
[2022-10-26] MEDS ORDERED: Azithromycin 250 MG TAB ONE (06:20)
[2022-10-26] MEDS ORDERED: Magnesium 2 GM/50 ML BAG (IN WATER) ONE (06:20)
[2022-10-26] MEDS ORDERED: Ondansetron ODT 4 MG TAB PO PRN (08:41)
[2022-10-26] MEDS ORDERED: Ondansetron PF 4 MG/2 ML Vial IVP PRN (08:41)
[2022-10-26] MEDS ORDERED: methylPREDNISolone Sod Succ 40 MG VIAL ONE (10:24)
[2022-10-26] MEDS ORDERED: Amlodipine 5 MG TAB ONE ×2 (10:24→11:18)
[2022-10-26] MEDS ORDERED: Ipratropium/Albuterol 3 ML NEB ONE (10:59)
[2022-10-26] MEDS: Amlodipine 5 MG TAB PO SCH (11:28)
[2022-10-26] MEDS: methylPREDNISolone Sod Succ 40 MG VIAL IVP SCH ×2 (11:29→18:30)
[2022-10-26 11:30] VITALS: BMI 26.1
[2022-10-26] MEDS ORDERED: Ipratropium Bromide 2.5 ml Neb NEB SCH (13:00)
[2022-10-26] MEDS ORDERED: Ipratropium/Albuterol 3 ML NEB NEB SCH (13:00)
[2022-10-26] MEDS: Ipratropium/Albuterol 3 ML NEB NEB SCH ×3 (14:19→22:18)
[2022-10-26] MEDS: Nicotine 21 MG PATCH TD SCH (15:34)
[2022-10-26] MEDS: guaiFENesin ER 600 MG TAB PO SCH ×2 (15:34→21:23)
[2022-10-26] MEDS: Varenicline Tartrate 0.5 MG TAB PO SCH ×2 (15:34→21:23)
[2022-10-26] MEDS: Mometasone 200 MCG/Formoterol 5 MCG 120 PUFF INHALER INH SCH (18:38)
[2022-10-26] MEDS: Montelukast Sodium 10 mg Tablet PO SCH (21:23)
[2022-10-26] MEDS: Acetaminophen 325 MG TAB PO PRN (21:23)
[2022-10-27] MEDS: methylPREDNISolone Sod Succ 40 MG VIAL IVP SCH ×4 (01:28→17:55)
[2022-10-27] MEDS: ALPRAZolam 0.25 MG TAB PO PRN (01:37)
[2022-10-27] MEDS: Ipratropium/Albuterol 3 ML NEB NEB SCH ×6 (02:17→22:27)
[2022-10-27 04:57] LABS: #Monocytes 0.3 thou/uL (0.11-0.59); #Neutrophils 7.8 thou/uL (1.40-6.50); %Basophils 0.2 % (0.0-1.0); %Lymphocytes 6.9 % (21.0-51.0); %Monocytes 3.7 % (0.0-10.0); %Neutrophils 88.5 % (42.0-75.0); Hematocrit 38.5 % (42.0-52.0); Hemoglobin 12.7 g/dL (14.0-18.0); Mean Corpuscular Hemoglobin 34.8 pg (27.0-31.0); Mean Corpuscular Volume 105.5 fl (78.0-98.0); Platelet Count 253 10x3/uL (130-400); RBC Distribution Width 12.6 % (11.5-14.5); Red Blood Cell (RBC) Count 3.65 mill/uL (4.70-6.10); White Blood Cell (WBC) Count 8.8 10x3/uL (4.8-10.8)
[2022-10-27] MEDS ORDERED: cefTRIAXone\\ROCEPHIN 1 GM in Sodium Chloride 0.9% 100 ML IVPB SCH (05:00)
[2022-10-27 05:33] LABS: Anion Gap 15 mmol/L (10-20); BUN (Urea Nitrogen) 21 mg/dL (8.4-25.7); Calc. Creatinine Clearance 118 mL/min (70-130); Calcium 9.1 mg/dL (7.8-10.44); Carbon Dioxide 21 mmol/L (23-31); Chloride 107 mmol/L (98-107); Estimated GFR 101; Glucose 117 mg/dL (80-115); Potassium 4.1 mmol/L (3.5-5.1); Sodium 139 mmol/L (136-145)
[2022-10-27] MEDS ORDERED: Azithromycin 500 MG in Sodium Chloride 0.9% 250 ML 250 ML IVPB SCH (06:00)
[2022-10-27] MEDS: Mometasone 200 MCG/Formoterol 5 MCG 120 PUFF INHALER INH SCH ×2 (07:10→18:08)
[2022-10-27] MEDS ORDERED: Ketorolac Tromethamine 30 MG/ML VIAL IVP SCH (09:15)
[2022-10-27] MEDS: Amlodipine 5 MG TAB PO SCH (09:23)
[2022-10-27] MEDS: Enzalutamide [Xtandi] 80 MG Tablet PO SCH (09:24)
[2022-10-27] MEDS: Varenicline Tartrate 0.5 MG TAB PO SCH ×2 (09:24→21:49)
[2022-10-27] MEDS: guaiFENesin ER 600 MG TAB PO SCH ×3 (09:24→21:49)
[2022-10-27] MEDS: Nicotine 21 MG PATCH TD SCH (09:25)
[2022-10-27] MEDS ORDERED: Polyethylene Glycol 3350 17 GM Packet PO SCH (10:00)
[2022-10-27] MEDS: HYDROcodone/Acetaminophen 5/325 mg Tablet PO PRN (17:55)
[2022-10-27] MEDS: Doxycycline 100 MG CAP PO SCH (21:48)
[2022-10-27] MEDS: Montelukast Sodium 10 mg Tablet PO SCH (21:48)
[2022-10-27] MEDS: Senokot S 8.6-50 MG TAB PO SCH (21:48)
[2022-10-28] MEDS: methylPREDNISolone Sod Succ 40 MG VIAL IVP SCH ×4 (00:47→17:27)
[2022-10-28] MEDS: Ipratropium/Albuterol 3 ML NEB NEB SCH ×6 (02:44→23:11)
[2022-10-28] MEDS: Mometasone 200 MCG/Formoterol 5 MCG 120 PUFF INHALER INH SCH ×2 (07:06→18:44)
[2022-10-28 07:36] LABS: #Monocytes 0.3 thou/uL (0.11-0.59); %Basophils 0.1 % (0.0-1.0); %Lymphocytes 12.8 % (21.0-51.0); %Monocytes 3.5 % (0.0-10.0); %Neutrophils 82.7 % (42.0-75.0); Hematocrit 40.1 % (42.0-52.0); Hemoglobin 13.1 g/dL (14.0-18.0); Mean Corpuscular HGB CONC 32.7 g/dL (32.0-36.0); Mean Corpuscular Hemoglobin 34.4 pg (27.0-31.0); Mean Corpuscular Volume 105.2 fl (78.0-98.0); Mean Platelet Volume 7.9 fL (7.4-10.4); Platelet Count 312 10x3/uL (130-400); RBC Distribution Width 12.8 % (11.5-14.5); Red Blood Cell (RBC) Count 3.81 mill/uL (4.70-6.10); White Blood Cell (WBC) Count 9.7 10x3/uL (4.8-10.8)
[2022-10-28 08:05] LABS: Anion Gap 16 mmol/L (10-20); BUN (Urea Nitrogen) 20 mg/dL (8.4-25.7); Calc. Creatinine Clearance 104 mL/min (70-130); Calcium 9.6 mg/dL (7.8-10.44); Carbon Dioxide 20 mmol/L (23-31); Chloride 106 mmol/L (98-107); Estimated GFR 97; Glucose 103 mg/dL (80-115); Potassium 4.3 mmol/L (3.5-5.1); Sodium 138 mmol/L (136-145)
[2022-10-28] MEDS: Doxycycline 100 MG CAP PO SCH ×2 (08:54→21:34)
[2022-10-28] MEDS: Amlodipine 5 MG TAB PO SCH (08:54)
[2022-10-28] MEDS: Senokot S 8.6-50 MG TAB PO SCH ×2 (08:54→21:33)
[2022-10-28] MEDS: guaiFENesin ER 600 MG TAB PO SCH ×4 (08:54→21:34)
[2022-10-28] MEDS: Polyethylene Glycol 3350 17 GM Packet PO SCH (08:54)
[2022-10-28] MEDS: Enzalutamide [Xtandi] 80 MG Tablet PO SCH (08:56)
[2022-10-28] MEDS: HYDROcodone/Acetaminophen 5/325 mg Tablet PO PRN ×2 (09:01→16:57)
[2022-10-28] MEDS: Nicotine 21 MG PATCH TD SCH (10:28)
[2022-10-28] MEDS: Varenicline Tartrate 0.5 MG TAB PO SCH ×2 (10:28→21:35)
[2022-10-28] MEDS: Montelukast Sodium 10 mg Tablet PO SCH (21:33)
[2022-10-29] MEDS: methylPREDNISolone Sod Succ 40 MG VIAL IVP SCH ×3 (01:05→11:50)
[2022-10-29] MEDS: Ipratropium/Albuterol 3 ML NEB NEB SCH ×6 (01:54→23:32)
[2022-10-29] MEDS: HYDROcodone/Acetaminophen 5/325 mg Tablet PO PRN ×2 (06:03→20:14)
[2022-10-29 06:37] LABS: #Monocytes 0.3 thou/uL (0.11-0.59); #Neutrophils 7.1 thou/uL (1.40-6.50); %Basophils 0.5 % (0.0-1.0); %Monocytes 3.8 % (0.0-10.0); %Neutrophils 80.6 % (42.0-75.0); Hemoglobin 13.1 g/dL (14.0-18.0); Mean Corpuscular HGB CONC 32.8 g/dL (32.0-36.0); Mean Corpuscular Hemoglobin 34.8 pg (27.0-31.0); Mean Corpuscular Volume 106.4 fl (78.0-98.0); Mean Platelet Volume 7.9 fL (7.4-10.4); Platelet Count 300 10x3/uL (130-400); RBC Distribution Width 12.9 % (11.5-14.5); Red Blood Cell (RBC) Count 3.76 mill/uL (4.70-6.10); White Blood Cell (WBC) Count 8.8 10x3/uL (4.8-10.8)
[2022-10-29 07:05] LABS: Anion Gap 16 mmol/L (10-20); BUN (Urea Nitrogen) 22 mg/dL (8.4-25.7); Calc. Creatinine Clearance 112 mL/min (70-130); Calcium 9.3 mg/dL (7.8-10.44); Carbon Dioxide 19 mmol/L (23-31); Chloride 107 mmol/L (98-107); Estimated GFR 99; Glucose 109 mg/dL (80-115); Potassium 4.4 mmol/L (3.5-5.1); Sodium 138 mmol/L (136-145)
[2022-10-29] MEDS: Amlodipine 5 MG TAB PO SCH (08:36)
[2022-10-29] MEDS: Doxycycline 100 MG CAP PO SCH ×2 (08:36→20:12)
[2022-10-29] MEDS: guaiFENesin ER 600 MG TAB PO SCH ×3 (08:36→20:12)
[2022-10-29] MEDS: Polyethylene Glycol 3350 17 GM Packet PO SCH (08:36)
[2022-10-29] MEDS: Senokot S 8.6-50 MG TAB PO SCH ×2 (08:36→20:12)
[2022-10-29] MEDS: Varenicline Tartrate 0.5 MG TAB PO SCH ×2 (08:36→20:12)
[2022-10-29] MEDS: Mometasone 200 MCG/Formoterol 5 MCG 120 PUFF INHALER INH SCH ×2 (08:38→19:10)
[2022-10-29] MEDS: Enzalutamide [Xtandi] 80 MG Tablet PO SCH (08:40)
[2022-10-29] MEDS: Pantoprazole 40 MG VIAL IVP SCH (08:42)
[2022-10-29] MEDS: Nicotine 21 MG PATCH TD SCH (09:59)
[2022-10-29] MEDS ORDERED: GoLYTELY 4,000 ml Bottle PO SCH (10:45)
[2022-10-29] MEDS ORDERED: Sodium Chloride 0.65% Nasal 44 ML BOT EA NARE PRN (12:08)
[2022-10-29] MEDS: Montelukast Sodium 10 mg Tablet PO SCH (20:11)
[2022-10-30] MEDS: Ipratropium/Albuterol 3 ML NEB NEB SCH ×6 (01:59→22:53)
[2022-10-30 05:51] LABS: Hematocrit 39.9 % (42.0-52.0); Hemoglobin 13.1 g/dL (14.0-18.0); Mean Corpuscular HGB CONC 32.8 g/dL (32.0-36.0); Mean Corpuscular Hemoglobin 34.6 pg (27.0-31.0); Mean Corpuscular Volume 105.3 fl (78.0-98.0); Platelet Count 295 10x3/uL (130-400); RBC Distribution Width 13.1 % (11.5-14.5); Red Blood Cell (RBC) Count 3.79 mill/uL (4.70-6.10); White Blood Cell (WBC) Count 8.1 10x3/uL (4.8-10.8)
[2022-10-30 05:52] LABS: Delete Auto Diff?? YES; Manual Diff?? YES
[2022-10-30 06:10] LABS: Anion Gap 14 mmol/L (10-20); BUN (Urea Nitrogen) 13 mg/dL (8.4-25.7); Calc. Creatinine Clearance 115 mL/min (70-130); Calcium 9.1 mg/dL (7.8-10.44); Carbon Dioxide 25 mmol/L (23-31); Chloride 106 mmol/L (98-107); Estimated GFR 100; Glucose 84 mg/dL (80-115); Potassium 3.8 mmol/L (3.5-5.1); Sodium 141 mmol/L (136-145)
[2022-10-30 06:14] LABS: Band 1 % (5-11); CellaVision Operator ID LAB.CLH1; Lymphocytes 37 % (21-51); Macrocytosis SLIGHT = 6-15 cells HPF (0-5); Monocytes 8 % (0-10); Neutrophil 46 % (42-75); Platelet Adequacy Comment Platelets Normal; Reactive Lymphocytes 9 % (0-10); Total Cell Count 115
[2022-10-30] MEDS: Mometasone 200 MCG/Formoterol 5 MCG 120 PUFF INHALER INH SCH (06:49)
[2022-10-30] MEDS ORDERED: Ipratropium/Albuterol 3 ML NEB ONE (07:56)
[2022-10-30] MEDS ORDERED: PROPOFOL 200 MG/20 ML VIAL ONE (08:17)
[2022-10-30] MEDS ORDERED: methylPREDNISolone Sod Succ 40 MG VIAL IVP SCH (09:00)
[2022-10-30] MEDS: Varenicline Tartrate 0.5 MG TAB PO SCH ×2 (10:15→20:00)
[2022-10-30] MEDS: Nicotine 21 MG PATCH TD SCH (10:15)
[2022-10-30] MEDS: guaiFENesin ER 600 MG TAB PO SCH ×2 (10:16→20:01)
[2022-10-30] MEDS: Amlodipine 5 MG TAB PO SCH (10:16)
[2022-10-30] MEDS: Senokot S 8.6-50 MG TAB PO SCH ×2 (10:16→20:00)
[2022-10-30] MEDS: Pantoprazole 40 MG VIAL IVP SCH (10:17)
[2022-10-30] MEDS: Doxycycline 100 MG CAP PO SCH (10:22)
[2022-10-30] MEDS: Polyethylene Glycol 3350 17 GM Packet PO SCH (10:22)
[2022-10-30] MEDS: Enzalutamide [Xtandi] 80 MG Tablet PO SCH (10:22)
[2022-10-30] MEDS: HYDROcodone/Acetaminophen 5/325 mg Tablet PO PRN (15:36)
[2022-10-30] MEDS: Cefepime 2 GM in Sodium Chloride 0.9% 100 ML IVPB SCH (17:04)
[2022-10-30] MEDS: methylPREDNISolone Sod Succ/PF 125 MG/2 ML VIAL IVP SCH (17:08)
[2022-10-30] MEDS: Arformoterol 15 MCG/2 ML NEB NEB SCH (18:29)
[2022-10-30] MEDS: Budesonide 0.5 MG/2 ML NEB NEB SCH (18:29)
[2022-10-30] MEDS: Montelukast Sodium 10 mg Tablet PO SCH (20:00)
[2022-10-31] MEDS: methylPREDNISolone Sod Succ/PF 125 MG/2 ML VIAL IVP SCH ×4 (00:54→17:41)
[2022-10-31] MEDS: Ipratropium/Albuterol 3 ML NEB NEB SCH ×6 (03:32→22:12)
[2022-10-31] MEDS: Cefepime 2 GM in Sodium Chloride 0.9% 100 ML IVPB SCH ×2 (04:59→17:41)
[2022-10-31 06:34] LABS: #Monocytes 0.1 thou/uL (0.11-0.59); #Neutrophils 9.5 thou/uL (1.40-6.50); %Basophils 0.2 % (0.0-1.0); %Lymphocytes 6.2 % (21.0-51.0); %Monocytes 1.3 % (0.0-10.0); %Neutrophils 91.7 % (42.0-75.0); Hemoglobin 13.2 g/dL (14.0-18.0); Mean Corpuscular HGB CONC 32.2 g/dL (32.0-36.0); Mean Corpuscular Hemoglobin 34.2 pg (27.0-31.0); Mean Corpuscular Volume 106.2 fl (78.0-98.0); Mean Platelet Volume 7.9 fL (7.4-10.4); Platelet Count 317 10x3/uL (130-400); RBC Distribution Width 12.8 % (11.5-14.5); Red Blood Cell (RBC) Count 3.86 mill/uL (4.70-6.10); White Blood Cell (WBC) Count 10.3 10x3/uL (4.8-10.8)
[2022-10-31 06:59] LABS: Anion Gap 15 mmol/L (10-20); BUN (Urea Nitrogen) 19 mg/dL (8.4-25.7); Calc. Creatinine Clearance 99 mL/min (70-130); Calcium 9.4 mg/dL (7.8-10.44); Carbon Dioxide 19 mmol/L (23-31); Chloride 107 mmol/L (98-107); Estimated GFR 96; Glucose 210 mg/dL (80-115); Potassium 4.4 mmol/L (3.5-5.1); Sodium 137 mmol/L (136-145)
[2022-10-31] MEDS: Arformoterol 15 MCG/2 ML NEB NEB SCH ×2 (07:05→18:19)
[2022-10-31] MEDS: Budesonide 0.5 MG/2 ML NEB NEB SCH ×2 (07:05→18:19)
[2022-10-31] MEDS: Varenicline Tartrate 0.5 MG TAB PO SCH ×2 (09:52→21:51)
[2022-10-31] MEDS: Amlodipine 5 MG TAB PO SCH (09:52)
[2022-10-31] MEDS: Polyethylene Glycol 3350 17 GM Packet PO SCH (09:53)
[2022-10-31] MEDS: Nicotine 14 MG PATCH TD SCH (09:53)
[2022-10-31] MEDS: Senokot S 8.6-50 MG TAB PO SCH ×2 (09:53→21:51)
[2022-10-31] MEDS: guaiFENesin ER 600 MG TAB PO SCH (09:53)
[2022-10-31] MEDS: Enzalutamide [Xtandi] 80 MG Tablet PO SCH (09:54)
[2022-10-31] MEDS: HYDROcodone/Acetaminophen 5/325 mg Tablet PO PRN (09:59)
[2022-10-31] MEDS ORDERED: Oxymetazoline HCl 0.05% (30 ML BOT) NS PRN (11:09)
[2022-10-31] MEDS ORDERED: guaiFENesin/DM ER PO SCH (11:15)
[2022-10-31] MEDS: ALPRAZolam 0.25 MG TAB PO PRN (21:51)
[2022-10-31] MEDS: guaiFENesin/DM ER PO SCH (21:51)
[2022-10-31] MEDS: Montelukast Sodium 10 mg Tablet PO SCH (21:51)
[2022-10-31] MEDS: Acetaminophen 325 MG TAB PO PRN (21:51)
[2022-11-01] MEDS: methylPREDNISolone Sod Succ/PF 125 MG/2 ML VIAL IVP SCH ×2 (00:23→05:03)
[2022-11-01] MEDS: Ipratropium/Albuterol 3 ML NEB NEB SCH ×6 (02:13→23:55)
[2022-11-01] MEDS: Cefepime 2 GM in Sodium Chloride 0.9% 100 ML IVPB SCH ×2 (03:47→18:17)
[2022-11-01] MEDS ORDERED: Ipratropium/Albuterol 3 ML NEB ONE (07:36)
[2022-11-01] MEDS: Budesonide 0.5 MG/2 ML NEB NEB SCH ×2 (07:41→19:16)
[2022-11-01] MEDS: Arformoterol 15 MCG/2 ML NEB NEB SCH ×2 (07:41→19:15)
[2022-11-01] MEDS: Amlodipine 5 MG TAB PO SCH (09:43)
[2022-11-01] MEDS: Polyethylene Glycol 3350 17 GM Packet PO SCH (09:43)
[2022-11-01] MEDS: Nicotine 14 MG PATCH TD SCH (09:44)
[2022-11-01] MEDS: Senokot S 8.6-50 MG TAB PO SCH ×2 (09:44→20:38)
[2022-11-01] MEDS: Varenicline Tartrate 0.5 MG TAB PO SCH ×2 (09:44→20:45)
[2022-11-01] MEDS: Enzalutamide [Xtandi] 80 MG Tablet PO SCH (09:45)
[2022-11-01] MEDS: guaiFENesin/DM ER PO SCH ×2 (09:45→20:39)
[2022-11-01] MEDS: predniSONE 50 MG TAB PO SCH ×2 (15:19→20:39)
[2022-11-01] MEDS: Montelukast Sodium 10 mg Tablet PO SCH (20:38)
[2022-11-01] MEDS: ALPRAZolam 0.25 MG TAB PO PRN (20:38)
[2022-11-02] MEDS: Ipratropium/Albuterol 3 ML NEB NEB SCH ×6 (03:20→23:57)
[2022-11-02] MEDS: Cefepime 2 GM in Sodium Chloride 0.9% 100 ML IVPB SCH ×2 (04:12→16:21)
[2022-11-02] MEDS: Arformoterol 15 MCG/2 ML NEB NEB SCH ×3 (06:54→18:30)
[2022-11-02] MEDS: Budesonide 0.5 MG/2 ML NEB NEB SCH ×2 (06:54→18:32)
[2022-11-02] MEDS ORDERED: predniSONE 50 MG TAB PO SCH (08:00)
[2022-11-02] MEDS: Amlodipine 5 MG TAB PO SCH (08:48)
[2022-11-02] MEDS: Senokot S 8.6-50 MG TAB PO SCH ×2 (08:48→20:55)
[2022-11-02] MEDS: guaiFENesin/DM ER PO SCH ×2 (08:48→20:56)
[2022-11-02] MEDS: predniSONE 50 MG TAB PO SCH ×2 (08:49→16:21)
[2022-11-02] MEDS: Polyethylene Glycol 3350 17 GM Packet PO SCH (08:49)
[2022-11-02] MEDS: Enzalutamide [Xtandi] 80 MG Tablet PO SCH (08:49)
[2022-11-02] MEDS: Varenicline Tartrate 0.5 MG TAB PO SCH ×2 (08:50→20:55)
[2022-11-02] MEDS: Nicotine 14 MG PATCH TD SCH (09:19)
[2022-11-02] MEDS: predniSONE 20 MG TAB PO SCH (20:55)
[2022-11-02] MEDS: Montelukast Sodium 10 mg Tablet PO SCH (20:55)
[2022-11-02] MEDS: ALPRAZolam 0.25 MG TAB PO PRN (20:55)
[2022-11-02] MEDS: Acetaminophen 325 MG TAB PO PRN (20:56)
[2022-11-03] MEDS: Ipratropium/Albuterol 3 ML NEB NEB SCH ×6 (03:03→22:18)
[2022-11-03] MEDS: ALPRAZolam 0.25 MG TAB PO PRN ×2 (03:13→22:15)
[2022-11-03] MEDS: HYDROcodone/Acetaminophen 5/325 mg Tablet PO PRN ×3 (03:22→21:07)
[2022-11-03] MEDS: Cefepime 2 GM in Sodium Chloride 0.9% 100 ML IVPB SCH (03:23)
[2022-11-03] MEDS: Budesonide 0.5 MG/2 ML NEB NEB SCH ×2 (06:52→19:09)
[2022-11-03] MEDS: Arformoterol 15 MCG/2 ML NEB NEB SCH ×2 (06:52→19:09)
[2022-11-03] MEDS: Nicotine 14 MG PATCH TD SCH (09:18)
[2022-11-03] MEDS: Amlodipine 5 MG TAB PO SCH (09:18)
[2022-11-03] MEDS: Senokot S 8.6-50 MG TAB PO SCH ×2 (09:18→21:06)
[2022-11-03] MEDS: Varenicline Tartrate 0.5 MG TAB PO SCH ×2 (09:18→21:06)
[2022-11-03] MEDS: predniSONE 20 MG TAB PO SCH ×3 (09:18→21:06)
[2022-11-03] MEDS: Polyethylene Glycol 3350 17 GM Packet PO SCH (09:18)
[2022-11-03] MEDS: guaiFENesin/DM ER PO SCH ×2 (09:19→21:06)
[2022-11-03] MEDS: Enzalutamide [Xtandi] 80 MG Tablet PO SCH (09:21)
[2022-11-03] MEDS ORDERED: Albuterol 200 PUFF (6.7GM INHALER) INH PRN (09:53)
[2022-11-03] MEDS: Amoxicillin/Potassium Clav 875 MG TAB PO SCH (21:06)
[2022-11-03] MEDS: Montelukast Sodium 10 mg Tablet PO SCH (21:06)
[2022-11-04] MEDS: Ipratropium/Albuterol 3 ML NEB NEB SCH ×6 (02:54→23:19)
[2022-11-04] MEDS ORDERED: LevoFLOXacin 750 MG TAB PO SCH (06:00)
[2022-11-04] MEDS: Arformoterol 15 MCG/2 ML NEB NEB SCH (06:29)
[2022-11-04] MEDS: Budesonide 0.5 MG/2 ML NEB NEB SCH (06:30)
[2022-11-04] MEDS: Polyethylene Glycol 3350 17 GM Packet PO SCH (09:18)
[2022-11-04] MEDS: Nicotine 14 MG PATCH TD SCH (09:18)
[2022-11-04] MEDS: Amlodipine 5 MG TAB PO SCH (09:18)
[2022-11-04] MEDS: Varenicline Tartrate 0.5 MG TAB PO SCH ×2 (09:18→20:16)
[2022-11-04] MEDS: predniSONE 20 MG TAB PO SCH (09:19)
[2022-11-04] MEDS: Senokot S 8.6-50 MG TAB PO SCH ×2 (09:19→20:16)
[2022-11-04] MEDS: HYDROcodone/Acetaminophen 5/325 mg Tablet PO PRN ×2 (09:19→20:16)
[2022-11-04] MEDS: Amoxicillin/Potassium Clav 875 MG TAB PO SCH (09:19)
[2022-11-04] MEDS: Enzalutamide [Xtandi] 80 MG Tablet PO SCH (09:21)
[2022-11-04] MEDS: guaiFENesin/DM ER PO SCH ×2 (09:21→20:16)
[2022-11-04] MEDS ORDERED: clonazePAM 0.5 MG TAB PO SCH (13:30)
[2022-11-04] MEDS: Acetylcysteine 20% 200 MG/ML 30 ML VIAL INH SCH ×2 (18:38→23:19)
[2022-11-04] MEDS: Mometasone 200 MCG/Formoterol 5 MCG 120 PUFF INHALER INH SCH (18:38)
[2022-11-04] MEDS: clonazePAM 0.5 MG TAB PO SCH (20:15)
[2022-11-04] MEDS: guaiFENesin ER 600 MG TAB PO SCH (20:16)
[2022-11-04] MEDS: ALPRAZolam 0.25 MG TAB PO PRN (22:22)
[2022-11-05] MEDS: Ipratropium/Albuterol 3 ML NEB NEB SCH ×7 (03:27→22:04)
[2022-11-05] MEDS: Acetylcysteine 20% 200 MG/ML 30 ML VIAL INH SCH ×4 (07:45→18:22)
[2022-11-05] MEDS: Mometasone 200 MCG/Formoterol 5 MCG 120 PUFF INHALER INH SCH ×2 (07:50→18:22)
[2022-11-05] MEDS: methylPREDNISolone 4 mg Tablet PO SCH (08:30)
[2022-11-05] MEDS: Azithromycin 250 MG TAB PO SCH (08:30)
[2022-11-05] MEDS: clonazePAM 0.5 MG TAB PO SCH ×2 (08:30→20:43)
[2022-11-05] MEDS: Amlodipine 5 MG TAB PO SCH (08:30)
[2022-11-05] MEDS: guaiFENesin/DM ER PO SCH ×2 (08:31→20:42)
[2022-11-05] MEDS: guaiFENesin ER 600 MG TAB PO SCH ×2 (08:31→20:42)
[2022-11-05] MEDS: Senokot S 8.6-50 MG TAB PO SCH ×2 (08:31→20:43)
[2022-11-05] MEDS: Nicotine 21 MG PATCH TD SCH (08:32)
[2022-11-05] MEDS: Varenicline Tartrate 0.5 MG TAB PO SCH ×2 (08:32→20:43)
[2022-11-05] MEDS: Polyethylene Glycol 3350 17 GM Packet PO SCH (08:32)
[2022-11-05] MEDS: HYDROcodone/Acetaminophen 5/325 mg Tablet PO PRN ×2 (08:38→20:43)
[2022-11-05] MEDS: Enzalutamide [Xtandi] 80 MG Tablet PO SCH (08:41)
[2022-11-05] MEDS: Lidocaine 4% Patch TD SCH (08:44)
[2022-11-05] MEDS: Transdermal Patch Removal TOP SCH (20:43)
[2022-11-06] MEDS: Ipratropium/Albuterol 3 ML NEB NEB SCH ×6 (01:36→22:15)
[2022-11-06] MEDS: Acetylcysteine 20% 200 MG/ML 30 ML VIAL INH SCH ×4 (01:37→18:31)
[2022-11-06] MEDS: Mometasone 200 MCG/Formoterol 5 MCG 120 PUFF INHALER INH SCH ×2 (07:33→18:31)
[2022-11-06] MEDS: Senokot S 8.6-50 MG TAB PO SCH ×2 (08:20→20:57)
[2022-11-06] MEDS: methylPREDNISolone 4 mg Tablet PO SCH (08:20)
[2022-11-06] MEDS: HYDROcodone/Acetaminophen 5/325 mg Tablet PO PRN ×2 (08:21→20:57)
[2022-11-06] MEDS: clonazePAM 0.5 MG TAB PO SCH ×2 (08:21→20:57)
[2022-11-06] MEDS: guaiFENesin ER 600 MG TAB PO SCH ×2 (08:21→20:57)
[2022-11-06] MEDS: guaiFENesin/DM ER PO SCH ×2 (08:21→20:57)
[2022-11-06] MEDS: Azithromycin 250 MG TAB PO SCH (08:21)
[2022-11-06] MEDS: Lidocaine 4% Patch TD SCH (08:22)
[2022-11-06] MEDS: Nicotine 21 MG PATCH TD SCH (08:22)
[2022-11-06] MEDS: Polyethylene Glycol 3350 17 GM Packet PO SCH (08:22)
[2022-11-06] MEDS: Enzalutamide [Xtandi] 80 MG Tablet PO SCH (08:22)
[2022-11-06] MEDS: Varenicline Tartrate 0.5 MG TAB PO SCH ×2 (08:29→20:57)
[2022-11-06] MEDS: Amlodipine 5 MG TAB PO SCH (11:08)
[2022-11-06] MEDS ORDERED: cefTRIAXone\\ROCEPHIN 1 GM in Sodium Chloride 0.9% 100 ML IVPB SCH (14:00)
[2022-11-06] MEDS ORDERED: LevoFLOXacin 500 mg/D5W 500 MG in Premix Bag 1 BAG IVPB SCH (16:15)
[2022-11-06] MEDS: Transdermal Patch Removal TOP SCH (20:57)
[2022-11-06] MEDS ORDERED: Sulfameth/Trimethoprim DS 800-160mg TAB PO SCH (21:00)
[2022-11-07] MEDS: Acetylcysteine 20% 200 MG/ML 30 ML VIAL INH SCH ×4 (01:31→18:25)
[2022-11-07] MEDS: Ipratropium/Albuterol 3 ML NEB NEB SCH ×6 (01:31→22:18)
[2022-11-07] MEDS: HYDROcodone/Acetaminophen 5/325 mg Tablet PO PRN ×3 (04:39→20:11)
[2022-11-07] MEDS: ALPRAZolam 0.25 MG TAB PO PRN (04:39)
[2022-11-07 06:39] LABS: #Basophils 0.1 thou/uL (0.0-0.2); #Eosinphils 0.2 thou/uL (0.0-0.7); #Monocytes 0.7 thou/uL (0.11-0.59); #Neutrophils 7.2 thou/uL (1.40-6.50); %Basophils 0.6 % (0.0-1.0); %Eosinophils 1.5 % (0.0-10.0); %Lymphocytes 20.3 % (21.0-51.0); %Monocytes 6.6 % (0.0-10.0); %Neutrophils 69.5 % (42.0-75.0); Hematocrit 39.8 % (42.0-52.0); Hemoglobin 12.7 g/dL (14.0-18.0); Mean Corpuscular HGB CONC 31.9 g/dL (32.0-36.0); Mean Corpuscular Hemoglobin 34.8 pg (27.0-31.0); Mean Platelet Volume 8.3 fL (7.4-10.4); Platelet Count 267 10x3/uL (130-400); RBC Distribution Width 13.6 % (11.5-14.5); Red Blood Cell (RBC) Count 3.65 mill/uL (4.70-6.10); White Blood Cell (WBC) Count 10.4 10x3/uL (4.8-10.8)
[2022-11-07 06:40] LABS: Delete Auto Diff?? YES; Manual Diff?? YES
[2022-11-07 07:06] LABS: Band 2 % (5-11); CellaVision Operator ID lab.abc; Lymphocytes 18 % (21-51); Macrocytosis SLIGHT = 6-15 cells HPF (0-5); Metamyelocyte 1 % (0-0); Monocytes 4 % (0-10); Neutrophil 75 % (42-75); Platelet Adequacy Comment Platelets Normal; Polychromasia SLIGHT = 2-3 cells HPF (0-2); Smudge Cells 12.9 %; Total Cell Count 101
[2022-11-07 07:16] LABS: Anion Gap 15 mmol/L (10-20); BUN (Urea Nitrogen) 27 mg/dL (8.4-25.7); Calc. Creatinine Clearance 91 mL/min (70-130); Calcium 8.9 mg/dL (7.8-10.44); Carbon Dioxide 24 mmol/L (23-31); Chloride 103 mmol/L (98-107); Estimated GFR 90; Glucose 83 mg/dL (80-115); Potassium 4.7 mmol/L (3.5-5.1); Sodium 137 mmol/L (136-145)
[2022-11-07] MEDS: Mometasone 200 MCG/Formoterol 5 MCG 120 PUFF INHALER INH SCH ×2 (07:30→18:25)
[2022-11-07] MEDS: Varenicline Tartrate 0.5 MG TAB PO SCH ×2 (08:49→20:11)
[2022-11-07] MEDS: guaiFENesin/DM ER PO SCH ×2 (08:49→20:12)
[2022-11-07] MEDS: methylPREDNISolone 4 mg Tablet PO SCH (08:49)
[2022-11-07] MEDS: Azithromycin 250 MG TAB PO SCH (08:49)
[2022-11-07] MEDS: guaiFENesin ER 600 MG TAB PO SCH ×2 (08:49→20:11)
[2022-11-07] MEDS: Senokot S 8.6-50 MG TAB PO SCH ×2 (08:50→20:11)
[2022-11-07] MEDS: clonazePAM 0.5 MG TAB PO SCH ×2 (08:50→20:11)
[2022-11-07] MEDS: Amlodipine 5 MG TAB PO SCH (08:50)
[2022-11-07] MEDS: Enzalutamide [Xtandi] 80 MG Tablet PO SCH (08:51)
[2022-11-07] MEDS: Nicotine 21 MG PATCH TD SCH (08:51)
[2022-11-07] MEDS: Polyethylene Glycol 3350 17 GM Packet PO SCH (08:51)
[2022-11-07] MEDS: Lidocaine 4% Patch TD SCH (09:20)
[2022-11-07] MEDS: Transdermal Patch Removal TOP SCH (20:12)
[2022-11-08] MEDS: Ipratropium/Albuterol 3 ML NEB NEB SCH ×6 (01:41→22:11)
[2022-11-08] MEDS: Acetylcysteine 20% 200 MG/ML 30 ML VIAL INH SCH ×4 (01:42→18:16)
[2022-11-08] MEDS: ALPRAZolam 0.25 MG TAB PO PRN (02:30)
[2022-11-08] MEDS: HYDROcodone/Acetaminophen 5/325 mg Tablet PO PRN ×3 (02:30→20:03)
[2022-11-08] MEDS: Varenicline Tartrate 0.5 MG TAB PO SCH ×2 (08:07→20:00)
[2022-11-08] MEDS: Azithromycin 250 MG TAB PO SCH (08:07)
[2022-11-08] MEDS: Nicotine 21 MG PATCH TD SCH (08:08)
[2022-11-08] MEDS: guaiFENesin ER 600 MG TAB PO SCH ×2 (08:08→20:00)
[2022-11-08] MEDS: Amlodipine 5 MG TAB PO SCH (08:08)
[2022-11-08] MEDS: Senokot S 8.6-50 MG TAB PO SCH ×2 (08:08→20:00)
[2022-11-08] MEDS: Polyethylene Glycol 3350 17 GM Packet PO SCH (08:08)
[2022-11-08] MEDS: clonazePAM 0.5 MG TAB PO SCH ×2 (08:08→20:00)
[2022-11-08] MEDS: guaiFENesin/DM ER PO SCH ×2 (08:08→20:01)
[2022-11-08] MEDS: Lidocaine 4% Patch TD SCH (08:09)
[2022-11-08] MEDS: Enzalutamide [Xtandi] 80 MG Tablet PO SCH (08:22)
[2022-11-08] MEDS: methylPREDNISolone 4 mg Tablet PO SCH (08:22)
[2022-11-08] MEDS: Mometasone 200 MCG/Formoterol 5 MCG 120 PUFF INHALER INH SCH ×2 (10:41→18:17)
[2022-11-08] MEDS: Transdermal Patch Removal TOP SCH (20:01)
[2022-11-08] MEDS ORDERED: TOBRAMYCIN 300 MG/5 ML AMP (INHALATION) IH SCH (21:00)
[2022-11-08] MEDS: TOBRAMYCIN 300 MG/5 ML AMP (INHALATION) IH SCH (22:12)
[2022-11-09] MEDS: Ipratropium/Albuterol 3 ML NEB NEB SCH ×6 (01:51→22:10)
[2022-11-09] MEDS: Acetylcysteine 20% 200 MG/ML 30 ML VIAL INH SCH ×4 (01:52→18:25)
[2022-11-09] MEDS: ALPRAZolam 0.25 MG TAB PO PRN (01:53)
[2022-11-09] MEDS: Mometasone 200 MCG/Formoterol 5 MCG 120 PUFF INHALER INH SCH ×2 (06:42→18:25)
[2022-11-09] MEDS: TOBRAMYCIN 300 MG/5 ML AMP (INHALATION) IH SCH (06:48)
[2022-11-09] MEDS: Polyethylene Glycol 3350 17 GM Packet PO SCH (08:13)
[2022-11-09] MEDS: methylPREDNISolone 4 mg Tablet PO SCH (08:13)
[2022-11-09] MEDS: Varenicline Tartrate 0.5 MG TAB PO SCH ×2 (08:14→21:20)
[2022-11-09] MEDS: Lidocaine 4% Patch TD SCH (08:14)
[2022-11-09] MEDS: Amlodipine 5 MG TAB PO SCH (08:14)
[2022-11-09] MEDS: guaiFENesin/DM ER PO SCH ×2 (08:14→21:21)
[2022-11-09] MEDS: clonazePAM 0.5 MG TAB PO SCH ×2 (08:14→21:21)
[2022-11-09] MEDS: Senokot S 8.6-50 MG TAB PO SCH ×2 (08:14→21:21)
[2022-11-09] MEDS: guaiFENesin ER 600 MG TAB PO SCH ×2 (08:14→21:21)
[2022-11-09] MEDS: Nicotine 21 MG PATCH TD SCH (08:15)
[2022-11-09] MEDS: Enzalutamide [Xtandi] 80 MG Tablet PO SCH (08:21)
[2022-11-09] MEDS: LevoFLOXacin 750 MG TAB PO SCH (13:44)
[2022-11-09] MEDS: Transdermal Patch Removal TOP SCH (21:21)
[2022-11-09] MEDS: HYDROcodone/Acetaminophen 5/325 mg Tablet PO PRN (21:22)
[2022-11-10] MEDS: Acetylcysteine 20% 200 MG/ML 30 ML VIAL INH SCH ×4 (01:07→19:21)
[2022-11-10] MEDS: Ipratropium/Albuterol 3 ML NEB NEB SCH ×6 (02:07→22:18)
[2022-11-10] MEDS: Mometasone 200 MCG/Formoterol 5 MCG 120 PUFF INHALER INH SCH ×2 (07:06→19:22)
[2022-11-10] MEDS: clonazePAM 0.5 MG TAB PO SCH ×2 (08:54→20:18)
[2022-11-10] MEDS: methylPREDNISolone 4 mg Tablet PO SCH (08:54)
[2022-11-10] MEDS: Varenicline Tartrate 0.5 MG TAB PO SCH ×2 (08:54→20:18)
[2022-11-10] MEDS: Amlodipine 5 MG TAB PO SCH (08:54)
[2022-11-10] MEDS: Polyethylene Glycol 3350 17 GM Packet PO SCH (08:54)
[2022-11-10] MEDS: guaiFENesin ER 600 MG TAB PO SCH ×2 (08:54→20:18)
[2022-11-10] MEDS: Senokot S 8.6-50 MG TAB PO SCH ×2 (08:54→20:19)
[2022-11-10] MEDS: Nicotine 21 MG PATCH TD SCH (08:54)
[2022-11-10] MEDS: Enzalutamide [Xtandi] 80 MG Tablet PO SCH (08:55)
[2022-11-10] MEDS: guaiFENesin/DM ER PO SCH ×2 (08:55→20:19)
[2022-11-10] MEDS: Lidocaine 4% Patch TD SCH (08:55)
[2022-11-10] MEDS: HYDROcodone/Acetaminophen 5/325 mg Tablet PO PRN ×2 (09:03→17:36)
[2022-11-10] MEDS: LevoFLOXacin 750 MG TAB PO SCH (14:13)
[2022-11-10] MEDS: Transdermal Patch Removal TOP SCH (20:19)
[2022-11-11] MEDS: Ipratropium/Albuterol 3 ML NEB NEB SCH ×4 (01:43→14:14)
[2022-11-11] MEDS: Acetylcysteine 20% 200 MG/ML 30 ML VIAL INH SCH (06:39)
[2022-11-11] MEDS: Mometasone 200 MCG/Formoterol 5 MCG 120 PUFF INHALER INH SCH (06:43)
[2022-11-11] MEDS ORDERED: predniSONE 20 MG TAB PO SCH (08:00)
[2022-11-11 08:11] VITALS: BP 133/84; TEMP 97.5
[2022-11-11] MEDS: guaiFENesin/DM ER PO SCH (08:15)
[2022-11-11] MEDS: Nicotine 21 MG PATCH TD SCH (08:15)
[2022-11-11] MEDS: Polyethylene Glycol 3350 17 GM Packet PO SCH (08:15)
[2022-11-11] MEDS: Amlodipine 5 MG TAB PO SCH (08:15)
[2022-11-11] MEDS: clonazePAM 0.5 MG TAB PO SCH (08:15)
[2022-11-11] MEDS: Varenicline Tartrate 0.5 MG TAB PO SCH (08:15)
[2022-11-11] MEDS: guaiFENesin ER 600 MG TAB PO SCH (08:15)
[2022-11-11] MEDS: Senokot S 8.6-50 MG TAB PO SCH (08:15)
[2022-11-11] MEDS: Lidocaine 4% Patch TD SCH (08:15)
[2022-11-11] MEDS: HYDROcodone/Acetaminophen 5/325 mg Tablet PO PRN (08:16)
[2022-11-11] MEDS: Enzalutamide [Xtandi] 80 MG Tablet PO SCH (08:16)
[2022-11-11] MEDS ORDERED: Furosemide 20 MG TAB PO SCH (11:00)
[2022-11-11] MEDS: LevoFLOXacin 750 MG TAB PO SCH (14:40)
[2022-11-18] MEDS ORDERED: predniSONE 5 MG TAB PO SCH (08:00)
== END 2022-11-11 17:07 | disposition home or self-care (01) | DRG 189 ==
LOC: ERS 03:12 → ERHOLD 06:35 → 2SW 15:01 → OBSVTOIN 10-27 09:02 → T4-B 10-27 17:04
PROVIDERS: ADMIT Student in an Organized Health Care Education/Training Program; ATTEND Internal Medicine
PROC: 0DBK8ZZ Excision of Ascending Colon, Via Natural or Artificial Opening Endoscopic (ICD-10-PCS; principal; 2022-10-30)
PROC: 0DBN8ZZ Excision of Sigmoid Colon, Via Natural or Artificial Opening Endoscopic (ICD-10-PCS; 2022-10-30)
PROC: 0DBP8ZZ Excision of Rectum, Via Natural or Artificial Opening Endoscopic (ICD-10-PCS; 2022-10-30)
PROC: 0DBM8ZZ Excision of Descending Colon, Via Natural or Artificial Opening Endoscopic (ICD-10-PCS; 2022-10-30)
PROC: 0DBH8ZZ Excision of Cecum, Via Natural or Artificial Opening Endoscopic (ICD-10-PCS; 2022-10-30)
PROC: 0DBC8ZX Excision of Ileocecal Valve, Via Natural or Artificial Opening Endoscopic, Diagnostic (ICD-10-PCS; 2022-10-30)
PROC: 5A09357 Assistance with Respiratory Ventilation, Less than 24 Consecutive Hours, Continuous Positive Airway Pressure (ICD-10-PCS; 2022-11-04)
DX: J96.21 Acute and chronic respiratory failure with hypoxia (principal); J18.9 Pneumonia, unspecified organism; K57.31 Diverticulosis of large intestine without perforation or abscess with bleeding; J44.1 Chronic obstructive pulmonary disease with (acute) exacerbation; K62.5 Hemorrhage of anus and rectum; J44.0 Chronic obstructive pulmonary disease with (acute) lower respiratory infection; K64.8 Other hemorrhoids; I10 Essential (primary) hypertension; C61 Malignant neoplasm of prostate; F17.210 Nicotine dependence, cigarettes, uncomplicated; K59.00 Constipation, unspecified; D64.9 Anemia, unspecified; F41.9 Anxiety disorder, unspecified; R94.31 Abnormal electrocardiogram [ECG] [EKG]; K63.5 Polyp of colon; Z79.51 Long term (current) use of inhaled steroids; Z90.79 Acquired absence of other genital organ(s); I25.2 Old myocardial infarction; Z90.2 Acquired absence of lung [part of]
CPT/HCPCS: 36415; 71045; 80048; 80053; 82274; 82805; 83880; 84484; 85025; 85379; 87070; 87077; 87186; 87205; 88305; 93005; 94640; 94660; 96365; 96367; 96372; 96375; 96376; C9113; G0378; J0132; J0456; J0692; J0696; J1650; J1885; J2704; J2920; J2930; J3475; J3490; J7050; J7509; J7512; J7611; J7620; J7626

== ENCOUNTER 2022-11-19 12:38 | Inpatient (IN) | payer OTHER ==
[2022-11-19] MEDS ORDERED: methylPREDNISolone Sod Succ/PF 125 MG/2 ML VIAL ONE (13:27)
[2022-11-19] MEDS ORDERED: Magnesium 2 GM/50 ML BAG (IN WATER) ONE (13:28)
[2022-11-19 13:35] LABS: #Eosinphils 0.1 thou/uL (0.0-0.7); #Monocytes 0.3 thou/uL (0.11-0.59); #Neutrophils 9.2 thou/uL (1.40-6.50); %Basophils 0.3 % (0.0-1.0); %Eosinophils 0.7 % (0.0-10.0); %Lymphocytes 9.2 % (21.0-51.0); %Monocytes 2.7 % (0.0-10.0); %Neutrophils 86.4 % (42.0-75.0); Hematocrit 41.1 % (42.0-52.0); Hemoglobin 13.5 g/dL (14.0-18.0); Mean Corpuscular HGB CONC 32.8 g/dL (32.0-36.0); Mean Corpuscular Hemoglobin 34.7 pg (27.0-31.0); Mean Corpuscular Volume 105.7 fl (78.0-98.0); Platelet Count 284 10x3/uL (130-400); RBC Distribution Width 12.8 % (11.5-14.5); Red Blood Cell (RBC) Count 3.89 mill/uL (4.70-6.10); White Blood Cell (WBC) Count 10.6 10x3/uL (4.8-10.8)
[2022-11-19 13:56] LABS: ALT (SGPT) 14 U/L (8-55); AST (SGOT) 17 U/L (5-34); Alkaline Phosphatase 62 U/L (40-110); Anion Gap 15 mmol/L (10-20); BUN (Urea Nitrogen) 14 mg/dL (8.4-25.7); Bilirubin, Total 0.3 mg/dL (0.2-1.2); Calc. Creatinine Clearance 0 mL/min (70-130); Calcium 9.4 mg/dL (7.8-10.44); Carbon Dioxide 22 mmol/L (23-31); Chloride 109 mmol/L (98-107); Estimated GFR 95; Globulin 3.1 g/dL (2.4-3.5); Glucose 105 mg/dL (80-115); Potassium 4.3 mmol/L (3.5-5.1); Protein, Total 7.1 g/dL (5.8-8.1); Sodium 142 mmol/L (136-145)
[2022-11-19 14:01] LABS: Troponin I Less than 0.010 ng/mL (< 0.028)
[2022-11-19] MEDS ORDERED: Guaifenesin DM 100-10/5 ML UDCUP PO PRN (14:20)
[2022-11-19] MEDS ORDERED: Ondansetron ODT 4 MG TAB PO PRN (14:20)
[2022-11-19] MEDS ORDERED: Calcium Carbonate 500 MG ChewTAB PO PRN (14:20)
[2022-11-19 16:41] VITALS: BMI 26.5
[2022-11-19] MEDS: Acetaminophen 325 MG TAB PO PRN (17:17)
[2022-11-19] MEDS ORDERED: HYDROcodone/Acetaminophen 5/325 mg Tablet PO PRN (18:00)
[2022-11-19] MEDS: Mometasone 200 MCG/Formoterol 5 MCG 120 PUFF INHALER INH SCH (18:51)
[2022-11-19] MEDS: Montelukast Sodium 10 mg Tablet PO SCH (19:59)
[2022-11-19] MEDS: guaiFENesin ER 600 MG TAB PO SCH (19:59)
[2022-11-20] MEDS: Ipratropium Bromide 2.5 ml Neb NEB PRN (01:46)
[2022-11-20] MEDS: ALPRAZolam 0.25 MG TAB PO PRN (01:58)
[2022-11-20] MEDS ORDERED: Furosemide 20 MG/2 ML VIAL SLOW IVP SCH (02:15)
[2022-11-20] MEDS ORDERED: methylPREDNISolone Sod Succ 40 MG VIAL IVP SCH (02:15)
[2022-11-20] MEDS: methylPREDNISolone Sod Succ 40 MG VIAL IVP SCH ×4 (05:29→23:56)
[2022-11-20] MEDS: Mometasone 200 MCG/Formoterol 5 MCG 120 PUFF INHALER INH SCH ×2 (07:24→18:22)
[2022-11-20] MEDS: Ipratropium Bromide 2.5 ml Neb NEB SCH ×4 (07:28→22:19)
[2022-11-20] MEDS: guaiFENesin ER 600 MG TAB PO SCH ×2 (07:56→20:10)
[2022-11-20] MEDS: Amlodipine 5 MG TAB PO SCH (07:56)
[2022-11-20 08:36] LABS: #Monocytes 0.1 thou/uL (0.11-0.59); #Neutrophils 10.2 thou/uL (1.40-6.50); %Basophils 0.1 % (0.0-1.0); %Lymphocytes 5.1 % (21.0-51.0); %Monocytes 0.8 % (0.0-10.0); %Neutrophils 93.5 % (42.0-75.0); Hematocrit 42.1 % (42.0-52.0); Hemoglobin 13.8 g/dL (14.0-18.0); Mean Corpuscular HGB CONC 32.8 g/dL (32.0-36.0); Mean Corpuscular Hemoglobin 34.5 pg (27.0-31.0); Mean Corpuscular Volume 105.3 fl (78.0-98.0); Mean Platelet Volume 8.1 fL (7.4-10.4); Platelet Count 341 10x3/uL (130-400); RBC Distribution Width 12.6 % (11.5-14.5); White Blood Cell (WBC) Count 10.9 10x3/uL (4.8-10.8)
[2022-11-20] MEDS ORDERED: Enzalutamide [Xtandi] 80 MG Tablet PO SCH (09:00)
[2022-11-20 09:04] LABS: ALT (SGPT) 15 U/L (8-55); AST (SGOT) 13 U/L (5-34); Albumin 4.3 g/dL (3.4-4.8); Alkaline Phosphatase 65 U/L (40-110); Anion Gap 16 mmol/L (10-20); BUN (Urea Nitrogen) 15 mg/dL (8.4-25.7); Bilirubin, Total 0.3 mg/dL (0.2-1.2); Calc. Creatinine Clearance 105 mL/min (70-130); Calcium 9.7 mg/dL (7.8-10.44); Carbon Dioxide 21 mmol/L (23-31); Chloride 105 mmol/L (98-107); Estimated GFR 97; Globulin 3.2 g/dL (2.4-3.5); Glucose 111 mg/dL (80-115); Potassium 4.3 mmol/L (3.5-5.1); Protein, Total 7.5 g/dL (5.8-8.1); Sodium 138 mmol/L (136-145)
[2022-11-20] MEDS: LevoFLOXacin 750 MG TAB PO SCH (13:03)
[2022-11-20] MEDS: traZODone HCl 50 MG TAB PO PRN (20:10)
[2022-11-20] MEDS: Montelukast Sodium 10 mg Tablet PO SCH (20:11)
[2022-11-20] MEDS: Senokot S 8.6-50 MG TAB PO PRN (20:13)
[2022-11-21] MEDS: ALPRAZolam 0.25 MG TAB PO PRN (02:27)
[2022-11-21] MEDS: Ipratropium Bromide 2.5 ml Neb NEB PRN (02:37)
[2022-11-21] MEDS: methylPREDNISolone Sod Succ 40 MG VIAL IVP SCH ×3 (05:24→17:42)
[2022-11-21] MEDS: Mometasone 200 MCG/Formoterol 5 MCG 120 PUFF INHALER INH SCH ×2 (06:53→18:43)
[2022-11-21] MEDS: Ipratropium Bromide 2.5 ml Neb NEB SCH ×4 (06:58→23:18)
[2022-11-21 07:08] LABS: Anion Gap 16 mmol/L (10-20); BUN (Urea Nitrogen) 26 mg/dL (8.4-25.7); Calc. Creatinine Clearance 92 mL/min (70-130); Calcium 9.1 mg/dL (7.8-10.44); Carbon Dioxide 22 mmol/L (23-31); Chloride 106 mmol/L (98-107); Estimated GFR 89; Glucose 107 mg/dL (80-115); Potassium 4.3 mmol/L (3.5-5.1); Sodium 140 mmol/L (136-145)
[2022-11-21] MEDS: Amlodipine 5 MG TAB PO SCH (07:53)
[2022-11-21] MEDS: guaiFENesin ER 600 MG TAB PO SCH ×2 (07:53→20:30)
[2022-11-21] MEDS: Senokot S 8.6-50 MG TAB PO PRN ×2 (09:56→20:30)
[2022-11-21] MEDS: LevoFLOXacin 750 MG TAB PO SCH (13:18)
[2022-11-21] MEDS: traZODone HCl 50 MG TAB PO PRN (20:30)
[2022-11-21] MEDS: Montelukast Sodium 10 mg Tablet PO SCH (20:31)
[2022-11-22] MEDS: methylPREDNISolone Sod Succ 40 MG VIAL IVP SCH ×5 (00:05→23:40)
[2022-11-22] MEDS: ALPRAZolam 0.25 MG TAB PO PRN ×2 (02:42→21:04)
[2022-11-22 06:31] LABS: #Basophils 0.1 thou/uL (0.0-0.2); #Monocytes 0.3 thou/uL (0.11-0.59); #Neutrophils 8.1 thou/uL (1.40-6.50); %Basophils 0.6 % (0.0-1.0); %Lymphocytes 12.2 % (21.0-51.0); %Monocytes 3.1 % (0.0-10.0); %Neutrophils 81.8 % (42.0-75.0); Hematocrit 38.3 % (42.0-52.0); Hemoglobin 12.6 g/dL (14.0-18.0); Mean Corpuscular HGB CONC 32.9 g/dL (32.0-36.0); Mean Corpuscular Hemoglobin 34.3 pg (27.0-31.0); Mean Corpuscular Volume 104.4 fl (78.0-98.0); Mean Platelet Volume 8.2 fL (7.4-10.4); Platelet Count 319 10x3/uL (130-400); RBC Distribution Width 12.5 % (11.5-14.5); Red Blood Cell (RBC) Count 3.67 mill/uL (4.70-6.10); White Blood Cell (WBC) Count 9.9 10x3/uL (4.8-10.8)
[2022-11-22] MEDS: Ipratropium Bromide 2.5 ml Neb NEB SCH ×4 (06:49→23:43)
[2022-11-22] MEDS: Mometasone 200 MCG/Formoterol 5 MCG 120 PUFF INHALER INH SCH ×2 (06:50→18:50)
[2022-11-22 06:58] LABS: Anion Gap 12 mmol/L (10-20); BUN (Urea Nitrogen) 26 mg/dL (8.4-25.7); Calc. Creatinine Clearance 96 mL/min (70-130); Carbon Dioxide 23 mmol/L (23-31); Chloride 107 mmol/L (98-107); Estimated GFR 94; Glucose 107 mg/dL (80-115); Potassium 3.9 mmol/L (3.5-5.1); Sodium 138 mmol/L (136-145)
[2022-11-22] MEDS: Amlodipine 5 MG TAB PO SCH (08:31)
[2022-11-22] MEDS: guaiFENesin ER 600 MG TAB PO SCH ×2 (08:31→21:04)
[2022-11-22] MEDS: LevoFLOXacin 750 MG TAB PO SCH (13:43)
[2022-11-22] MEDS: traZODone HCl 50 MG TAB PO PRN (21:04)
[2022-11-22] MEDS: Montelukast Sodium 10 mg Tablet PO SCH (21:04)
[2022-11-22] MEDS: Acetaminophen 325 MG TAB PO PRN (21:05)
[2022-11-23] MEDS: methylPREDNISolone Sod Succ 40 MG VIAL IVP SCH ×2 (05:27→11:21)
[2022-11-23] MEDS: Mometasone 200 MCG/Formoterol 5 MCG 120 PUFF INHALER INH SCH (07:30)
[2022-11-23] MEDS: Ipratropium Bromide 2.5 ml Neb NEB SCH ×2 (07:39→14:14)
[2022-11-23] MEDS: guaiFENesin ER 600 MG TAB PO SCH (08:57)
[2022-11-23] MEDS: Amlodipine 5 MG TAB PO SCH (08:57)
[2022-11-23] MEDS: Senokot S 8.6-50 MG TAB PO PRN (08:57)
[2022-11-23] MEDS: LevoFLOXacin 750 MG TAB PO SCH (14:20)
[2022-11-23 16:38] VITALS: BP 155/83; TEMP 97.5
== END 2022-11-23 17:14 | disposition home or self-care (01) | DRG 191 ==
LOC: ERS 12:38 → SUATTDRO 12:38 → T4-B 15:40 → OBSVTOIN 11-20 09:56
PROVIDERS: ADMIT Internal Medicine; ATTEND Internal Medicine
DX: J44.1 Chronic obstructive pulmonary disease with (acute) exacerbation (principal); J96.11 Chronic respiratory failure with hypoxia; I10 Essential (primary) hypertension; C61 Malignant neoplasm of prostate; F32.A Depression, unspecified; D63.8 Anemia in other chronic diseases classified elsewhere; E78.5 Hyperlipidemia, unspecified; Z79.899 Other long term (current) drug therapy; Z87.891 Personal history of nicotine dependence; Z90.2 Acquired absence of lung [part of]; Z90.79 Acquired absence of other genital organ(s); Z98.890 Other specified postprocedural states; Z99.81 Dependence on supplemental oxygen; Z79.52 Long term (current) use of systemic steroids
CPT/HCPCS: 36415; 71045; 80048; 80053; 83880; 84484; 85025; 87070; 87205; 93005; 94640; 96365; 96372; 96375; 96376; G0378; J1650; J1940; J2920; J2930; J3475

== ENCOUNTER 2022-12-06 15:50 | Emergency (ER) | payer OTHER, MEDICAID ==
[2022-12-06 16:52] LABS: #Basophils 0.1 thou/uL (0.0-0.2); #Eosinphils 0.1 thou/uL (0.0-0.7); #Monocytes 0.7 thou/uL (0.11-0.59); #Neutrophils 7.2 thou/uL (1.40-6.50); %Basophils 0.5 % (0.0-1.0); %Eosinophils 1.2 % (0.0-10.0); %Lymphocytes 17.7 % (21.0-51.0); %Neutrophils 72.9 % (42.0-75.0); Hematocrit 41.6 % (42.0-52.0); Hemoglobin 13.7 g/dL (14.0-18.0); Mean Corpuscular HGB CONC 32.9 g/dL (32.0-36.0); Mean Corpuscular Hemoglobin 34.4 pg (27.0-31.0); Mean Corpuscular Volume 104.5 fl (78.0-98.0); Mean Platelet Volume 8.3 fL (7.4-10.4); Platelet Count 248 10x3/uL (130-400); RBC Distribution Width 12.9 % (11.5-14.5); Red Blood Cell (RBC) Count 3.98 mill/uL (4.70-6.10); White Blood Cell (WBC) Count 9.8 10x3/uL (4.8-10.8)
[2022-12-06] MEDS ORDERED: Magnesium 2 GM/50 ML BAG (IN WATER) ONE (17:04)
[2022-12-06] MEDS ORDERED: Furosemide 20 MG/2 ML VIAL ONE (17:04)
[2022-12-06] MEDS ORDERED: methylPREDNISolone Sod Succ/PF 125 MG/2 ML VIAL ONE (17:04)
[2022-12-06] MEDS ORDERED: Ipratropium/Albuterol 3 ML NEB ONE ×2 (17:06→17:47)
[2022-12-06 17:19] LABS: Troponin I Less than 0.010 ng/mL (< 0.028)
[2022-12-06 17:23] LABS: ALT (SGPT) 13 U/L (8-55); AST (SGOT) 14 U/L (5-34); Alkaline Phosphatase 60 U/L (40-110); Anion Gap 15 mmol/L (10-20); BUN (Urea Nitrogen) 11 mg/dL (8.4-25.7); Bilirubin, Total 0.2 mg/dL (0.2-1.2); Calc. Creatinine Clearance 0 mL/min (70-130); Calcium 9.2 mg/dL (7.8-10.44); Carbon Dioxide 24 mmol/L (23-31); Chloride 107 mmol/L (98-107); Estimated GFR 99; Globulin 2.9 g/dL (2.4-3.5); Glucose 76 mg/dL (80-115); Protein, Total 6.9 g/dL (5.8-8.1); Sodium 142 mmol/L (136-145)
== END 2022-12-06 18:36 | disposition home or self-care (01) ==
LOC: ERS 15:50
DX: J44.1 Chronic obstructive pulmonary disease with (acute) exacerbation (principal); I10 Essential (primary) hypertension; Z87.891 Personal history of nicotine dependence
CPT/HCPCS: 71045; 80053; 83880; 84484; 85025; 93005; 94760; 96365; 96375; J1940; J2930; J3475; J7620

== ENCOUNTER 2023-01-17 16:51 | Inpatient (IN) | payer OTHER, MEDICAID ==
[2023-01-17 17:15] LABS: #Basophils 0.1 thou/uL (0.0-0.2); #Eosinphils 0.2 thou/uL (0.0-0.7); #Monocytes 0.4 thou/uL (0.11-0.59); #Neutrophils 3.7 thou/uL (1.40-6.50); %Basophils 1.1 % (0.0-1.0); %Eosinophils 3.4 % (0.0-10.0); %Lymphocytes 31.5 % (21.0-51.0); %Monocytes 6.4 % (0.0-10.0); %Neutrophils 57.3 % (42.0-75.0); Hematocrit 45.8 % (42.0-52.0); Hemoglobin 15.1 g/dL (14.0-18.0); Mean Corpuscular Hemoglobin 34.5 pg (27.0-31.0); Mean Corpuscular Volume 104.6 fl (78.0-98.0); Mean Platelet Volume 8.3 fL (7.4-10.4); Platelet Count 275 10x3/uL (130-400); RBC Distribution Width 12.6 % (11.5-14.5); Red Blood Cell (RBC) Count 4.38 mill/uL (4.70-6.10); White Blood Cell (WBC) Count 6.4 10x3/uL (4.8-10.8)
[2023-01-17] MEDS ORDERED: Ipratropium/Albuterol 3 ML NEB ONE ×2 (17:15→19:33)
[2023-01-17] MEDS ORDERED: Magnesium 2 GM/50 ML BAG (IN WATER) ONE (17:32)
[2023-01-17] MEDS ORDERED: LORazepam 2 MG/ML SYR.(CARPUJECT) ONE (17:32)
[2023-01-17] MEDS ORDERED: methylPREDNISolone Sod Succ/PF 125 MG/2 ML VIAL ONE (17:33)
[2023-01-17 17:42] LABS: Anion Gap 18 mmol/L (10-20); BUN (Urea Nitrogen) 6 mg/dL (8.4-25.7); Carbon Dioxide 21 mmol/L (23-31); Chloride 102 mmol/L (98-107); Potassium 3.8 mmol/L (3.5-5.1); Sodium 137 mmol/L (136-145)
[2023-01-17 17:43] LABS: ALT (SGPT) 14 U/L (8-55); AST (SGOT) 18 U/L (5-34); Albumin 4.7 g/dL (3.4-4.8); Alkaline Phosphatase 71 U/L (40-110); Bilirubin, Total 0.3 mg/dL (0.2-1.2); Calc. Creatinine Clearance 0 mL/min (70-130); Calcium 9.7 mg/dL (7.8-10.44); Estimated GFR 97; Globulin 2.8 g/dL (2.4-3.5); Glucose 95 mg/dL (80-115); Protein, Total 7.5 g/dL (5.8-8.1)
[2023-01-17 17:47] LABS: Troponin I Less than 0.010 ng/mL (< 0.028)
[2023-01-17] MEDS ORDERED: Ondansetron PF 4 MG/2 ML Vial ONE (17:58)
[2023-01-17 19:12] LABS: Bacteria/HPF None Seen HPF (None Seen); Bilirubin Negative (Negative); Blood, Urine Negative (Negative); CAUTI Indications for Culture Pelvic or flank pain; Clarity Clear (Clear); Glucose, Urine (Dipstick) Normal (Negative); Ketone, Urine Negative (Negative); Leukocyte Negative Leu/uL (Negative); Nitrite Negative (Negative); Protein, Urine (Dipstick) Negative (Neg-Trace); RBC/HPF None Seen HPF (0-3); Specific Gravity, Urine 1.005 (1.002-1.036); Squamous Epithelial None Seen HPF (0-3); Urobilinogen Normal mg/dL (Less than 2); WBC/HPF 0-3 HPF (0-3)
[2023-01-17 19:16] LABS: Urine Culture Reflex No No
[2023-01-17] MEDS ORDERED: Furosemide 40 MG/4 ML VIAL ONE ×2 (20:56→20:57)
[2023-01-17] MEDS ORDERED: LevoFLOXacin 750 mg/D5W 150 ml Premix Bag ONE (20:56)
[2023-01-17] MEDS ORDERED: Acetaminophen 325 MG TAB PO PRN (21:01)
[2023-01-17] MEDS ORDERED: Ondansetron PF 4 MG/2 ML Vial IVP PRN (21:01)
[2023-01-17] MEDS ORDERED: Acetaminophen 650 MG Suppository PR PRN (21:01)
[2023-01-17] MEDS ORDERED: Ondansetron ODT 4 MG TAB PO PRN (21:01)
[2023-01-17] MEDS ORDERED: Ipratropium/Albuterol 3 ML NEB NEB PRN (21:10)
[2023-01-17] MEDS ORDERED: Electrolyte Replacement Protocol 1 EACH FS SCH (22:00)
[2023-01-17] MEDS: Ipratropium/Albuterol 3 ML NEB NEB SCH (22:50)
[2023-01-18] MEDS ORDERED: Ondansetron PF 4 MG/2 ML Vial ONE (01:28)
[2023-01-18] MEDS ORDERED: Pantoprazole 40 MG VIAL ONE (01:36)
[2023-01-18] MEDS ORDERED: Pantoprazole 40 MG VIAL IVP SCH ×2 (01:37→09:00)
[2023-01-18] MEDS ORDERED: Calcium Carbonate 500 MG ChewTAB PO PRN (01:38)
[2023-01-18] MEDS: Ipratropium/Albuterol 3 ML NEB NEB SCH ×6 (03:17→23:05)
[2023-01-18 05:15] LABS: #Monocytes 0.4 thou/uL (0.11-0.59); %Basophils 0.2 % (0.0-1.0); %Lymphocytes 10.3 % (21.0-51.0); Hematocrit 44.4 % (42.0-52.0); Hemoglobin 14.5 g/dL (14.0-18.0); Mean Corpuscular HGB CONC 32.7 g/dL (32.0-36.0); Mean Corpuscular Hemoglobin 34.4 pg (27.0-31.0); Mean Corpuscular Volume 105.5 fl (78.0-98.0); Mean Platelet Volume 8.7 fL (7.4-10.4); Platelet Count 267 10x3/uL (130-400); RBC Distribution Width 12.7 % (11.5-14.5); Red Blood Cell (RBC) Count 4.21 mill/uL (4.70-6.10)
[2023-01-18 05:41] LABS: Anion Gap 13 mmol/L (10-20); BUN (Urea Nitrogen) 8 mg/dL (8.4-25.7); Calc. Creatinine Clearance 126 mL/min (70-130); Calcium 9.1 mg/dL (7.8-10.44); Carbon Dioxide 22 mmol/L (23-31); Chloride 106 mmol/L (98-107); Estimated GFR 99; Glucose 111 mg/dL (80-115); Magnesium 2.2 mg/dL (1.6-2.6); Potassium 4.3 mmol/L (3.5-5.1); Sodium 137 mmol/L (136-145)
[2023-01-18] MEDS ORDERED: Ipratropium/Albuterol 3 ML NEB ONE ×2 (08:31→12:23)
[2023-01-18] MEDS ORDERED: methylPREDNISolone Sod Succ 40 MG VIAL IVP SCH (09:00)
[2023-01-18] MEDS ORDERED: Furosemide 40 MG/4 ML VIAL SLOW IVP SCH (09:00)
[2023-01-18] MEDS ORDERED: Furosemide 40 MG/4 ML VIAL ONE (10:08)
[2023-01-18] MEDS ORDERED: methylPREDNISolone Sod Succ 40 MG VIAL ONE ×2 (10:08→14:52)
[2023-01-18] MEDS ORDERED: Guaifenesin DM 100-10/5 ML UDCUP PO PRN (10:21)
[2023-01-18] MEDS: methylPREDNISolone Sod Succ 40 MG VIAL IVP SCH ×2 (14:57→21:31)
[2023-01-18 15:32] VITALS: BMI 29.5
[2023-01-18] MEDS: Mometasone 200 MCG/Formoterol 5 MCG 120 PUFF INHALER INH SCH (18:59)
[2023-01-18] MEDS: Folic Acid 1 MG TAB PO SCH (20:23)
[2023-01-18] MEDS: Cyanocobalamin (Vitamin B-12) 1,000 MCG TAB PO SCH (20:23)
[2023-01-18] MEDS: guaiFENesin ER 600 MG TAB PO SCH (20:23)
[2023-01-18] MEDS: Senokot S 8.6-50 MG TAB PO SCH (20:23)
[2023-01-18] MEDS: Multivit, Therapeutic 1 TAB PO SCH (20:23)
[2023-01-18] MEDS: Doxycycline 100 MG CAP PO SCH (20:23)
[2023-01-18] MEDS: cefTRIAXone\\ROCEPHIN 1 GM in Sodium Chloride 0.9% 100 ML IVPB SCH (21:31)
[2023-01-19] MEDS: Ipratropium/Albuterol 3 ML NEB NEB SCH ×5 (02:46→19:44)
[2023-01-19] MEDS: methylPREDNISolone Sod Succ 40 MG VIAL IVP SCH ×3 (05:28→21:36)
[2023-01-19] MEDS: Mometasone 200 MCG/Formoterol 5 MCG 120 PUFF INHALER INH SCH ×2 (07:42→19:45)
[2023-01-19] MEDS: Doxycycline 100 MG CAP PO SCH ×2 (08:54→20:13)
[2023-01-19] MEDS: ENZALUTAMIDE 80 MG PO SCH (08:54)
[2023-01-19] MEDS: guaiFENesin ER 600 MG TAB PO SCH ×2 (08:55→20:13)
[2023-01-19] MEDS: Senokot S 8.6-50 MG TAB PO SCH ×2 (08:55→20:13)
[2023-01-19] MEDS ORDERED: ENZALUTAMIDE 80 MG PO SCH (09:00)
[2023-01-19] MEDS ORDERED: Bisacodyl 10 MG SUPP PR PRN (16:12)
[2023-01-19] MEDS: HYDROcodone/Acetaminophen 5/325 mg Tablet PO PRN (16:29)
[2023-01-19] MEDS: Polyethylene Glycol 3350 17 GM Packet PO PRN (16:30)
[2023-01-19] MEDS: Multivit, Therapeutic 1 TAB PO SCH (20:13)
[2023-01-19] MEDS: Cyanocobalamin (Vitamin B-12) 1,000 MCG TAB PO SCH (20:13)
[2023-01-19] MEDS: Folic Acid 1 MG TAB PO SCH (20:14)
[2023-01-19] MEDS: cefTRIAXone\\ROCEPHIN 1 GM in Sodium Chloride 0.9% 100 ML IVPB SCH (21:36)
[2023-01-20] MEDS: Ipratropium/Albuterol 3 ML NEB NEB SCH ×7 (00:10→23:25)
[2023-01-20] MEDS: methylPREDNISolone Sod Succ 40 MG VIAL IVP SCH ×3 (05:21→19:55)
[2023-01-20] MEDS: Mometasone 200 MCG/Formoterol 5 MCG 120 PUFF INHALER INH SCH ×3 (07:29→19:08)
[2023-01-20] MEDS: Senokot S 8.6-50 MG TAB PO SCH ×2 (08:02→19:55)
[2023-01-20] MEDS: Doxycycline 100 MG CAP PO SCH ×2 (08:02→19:55)
[2023-01-20] MEDS: guaiFENesin ER 600 MG TAB PO SCH ×2 (08:02→19:55)
[2023-01-20] MEDS: ENZALUTAMIDE 80 MG PO SCH (08:04)
[2023-01-20] MEDS: Polyethylene Glycol 3350 17 GM Packet PO PRN (08:07)
[2023-01-20] MEDS: HYDROcodone/Acetaminophen 5/325 mg Tablet PO PRN (10:28)
[2023-01-20] MEDS ORDERED: Albuterol 200 PUFF (6.7GM INHALER) INH PRN (16:48)
[2023-01-20] MEDS: Cyanocobalamin (Vitamin B-12) 1,000 MCG TAB PO SCH (19:54)
[2023-01-20] MEDS: Multivit, Therapeutic 1 TAB PO SCH (19:55)
[2023-01-20] MEDS: Folic Acid 1 MG TAB PO SCH (19:55)
[2023-01-20] MEDS: cefTRIAXone\\ROCEPHIN 1 GM in Sodium Chloride 0.9% 100 ML IVPB SCH (21:27)
[2023-01-21] MEDS: Ipratropium/Albuterol 3 ML NEB NEB SCH ×6 (02:25→23:02)
[2023-01-21] MEDS: Mometasone 200 MCG/Formoterol 5 MCG 120 PUFF INHALER INH SCH (06:47)
[2023-01-21] MEDS: methylPREDNISolone Sod Succ 40 MG VIAL IVP SCH ×2 (08:22→20:24)
[2023-01-21] MEDS: Polyethylene Glycol 3350 17 GM Packet PO PRN (08:22)
[2023-01-21] MEDS: guaiFENesin ER 600 MG TAB PO SCH ×2 (08:22→20:22)
[2023-01-21] MEDS: Doxycycline 100 MG CAP PO SCH ×2 (08:22→20:24)
[2023-01-21] MEDS: Senokot S 8.6-50 MG TAB PO SCH ×2 (08:22→20:23)
[2023-01-21] MEDS: ENZALUTAMIDE 80 MG PO SCH (08:40)
[2023-01-21] MEDS ORDERED: FLU VACC QS2023(65UP)/MF59C/PF 60 MCG/0.5 ML SYRINGE IM ONE (09:00)
[2023-01-21] MEDS: HYDROcodone/Acetaminophen 5/325 mg Tablet PO PRN (12:38)
[2023-01-21] MEDS: Multivit, Therapeutic 1 TAB PO SCH (20:23)
[2023-01-21] MEDS: Cyanocobalamin (Vitamin B-12) 1,000 MCG TAB PO SCH (20:23)
[2023-01-21] MEDS: Folic Acid 1 MG TAB PO SCH (20:23)
[2023-01-21] MEDS: cefTRIAXone\\ROCEPHIN 1 GM in Sodium Chloride 0.9% 100 ML IVPB SCH (21:53)
[2023-01-22] MEDS: Mometasone 200 MCG/Formoterol 5 MCG 120 PUFF INHALER INH SCH ×3 (00:36→18:58)
[2023-01-22] MEDS: Ipratropium/Albuterol 3 ML NEB NEB SCH ×6 (03:23→23:11)
[2023-01-22] MEDS: guaiFENesin ER 600 MG TAB PO SCH ×2 (09:44→20:51)
[2023-01-22] MEDS: Senokot S 8.6-50 MG TAB PO SCH ×2 (09:44→20:51)
[2023-01-22] MEDS: methylPREDNISolone Sod Succ 40 MG VIAL IVP SCH ×2 (09:44→20:51)
[2023-01-22] MEDS: Doxycycline 100 MG CAP PO SCH ×2 (09:44→20:51)
[2023-01-22] MEDS: ENZALUTAMIDE 80 MG PO SCH (09:45)
[2023-01-22] MEDS: HYDROcodone/Acetaminophen 5/325 mg Tablet PO PRN (10:04)
[2023-01-22] MEDS: Polyethylene Glycol 3350 17 GM Packet PO PRN (10:04)
[2023-01-22] MEDS: Folic Acid 1 MG TAB PO SCH (20:51)
[2023-01-22] MEDS: Cyanocobalamin (Vitamin B-12) 1,000 MCG TAB PO SCH (20:51)
[2023-01-22] MEDS: Multivit, Therapeutic 1 TAB PO SCH (20:51)
[2023-01-22] MEDS: cefTRIAXone\\ROCEPHIN 1 GM in Sodium Chloride 0.9% 100 ML IVPB SCH (21:22)
[2023-01-23] MEDS: Ipratropium/Albuterol 3 ML NEB NEB SCH ×6 (03:06→22:54)
[2023-01-23] MEDS: Mometasone 200 MCG/Formoterol 5 MCG 120 PUFF INHALER INH SCH ×2 (06:56→18:58)
[2023-01-23] MEDS: Doxycycline 100 MG CAP PO SCH ×2 (09:40→20:44)
[2023-01-23] MEDS: Senokot S 8.6-50 MG TAB PO SCH ×2 (09:40→20:44)
[2023-01-23] MEDS: guaiFENesin ER 600 MG TAB PO SCH ×2 (09:40→20:44)
[2023-01-23] MEDS: methylPREDNISolone Sod Succ 40 MG VIAL IVP SCH ×2 (09:41→20:45)
[2023-01-23] MEDS: ENZALUTAMIDE 80 MG PO SCH (09:41)
[2023-01-23] MEDS: HYDROcodone/Acetaminophen 5/325 mg Tablet PO PRN (10:09)
[2023-01-23] MEDS ORDERED: ALPRAZolam 0.25 MG TAB PO SCH (10:15)
[2023-01-23] MEDS: Folic Acid 1 MG TAB PO SCH (20:44)
[2023-01-23] MEDS: Cyanocobalamin (Vitamin B-12) 1,000 MCG TAB PO SCH (20:44)
[2023-01-23] MEDS: Multivit, Therapeutic 1 TAB PO SCH (20:44)
[2023-01-23] MEDS: cefTRIAXone\\ROCEPHIN 1 GM in Sodium Chloride 0.9% 100 ML IVPB SCH (20:45)
[2023-01-24] MEDS: Ipratropium/Albuterol 3 ML NEB NEB SCH ×6 (02:40→22:13)
[2023-01-24] MEDS: Mometasone 200 MCG/Formoterol 5 MCG 120 PUFF INHALER INH SCH ×2 (06:50→18:46)
[2023-01-24] MEDS ORDERED: predniSONE 20 MG TAB PO SCH (08:15)
[2023-01-24] MEDS: ENZALUTAMIDE 80 MG PO SCH (10:06)
[2023-01-24] MEDS: guaiFENesin ER 600 MG TAB PO SCH ×2 (10:06→22:25)
[2023-01-24] MEDS: Senokot S 8.6-50 MG TAB PO SCH ×2 (10:06→22:25)
[2023-01-24] MEDS: Doxycycline 100 MG CAP PO SCH ×2 (10:06→22:25)
[2023-01-24] MEDS: ALPRAZolam 0.25 MG TAB PO PRN (10:11)
[2023-01-24] MEDS: HYDROcodone/Acetaminophen 5/325 mg Tablet PO PRN (12:14)
[2023-01-24] MEDS: Folic Acid 1 MG TAB PO SCH (22:25)
[2023-01-24] MEDS: Multivit, Therapeutic 1 TAB PO SCH (22:25)
[2023-01-24] MEDS: Cyanocobalamin (Vitamin B-12) 1,000 MCG TAB PO SCH (22:25)
[2023-01-25] MEDS: Ipratropium/Albuterol 3 ML NEB NEB SCH ×4 (02:55→14:07)
[2023-01-25] MEDS: Mometasone 200 MCG/Formoterol 5 MCG 120 PUFF INHALER INH SCH (07:04)
[2023-01-25] MEDS ORDERED: predniSONE 20 MG TAB PO SCH (08:00)
[2023-01-25] MEDS: Doxycycline 100 MG CAP PO SCH (08:03)
[2023-01-25] MEDS: guaiFENesin ER 600 MG TAB PO SCH (08:03)
[2023-01-25] MEDS: Senokot S 8.6-50 MG TAB PO SCH (08:03)
[2023-01-25] MEDS: ENZALUTAMIDE 80 MG PO SCH (08:04)
[2023-01-25 08:52] VITALS: BP 147/80; TEMP 97.5
[2023-01-25] MEDS: ALPRAZolam 0.25 MG TAB PO PRN (10:26)
== END 2023-01-25 14:25 | disposition home or self-care (01) | DRG 189 ==
LOC: ERS 16:51 → ERHOLD 21:01 → T4-A 01-18 15:16
PROVIDERS: ADMIT Student in an Organized Health Care Education/Training Program; ATTEND Family Medicine
PROC: 5A09357 Assistance with Respiratory Ventilation, Less than 24 Consecutive Hours, Continuous Positive Airway Pressure (ICD-10-PCS; principal; 2023-01-17)
DX: J96.21 Acute and chronic respiratory failure with hypoxia (principal); E87.20 Acidosis, unspecified; I50.32 Chronic diastolic (congestive) heart failure; J44.1 Chronic obstructive pulmonary disease with (acute) exacerbation; C79.51 Secondary malignant neoplasm of bone; I11.0 Hypertensive heart disease with heart failure; Z96.651 Presence of right artificial knee joint; F17.210 Nicotine dependence, cigarettes, uncomplicated; F12.129 Cannabis abuse with intoxication, unspecified; F32.A Depression, unspecified; C61 Malignant neoplasm of prostate; K21.9 Gastro-esophageal reflux disease without esophagitis; E66.9 Obesity, unspecified; G89.3 Neoplasm related pain (acute) (chronic); Z79.899 Other long term (current) drug therapy; Z85.46 Personal history of malignant neoplasm of prostate; Z98.890 Other specified postprocedural states; Z68.30 Body mass index [BMI] 30.0-30.9, adult; Z99.81 Dependence on supplemental oxygen
CPT/HCPCS: 36415; 36416; 71045; 80048; 80053; 81001; 83735; 83880; 84443; 84484; 85025; 93005; 94640; 94660; 96365; 96367; 96375; C9113; J0696; J1650; J1940; J1956; J2060; J2405; J2920; J2930; J3475; J3490; J7512; J7620

== ENCOUNTER 2023-02-01 14:59 | Emergency (ER) | payer OTHER, MEDICAID ==
[2023-02-01] MEDS ORDERED: methylPREDNISolone Sod Succ/PF 125 MG/2 ML VIAL ONE (15:25)
[2023-02-01] MEDS ORDERED: Ipratropium/Albuterol 3 ML NEB ONE (15:28)
[2023-02-01 16:12] LABS: #Basophils 0.1 thou/uL (0.0-0.2); #Eosinphils 0.2 thou/uL (0.0-0.7); #Monocytes 0.7 thou/uL (0.11-0.59); #Neutrophils 6.4 thou/uL (1.40-6.50); %Basophils 0.6 % (0.0-1.0); %Eosinophils 2.6 % (0.0-10.0); %Lymphocytes 20.4 % (21.0-51.0); %Monocytes 7.1 % (0.0-10.0); %Neutrophils 69.1 % (42.0-75.0); Hematocrit 40.8 % (42.0-52.0); Hemoglobin 13.2 g/dL (14.0-18.0); Mean Corpuscular HGB CONC 32.4 g/dL (32.0-36.0); Mean Corpuscular Hemoglobin 33.7 pg (27.0-31.0); Mean Corpuscular Volume 104.1 fl (78.0-98.0); Mean Platelet Volume 8.3 fL (7.4-10.4); Platelet Count 262 10x3/uL (130-400); RBC Distribution Width 12.4 % (11.5-14.5); Red Blood Cell (RBC) Count 3.92 mill/uL (4.70-6.10); White Blood Cell (WBC) Count 9.3 10x3/uL (4.8-10.8)
[2023-02-01 16:30] LABS: Amphetamine Not Detected (NotDetected); Barbiturates Screen Not Detected (NotDetected); Benzodiazepine Screen Not Detected (NotDetected); Cocaine Metabolite Screen Not Detected (NotDetected); Methadone Not Detected (NotDetected); Methamphetamine Not Detected (NotDetected); Opiate Screen Not Detected (NotDetected); Oxycodone Screen Not Detected (NotDetected); Phencyclidine (PCP) Not Detected (NotDetected); THC/Cannabinoid Screen Not Detected (NotDetected); Tricyclic Screen Not Detected (NotDetected)
[2023-02-01 16:30] LABS: Acetaminophen Less than 10 mcg/mL (10.0-30.0); Alcohol 97.6 mg/dL (Less than 10); Lipase 26 U/L (8-78); Salicylate Less than 8.0 mg/dL (15.0-30.0)
[2023-02-01 16:31] LABS: ALT (SGPT) 13 U/L (8-55); AST (SGOT) 16 U/L (5-34); Albumin 4.2 g/dL (3.4-4.8); Alkaline Phosphatase 57 U/L (40-110); Anion Gap 18 mmol/L (10-20); BUN (Urea Nitrogen) 6 mg/dL (8.4-25.7); Bilirubin, Total 0.2 mg/dL (0.2-1.2); Calc. Creatinine Clearance 0 mL/min (70-130); Carbon Dioxide 18 mmol/L (23-31); Chloride 108 mmol/L (98-107); Estimated GFR 102; Globulin 2.1 g/dL (2.4-3.5); Glucose 78 mg/dL (80-115); Protein, Total 6.3 g/dL (5.8-8.1); Sodium 140 mmol/L (136-145)
[2023-02-01 16:35] LABS: Troponin I Less than 0.010 ng/mL (< 0.028)
== END 2023-02-01 20:34 | disposition home or self-care (01) ==
LOC: ERS 14:59
DX: J44.9 Chronic obstructive pulmonary disease, unspecified (principal); F10.129 Alcohol abuse with intoxication, unspecified; I10 Essential (primary) hypertension; F17.210 Nicotine dependence, cigarettes, uncomplicated; Z79.899 Other long term (current) drug therapy; Y90.4 Blood alcohol level of 80-99 mg/100 ml
CPT/HCPCS: 36415; 71045; 80053; 80306; 80307; 83605; 83690; 84484; 85025; 93005; 94640; 96374; J2930; J7611; J7620

== ENCOUNTER 2023-02-08 13:36 | Outpatient (CLI) | payer OTHER | END 2023-02-08 13:37 | disposition home or self-care (01) | LOC: RAD 13:36 | PROVIDERS: ATTEND Internal Medicine Critical Care Medicine | DX: R06.00 Dyspnea, unspecified (principal); J44.9 Chronic obstructive pulmonary disease, unspecified | CPT/HCPCS: 71046 ==

== ENCOUNTER 2023-02-08 14:48 | Inpatient (IN) | payer OTHER, MEDICAID ==
[2023-02-08] MEDS ORDERED: methylPREDNISolone Sod Succ/PF 125 MG/2 ML VIAL ONE (15:42)
[2023-02-08 15:58] LABS: #Eosinphils 0.2 thou/uL (0.0-0.7); #Monocytes 0.5 thou/uL (0.11-0.59); #Neutrophils 5.1 thou/uL (1.40-6.50); %Basophils 0.5 % (0.0-1.0); %Eosinophils 2.2 % (0.0-10.0); %Lymphocytes 20.7 % (21.0-51.0); %Monocytes 6.5 % (0.0-10.0); %Neutrophils 69.7 % (42.0-75.0); Hematocrit 43.3 % (42.0-52.0); Hemoglobin 14.2 g/dL (14.0-18.0); Mean Corpuscular HGB CONC 32.8 g/dL (32.0-36.0); Mean Corpuscular Hemoglobin 34.5 pg (27.0-31.0); Mean Corpuscular Volume 105.4 fl (78.0-98.0); Mean Platelet Volume 8.6 fL (7.4-10.4); Platelet Count 307 10x3/uL (130-400); RBC Distribution Width 12.4 % (11.5-14.5); Red Blood Cell (RBC) Count 4.11 mill/uL (4.70-6.10); White Blood Cell (WBC) Count 7.4 10x3/uL (4.8-10.8)
[2023-02-08] MEDS ORDERED: Ipratropium Bromide 2.5 ml Neb ONE (16:20)
[2023-02-08 16:21] LABS: Troponin I Less than 0.010 ng/mL (< 0.028)
[2023-02-08 16:22] LABS: ALT (SGPT) 17 U/L (8-55); AST (SGOT) 18 U/L (5-34); Albumin 4.4 g/dL (3.4-4.8); Alkaline Phosphatase 65 U/L (40-110); Anion Gap 17 mmol/L (10-20); BUN (Urea Nitrogen) 6 mg/dL (8.4-25.7); Bilirubin, Total 0.3 mg/dL (0.2-1.2); Calc. Creatinine Clearance 0 mL/min (70-130); Calcium 9.6 mg/dL (7.8-10.44); Carbon Dioxide 19 mmol/L (23-31); Chloride 106 mmol/L (98-107); Estimated GFR 99; Globulin 2.8 g/dL (2.4-3.5); Glucose 86 mg/dL (80-115); Potassium 4.1 mmol/L (3.5-5.1); Protein, Total 7.2 g/dL (5.8-8.1); Sodium 138 mmol/L (136-145)
[2023-02-08 16:24] LABS: Bacteria/HPF None Seen HPF (None Seen); Bilirubin Negative (Negative); Blood, Urine Negative (Negative); CAUTI Indications for Culture Pelvic or flank pain; Clarity Clear (Clear); Glucose, Urine (Dipstick) Normal (Negative); Ketone, Urine Negative (Negative); Leukocyte Negative Leu/uL (Negative); Nitrite Negative (Negative); Protein, Urine (Dipstick) Negative (Neg-Trace); RBC/HPF None Seen HPF (0-3); Specific Gravity, Urine 1.002 (1.002-1.036); Squamous Epithelial None Seen HPF (0-3); Urobilinogen Normal mg/dL (Less than 2); WBC/HPF None Seen HPF (0-3)
[2023-02-08 16:30] LABS: Urine Culture Reflex No No
[2023-02-08 16:54] LABS: SARS-CoV-2 NAA Rapid Test Not Detected (NotDetected)
[2023-02-08] MEDS ORDERED: Cefepime 2 GM VIAL ONE (17:01)
[2023-02-08] MEDS ORDERED: Sodium Chloride 0.9% 100 ML ONE (17:01)
[2023-02-08] MEDS ORDERED: Vancomycin 1 GM/200 ML (FROZEN) BAG ONE (17:53)
[2023-02-08] MEDS ORDERED: Albuterol 2.5 MG/0.5 ML NEB ONE (18:20)
[2023-02-08] MEDS ORDERED: Acetaminophen 325 MG TAB PO PRN (19:25)
[2023-02-08] MEDS ORDERED: Ondansetron PF 4 MG/2 ML Vial IVP PRN (19:25)
[2023-02-08] MEDS ORDERED: Ipratropium/Albuterol 3 ML NEB NEB PRN (19:27)
[2023-02-08 19:31] LABS: Lactic Acid 1.8 mmol/L (0.5-2.2)
[2023-02-08] MEDS ORDERED: Thiamine 100 MG TAB PO SCH (19:45)
[2023-02-08] MEDS ORDERED: Magnesium 2 GM/50 ML BAG (IN WATER) ONE (19:53)
[2023-02-08] MEDS ORDERED: Furosemide 20 MG/2 ML VIAL SLOW IVP SCH (20:00)
[2023-02-08] MEDS: Ipratropium/Albuterol 3 ML NEB NEB SCH (22:15)
[2023-02-08] MEDS: methylPREDNISolone Sod Succ 40 MG VIAL IVP SCH (23:07)
[2023-02-08] MEDS: Azithromycin 500 MG in Sodium Chloride 0.9% 250 ML 250 ML IVPB SCH (23:07)
[2023-02-09] MEDS: Ipratropium/Albuterol 3 ML NEB NEB SCH ×6 (02:10→21:45)
[2023-02-09] MEDS ORDERED: ALPRAZolam 0.25 MG TAB PO SCH (02:30)
[2023-02-09 05:04] LABS: #Monocytes 0.1 thou/uL (0.11-0.59); #Neutrophils 3.9 thou/uL (1.40-6.50); %Lymphocytes 8.5 % (21.0-51.0); %Monocytes 2.3 % (0.0-10.0); %Neutrophils 88.5 % (42.0-75.0); Hematocrit 39.2 % (42.0-52.0); Hemoglobin 12.9 g/dL (14.0-18.0); Mean Corpuscular HGB CONC 32.9 g/dL (32.0-36.0); Mean Corpuscular Hemoglobin 34.6 pg (27.0-31.0); Mean Corpuscular Volume 105.1 fl (78.0-98.0); Mean Platelet Volume 8.7 fL (7.4-10.4); Platelet Count 294 10x3/uL (130-400); RBC Distribution Width 12.3 % (11.5-14.5); Red Blood Cell (RBC) Count 3.73 mill/uL (4.70-6.10); White Blood Cell (WBC) Count 4.4 10x3/uL (4.8-10.8)
[2023-02-09 05:44] LABS: Anion Gap 16 mmol/L (10-20); BUN (Urea Nitrogen) 12 mg/dL (8.4-25.7); Calc. Creatinine Clearance 135 mL/min (70-130); Calcium 8.7 mg/dL (7.8-10.44); Carbon Dioxide 19 mmol/L (23-31); Chloride 107 mmol/L (98-107); Estimated GFR 101; Glucose 134 mg/dL (80-115); Magnesium 2.2 mg/dL (1.6-2.6); Potassium 4.8 mmol/L (3.5-5.1); Sodium 137 mmol/L (136-145)
[2023-02-09] MEDS: methylPREDNISolone Sod Succ 40 MG VIAL IVP SCH ×3 (06:29→21:37)
[2023-02-09] MEDS: Mometasone 200 MCG/Formoterol 5 MCG 120 PUFF INHALER INH SCH ×2 (07:02→18:48)
[2023-02-09] MEDS: Folic Acid 1 MG TAB PO SCH (08:36)
[2023-02-09] MEDS: Thiamine 100 MG TAB PO SCH (08:37)
[2023-02-09] MEDS: Furosemide 20 MG TAB PO SCH (08:37)
[2023-02-09] MEDS ORDERED: Furosemide 20 MG TAB PO SCH (09:00)
[2023-02-09] MEDS ORDERED: ENZALUTAMIDE 80 MG PO SCH (12:30)
[2023-02-09] MEDS: ENZALUTAMIDE 80 MG PO SCH (12:44)
[2023-02-09] MEDS ORDERED: ALPRAZolam 0.25 MG TAB PO PRN (13:10)
[2023-02-09] MEDS: Lorazepam 0.5 MG TAB PO SCH ×2 (14:46→20:23)
[2023-02-09] MEDS ORDERED: Albuterol 200 PUFF (6.7GM INHALER) INH PRN (18:17)
[2023-02-09] MEDS ORDERED: Azithromycin 500 MG VIAL ONE (20:01)
[2023-02-09] MEDS: Azithromycin 500 MG in Sodium Chloride 0.9% 250 ML 250 ML IVPB SCH (20:22)
[2023-02-09] MEDS ORDERED: Sertraline 25 MG TAB PO SCH (21:00)
[2023-02-10] MEDS: Ipratropium/Albuterol 3 ML NEB NEB SCH ×6 (01:44→21:41)
[2023-02-10 04:46] LABS: Anion Gap 15 mmol/L (10-20); BUN (Urea Nitrogen) 16 mg/dL (8.4-25.7); Calc. Creatinine Clearance 125 mL/min (70-130); Calcium 8.6 mg/dL (7.8-10.44); Carbon Dioxide 22 mmol/L (23-31); Chloride 108 mmol/L (98-107); Estimated GFR 98; Glucose 151 mg/dL (80-115); Magnesium 2.2 mg/dL (1.6-2.6); Potassium 3.9 mmol/L (3.5-5.1); Sodium 141 mmol/L (136-145)
[2023-02-10] MEDS: methylPREDNISolone Sod Succ 40 MG VIAL IVP SCH ×3 (05:48→21:32)
[2023-02-10] MEDS: Mometasone 200 MCG/Formoterol 5 MCG 120 PUFF INHALER INH SCH ×2 (07:37→18:29)
[2023-02-10] MEDS: Lorazepam 0.5 MG TAB PO SCH ×3 (07:59→21:33)
[2023-02-10] MEDS: Folic Acid 1 MG TAB PO SCH (07:59)
[2023-02-10] MEDS: Furosemide 20 MG TAB PO SCH (07:59)
[2023-02-10] MEDS: Thiamine 100 MG TAB PO SCH (07:59)
[2023-02-10] MEDS: ENZALUTAMIDE 80 MG PO SCH ×2 (08:12→08:27)
[2023-02-10] MEDS ORDERED: guaiFENesin ER 600 MG TAB PO SCH (09:45)
[2023-02-10] MEDS ORDERED: Sertraline 25 MG TAB PO SCH (18:15)
[2023-02-10] MEDS: Doxycycline 100 MG CAP PO SCH (21:33)
[2023-02-10] MEDS: guaiFENesin ER 600 MG TAB PO SCH (21:33)
[2023-02-11] MEDS: Ipratropium/Albuterol 3 ML NEB NEB SCH ×6 (01:39→22:32)
[2023-02-11] MEDS: methylPREDNISolone Sod Succ 40 MG VIAL IVP SCH ×3 (02:38→17:46)
[2023-02-11 05:26] LABS: Anion Gap 15 mmol/L (10-20); BUN (Urea Nitrogen) 15 mg/dL (8.4-25.7); Calc. Creatinine Clearance 122 mL/min (70-130); Calcium 8.7 mg/dL (7.8-10.44); Carbon Dioxide 21 mmol/L (23-31); Chloride 109 mmol/L (98-107); Estimated GFR 97; Glucose 143 mg/dL (80-115); Magnesium 2.2 mg/dL (1.6-2.6); Potassium 4.6 mmol/L (3.5-5.1); Sodium 140 mmol/L (136-145)
[2023-02-11] MEDS: Mometasone 200 MCG/Formoterol 5 MCG 120 PUFF INHALER INH SCH ×2 (07:46→18:53)
[2023-02-11] MEDS: guaiFENesin ER 600 MG TAB PO SCH ×2 (08:30→20:16)
[2023-02-11] MEDS: Furosemide 20 MG TAB PO SCH (08:30)
[2023-02-11] MEDS: Lorazepam 0.5 MG TAB PO SCH ×3 (08:30→20:16)
[2023-02-11] MEDS: Doxycycline 100 MG CAP PO SCH ×2 (08:30→20:15)
[2023-02-11] MEDS: Thiamine 100 MG TAB PO SCH (08:30)
[2023-02-11] MEDS: Folic Acid 1 MG TAB PO SCH (08:30)
[2023-02-11] MEDS: ENZALUTAMIDE 80 MG PO SCH (08:30)
[2023-02-11] MEDS ORDERED: FLU VACC QS2023(65UP)/MF59C/PF 60 MCG/0.5 ML SYRINGE IM ONE (09:00)
[2023-02-11] MEDS: Sertraline 25 MG TAB PO SCH (20:16)
[2023-02-12] MEDS: Ipratropium/Albuterol 3 ML NEB NEB SCH ×6 (02:19→22:40)
[2023-02-12] MEDS: methylPREDNISolone Sod Succ 40 MG VIAL IVP SCH ×3 (02:22→17:38)
[2023-02-12 05:01] LABS: #Basophils 0.1 thou/uL (0.0-0.2); #Monocytes 0.5 thou/uL (0.11-0.59); #Neutrophils 5.6 thou/uL (1.40-6.50); %Basophils 0.7 % (0.0-1.0); %Eosinophils 0.1 % (0.0-10.0); %Lymphocytes 16.6 % (21.0-51.0); %Neutrophils 74.3 % (42.0-75.0); Hematocrit 39.4 % (42.0-52.0); Hemoglobin 12.6 g/dL (14.0-18.0); Mean Corpuscular Hemoglobin 34.1 pg (27.0-31.0); Mean Corpuscular Volume 106.5 fl (78.0-98.0); Mean Platelet Volume 8.6 fL (7.4-10.4); Platelet Count 302 10x3/uL (130-400); RBC Distribution Width 12.5 % (11.5-14.5); White Blood Cell (WBC) Count 7.6 10x3/uL (4.8-10.8)
[2023-02-12 06:05] LABS: ALT (SGPT) 13 U/L (8-55); AST (SGOT) 15 U/L (5-34); Albumin 3.7 g/dL (3.4-4.8); Alkaline Phosphatase 52 U/L (40-110); Anion Gap 12 mmol/L (10-20); BUN (Urea Nitrogen) 15 mg/dL (8.4-25.7); Bilirubin, Total 0.2 mg/dL (0.2-1.2); Calc. Creatinine Clearance 77 mL/min (70-130); Calcium 8.9 mg/dL (7.8-10.44); Carbon Dioxide 25 mmol/L (23-31); Chloride 109 mmol/L (98-107); Estimated GFR 62; Globulin 2.5 g/dL (2.4-3.5); Glucose 106 mg/dL (80-115); Protein, Total 6.2 g/dL (5.8-8.1); Sodium 142 mmol/L (136-145)
[2023-02-12] MEDS: Mometasone 200 MCG/Formoterol 5 MCG 120 PUFF INHALER INH SCH ×2 (07:35→18:56)
[2023-02-12] MEDS: Lorazepam 0.5 MG TAB PO SCH ×3 (08:21→20:45)
[2023-02-12] MEDS: Furosemide 20 MG TAB PO SCH (08:22)
[2023-02-12] MEDS: guaiFENesin ER 600 MG TAB PO SCH ×2 (08:22→20:45)
[2023-02-12] MEDS: Folic Acid 1 MG TAB PO SCH (08:22)
[2023-02-12] MEDS: ENZALUTAMIDE 80 MG PO SCH (08:22)
[2023-02-12] MEDS: Doxycycline 100 MG CAP PO SCH ×2 (08:22→20:44)
[2023-02-12] MEDS: Thiamine 100 MG TAB PO SCH (08:22)
[2023-02-12] MEDS: Sertraline 25 MG TAB PO SCH (20:43)
[2023-02-12] MEDS: Theophylline 300 MG ER.TAB PO SCH (20:43)
[2023-02-13] MEDS: methylPREDNISolone Sod Succ 40 MG VIAL IVP SCH ×3 (02:15→18:08)
[2023-02-13] MEDS: HYDROcodone/Acetaminophen 5/325 mg Tablet PO PRN ×2 (02:35→20:30)
[2023-02-13] MEDS: Ipratropium/Albuterol 3 ML NEB NEB SCH ×6 (02:38→22:13)
[2023-02-13 04:38] LABS: #Basophils 0.1 thou/uL (0.0-0.2); #Monocytes 0.5 thou/uL (0.11-0.59); #Neutrophils 5.4 thou/uL (1.40-6.50); %Basophils 0.7 % (0.0-1.0); %Eosinophils 0.4 % (0.0-10.0); %Lymphocytes 19.5 % (21.0-51.0); %Monocytes 6.4 % (0.0-10.0); %Neutrophils 70.8 % (42.0-75.0); Hematocrit 39.6 % (42.0-52.0); Hemoglobin 12.6 g/dL (14.0-18.0); Mean Corpuscular HGB CONC 31.8 g/dL (32.0-36.0); Mean Corpuscular Hemoglobin 33.8 pg (27.0-31.0); Mean Corpuscular Volume 106.2 fl (78.0-98.0); Mean Platelet Volume 8.6 fL (7.4-10.4); Platelet Count 296 10x3/uL (130-400); RBC Distribution Width 12.6 % (11.5-14.5); Red Blood Cell (RBC) Count 3.73 mill/uL (4.70-6.10); White Blood Cell (WBC) Count 7.7 10x3/uL (4.8-10.8)
[2023-02-13 05:06] LABS: ALT (SGPT) 13 U/L (8-55); AST (SGOT) 12 U/L (5-34); Albumin 3.9 g/dL (3.4-4.8); Alkaline Phosphatase 49 U/L (40-110); Anion Gap 14 mmol/L (10-20); BUN (Urea Nitrogen) 22 mg/dL (8.4-25.7); Bilirubin, Total 0.2 mg/dL (0.2-1.2); Calc. Creatinine Clearance 113 mL/min (70-130); Calcium 8.6 mg/dL (7.8-10.44); Carbon Dioxide 25 mmol/L (23-31); Chloride 104 mmol/L (98-107); Estimated GFR 95; Globulin 2.1 g/dL (2.4-3.5); Glucose 106 mg/dL (80-115); Potassium 3.8 mmol/L (3.5-5.1); Sodium 139 mmol/L (136-145)
[2023-02-13] MEDS: Mometasone 200 MCG/Formoterol 5 MCG 120 PUFF INHALER INH SCH ×2 (07:15→18:20)
[2023-02-13] MEDS: Lorazepam 0.5 MG TAB PO SCH ×3 (09:57→20:30)
[2023-02-13] MEDS: Furosemide 20 MG TAB PO SCH (09:57)
[2023-02-13] MEDS: Folic Acid 1 MG TAB PO SCH (09:57)
[2023-02-13] MEDS: guaiFENesin ER 600 MG TAB PO SCH ×2 (09:57→20:31)
[2023-02-13] MEDS: Doxycycline 100 MG CAP PO SCH ×2 (09:57→20:31)
[2023-02-13] MEDS: Theophylline 300 MG ER.TAB PO SCH ×2 (09:57→20:31)
[2023-02-13] MEDS: Thiamine 100 MG TAB PO SCH (09:58)
[2023-02-13] MEDS: ENZALUTAMIDE 80 MG PO SCH (10:04)
[2023-02-13] MEDS ORDERED: Amlodipine 5 MG TAB PO SCH (11:15)
[2023-02-13] MEDS: Sertraline 25 MG TAB PO SCH (20:31)
[2023-02-14] MEDS: Ipratropium/Albuterol 3 ML NEB NEB SCH ×6 (02:22→22:21)
[2023-02-14] MEDS: methylPREDNISolone Sod Succ 40 MG VIAL IVP SCH ×3 (02:57→16:58)
[2023-02-14 06:13] LABS: #Monocytes 0.4 thou/uL (0.11-0.59); #Neutrophils 5.6 thou/uL (1.40-6.50); %Basophils 0.4 % (0.0-1.0); %Eosinophils 0.3 % (0.0-10.0); %Lymphocytes 14.3 % (21.0-51.0); %Monocytes 5.1 % (0.0-10.0); %Neutrophils 78.1 % (42.0-75.0); Hematocrit 40.4 % (42.0-52.0); Hemoglobin 13.1 g/dL (14.0-18.0); Mean Corpuscular HGB CONC 32.4 g/dL (32.0-36.0); Mean Corpuscular Hemoglobin 34.3 pg (27.0-31.0); Mean Corpuscular Volume 105.8 fl (78.0-98.0); Mean Platelet Volume 9.1 fL (7.4-10.4); Platelet Count 286 10x3/uL (130-400); RBC Distribution Width 12.4 % (11.5-14.5); Red Blood Cell (RBC) Count 3.82 mill/uL (4.70-6.10); White Blood Cell (WBC) Count 7.2 10x3/uL (4.8-10.8)
[2023-02-14] MEDS: Mometasone 200 MCG/Formoterol 5 MCG 120 PUFF INHALER INH SCH ×2 (07:21→18:27)
[2023-02-14] MEDS: Citalopram 10 MG TAB PO SCH (09:30)
[2023-02-14] MEDS: Lorazepam 0.5 MG TAB PO SCH ×3 (09:30→23:00)
[2023-02-14] MEDS: guaiFENesin ER 600 MG TAB PO SCH ×2 (09:30→23:00)
[2023-02-14] MEDS: Furosemide 20 MG TAB PO SCH (09:30)
[2023-02-14] MEDS: Thiamine 100 MG TAB PO SCH (09:30)
[2023-02-14] MEDS: Folic Acid 1 MG TAB PO SCH (09:30)
[2023-02-14] MEDS: Doxycycline 100 MG CAP PO SCH ×2 (09:30→23:00)
[2023-02-14] MEDS: ENZALUTAMIDE 80 MG PO SCH (09:31)
[2023-02-14] MEDS: Amlodipine 5 MG TAB PO SCH (09:32)
[2023-02-14] MEDS: Theophylline 300 MG ER.TAB PO SCH ×2 (09:37→23:00)
[2023-02-14] MEDS: Sertraline 25 MG TAB PO SCH (23:00)
[2023-02-15] MEDS: Ipratropium/Albuterol 3 ML NEB NEB SCH ×6 (02:32→21:51)
[2023-02-15] MEDS: methylPREDNISolone Sod Succ 40 MG VIAL IVP SCH ×3 (03:25→17:43)
[2023-02-15 05:49] LABS: Anion Gap 17 mmol/L (10-20); BUN (Urea Nitrogen) 21 mg/dL (8.4-25.7); Calc. Creatinine Clearance 126 mL/min (70-130); Carbon Dioxide 22 mmol/L (23-31); Chloride 103 mmol/L (98-107); Estimated GFR 99; Glucose 101 mg/dL (80-115); Potassium 3.9 mmol/L (3.5-5.1); Sodium 138 mmol/L (136-145)
[2023-02-15 06:22] VITALS: BMI 30.3
[2023-02-15 07:10] LABS: #Basophils 0.1 thou/uL (0.0-0.2); #Eosinphils 0.1 thou/uL (0.0-0.7); #Monocytes 0.7 thou/uL (0.11-0.59); #Neutrophils 6.2 thou/uL (1.40-6.50); %Basophils 0.6 % (0.0-1.0); %Eosinophils 0.7 % (0.0-10.0); %Lymphocytes 25.2 % (21.0-51.0); %Neutrophils 64.8 % (42.0-75.0); Hematocrit 42.2 % (42.0-52.0); Hemoglobin 13.5 g/dL (14.0-18.0); Mean Corpuscular Hemoglobin 34.4 pg (27.0-31.0); Mean Corpuscular Volume 107.7 fl (78.0-98.0); Platelet Count 325 10x3/uL (130-400); RBC Distribution Width 12.6 % (11.5-14.5); Red Blood Cell (RBC) Count 3.92 mill/uL (4.70-6.10); White Blood Cell (WBC) Count 9.5 10x3/uL (4.8-10.8)
[2023-02-15] MEDS: Mometasone 200 MCG/Formoterol 5 MCG 120 PUFF INHALER INH SCH ×2 (08:09→18:17)
[2023-02-15] MEDS: Amlodipine 5 MG TAB PO SCH (09:13)
[2023-02-15] MEDS: Doxycycline 100 MG CAP PO SCH ×2 (09:13→20:57)
[2023-02-15] MEDS: Thiamine 100 MG TAB PO SCH (09:13)
[2023-02-15] MEDS: Lorazepam 0.5 MG TAB PO SCH ×3 (09:13→20:57)
[2023-02-15] MEDS: Theophylline 300 MG ER.TAB PO SCH ×2 (09:13→20:57)
[2023-02-15] MEDS: Folic Acid 1 MG TAB PO SCH (09:13)
[2023-02-15] MEDS: Citalopram 10 MG TAB PO SCH (09:14)
[2023-02-15] MEDS: guaiFENesin ER 600 MG TAB PO SCH ×2 (09:14→20:57)
[2023-02-15] MEDS: Furosemide 20 MG TAB PO SCH (09:14)
[2023-02-15] MEDS: ENZALUTAMIDE 80 MG PO SCH (09:15)
[2023-02-15] MEDS: HYDROcodone/Acetaminophen 5/325 mg Tablet PO PRN (14:53)
[2023-02-15] MEDS: Sertraline 25 MG TAB PO SCH (21:02)
[2023-02-16] MEDS: Ipratropium/Albuterol 3 ML NEB NEB SCH ×6 (01:39→23:10)
[2023-02-16] MEDS: methylPREDNISolone Sod Succ 40 MG VIAL IVP SCH ×3 (02:17→17:16)
[2023-02-16 05:00] LABS: #Basophils 0.1 thou/uL (0.0-0.2); #Eosinphils 0.1 thou/uL (0.0-0.7); #Monocytes 0.8 thou/uL (0.11-0.59); #Neutrophils 8.1 thou/uL (1.40-6.50); %Basophils 0.4 % (0.0-1.0); %Eosinophils 0.4 % (0.0-10.0); %Lymphocytes 21.2 % (21.0-51.0); %Monocytes 7.2 % (0.0-10.0); %Neutrophils 69.6 % (42.0-75.0); Hematocrit 39.4 % (42.0-52.0); Hemoglobin 12.8 g/dL (14.0-18.0); Mean Corpuscular HGB CONC 32.5 g/dL (32.0-36.0); Mean Corpuscular Hemoglobin 34.3 pg (27.0-31.0); Mean Corpuscular Volume 105.6 fl (78.0-98.0); Mean Platelet Volume 8.6 fL (7.4-10.4); Platelet Count 310 10x3/uL (130-400); RBC Distribution Width 12.4 % (11.5-14.5); Red Blood Cell (RBC) Count 3.73 mill/uL (4.70-6.10); White Blood Cell (WBC) Count 11.6 10x3/uL (4.8-10.8)
[2023-02-16 05:35] LABS: Anion Gap 15 mmol/L (10-20); BUN (Urea Nitrogen) 22 mg/dL (8.4-25.7); Calc. Creatinine Clearance 86 mL/min (70-130); Calcium 8.6 mg/dL (7.8-10.44); Carbon Dioxide 24 mmol/L (23-31); Chloride 101 mmol/L (98-107); Estimated GFR 70; Glucose 88 mg/dL (80-115); Potassium 3.4 mmol/L (3.5-5.1); Sodium 137 mmol/L (136-145)
[2023-02-16] MEDS: Mometasone 200 MCG/Formoterol 5 MCG 120 PUFF INHALER INH SCH ×2 (07:13→18:28)
[2023-02-16] MEDS: Doxycycline 100 MG CAP PO SCH (08:25)
[2023-02-16] MEDS: Furosemide 20 MG TAB PO SCH (08:25)
[2023-02-16] MEDS: Folic Acid 1 MG TAB PO SCH (08:25)
[2023-02-16] MEDS: Theophylline 300 MG ER.TAB PO SCH ×2 (08:25→20:43)
[2023-02-16] MEDS: Amlodipine 5 MG TAB PO SCH (08:25)
[2023-02-16] MEDS: Lorazepam 0.5 MG TAB PO SCH ×3 (08:25→20:43)
[2023-02-16] MEDS: Citalopram 10 MG TAB PO SCH (08:25)
[2023-02-16] MEDS: guaiFENesin ER 600 MG TAB PO SCH ×2 (08:25→20:43)
[2023-02-16] MEDS: Thiamine 100 MG TAB PO SCH (08:25)
[2023-02-16] MEDS: ENZALUTAMIDE 80 MG PO SCH (08:30)
[2023-02-16] MEDS: Sertraline 25 MG TAB PO SCH (20:43)
[2023-02-17] MEDS: methylPREDNISolone Sod Succ 40 MG VIAL IVP SCH ×2 (02:20→08:36)
[2023-02-17] MEDS: Mometasone 200 MCG/Formoterol 5 MCG 120 PUFF INHALER INH SCH ×2 (06:55→20:03)
[2023-02-17] MEDS: Ipratropium/Albuterol 3 ML NEB NEB SCH ×6 (06:58→22:30)
[2023-02-17] MEDS: Thiamine 100 MG TAB PO SCH (08:35)
[2023-02-17] MEDS: Lorazepam 0.5 MG TAB PO SCH ×3 (08:35→20:27)
[2023-02-17] MEDS: Folic Acid 1 MG TAB PO SCH (08:35)
[2023-02-17] MEDS: guaiFENesin ER 600 MG TAB PO SCH ×2 (08:35→20:27)
[2023-02-17] MEDS: Citalopram 10 MG TAB PO SCH (08:35)
[2023-02-17] MEDS: Amlodipine 5 MG TAB PO SCH (08:35)
[2023-02-17] MEDS: Furosemide 20 MG TAB PO SCH (08:35)
[2023-02-17] MEDS: Theophylline 300 MG ER.TAB PO SCH ×2 (08:35→20:26)
[2023-02-17] MEDS: ENZALUTAMIDE 80 MG PO SCH (08:36)
[2023-02-17] MEDS ORDERED: predniSONE 20 MG TAB PO SCH (09:30)
[2023-02-17] MEDS: Sertraline 25 MG TAB PO SCH (20:27)
[2023-02-18] MEDS: Ipratropium/Albuterol 3 ML NEB NEB SCH ×4 (00:50→13:33)
[2023-02-18] MEDS: Mometasone 200 MCG/Formoterol 5 MCG 120 PUFF INHALER INH SCH (06:54)
[2023-02-18 07:49] VITALS: TEMP 97.8
[2023-02-18] MEDS ORDERED: predniSONE 50 MG TAB PO SCH (08:00)
[2023-02-18] MEDS: Lorazepam 0.5 MG TAB PO SCH ×2 (09:55→14:06)
[2023-02-18] MEDS: Folic Acid 1 MG TAB PO SCH (09:55)
[2023-02-18] MEDS: Furosemide 20 MG TAB PO SCH (09:55)
[2023-02-18] MEDS: Thiamine 100 MG TAB PO SCH (09:55)
[2023-02-18] MEDS: Citalopram 10 MG TAB PO SCH (09:55)
[2023-02-18] MEDS: Amlodipine 5 MG TAB PO SCH (09:55)
[2023-02-18] MEDS: ENZALUTAMIDE 80 MG PO SCH (09:56)
[2023-02-18] MEDS: guaiFENesin ER 600 MG TAB PO SCH (09:56)
[2023-02-18] MEDS: Theophylline 300 MG ER.TAB PO SCH (09:58)
[2023-02-18 15:36] VITALS: BP 154/79
== END 2023-02-18 15:14 | disposition home or self-care (01) | DRG 190 ==
LOC: ERS 14:48 → 2NO 19:25 → T4-B 02-16 09:03
PROVIDERS: ADMIT Internal Medicine; ATTEND Internal Medicine
DX: J44.1 Chronic obstructive pulmonary disease with (acute) exacerbation (principal); J96.21 Acute and chronic respiratory failure with hypoxia; I50.32 Chronic diastolic (congestive) heart failure; I11.0 Hypertensive heart disease with heart failure; C61 Malignant neoplasm of prostate; N40.0 Benign prostatic hyperplasia without lower urinary tract symptoms; F41.8 Other specified anxiety disorders; G89.4 Chronic pain syndrome; F32.A Depression, unspecified; F10.90 Alcohol use, unspecified, uncomplicated; R53.1 Weakness; Z96.651 Presence of right artificial knee joint; Z79.899 Other long term (current) drug therapy; Z11.52 Encounter for screening for COVID-19; Z90.79 Acquired absence of other genital organ(s); Z98.890 Other specified postprocedural states; Z87.891 Personal history of nicotine dependence
CPT/HCPCS: 36415; 36416; 71045; 80048; 80053; 81001; 83605; 83735; 83880; 84484; 85025; 87040; 93005; 94640; 96365; 96367; 96375; J0456; J0692; J1650; J1940; J2920; J2930; J3370-JW; J3475; J3490; J7050; J7512; J7611; J7620

== ENCOUNTER 2023-04-15 18:52 | Inpatient (IN) | payer OTHER, MEDICAID ==
[2023-04-15 20:21] LABS: #Basophils 0.1 thou/uL (0.0-0.2); #Eosinphils 0.2 thou/uL (0.0-0.7); #Monocytes 0.5 thou/uL (0.11-0.59); %Eosinophils 2.8 % (0.0-10.0); %Lymphocytes 20.2 % (21.0-51.0); %Monocytes 6.9 % (0.0-10.0); %Neutrophils 68.7 % (42.0-75.0); Hematocrit 46.5 % (42.0-52.0); Hemoglobin 14.7 g/dL (14.0-18.0); Mean Corpuscular HGB CONC 31.6 g/dL (32.0-36.0); Mean Corpuscular Hemoglobin 33.9 pg (27.0-31.0); Mean Corpuscular Volume 107.4 fl (78.0-98.0); Mean Platelet Volume 8.5 fL (7.4-10.4); Platelet Count 262 10x3/uL (130-400); RBC Distribution Width 13.5 % (11.5-14.5); Red Blood Cell (RBC) Count 4.33 mill/uL (4.70-6.10); White Blood Cell (WBC) Count 7.2 10x3/uL (4.8-10.8)
[2023-04-15 20:40] LABS: Troponin I 0.012 ng/mL (< 0.028)
[2023-04-15 20:43] LABS: ALT (SGPT) 11 U/L (8-55); AST (SGOT) 16 U/L (5-34); Albumin 4.3 g/dL (3.4-4.8); Alkaline Phosphatase 67 U/L (40-110); Anion Gap 13 mmol/L (10-20); BUN (Urea Nitrogen) 7 mg/dL (8.4-25.7); Bilirubin, Total 0.3 mg/dL (0.2-1.2); Calc. Creatinine Clearance 0 mL/min (70-130); Calcium 9.2 mg/dL (7.8-10.44); Carbon Dioxide 22 mmol/L (23-31); Chloride 108 mmol/L (98-107); Estimated GFR 96; Glucose 92 mg/dL (80-115); Potassium 4.3 mmol/L (3.5-5.1); Protein, Total 7.3 g/dL (5.8-8.1); Sodium 139 mmol/L (136-145)
[2023-04-15] MEDS ORDERED: methylPREDNISolone Sod Succ/PF 125 MG/2 ML VIAL ONE (20:48)
[2023-04-15 21:00] LABS: SARS-CoV-2 NAA Rapid Test Not Detected (NotDetected)
[2023-04-15] MEDS ORDERED: Magnesium 2 GM/50 ML BAG (IN WATER) ONE (22:29)
[2023-04-15] MEDS ORDERED: Ondansetron ODT 4 MG TAB PO PRN (23:10)
[2023-04-15] MEDS ORDERED: Ipratropium/Albuterol 3 ML NEB NEB PRN (23:15)
[2023-04-15] MEDS ORDERED: Electrolyte Replacement Protocol 1 EACH FS SCH (23:30)
[2023-04-15] MEDS ORDERED: Nicotine 14 MG PATCH TD SCH (23:59)
[2023-04-16] MEDS ORDERED: Cefepime 1 GM in Sodium Chloride 0.9% 100 ML IVPB SCH (01:00)
[2023-04-16] MEDS ORDERED: Ipratropium/Albuterol 3 ML NEB ONE (02:49)
[2023-04-16] MEDS: Thiamine HCl 200 MG/2 ML VIAL SLOW IVP SCH ×2 (03:39→23:10)
[2023-04-16 04:42] VITALS: BMI 29.2
[2023-04-16] MEDS: Cefepime 1 GM in Sodium Chloride 0.9% 100 ML IVPB SCH ×4 (05:28→23:10)
[2023-04-16] MEDS ORDERED: methylPREDNISolone Sod Succ/PF 125 MG/2 ML VIAL IVP SCH (06:00)
[2023-04-16 07:22] LABS: ALT (SGPT) 12 U/L (8-55); AST (SGOT) 20 U/L (5-34); Albumin 3.8 g/dL (3.4-4.8); Alkaline Phosphatase 67 U/L (40-110); Anion Gap 17 mmol/L (10-20); BUN (Urea Nitrogen) 9 mg/dL (8.4-25.7); Bilirubin, Total 0.3 mg/dL (0.2-1.2); Calc. Creatinine Clearance 124 mL/min (70-130); Carbon Dioxide 19 mmol/L (23-31); Chloride 106 mmol/L (98-107); Estimated GFR 99; Globulin 3.6 g/dL (2.4-3.5); Glucose 123 mg/dL (80-115); Protein, Total 7.4 g/dL (5.8-8.1); Sodium 137 mmol/L (136-145)
[2023-04-16] MEDS: Ipratropium/Albuterol 3 ML NEB NEB SCH ×6 (07:51→21:34)
[2023-04-16] MEDS: Enzalutamide [Xtandi] 80 MG Tablet PO SCH (08:52)
[2023-04-16] MEDS: Folic Acid 1 MG TAB PO SCH (08:53)
[2023-04-16] MEDS: Multivit, Therapeutic 1 TAB PO SCH (08:53)
[2023-04-16] MEDS: Enoxaparin 40 MG (0.4 mL) SYRINGE SC SCH (08:53)
[2023-04-16] MEDS: Amlodipine 5 MG TAB PO SCH (08:53)
[2023-04-16] MEDS: busPIRone HCl 10 MG TAB PO SCH ×2 (08:53→21:03)
[2023-04-16] MEDS: Furosemide 20 MG TAB PO SCH (08:53)
[2023-04-16 13:02] LABS: #Monocytes 0.2 thou/uL (0.11-0.59); #Neutrophils 8.1 thou/uL (1.40-6.50); %Basophils 0.1 % (0.0-1.0); %Lymphocytes 5.7 % (21.0-51.0); %Monocytes 2.4 % (0.0-10.0); %Neutrophils 91.3 % (42.0-75.0); Hematocrit 44.6 % (42.0-52.0); Hemoglobin 14.1 g/dL (14.0-18.0); Mean Corpuscular HGB CONC 31.6 g/dL (32.0-36.0); Mean Corpuscular Hemoglobin 33.7 pg (27.0-31.0); Mean Corpuscular Volume 106.7 fl (78.0-98.0); Mean Platelet Volume 8.7 fL (7.4-10.4); Platelet Count 274 10x3/uL (130-400); RBC Distribution Width 13.3 % (11.5-14.5); Red Blood Cell (RBC) Count 4.18 mill/uL (4.70-6.10); White Blood Cell (WBC) Count 8.9 10x3/uL (4.8-10.8)
[2023-04-16] MEDS: Nicotine 14 MG PATCH TD SCH (21:03)
[2023-04-16] MEDS: Sertraline 25 MG TAB PO SCH (21:03)
[2023-04-16] MEDS ORDERED: Cyclobenzaprine 10 MG TAB PO SCH (21:15)
[2023-04-16] MEDS ORDERED: Benzonatate 100 MG CAP PO PRN (21:15)
[2023-04-16] MEDS ORDERED: traZODone HCl 50 MG TAB PO PRN (23:11)
[2023-04-17] MEDS: Ipratropium/Albuterol 3 ML NEB NEB SCH ×6 (02:14→21:44)
[2023-04-17] MEDS: Cefepime 1 GM in Sodium Chloride 0.9% 100 ML IVPB SCH ×4 (06:30→23:03)
[2023-04-17] MEDS: methylPREDNISolone Sod Succ 40 MG VIAL IVP SCH (06:31)
[2023-04-17 07:44] LABS: #Eosinphils 0.1 thou/uL (0.0-0.7); #Monocytes 0.4 thou/uL (0.11-0.59); #Neutrophils 4.8 thou/uL (1.40-6.50); %Basophils 0.4 % (0.0-1.0); %Eosinophils 1.3 % (0.0-10.0); %Lymphocytes 22.9 % (21.0-51.0); %Monocytes 6.2 % (0.0-10.0); %Neutrophils 69.1 % (42.0-75.0); Hematocrit 37.2 % (42.0-52.0); Hemoglobin 12.2 g/dL (14.0-18.0); Mean Corpuscular HGB CONC 32.8 g/dL (32.0-36.0); Mean Corpuscular Hemoglobin 34.7 pg (27.0-31.0); Mean Corpuscular Volume 105.7 fl (78.0-98.0); Mean Platelet Volume 8.8 fL (7.4-10.4); Platelet Count 256 10x3/uL (130-400); RBC Distribution Width 13.5 % (11.5-14.5); Red Blood Cell (RBC) Count 3.52 mill/uL (4.70-6.10); White Blood Cell (WBC) Count 6.9 10x3/uL (4.8-10.8)
[2023-04-17 08:15] LABS: ALT (SGPT) 13 U/L (8-55); AST (SGOT) 22 U/L (5-34); Albumin 3.5 g/dL (3.4-4.8); Alkaline Phosphatase 53 U/L (40-110); Anion Gap 12 mmol/L (10-20); BUN (Urea Nitrogen) 16 mg/dL (8.4-25.7); Bilirubin, Total 0.3 mg/dL (0.2-1.2); Calc. Creatinine Clearance 114 mL/min (70-130); Calcium 8.7 mg/dL (7.8-10.44); Carbon Dioxide 22 mmol/L (23-31); Chloride 107 mmol/L (98-107); Estimated GFR 96; Glucose 99 mg/dL (80-115); Potassium 4.1 mmol/L (3.5-5.1); Protein, Total 6.5 g/dL (5.8-8.1); Sodium 137 mmol/L (136-145)
[2023-04-17] MEDS: busPIRone HCl 10 MG TAB PO SCH ×2 (09:19→21:32)
[2023-04-17] MEDS: Amlodipine 5 MG TAB PO SCH (09:19)
[2023-04-17] MEDS: Furosemide 20 MG TAB PO SCH (09:20)
[2023-04-17] MEDS: Enoxaparin 40 MG (0.4 mL) SYRINGE SC SCH (09:20)
[2023-04-17] MEDS: Multivit, Therapeutic 1 TAB PO SCH (09:20)
[2023-04-17] MEDS: Folic Acid 1 MG TAB PO SCH (09:20)
[2023-04-17] MEDS: Enzalutamide [Xtandi] 80 MG Tablet PO SCH (09:21)
[2023-04-17] MEDS ORDERED: Ibuprofen 200 MG TAB PO PRN (09:40)
[2023-04-17] MEDS: Acetaminophen 325 MG TAB PO PRN (11:38)
[2023-04-17] MEDS: Nicotine 14 MG PATCH TD SCH (21:31)
[2023-04-17] MEDS: Sertraline 25 MG TAB PO SCH (21:31)
[2023-04-17] MEDS: Thiamine HCl 200 MG/2 ML VIAL SLOW IVP SCH (23:02)
[2023-04-18] MEDS: Ipratropium/Albuterol 3 ML NEB NEB SCH ×6 (02:13→21:49)
[2023-04-18] MEDS: methylPREDNISolone Sod Succ 40 MG VIAL IVP SCH (06:23)
[2023-04-18] MEDS: Cefepime 1 GM in Sodium Chloride 0.9% 100 ML IVPB SCH ×2 (06:28→11:57)
[2023-04-18] MEDS ORDERED: Sodium Chloride 0.65% Nasal 44 ML BOT EA NARE PRN (08:13)
[2023-04-18] MEDS ORDERED: guaiFENesin 200 MG TAB PO PRN (08:14)
[2023-04-18] MEDS: Amlodipine 5 MG TAB PO SCH (08:48)
[2023-04-18] MEDS: guaiFENesin 200 MG TAB PO SCH ×4 (08:48→20:38)
[2023-04-18] MEDS: Folic Acid 1 MG TAB PO SCH (08:50)
[2023-04-18] MEDS: Furosemide 20 MG TAB PO SCH (08:50)
[2023-04-18] MEDS: Multivit, Therapeutic 1 TAB PO SCH (08:50)
[2023-04-18] MEDS: busPIRone HCl 10 MG TAB PO SCH ×2 (08:50→20:37)
[2023-04-18] MEDS: Enoxaparin 40 MG (0.4 mL) SYRINGE SC SCH (08:51)
[2023-04-18] MEDS: Enzalutamide [Xtandi] 80 MG Tablet PO SCH (08:52)
[2023-04-18 09:33] LABS: #Monocytes 0.2 thou/uL (0.11-0.59); %Basophils 0.5 % (0.0-1.0); %Eosinophils 0.5 % (0.0-10.0); %Lymphocytes 9.3 % (21.0-51.0); %Monocytes 2.6 % (0.0-10.0); %Neutrophils 86.4 % (42.0-75.0); Hematocrit 38.2 % (42.0-52.0); Hemoglobin 12.4 g/dL (14.0-18.0); Mean Corpuscular HGB CONC 32.5 g/dL (32.0-36.0); Mean Corpuscular Hemoglobin 34.8 pg (27.0-31.0); Mean Corpuscular Volume 107.3 fl (78.0-98.0); Mean Platelet Volume 8.7 fL (7.4-10.4); Platelet Count 277 10x3/uL (130-400); RBC Distribution Width 13.4 % (11.5-14.5); Red Blood Cell (RBC) Count 3.56 mill/uL (4.70-6.10); White Blood Cell (WBC) Count 8.1 10x3/uL (4.8-10.8)
[2023-04-18 09:52] LABS: ALT (SGPT) 12 U/L (8-55); AST (SGOT) 14 U/L (5-34); Albumin 3.9 g/dL (3.4-4.8); Alkaline Phosphatase 47 U/L (40-110); Anion Gap 13 mmol/L (10-20); BUN (Urea Nitrogen) 17 mg/dL (8.4-25.7); Bilirubin, Total 0.2 mg/dL (0.2-1.2); Calc. Creatinine Clearance 118 mL/min (70-130); Calcium 8.7 mg/dL (7.8-10.44); Carbon Dioxide 21 mmol/L (23-31); Chloride 107 mmol/L (98-107); Estimated GFR 97; Globulin 2.5 g/dL (2.4-3.5); Glucose 113 mg/dL (80-115); Potassium 3.7 mmol/L (3.5-5.1); Protein, Total 6.4 g/dL (5.8-8.1); Sodium 137 mmol/L (136-145)
[2023-04-18] MEDS: predniSONE 20 MG TAB PO SCH (12:39)
[2023-04-18] MEDS: Nicotine 14 MG PATCH TD SCH (20:38)
[2023-04-18] MEDS: Sertraline 25 MG TAB PO SCH (20:38)
[2023-04-18] MEDS: Thiamine 100 MG TAB PO SCH (20:38)
[2023-04-19] MEDS: guaiFENesin 200 MG TAB PO SCH ×6 (01:21→20:08)
[2023-04-19 05:29] LABS: #Eosinphils 0.1 thou/uL (0.0-0.7); #Monocytes 0.7 thou/uL (0.11-0.59); #Neutrophils 6.8 thou/uL (1.40-6.50); %Basophils 0.4 % (0.0-1.0); %Eosinophils 0.5 % (0.0-10.0); %Lymphocytes 24.5 % (21.0-51.0); %Monocytes 7.2 % (0.0-10.0); %Neutrophils 67.1 % (42.0-75.0); Hematocrit 41.4 % (42.0-52.0); Hemoglobin 13.3 g/dL (14.0-18.0); Mean Corpuscular HGB CONC 32.1 g/dL (32.0-36.0); Mean Corpuscular Hemoglobin 33.8 pg (27.0-31.0); Mean Corpuscular Volume 105.1 fl (78.0-98.0); Mean Platelet Volume 8.4 fL (7.4-10.4); Platelet Count 297 10x3/uL (130-400); RBC Distribution Width 13.3 % (11.5-14.5); Red Blood Cell (RBC) Count 3.94 mill/uL (4.70-6.10); White Blood Cell (WBC) Count 10.2 10x3/uL (4.8-10.8)
[2023-04-19 05:53] LABS: ALT (SGPT) 13 U/L (8-55); AST (SGOT) 14 U/L (5-34); Albumin 4.2 g/dL (3.4-4.8); Alkaline Phosphatase 53 U/L (40-110); Anion Gap 12 mmol/L (10-20); BUN (Urea Nitrogen) 17 mg/dL (8.4-25.7); Bilirubin, Total 0.3 mg/dL (0.2-1.2); Calc. Creatinine Clearance 115 mL/min (70-130); Calcium 9.2 mg/dL (7.8-10.44); Carbon Dioxide 24 mmol/L (23-31); Chloride 104 mmol/L (98-107); Estimated GFR 97; Globulin 2.7 g/dL (2.4-3.5); Glucose 105 mg/dL (80-115); Potassium 3.3 mmol/L (3.5-5.1); Protein, Total 6.9 g/dL (5.8-8.1); Sodium 137 mmol/L (136-145)
[2023-04-19] MEDS: Ipratropium/Albuterol 3 ML NEB NEB SCH ×4 (07:40→22:01)
[2023-04-19] MEDS: Amlodipine 5 MG TAB PO SCH (08:44)
[2023-04-19] MEDS: Multivit, Therapeutic 1 TAB PO SCH (08:44)
[2023-04-19] MEDS: busPIRone HCl 10 MG TAB PO SCH ×2 (08:44→20:08)
[2023-04-19] MEDS: Furosemide 20 MG TAB PO SCH (08:44)
[2023-04-19] MEDS: Azithromycin 250 MG TAB PO SCH (08:44)
[2023-04-19] MEDS: Enzalutamide [Xtandi] 80 MG Tablet PO SCH (08:45)
[2023-04-19] MEDS: Enoxaparin 40 MG (0.4 mL) SYRINGE SC SCH (08:46)
[2023-04-19] MEDS: Folic Acid 1 MG TAB PO SCH (08:46)
[2023-04-19] MEDS ORDERED: Potassium Chloride 20 MEQ TAB PO SCH (09:45)
[2023-04-19] MEDS: predniSONE 20 MG TAB PO SCH (12:54)
[2023-04-19] MEDS: Thiamine 100 MG TAB PO SCH (20:08)
[2023-04-19] MEDS: Sertraline 25 MG TAB PO SCH (20:08)
[2023-04-19] MEDS: traZODone HCl 50 MG TAB PO SCH (20:08)
[2023-04-19] MEDS: Nicotine 14 MG PATCH TD SCH (20:09)
[2023-04-20] MEDS: guaiFENesin 200 MG TAB PO SCH ×6 (01:32→21:09)
[2023-04-20 05:47] LABS: Hemoglobin 12.5 g/dL (14.0-18.0); Manual Diff?? YES; Mean Corpuscular HGB CONC 32.1 g/dL (32.0-36.0); Mean Corpuscular Hemoglobin 33.9 pg (27.0-31.0); Mean Corpuscular Volume 105.7 fl (78.0-98.0); Mean Platelet Volume 8.3 fL (7.4-10.4); Platelet Count 282 10x3/uL (130-400); RBC Distribution Width 13.5 % (11.5-14.5); Red Blood Cell (RBC) Count 3.69 mill/uL (4.70-6.10); White Blood Cell (WBC) Count 8.1 10x3/uL (4.8-10.8)
[2023-04-20 05:58] LABS: Delete Auto Diff?? YES
[2023-04-20 06:18] LABS: ALT (SGPT) 16 U/L (8-55); AST (SGOT) 15 U/L (5-34); Albumin 3.7 g/dL (3.4-4.8); Alkaline Phosphatase 50 U/L (40-110); Anion Gap 13 mmol/L (10-20); BUN (Urea Nitrogen) 17 mg/dL (8.4-25.7); Bilirubin, Total 0.2 mg/dL (0.2-1.2); Calc. Creatinine Clearance 106 mL/min (70-130); Carbon Dioxide 25 mmol/L (23-31); Chloride 107 mmol/L (98-107); Estimated GFR 94; Globulin 2.5 g/dL (2.4-3.5); Glucose 108 mg/dL (80-115); Potassium 3.7 mmol/L (3.5-5.1); Protein, Total 6.2 g/dL (5.8-8.1); Sodium 141 mmol/L (136-145)
[2023-04-20] MEDS: Ipratropium/Albuterol 3 ML NEB NEB SCH ×4 (07:45→22:11)
[2023-04-20 08:03] LABS: Band 6 % (5-11); CellaVision Operator ID LAB.GE; Eosinophils 2 % (0-10); Lymphocytes 21 % (21-51); Macrocytosis SLIGHT = 6-15 cells HPF (0-5); Monocytes 6 % (0-10); Neutrophil 65 % (42-75); Platelet Adequacy Comment Platelets Normal; Polychromasia SLIGHT = 2-3 cells HPF (0-2); Total Cell Count 99
[2023-04-20] MEDS: busPIRone HCl 10 MG TAB PO SCH ×2 (10:19→20:53)
[2023-04-20] MEDS: Amlodipine 5 MG TAB PO SCH (10:19)
[2023-04-20] MEDS: Azithromycin 250 MG TAB PO SCH (10:19)
[2023-04-20] MEDS: Multivit, Therapeutic 1 TAB PO SCH (10:20)
[2023-04-20] MEDS: Furosemide 20 MG TAB PO SCH (10:20)
[2023-04-20] MEDS: Enoxaparin 40 MG (0.4 mL) SYRINGE SC SCH (10:20)
[2023-04-20] MEDS: Folic Acid 1 MG TAB PO SCH (10:20)
[2023-04-20] MEDS: Enzalutamide [Xtandi] 80 MG Tablet PO SCH (10:21)
[2023-04-20] MEDS: predniSONE 20 MG TAB PO SCH (15:19)
[2023-04-20] MEDS: Nicotine 14 MG PATCH TD SCH (20:51)
[2023-04-20] MEDS: Sertraline 25 MG TAB PO SCH (20:54)
[2023-04-20] MEDS: Thiamine 100 MG TAB PO SCH (20:56)
[2023-04-20] MEDS: traZODone HCl 50 MG TAB PO SCH (20:57)
[2023-04-20] MEDS: Acetaminophen 325 MG TAB PO PRN (21:07)
[2023-04-21] MEDS: guaiFENesin 200 MG TAB PO SCH ×4 (03:05→13:25)
[2023-04-21 04:14] VITALS: TEMP 98
[2023-04-21 05:57] LABS: #Monocytes 0.6 thou/uL (0.11-0.59); #Neutrophils 7.3 thou/uL (1.40-6.50); %Basophils 0.3 % (0.0-1.0); %Eosinophils 0.2 % (0.0-10.0); %Monocytes 6.8 % (0.0-10.0); %Neutrophils 77.1 % (42.0-75.0); Hematocrit 38.1 % (42.0-52.0); Hemoglobin 12.4 g/dL (14.0-18.0); Mean Corpuscular HGB CONC 32.5 g/dL (32.0-36.0); Mean Corpuscular Hemoglobin 34.9 pg (27.0-31.0); Mean Corpuscular Volume 107.3 fl (78.0-98.0); Mean Platelet Volume 8.6 fL (7.4-10.4); Platelet Count 306 10x3/uL (130-400); RBC Distribution Width 13.3 % (11.5-14.5); Red Blood Cell (RBC) Count 3.55 mill/uL (4.70-6.10); White Blood Cell (WBC) Count 9.4 10x3/uL (4.8-10.8)
[2023-04-21 06:21] LABS: ALT (SGPT) 16 U/L (8-55); AST (SGOT) 16 U/L (5-34); Albumin 3.6 g/dL (3.4-4.8); Alkaline Phosphatase 50 U/L (40-110); Anion Gap 11 mmol/L (10-20); BUN (Urea Nitrogen) 23 mg/dL (8.4-25.7); Bilirubin, Total 0.2 mg/dL (0.2-1.2); Calc. Creatinine Clearance 98 mL/min (70-130); Calcium 8.7 mg/dL (7.8-10.44); Carbon Dioxide 24 mmol/L (23-31); Chloride 107 mmol/L (98-107); Estimated GFR 86; Globulin 2.6 g/dL (2.4-3.5); Glucose 105 mg/dL (80-115); Potassium 3.9 mmol/L (3.5-5.1); Protein, Total 6.2 g/dL (5.8-8.1); Sodium 138 mmol/L (136-145)
[2023-04-21] MEDS: Ipratropium/Albuterol 3 ML NEB NEB SCH ×2 (07:19→14:13)
[2023-04-21 07:40] VITALS: BP 146/86
[2023-04-21] MEDS: Enoxaparin 40 MG (0.4 mL) SYRINGE SC SCH (09:48)
[2023-04-21] MEDS: busPIRone HCl 10 MG TAB PO SCH (09:49)
[2023-04-21] MEDS: Azithromycin 250 MG TAB PO SCH (09:49)
[2023-04-21] MEDS: Amlodipine 5 MG TAB PO SCH (09:49)
[2023-04-21] MEDS: Multivit, Therapeutic 1 TAB PO SCH (09:49)
[2023-04-21] MEDS: Folic Acid 1 MG TAB PO SCH (09:49)
[2023-04-21] MEDS: Furosemide 20 MG TAB PO SCH (09:49)
[2023-04-21] MEDS: Enzalutamide [Xtandi] 80 MG Tablet PO SCH (09:54)
[2023-04-21] MEDS: predniSONE 20 MG TAB PO SCH (13:25)
== END 2023-04-21 16:34 | disposition home or self-care (01) | DRG 191 ==
LOC: ERS 18:52 → ERHOLD 23:28 → 2SW 04-16 02:31 → OBSVTOIN 04-17 08:50
PROVIDERS: ADMIT Family Medicine; ATTEND Family Medicine
DX: J44.1 Chronic obstructive pulmonary disease with (acute) exacerbation (principal); F10.99 Alcohol use, unspecified with unspecified alcohol-induced disorder; J96.10 Chronic respiratory failure, unspecified whether with hypoxia or hypercapnia; I50.30 Unspecified diastolic (congestive) heart failure; C61 Malignant neoplasm of prostate; F32.A Depression, unspecified; F17.210 Nicotine dependence, cigarettes, uncomplicated; I11.0 Hypertensive heart disease with heart failure; Z96.651 Presence of right artificial knee joint; K21.9 Gastro-esophageal reflux disease without esophagitis; F41.9 Anxiety disorder, unspecified; Z79.51 Long term (current) use of inhaled steroids; Z79.899 Other long term (current) drug therapy; Z98.890 Other specified postprocedural states; Z91.148 Patient's other noncompliance with medication regimen for other reason; Z11.52 Encounter for screening for COVID-19
CPT/HCPCS: 36415; 36416; 71045; 80053; 83880; 84145; 84484; 85025; 87070; 87205; 93005; 93010; 94640; 96365; 96366; 96367; 96372; 96375; 96376; G0378; J0692; J1650; J2920; J2930; J3411; J3475; J3490; J7512; J7620

== ENCOUNTER 2023-04-22 03:39 | Inpatient (IN) | payer OTHER, MEDICAID ==
[2023-04-22 04:13] LABS: Actual Bicarbonate (HCO3v) 28.5 mEq/L (22-28); Analyzer IN Cardio ER; Base Excess -0.7 mEq/L (-2.0 to +3.0); Calcium, Ionized (venous) 1.15 mmol/L (1.16-1.32); Chloride (VBG) 102 mmol/L (98-106); Hematocrit-VBG 47 % (42.0-52.0); Hemoglobin (Hb) 15.9 g/dL (12.6-17.4); Potassium (VBG) 5.38 mmol/L (3.70-5.30); Sodium 143 mmol/L (133-146); pH (venous) 7.246 (7.32-7.43)
[2023-04-22] MEDS ORDERED: Albuterol 2.5 MG (0.5 mL) NEB ONE ×2 (04:16→05:37)
[2023-04-22] MEDS ORDERED: Albuterol 2.5 MG (3 mL) NEB ONE ×2 (04:16→05:38)
[2023-04-22] MEDS ORDERED: Ipratropium Bromide 2.5 ml Neb ONE (04:17)
[2023-04-22] MEDS ORDERED: methylPREDNISolone Sod Succ/PF 125 MG/2 ML VIAL ONE (04:18)
[2023-04-22] MEDS ORDERED: Azithromycin 500 MG VIAL ONE ×2 (04:18→06:05)
[2023-04-22] MEDS ORDERED: cefTRIAXone (ROCEPHIN) 2 GM VIAL ONE (04:18)
[2023-04-22] MEDS ORDERED: Sodium Chloride 0.9% 250 ML 250 ML ONE ×2 (04:18→06:06)
[2023-04-22] MEDS ORDERED: Sodium Chloride 0.9% 100 ML ONE (04:18)
[2023-04-22] MEDS ORDERED: Magnesium 2 GM/50 ML BAG (IN WATER) ONE (04:18)
[2023-04-22 04:29] LABS: #Basophils 0.1 thou/uL (0.0-0.2); #Monocytes 0.7 thou/uL (0.11-0.59); #Neutrophils 11.9 thou/uL (1.40-6.50); %Basophils 0.3 % (0.0-1.0); %Eosinophils 0.2 % (0.0-10.0); %Lymphocytes 10.6 % (21.0-51.0); %Monocytes 4.9 % (0.0-10.0); %Neutrophils 83.2 % (42.0-75.0); Hematocrit 46.6 % (42.0-52.0); Hemoglobin 14.8 g/dL (14.0-18.0); Mean Corpuscular HGB CONC 31.8 g/dL (32.0-36.0); Mean Corpuscular Hemoglobin 33.8 pg (27.0-31.0); Mean Corpuscular Volume 106.4 fl (78.0-98.0); Mean Platelet Volume 8.5 fL (7.4-10.4); Platelet Count 381 10x3/uL (130-400); RBC Distribution Width 13.5 % (11.5-14.5); Red Blood Cell (RBC) Count 4.38 mill/uL (4.70-6.10); White Blood Cell (WBC) Count 14.4 10x3/uL (4.8-10.8)
[2023-04-22 04:57] LABS: Troponin I 0.074 ng/mL (< 0.028)
[2023-04-22 05:38] LABS: ALT (SGPT) 25 U/L (8-55); AST (SGOT) 21 U/L (5-34); Albumin 4.8 g/dL (3.4-4.8); Alkaline Phosphatase 59 U/L (40-110); Anion Gap 15 mmol/L (10-20); BUN (Urea Nitrogen) 18 mg/dL (8.4-25.7); Bilirubin, Total 0.2 mg/dL (0.2-1.2); Calc. Creatinine Clearance 0 mL/min (70-130); Calcium 9.7 mg/dL (7.8-10.44); Carbon Dioxide 29 mmol/L (23-31); Chloride 103 mmol/L (98-107); Estimated GFR 90; Globulin 3.3 g/dL (2.4-3.5); Glucose 148 mg/dL (80-115); Magnesium 2.5 mg/dL (1.6-2.6); Potassium 5.6 mmol/L (3.5-5.1); Protein, Total 8.1 g/dL (5.8-8.1); Sodium 141 mmol/L (136-145)
[2023-04-22] MEDS ORDERED: Ipratropium/Albuterol 3 ML NEB ONE ×3 (05:38→14:18)
[2023-04-22 06:35] LABS: INR-International Normal Ratio 0.8; Prothrombin Time 11.5 sec (12.0-14.7)
[2023-04-22 06:36] LABS: PTT 23.5 sec (22.9-36.1)
[2023-04-22 06:38] LABS: D-Dimer Test 0.69 *mcg/mL (0.27-0.43)
[2023-04-22] MEDS ORDERED: Aspirin Chewable 81 MG TAB ONE (06:49)
[2023-04-22 07:01] LABS: SARS-CoV-2 NAA Rapid Test Not Detected (NotDetected)
[2023-04-22 08:05] LABS: Critical Call Chem Troponin I MNUR.LR15@0804; Troponin I 0.336 ng/mL (< 0.028)
[2023-04-22] MEDS ORDERED: Ipratropium/Albuterol 3 ML NEB NEB PRN (08:14)
[2023-04-22] MEDS ORDERED: Calcium Gluc 4.6 MEQ/10 ML (100 MG/ML) ONE (08:49)
[2023-04-22] MEDS ORDERED: Ondansetron ODT 4 MG TAB PO PRN (08:54)
[2023-04-22] MEDS: Calcium Gluc 4.6 MEQ/10 ML (100 MG/ML) SLOW IVP SCH (08:56)
[2023-04-22] MEDS ORDERED: Electrolyte Replacement Protocol 1 EACH FS SCH (09:00)
[2023-04-22] MEDS: Ipratropium/Albuterol 3 ML NEB NEB SCH (09:11)
[2023-04-22] MEDS ORDERED: Electrolyte Replacement Protocol FS PRN (09:15)
[2023-04-22 09:32] LABS: Anion Gap 17 mmol/L (10-20); BUN (Urea Nitrogen) 18 mg/dL (8.4-25.7); Calc. Creatinine Clearance 133 mL/min (70-130); Carbon Dioxide 21 mmol/L (23-31); Chloride 108 mmol/L (98-107); Estimated GFR 100; Glucose 117 mg/dL (80-115); Potassium 4.5 mmol/L (3.5-5.1); Sodium 141 mmol/L (136-145)
[2023-04-22] MEDS ORDERED: Folic Acid 1 MG TAB ONE (09:43)
[2023-04-22] MEDS ORDERED: Sodium Polystyrene Sulfonate 15 GM (60 mL) BOT ONE (09:44)
[2023-04-22] MEDS ORDERED: Insulin Regular 300 UNITS/3 ML VIAL ONE (09:44)
[2023-04-22] MEDS ORDERED: Enoxaparin 100 MG (1 mL) SYRINGE ONE (09:44)
[2023-04-22] MEDS ORDERED: Thiamine HCl 200 MG/2 ML VIAL ONE (09:44)
[2023-04-22] MEDS ORDERED: Multivit, Therapeutic 1 TAB ONE (09:44)
[2023-04-22] MEDS: Thiamine HCl 200 MG/2 ML VIAL SLOW IVP SCH (09:49)
[2023-04-22] MEDS: Multivit, Therapeutic 1 TAB PO SCH (09:50)
[2023-04-22] MEDS: Folic Acid 1 MG TAB PO SCH (09:50)
[2023-04-22] MEDS: Enoxaparin 100 MG (1 mL) SYRINGE SC SCH (09:52)
[2023-04-22] MEDS: Dextrose 50% Abboject 50 ML SYRINGE SLOW IVP SCH (09:56)
[2023-04-22] MEDS: Insulin Regular 300 UNITS/3 ML VIAL IVP SCH (09:58)
[2023-04-22] MEDS: Sodium Polystyrene Sulfonate 15 GM (60 mL) BOT PO SCH (10:00)
[2023-04-22 11:09] LABS: Critical Call Chem Troponin I ERS.JI @1108; Troponin I 0.246 ng/mL (< 0.028)
[2023-04-22] MEDS ORDERED: Sodium Chloride 0.65% Nasal 44 ML BOT EA NARE PRN (16:05)
[2023-04-22] MEDS ORDERED: Albuterol 200 PUFF (6.7GM INHALER) INH PRN (16:05)
[2023-04-22] MEDS ORDERED: Thiamine 100 MG TAB PO SCH (17:00)
[2023-04-22] MEDS: FLU VACC QS2023(65UP)/MF59C/PF 60 MCG/0.5 ML SYRINGE IM ONE (17:24)
[2023-04-22] MEDS: guaiFENesin ER 600 MG TAB PO SCH ×2 (17:27→20:22)
[2023-04-22] MEDS: Enzalutamide [Xtandi] 80 MG Tablet PO SCH (17:28)
[2023-04-22] MEDS: Mometasone 100 MCG/PUFF (1 INHALER) INH SCH (18:45)
[2023-04-22] MEDS: Sertraline 25 MG TAB PO SCH (20:21)
[2023-04-22] MEDS: busPIRone HCl 5 MG TAB PO SCH (20:21)
[2023-04-22] MEDS: Theophylline 300 MG ER.TAB PO SCH (20:22)
[2023-04-23 05:02] LABS: Hematocrit 37.8 % (42.0-52.0); Hemoglobin 12.1 g/dL (14.0-18.0); Manual Diff?? YES; Mean Corpuscular Hemoglobin 34.1 pg (27.0-31.0); Mean Corpuscular Volume 106.5 fl (78.0-98.0); Mean Platelet Volume 8.7 fL (7.4-10.4); Platelet Count 314 10x3/uL (130-400); RBC Distribution Width 13.7 % (11.5-14.5); Red Blood Cell (RBC) Count 3.55 mill/uL (4.70-6.10); White Blood Cell (WBC) Count 9.6 10x3/uL (4.8-10.8)
[2023-04-23 05:25] LABS: ALT (SGPT) 19 U/L (8-55); AST (SGOT) 19 U/L (5-34); Albumin 3.8 g/dL (3.4-4.8); Alkaline Phosphatase 46 U/L (40-110); Anion Gap 9 mmol/L (10-20); BUN (Urea Nitrogen) 20 mg/dL (8.4-25.7); Bilirubin, Total 0.3 mg/dL (0.2-1.2); Calc. Creatinine Clearance 128 mL/min (70-130); Calcium 8.5 mg/dL (7.8-10.44); Carbon Dioxide 26 mmol/L (23-31); Chloride 107 mmol/L (98-107); Delete Auto Diff?? YES; Estimated GFR 99; Globulin 2.4 g/dL (2.4-3.5); Glucose 89 mg/dL (80-115); Potassium 3.3 mmol/L (3.5-5.1); Protein, Total 6.2 g/dL (5.8-8.1); Sodium 139 mmol/L (136-145)
[2023-04-23 06:24] LABS: Anisocytosis MODERATE=16-30 cells HPF (0-5); Band 4 % (5-11); CellaVision Operator ID LAB.JMM; Lymphocytes 23 % (21-51); Macrocytosis MODERATE=16-30 cells HPF (0-5); Monocytes 6 % (0-10); Neutrophil 67 % (42-75); Platelet Adequacy Comment Platelets Normal; Smudge Cells 20.2 %; Total Cell Count 99
[2023-04-23] MEDS ORDERED: Albuterol 200 PUFF (6.7GM INHALER) INH PRN (07:00)
[2023-04-23] MEDS ORDERED: Folic Acid 1 MG TAB PO SCH (09:00)
[2023-04-23] MEDS ORDERED: Non-Formulary Item 1 EACH (Tiotropium [Spiriva Handihaler] 18 MCG Box) INH SCH (09:00)
[2023-04-23] MEDS: Amlodipine 5 MG TAB PO SCH (09:49)
[2023-04-23] MEDS: Aspirin 81 mg Enteric Coated Tablet PO SCH (09:49)
[2023-04-23] MEDS: Potassium Chloride 20 MEQ TAB PO SCH (09:49)
[2023-04-23] MEDS: Furosemide 20 MG TAB PO SCH (09:50)
[2023-04-23] MEDS: predniSONE 20 MG TAB PO SCH (11:36)
[2023-04-23] MEDS ORDERED: Iopamidol-370 76% 500 ML MDV (1 ML CHARGE) ONE (13:03)
[2023-04-23] MEDS: traZODone HCl 50 MG TAB PO SCH (21:14)
[2023-04-24 06:29] LABS: Hematocrit 38.8 % (42.0-52.0); Hemoglobin 12.4 g/dL (14.0-18.0); Manual Diff?? YES; Mean Corpuscular Hemoglobin 33.7 pg (27.0-31.0); Mean Corpuscular Volume 105.4 fl (78.0-98.0); Mean Platelet Volume 8.6 fL (7.4-10.4); Platelet Count 314 10x3/uL (130-400); RBC Distribution Width 13.2 % (11.5-14.5); Red Blood Cell (RBC) Count 3.68 mill/uL (4.70-6.10); White Blood Cell (WBC) Count 7.8 10x3/uL (4.8-10.8)
[2023-04-24 06:33] LABS: Delete Auto Diff?? YES
[2023-04-24 06:53] LABS: ALT (SGPT) 20 U/L (8-55); AST (SGOT) 17 U/L (5-34); Albumin 3.7 g/dL (3.4-4.8); Alkaline Phosphatase 43 U/L (40-110); Anion Gap 13 mmol/L (10-20); BUN (Urea Nitrogen) 15 mg/dL (8.4-25.7); Bilirubin, Total 0.3 mg/dL (0.2-1.2); Calc. Creatinine Clearance 124 mL/min (70-130); Calcium 8.7 mg/dL (7.8-10.44); Carbon Dioxide 25 mmol/L (23-31); Chloride 106 mmol/L (98-107); Estimated GFR 98; Globulin 2.4 g/dL (2.4-3.5); Glucose 101 mg/dL (80-115); Potassium 3.6 mmol/L (3.5-5.1); Protein, Total 6.1 g/dL (5.8-8.1); Sodium 140 mmol/L (136-145)
[2023-04-24 06:56] LABS: CellaVision Operator ID lab.abc; Eosinophils 1 % (0-10); Lymphocytes 23 % (21-51); Macrocytosis SLIGHT = 6-15 cells HPF (0-5); Monocytes 11 % (0-10); Neutrophil 63 % (42-75); Platelet Adequacy Comment Platelets Normal; Reactive Lymphocytes 1 % (0-10); Smudge Cells 9.9 %; Total Cell Count 101
[2023-04-24] MEDS ORDERED: predniSONE 20 MG TAB PO SCH (08:00)
[2023-04-24] MEDS ORDERED: Ipratropium/Albuterol 3 ML NEB NEB PRN (09:03)
[2023-04-24] MEDS: Enoxaparin 40 MG (0.4 mL) SYRINGE SC SCH (09:49)
[2023-04-24] MEDS: methylPREDNISolone Sod Succ 40 MG VIAL IVP SCH (09:49)
[2023-04-24] MEDS: Magnesium 2 GM/50 ML(in water) 2 GM in Premix 1 BAG IVPB SCH (09:51)
[2023-04-24] MEDS ORDERED: Albuterol 2.5 MG (3 mL) NEB NEB PRN (10:47)
[2023-04-24] MEDS: Ipratropium/Albuterol 3 ML NEB NEB SCH ×2 (11:09→15:01)
[2023-04-24] MEDS: Albuterol 2.5 MG (3 mL) NEB NEB SCH (11:12)
[2023-04-25 05:17] LABS: #Monocytes 0.5 thou/uL (0.11-0.59); %Basophils 0.1 % (0.0-1.0); %Lymphocytes 5.6 % (21.0-51.0); %Monocytes 4.1 % (0.0-10.0); %Neutrophils 89.8 % (42.0-75.0); Hematocrit 37.4 % (42.0-52.0); Hemoglobin 12.2 g/dL (14.0-18.0); Mean Corpuscular HGB CONC 32.6 g/dL (32.0-36.0); Mean Corpuscular Hemoglobin 34.5 pg (27.0-31.0); Mean Corpuscular Volume 105.6 fl (78.0-98.0); Mean Platelet Volume 8.6 fL (7.4-10.4); Platelet Count 310 10x3/uL (130-400); RBC Distribution Width 13.2 % (11.5-14.5); Red Blood Cell (RBC) Count 3.54 mill/uL (4.70-6.10); White Blood Cell (WBC) Count 11.1 10x3/uL (4.8-10.8)
[2023-04-25 05:48] LABS: ALT (SGPT) 19 U/L (8-55); AST (SGOT) 16 U/L (5-34); Albumin 3.7 g/dL (3.4-4.8); Alkaline Phosphatase 48 U/L (40-110); Anion Gap 14 mmol/L (10-20); BUN (Urea Nitrogen) 15 mg/dL (8.4-25.7); Bilirubin, Total 0.3 mg/dL (0.2-1.2); Calc. Creatinine Clearance 119 mL/min (70-130); Calcium 9.1 mg/dL (7.8-10.44); Carbon Dioxide 24 mmol/L (23-31); Chloride 104 mmol/L (98-107); Estimated GFR 97; Globulin 2.8 g/dL (2.4-3.5); Glucose 152 mg/dL (80-115); Potassium 4.3 mmol/L (3.5-5.1); Protein, Total 6.5 g/dL (5.8-8.1); Sodium 138 mmol/L (136-145)
[2023-04-25] MEDS: Thiamine 100 MG TAB PO SCH (09:43)
[2023-04-25] MEDS ORDERED: Ipratropium/Albuterol 3 ML NEB NEB PRN (16:54)
[2023-04-25] MEDS: traZODone HCl 50 MG TAB PO SCH (18:32)
[2023-04-25] MEDS: Ipratropium/Albuterol 3 ML NEB NEB SCH (19:13)
[2023-04-25] MEDS: Budesonide 0.25 MG/2 ML NEB INH SCH (19:14)
[2023-04-25] MEDS: Doxycycline 100 MG CAP PO SCH (20:29)
[2023-04-26 04:59] LABS: Actual Bicarbonate (HCO3v) 25.6 mEq/L (22-28); Base Excess -0.3 mEq/L (-2.0 to +3.0); Calcium, Ionized (venous) 1.11 mmol/L (1.16-1.32); Chloride (VBG) 103 mmol/L (98-106); Hematocrit-VBG 48 % (42.0-52.0); Hemoglobin (Hb) 16.4 g/dL (12.6-17.4); Potassium (VBG) 3.66 mmol/L (3.70-5.30); Sodium 141 mmol/L (133-146); pH (venous) 7.362 (7.32-7.43)
[2023-04-26 05:34] LABS: #Monocytes 0.7 thou/uL (0.11-0.59); #Neutrophils 6.8 thou/uL (1.40-6.50); %Basophils 0.1 % (0.0-1.0); %Lymphocytes 6.9 % (21.0-51.0); %Monocytes 8.3 % (0.0-10.0); Hemoglobin 11.3 g/dL (14.0-18.0); Mean Corpuscular HGB CONC 32.3 g/dL (32.0-36.0); Mean Corpuscular Hemoglobin 34.2 pg (27.0-31.0); Mean Corpuscular Volume 106.1 fl (78.0-98.0); Mean Platelet Volume 8.4 fL (7.4-10.4); Platelet Count 283 10x3/uL (130-400); RBC Distribution Width 13.3 % (11.5-14.5); White Blood Cell (WBC) Count 8.1 10x3/uL (4.8-10.8)
[2023-04-26 06:31] LABS: ALT (SGPT) 17 U/L (8-55); AST (SGOT) 11 U/L (5-34); Albumin 3.7 g/dL (3.4-4.8); Alkaline Phosphatase 50 U/L (40-110); Anion Gap 10 mmol/L (10-20); BUN (Urea Nitrogen) 16 mg/dL (8.4-25.7); Bilirubin, Total Less than 0.2 mg/dL (0.2-1.2); Calc. Creatinine Clearance 117 mL/min (70-130); Calcium 8.8 mg/dL (7.8-10.44); Carbon Dioxide 25 mmol/L (23-31); Chloride 106 mmol/L (98-107); Estimated GFR 96; Globulin 2.5 g/dL (2.4-3.5); Glucose 107 mg/dL (80-115); Potassium 3.9 mmol/L (3.5-5.1); Protein, Total 6.2 g/dL (5.8-8.1); Sodium 137 mmol/L (136-145)
[2023-04-26] MEDS ORDERED: Albuterol 200 PUFF (6.7GM INHALER) INH PRN (07:43)
[2023-04-26] MEDS: Ipratropium/Albuterol 3 ML NEB NEB SCH (10:28)
[2023-04-26] MEDS: hydrOXYzine 25 MG TAB PO SCH (16:41)
[2023-04-26] MEDS: Doxycycline 100 MG CAP PO SCH (20:26)
[2023-04-27 04:33] LABS: #Monocytes 0.8 thou/uL (0.11-0.59); #Neutrophils 4.9 thou/uL (1.40-6.50); %Basophils 0.3 % (0.0-1.0); %Eosinophils 0.3 % (0.0-10.0); %Lymphocytes 15.5 % (21.0-51.0); %Monocytes 11.2 % (0.0-10.0); Hematocrit 37.3 % (42.0-52.0); Mean Corpuscular HGB CONC 32.2 g/dL (32.0-36.0); Mean Corpuscular Hemoglobin 34.4 pg (27.0-31.0); Mean Corpuscular Volume 106.9 fl (78.0-98.0); Platelet Count 278 10x3/uL (130-400); RBC Distribution Width 13.8 % (11.5-14.5); Red Blood Cell (RBC) Count 3.49 mill/uL (4.70-6.10); White Blood Cell (WBC) Count 6.8 10x3/uL (4.8-10.8)
[2023-04-27 05:10] LABS: ALT (SGPT) 17 U/L (8-55); AST (SGOT) 15 U/L (5-34); Albumin 3.7 g/dL (3.4-4.8); Alkaline Phosphatase 49 U/L (40-110); Anion Gap 18 mmol/L (10-20); BUN (Urea Nitrogen) 22 mg/dL (8.4-25.7); Bilirubin, Total 0.2 mg/dL (0.2-1.2); Calc. Creatinine Clearance 124 mL/min (70-130); Calcium 8.6 mg/dL (7.8-10.44); Carbon Dioxide 23 mmol/L (23-31); Chloride 105 mmol/L (98-107); Estimated GFR 98; Globulin 2.5 g/dL (2.4-3.5); Glucose 84 mg/dL (80-115); Potassium 3.5 mmol/L (3.5-5.1); Protein, Total 6.2 g/dL (5.8-8.1); Sodium 142 mmol/L (136-145)
[2023-04-27] MEDS ORDERED: Polyethylene Glycol 3350 17 GM Packet PO PRN (07:51)
[2023-04-27] MEDS ORDERED: methylPREDNISolone Sod Succ 40 MG VIAL IVP SCH (09:00)
[2023-04-27] MEDS ORDERED: Doxycycline 100 MG CAP PO SCH (09:00)
[2023-04-27] MEDS: Folic Acid/Vit B Comp W-C PO SCH (09:10)
[2023-04-27] MEDS: methylPREDNISolone Sod Succ/PF 125 MG/2 ML VIAL IVP SCH (09:11)
[2023-04-27] MEDS: Sodium Chloride 0.65% Nasal 44 ML BOT EA NARE SCH (09:13)
[2023-04-27] MEDS: Morphine 2 MG/ML VIAL SLOW IVP PRN (11:22)
[2023-04-27] MEDS: Lorazepam 1 MG TAB PO PRN (11:22)
[2023-04-27] MEDS ORDERED: Acetaminophen 325 MG TAB PO PRN (11:23)
[2023-04-27] MEDS ORDERED: hydrOXYzine 25 MG TAB PO PRN (11:24)
[2023-04-28 07:36] LABS: #Eosinphils 0.1 thou/uL (0.0-0.7); #Monocytes 0.6 thou/uL (0.11-0.59); #Neutrophils 4.4 thou/uL (1.40-6.50); %Basophils 0.6 % (0.0-1.0); %Eosinophils 1.2 % (0.0-10.0); %Lymphocytes 20.9 % (21.0-51.0); %Monocytes 9.3 % (0.0-10.0); %Neutrophils 67.4 % (42.0-75.0); Hematocrit 40.4 % (42.0-52.0); Hemoglobin 12.9 g/dL (14.0-18.0); Mean Corpuscular HGB CONC 31.9 g/dL (32.0-36.0); Mean Corpuscular Hemoglobin 34.6 pg (27.0-31.0); Mean Corpuscular Volume 108.3 fl (78.0-98.0); Mean Platelet Volume 8.5 fL (7.4-10.4); Platelet Count 264 10x3/uL (130-400); Red Blood Cell (RBC) Count 3.73 mill/uL (4.70-6.10); White Blood Cell (WBC) Count 6.6 10x3/uL (4.8-10.8)
[2023-04-28 07:54] LABS: ALT (SGPT) 19 U/L (8-55); AST (SGOT) 20 U/L (5-34); Alkaline Phosphatase 50 U/L (40-110); Anion Gap 15 mmol/L (10-20); BUN (Urea Nitrogen) 21 mg/dL (8.4-25.7); Bilirubin, Total 0.3 mg/dL (0.2-1.2); Calc. Creatinine Clearance 101 mL/min (70-130); Calcium 9.4 mg/dL (7.8-10.44); Carbon Dioxide 26 mmol/L (23-31); Chloride 102 mmol/L (98-107); Estimated GFR 86; Globulin 2.9 g/dL (2.4-3.5); Glucose 95 mg/dL (80-115); Potassium 3.8 mmol/L (3.5-5.1); Protein, Total 6.9 g/dL (5.8-8.1); Sodium 139 mmol/L (136-145)
[2023-04-29 06:22] LABS: #Eosinphils 0.1 thou/uL (0.0-0.7); #Monocytes 0.6 thou/uL (0.11-0.59); %Basophils 0.2 % (0.0-1.0); %Eosinophils 0.9 % (0.0-10.0); %Lymphocytes 13.7 % (21.0-51.0); %Monocytes 5.4 % (0.0-10.0); %Neutrophils 79.2 % (42.0-75.0); Hematocrit 36.8 % (42.0-52.0); Mean Corpuscular HGB CONC 32.6 g/dL (32.0-36.0); Mean Corpuscular Hemoglobin 34.7 pg (27.0-31.0); Mean Corpuscular Volume 106.4 fl (78.0-98.0); Mean Platelet Volume 8.4 fL (7.4-10.4); Platelet Count 272 10x3/uL (130-400); RBC Distribution Width 13.6 % (11.5-14.5); Red Blood Cell (RBC) Count 3.46 mill/uL (4.70-6.10); White Blood Cell (WBC) Count 10.1 10x3/uL (4.8-10.8)
[2023-04-29 06:44] LABS: Anion Gap 14 mmol/L (10-20); BUN (Urea Nitrogen) 23 mg/dL (8.4-25.7); Calc. Creatinine Clearance 125 mL/min (70-130); Carbon Dioxide 26 mmol/L (23-31); Chloride 103 mmol/L (98-107); Estimated GFR 99; Glucose 93 mg/dL (80-115); Potassium 3.6 mmol/L (3.5-5.1); Sodium 139 mmol/L (136-145)
[2023-04-29] MEDS ORDERED: Polyethylene Glycol 3350 17 GM Packet PO SCH (08:00)
[2023-04-29] MEDS: predniSONE 20 MG TAB PO SCH (09:21)
[2023-04-29] MEDS: Docusate 100 MG CAP PO SCH (09:21)
[2023-04-29 14:57] LABS: Actual Bicarbonate (HCO3a) 26.4 mEq/L (22-28); Base Excess (BEa) 2.1 mEq/L (-2.0 to +3.0); CO2 Tension 40.2 mmHg (35.0-45.0); Carboxyhemoglobin (COHb) 2.9 gm% (0.0-3.0); Hematocrit-ABG 42 % (42.0-52.0); Hemoglobin (Hb) 14.2 g/dL (14.0-18.0); O2 Tension (PaO2), arterial 66.2 mmHg (> 80.0); Potassium - ABG Lab 4.07 mmol/L (3.70-5.30); pH, Arterial 7.435 (7.35-7.45)
[2023-04-29 14:58] LABS: Puncture Site RRA
[2023-04-30] MEDS: Scopolamine 1 mg/72 hour Patch TD SCH (13:33)
[2023-04-30] MEDS: Betamethasone Val 0.1% OINT 15 GM TUBE TOP SCH (20:24)
[2023-05-01 05:54] LABS: Hematocrit 37.7 % (42.0-52.0); Hemoglobin 12.1 g/dL (14.0-18.0); Manual Diff?? YES; Mean Corpuscular HGB CONC 32.1 g/dL (32.0-36.0); Mean Corpuscular Hemoglobin 33.7 pg (27.0-31.0); Mean Platelet Volume 8.3 fL (7.4-10.4); Platelet Count 263 10x3/uL (130-400); RBC Distribution Width 13.2 % (11.5-14.5); Red Blood Cell (RBC) Count 3.59 mill/uL (4.70-6.10); White Blood Cell (WBC) Count 6.7 10x3/uL (4.8-10.8)
[2023-05-01 06:04] LABS: Delete Auto Diff?? YES
[2023-05-01 06:21] LABS: Anion Gap 11 mmol/L (10-20); BUN (Urea Nitrogen) 19 mg/dL (8.4-25.7); Calc. Creatinine Clearance 139 mL/min (70-130); Carbon Dioxide 28 mmol/L (23-31); Chloride 103 mmol/L (98-107); Estimated GFR 102; Glucose 104 mg/dL (80-115); Potassium 3.4 mmol/L (3.5-5.1); Sodium 139 mmol/L (136-145)
[2023-05-01 06:26] LABS: Band 1 % (5-11); CellaVision Operator ID lab.sh2; Eosinophils 2 % (0-10); Lymphocytes 32 % (21-51); Macrocytosis MODERATE=16-30 cells HPF (0-5); Monocytes 6 % (0-10); Neutrophil 58 % (42-75); Ovalocytes SLIGHT = 2-5 cells HPF (0-1); Platelet Adequacy Comment Platelets Normal; Polychromasia SLIGHT = 2-3 cells HPF (0-2); Total Cell Count 100
[2023-05-01] MEDS: Senokot S 8.6-50 MG TAB PO SCH (09:03)
[2023-05-01] MEDS: Potassium Chloride 20 MEQ TAB PO SCH (09:03)
[2023-05-02] MEDS: Polyethylene Glycol 3350 17 GM Packet PO SCH (08:44)
[2023-05-03 06:28] LABS: Hematocrit 38.4 % (42.0-52.0); Manual Diff?? YES; Mean Corpuscular HGB CONC 31.3 g/dL (32.0-36.0); Mean Corpuscular Hemoglobin 33.5 pg (27.0-31.0); Mean Corpuscular Volume 107.3 fl (78.0-98.0); Mean Platelet Volume 8.5 fL (7.4-10.4); Platelet Count 268 10x3/uL (130-400); Red Blood Cell (RBC) Count 3.58 mill/uL (4.70-6.10)
[2023-05-03 06:32] LABS: Delete Auto Diff?? YES
[2023-05-03 06:49] LABS: Anion Gap 12 mmol/L (10-20); BUN (Urea Nitrogen) 14 mg/dL (8.4-25.7); Calc. Creatinine Clearance 129 mL/min (70-130); Calcium 8.8 mg/dL (7.8-10.44); Carbon Dioxide 24 mmol/L (23-31); Chloride 107 mmol/L (98-107); Estimated GFR 99; Glucose 85 mg/dL (80-115); Potassium 3.7 mmol/L (3.5-5.1); Sodium 139 mmol/L (136-145)
[2023-05-03 07:18] LABS: Band 7 % (5-11); CellaVision Operator ID LAB.KW3; Large Platelets 4.1 % (0-5); Lymphocytes 27 % (21-51); Monocytes 4 % (0-10); Neutrophil 60 % (42-75); Platelet Adequacy Comment Platelets Normal; Polychromasia SLIGHT = 2-3 cells HPF (0-2); Reactive Lymphocytes 1 % (0-10); Total Cell Count 98
[2023-05-03 23:56] VITALS: TEMP 97.8
[2023-05-04 11:32] VITALS: BP 160/88
== END 2023-05-04 16:17 | disposition hospice, inpatient (51) | DRG 189 ==
LOC: ERS 03:39 → ERHOLD 06:40 → 2SW 15:27 → T4-B 04-27 17:46
PROVIDERS: ADMIT Family Medicine; ATTEND Family Medicine
PROC: 5A09357 Assistance with Respiratory Ventilation, Less than 24 Consecutive Hours, Continuous Positive Airway Pressure (ICD-10-PCS; 2023-04-22)
PROC: 4A033R1 Measurement of Arterial Saturation, Peripheral, Percutaneous Approach (ICD-10-PCS; principal; 2023-04-29)
DX: J96.22 Acute and chronic respiratory failure with hypercapnia (principal); I21.A1 Myocardial infarction type 2; J44.1 Chronic obstructive pulmonary disease with (acute) exacerbation; I50.32 Chronic diastolic (congestive) heart failure; J96.21 Acute and chronic respiratory failure with hypoxia; I11.0 Hypertensive heart disease with heart failure; Z66 Do not resuscitate; Z51.5 Encounter for palliative care; C61 Malignant neoplasm of prostate; K21.9 Gastro-esophageal reflux disease without esophagitis; F32.A Depression, unspecified; F41.9 Anxiety disorder, unspecified; F17.210 Nicotine dependence, cigarettes, uncomplicated; F10.90 Alcohol use, unspecified, uncomplicated; R79.89 Other specified abnormal findings of blood chemistry; E87.5 Hyperkalemia; Z79.899 Other long term (current) drug therapy; Z98.890 Other specified postprocedural states; Z90.79 Acquired absence of other genital organ(s); Z90.2 Acquired absence of lung [part of]; Z11.52 Encounter for screening for COVID-19; Z91.148 Patient's other noncompliance with medication regimen for other reason
CPT/HCPCS: 36415; 36600; 71045; 71275; 80048; 80053; 82607; 82805; 83605; 83735; 83880; 84443; 84484; 85025; 85379; 85610; 85730; 87040; 90471; 90694; 93005; 93010; 94640; 94660; 94760; 96365; 96367; 96368; 96375; G0008; J0456; J0612; J0696; J1650; J1815; J2272; J2920; J2930; J3411; J3475; J3490; J7050; J7512; J7611; J7620; J7626; J7999; Q9967